=== PATIENT | male | born 1945 ===

== ENCOUNTER 2018-09-03 01:22 | Inpatient (IN) | payer MEDICARE ==
--- NOTE | 2018-09-03 01:24 | C.PDOC ---
History Of Present Illness Patient presents with shortness of breath and chest pain since this afternoon, No f/c/n/v. Medics did ekg which showed st elevation in anterior leads. patient speaking in 1-2 word sentences. Chest pain , squeezing, tightness, .Some back pain. Very short of breath Time Seen by Provider: 09/03/18 01:23 History Per: Family History/Exam Limitations: clinical condition Onset/Duration Of Symptoms: Hrs Current Symptoms Are (Timing): Worse Context: Other Severity: Severe Pain Scale Rating Of: 9 Quality: Sharp, Tightness, Pressure Associated Symptoms: Dyspnea Modifying Factors: None Alleviating Factors: None Recent travel outside of the [place]: No Past Medical History Reviewed: Historical Data, Nursing Documentation, Vital Signs Family History: States: No Known Family Hx Review Of Systems Constitutional: Negative for: Fever, Chills Eyes: Negative for: Vision Change ENT: Negative for: Throat Pain Cardiovascular: Positive for: Chest Pain, Palpitations Respiratory: Positive for: Shortness of Breath, SOB with Excertion Gastrointestinal: Negative for: Nausea, Vomiting, Abdominal Pain Genitourinary: Negative for: Dysuria Skin: Negative for: Rash Neurological: Negative for: Weakness Psych: Positive for: Anxiety Physical Exam - Physical Exam Appears: In Acute Distress Skin: Warm, Dry Head: Normacephalic Eye(s): bilateral: Normal Inspection Oral Mucosa: Moist Neck: Supple Chest: Symmetrical Cardiovascular: Rhythm Regular (tachy) Respiratory: Decreased Breath Sounds, Rales, Rhonchi, Wheezing (few) Gastrointestinal/Abdominal: Soft, No Tenderness, No Distention Back: Normal Inspection Extremity: Normal ROM Extremity: Bilateral: Atraumatic Pulses: Left Dorsalis Pedis: Normal, Right Dorsalis Pedis: Normal Neurological/Psych: Oriented x3 Gait: Unable To Assess ED Course And Treatment - Laboratory Results Result Diagrams: 09/03/18 01:40 ECG: Interpreted By Me, Viewed By Me ECG Rhythm: Sinus Tachycardia (151), ST/T Changes (elaevation millie lat) O2 Sat by Pulse Oximetry: 92 Pulse Ox Interpretation: Abnormal - Radiology CXR: Interpreted by Me, Viewed By Me CXR Interpretation: Yes: Other (chf). No: Infiltrates, Fracture, Cardiomegaly Progress Note: 1:28 AM send ekg to dr castaneda- steve loco md. 1:32 [facility] called. 1:43 am pt feels slightly better. 99 % sat on bipap. 1:58 pt had runs of bigeminy. stable Critical Care Time - Critical Care Note Total Time (in mins): 30 Documented critical care: time excludes all time spent performing seperately billable procedures. Disposition Counseled Patient/Family Regarding: Studies Performed, Diagnosis - Disposition Disposition: HOSPITALIZED Disposition Time: 01:23 Condition: CRITICAL - Clinical Impression Clinical Impression: Respiratory distress
[2018-09-03] MEDS ORDERED: Heparin25000 units/250ml 1/2NS 25,000 UNITS/250 ML BAG IV ONE (01:39)
[2018-09-03 01:58] LABS: BASO # 0.1 K/uL (0.0-0.2); EOS # 0.2 K/uL (0.0-0.7); EOS % 1.3 % (0.0-4.0); HEMOGLOBIN 18.5 g/dL (12.0-18.0); LYMPH # 3.7 K/uL (1.0-4.3); MEAN CELL VOLUME 93.7 fL (80.0-94.0); MEAN CORPUSCULAR HEMOGLOBIN 30.7 pg (27.0-31.0); MEAN CORPUSCULAR HGB CONC 32.8 g/dL (33.0-37.0); MEAN PLATELET VOLUME 9.4 fL (7.2-11.7); MONO # 0.8 K/uL (0.0-0.8); MONO % 6.3 % (0.0-10.0); NEUT # 7.5 K/uL (1.8-7.0); NEUT % 61.4 % (50.0-75.0); PROTHROMBIN TIME 11.1 SECONDS (9.7-12.2); RBC 6.04 Mil/uL (4.40-5.90); RED CELL DISTRIBUTION WIDTH 14.1 % (11.5-14.5); WHITE BLOOD COUNT 12.2 K/uL (4.8-10.8)
[2018-09-03 02:07] LABS: ABG ALLEN TEST POS; ARTERIAL BLOOD GAS HCO3 18.7 mmol/L (21-28); ARTERIAL BLOOD GAS O2 SAT 99.5 % (95-98); ARTERIAL BLOOD GAS PCO2 45 mm/Hg (35-45); ARTERIAL BLOOD GAS PH 7.24 (7.35-7.45); ARTERIAL BLOOD GAS PO2 165 mm/Hg (80-100); ARTERIAL BLOOD GAS TCO2 20.7 mmol/L (22-28)
[2018-09-03] MEDS ORDERED: Midazolam 2 MG/2 ML VIAL ONE (02:15)
[2018-09-03 02:21] LABS: BLOOD UREA NITROGEN 20 mg/dL (9-20); CALCIUM 9.7 mg/dl (8.6-10.4); GFR NON-AFRICAN AMERICAN 50
[2018-09-03 02:22] LABS: ALB/GLOB RATIO 1.4 (1.0-2.1); ALBUMIN 4.5 g/dL (3.5-5.0); ALT/SGPT 59 U/L (21-72); AST/SGOT 120 U/L (17-59)
[2018-09-03] MEDS ORDERED: Etomidate 20 mg/10ml Inj IV ONE (02:32)
[2018-09-03] MEDS ORDERED: Rocuronium 10 mg/ml (5 ml) ONE ×2 (02:33→03:01)
[2018-09-03] MEDS ORDERED: Iodixanol 320 MG/ML 200 ML BOTTLE IV ONE (02:38)
[2018-09-03] MEDS ORDERED: Nitroglycerin 50mg in D5W 50 MG/250 ML BOTTLE IV ONE (02:49)
[2018-09-03] MEDS ORDERED: Propofol 10 mg/ml 1,000 MG/100 ML VIAL IV PRN (02:49)
[2018-09-03] MEDS ORDERED: Propofol 10 mg/ml Inj (20 ML) ONE (02:51)
--- NOTE | 2018-09-03 03:06 | CP.CCUPN ---
CCU Subjective - Physician Review Subjective (Free Text): 09/03/18 03:25 The patient was Seen and examined by me at the bedside, Medical records reviewed and Management issues were discussed and formulated with the house staff. Events reviewed 73 Years old Male presenting to the Emergency department with shortness of breath and chest pain since this afternoon, On route to [facility], [place] EKG showed ST elevation in anterior leads. In the ER Pt Complaining of chest pain, tightness CXR with extensive Pulmonary edema and Labs revealed metabolic acidosis and elevated BG He received 20 mg IV Lasix 1:32 Code heart called, Patient taken to laborer. During the procedure he was in respiratry distress due to acute pulmonary edema Required intubation Patient required sedations and Neuromuscular-blocking drugs Started on dopamine drip for borderline BP and inotropic support Also Balloon pump placed for cardiogenic shock Pt admitted to the ICU sedated and orally intubated Successful Mid LAD intervention with Balloon angioplasty On versed and fentanlyl sedations Heparin drip and Insulin drip started in ICU L Main: Patent LAD/Diags; Small caliber artery. Entire LAD has diffuse 90% calcific narrowing. Mid 100% occlusion L Cx/OM: Dominant: Proximal 85%, OM2 99% RCA: Non dominant and diffuse 99% disease LV: EF 10-15%, Dilated ischemic CMP, No Critical Care Time Spent (in minutes): 45 CCU Objective - Vital Signs / Intake & Output Vital Signs (Last 4 hours): Vital Signs Temp Pulse Resp BP Pulse Ox 09/03/18 02:22 92 L 09/03/18 01:58 98.7 F 123 H 20 155/79 H 100 09/03/18 01:54 126 H 28 H 159/99 H 100 09/03/18 01:46 98 F 132 H 28 H 168/103 H 100 09/03/18 01:30 22 95 09/03/18 01:25 152 H 28 H 92 L Intake and Output (Last 8hrs): Intake & Output 09/02/18 09/02/18 09/03/18 14:59 22:59 06:59 Weight 140 lb - Physical Exam Head: Positive for: Atraumatic, Normocephalic Pupils: Positive for: PERRL Extroacular Muscles: Positive for: EOMI Conjunctiva: Positive for: Normal. Negative for: Injected, Icteric Ears: Positive for: Normal Mouth: Positive for: Moist Mucous Membranes Pharnyx: Positive for: Normal Nose (Internal): Positive for: Normal Inspection Neck: Positive for: Normal Range of Motion, Trachea Midline. Negative for: Meningeal Signs, MIDLINE TENDERNESS, Paraspinal Tenderness, JVD, Lymphadenopathy, Bruit, Other Cardiovascular: Positive for: Regular Rate and Rhythm, Normal S1, S2, Peripheal Pulses Present, Tachycardic. Negative for: Murmurs, Irregular Rhythm Abdomen: Positive for: Normal Bowel Sounds. Negative for: Tenderness, Distention, Peritoneal Signs Upper Extremity: Positive for: Normal Inspection, Capillary Refill < 2s. Negative for: Cyanosis, Edema Lower Extremity: Positive for: Normal Inspection, Edema - Medications Active Medications: Active Medications Generic Name Dose Route Start Last Admin Trade Name Freq PRN Reason Stop Dose Admin Fentanyl 100 mcg 09/03/18 03:01 Fentanyl IVP 09/03/18 03:02 ONCE ONE Heparin Sodium/Sodium Chloride 25,000 units in 250 mls @ 10 mls/hr 09/03/18 01:39 09/03/18 01:39 Heparin 63395 Units/250ml 1/2 Normal Saline IV 09/04/18 01:38 10 mls/hr .Q24H ONE Administration Protocol Propofol 1,000 mg in 100 mls @ 1.905 mls/hr 09/03/18 02:49 Diprivan IV .Q24H PRN TITRATE PER MD ORDER Protocol 5 MCG/KG/MIN Midazolam HCl 100 mg/ Sodium 100 mls @ 2 mls/hr 09/03/18 03:15 Chloride IV .Q24H STEPHANIE Protocol 2 MG/HR - Patient Studies Lab Studies: Lab Studies 09/03/18 09/03/18 09/03/18 Range/Units 02:00 01:55 01:40 WBC (4.8-10.8) K/uL RBC (4.40-5.90) Mil/uL Hgb (12.0-18.0) g/dL Hct (35.0-51.0) % MCV (80.0-94.0) fL MCH (27.0-31.0) pg MCHC (33.0-37.0) g/dL RDW (11.5-14.5) % Plt Count (130-400) K/uL MPV (7.2-11.7) fL Neut % (Auto) (50.0-75.0) % Lymph % (Auto) (20.0-40.0) % [place] % (Auto) (0.0-10.0) % Eos % (Auto) (0.0-4.0) % Baso % (Auto) (0.0-2.0) % Neut # (Auto) (1.8-7.0) K/uL Lymph # (Auto) (1.0-4.3) K/uL [place] # (Auto) (0.0-0.8) K/uL Eos # (Auto) (0.0-0.7) K/uL Baso # (Auto) (0.0-0.2) K/uL PT (9.7-12.2) SECONDS INR APTT (21-34) SECONDS Puncture Site Rr pCO2 45 (35-45) mm/Hg pO2 165 H (80-100) mm/Hg HCO3 18.7 L (21-28) mmol/L ABG pH 7.24 L (7.35-7.45) ABG Total CO2 20.7 L (22-28) mmol/L ABG O2 Saturation 99.5 H (95-98) % ABG Base Excess -8.0 L (-2.0-3.0) mmol/L [place]den Test Pos ABG Potassium 4.3 (3.6-5.2) mmol/L A-a O2 Difference 492.0 mm/Hg Respiratory Index 3.0 Glucose > 750 H* (75-110) mg/dl Lactate 5.0 H* (0.7-2.1) mmol/L Vent Mode Bipap FiO2 100.0 % Inspiratory BiPAP 12 Expiratory BiPAP 6 Crit Value Called To Dr. alfaro Crit Value Called By Ludwin necktie maker Crit Value Read Back Y Blood Gas Notified Time 207 Sodium 136.0 136 (132-148) mmol/L Potassium 4.6 (3.6-5.2) mmol/L Chloride 97.0 L 98 (98-107) mmol/L Carbon Dioxide 20 L (22-30) mmol/L Anion Gap 23 H (10-20) BUN 20 (9-20) mg/dL Creatinine 1.4 (0.8-1.5) mg/dL Est GFR ( Amer) > 60 Est GFR (Non-Af Amer) 50 Random Glucose 662 H* (75-110) mg/dL Calcium 9.7 (8.6-10.4) mg/dl Total Bilirubin 1.1 (0.2-1.3) mg/dL AST 120 H (17-59) U/L ALT 59 (21-72) U/L Alkaline Phosphatase 142 H (38-126) U/L Troponin I 5.9900 H* (0.00-0.120) ng/mL Total Protein 7.7 (6.3-8.3) g/dL Albumin 4.5 (3.5-5.0) g/dL Globulin 3.3 (2.2-3.9) gm/dL Albumin/Globulin Ratio 1.4 (1.0-2.1) Arterial Blood Potassium 4.3 (3.6-5.2) mmol/L Blood Type O POSITIVE Antibody Screen Negative 09/03/18 09/03/18 Range/Units 01:40 01:40 WBC 12.2 H (4.8-10.8) K/uL RBC 6.04 H (4.40-5.90) Mil/uL Hgb 18.5 H (12.0-18.0) g/dL Hct 56.6 H (35.0-51.0) % MCV 93.7 (80.0-94.0) fL MCH 30.7 (27.0-31.0) pg MCHC 32.8 L (33.0-37.0) g/dL RDW 14.1 (11.5-14.5) % Plt Count 297 (130-400) K/uL MPV 9.4 (7.2-11.7) fL Neut % (Auto) 61.4 (50.0-75.0) % Lymph % (Auto) 30.0 (20.0-40.0) % [place] % (Auto) 6.3 (0.0-10.0) % Eos % (Auto) 1.3 (0.0-4.0) % Baso % (Auto) 1.0 (0.0-2.0) % Neut # (Auto) 7.5 H (1.8-7.0) K/uL Lymph # (Auto) 3.7 (1.0-4.3) K/uL Valley # (Auto) 0.8 (0.0-0.8) K/uL Eos # (Auto) 0.2 (0.0-0.7) K/uL Baso # (Auto) 0.1 (0.0-0.2) K/uL PT 11.1 (9.7-12.2) SECONDS INR 1.0 APTT 45 H (21-34) SECONDS Puncture Site pCO2 (35-45) mm/Hg pO2 (80-100) mm/Hg HCO3 (21-28) mmol/L ABG pH (7.35-7.45) ABG Total CO2 (22-28) mmol/L ABG O2 Saturation (95-98) % ABG Base Excess (-2.0-3.0) mmol/L [place]den Test ABG Potassium (3.6-5.2) mmol/L A-a O2 Difference mm/Hg Respiratory Index Glucose (75-110) mg/dl Lactate (0.7-2.1) mmol/L Vent Mode FiO2 % Inspiratory BiPAP Expiratory BiPAP Crit Value Called To Crit Value Called By Crit Value Read Back Blood Gas Notified Time Sodium (132-148) mmol/L Potassium (3.6-5.2) mmol/L Chloride (98-107) mmol/L Carbon Dioxide (22-30) mmol/L Anion Gap (10-20) BUN (9-20) mg/dL Creatinine (0.8-1.5) mg/dL Est GFR ( Amer) Est GFR (Non-Af Amer) Random Glucose (75-110) mg/dL Calcium (8.6-10.4) mg/dl Total Bilirubin (0.2-1.3) mg/dL AST (17-59) U/L ALT (21-72) U/L Alkaline Phosphatase (38-126) U/L Troponin I (0.00-0.120) ng/mL Total Protein (6.3-8.3) g/dL Albumin (3.5-5.0) g/dL Globulin (2.2-3.9) gm/dL Albumin/Globulin Ratio (1.0-2.1) Arterial Blood Potassium (3.6-5.2) mmol/L Blood Type Antibody Screen Laboratory Results - last 24 hr 09/03/18 09/03/18 09/03/18 01:40 01:40 01:40 WBC 12.2 H RBC 6.04 H Hgb 18.5 H Hct 56.6 H MCV 93.7 MCH 30.7 MCHC 32.8 L RDW 14.1 Plt Count 297 MPV 9.4 Neut % (Auto) 61.4 Lymph % (Auto) 30.0 Valley % (Auto) 6.3 Eos % (Auto) 1.3 Baso % (Auto) 1.0 Neut # (Auto) 7.5 H Lymph # (Auto) 3.7 Valley # (Auto) 0.8 Eos # (Auto) 0.2 Baso # (Auto) 0.1 PT 11.1 INR 1.0 APTT 45 H Puncture Site pCO2 pO2 HCO3 ABG pH ABG Total CO2 ABG O2 Saturation ABG Base Excess Arden Test ABG Potassium A-a O2 Difference Respiratory Index Glucose Lactate Vent Mode FiO2 Inspiratory BiPAP Expiratory BiPAP Crit Value Called To Crit Value Called By Crit Value Read Back Blood Gas Notified Time Sodium 136 Potassium 4.6 Chloride 98 Carbon Dioxide 20 L Anion Gap 23 H BUN 20 Creatinine 1.4 Est GFR ( Amer) > 60 Est GFR (Non-Af Amer) 50 Random Glucose 662 H* Calcium 9.7 Total Bilirubin 1.1 AST 120 H ALT 59 Alkaline Phosphatase 142 H Troponin I 5.9900 H* Total Protein 7.7 Albumin 4.5 Globulin 3.3 Albumin/Globulin Ratio 1.4 Arterial Blood Potassium Blood Type Antibody Screen 09/03/18 09/03/18 01:55 02:00 WBC RBC Hgb Hct MCV MCH MCHC RDW Plt Count MPV Neut % (Auto) Lymph % (Auto) Valley % (Auto) Eos % (Auto) Baso % (Auto) Neut # (Auto) Lymph # (Auto) [place] # (Auto) Eos # (Auto) Baso # (Auto) PT INR APTT Puncture Site Rr pCO2 45 pO2 165 H HCO3 18.7 L ABG pH 7.24 L ABG Total CO2 20.7 L ABG O2 Saturation 99.5 H ABG Base Excess -8.0 L Arden Test Pos ABG Potassium 4.3 A-a O2 Difference 492.0 Respiratory Index 3.0 Glucose > 750 H* Lactate 5.0 H* Vent Mode Bipap FiO2 100.0 Inspiratory BiPAP 12 Expiratory BiPAP 6 Crit Value Called To Dr. alfaro Crit Value Called By Ludwin necktie maker Crit Value Read Back Y Blood Gas Notified Time 207 Sodium 136.0 Potassium Chloride 97.0 L Carbon Dioxide Anion Gap BUN Creatinine Est GFR ( Amer) Est GFR (Non-Af Amer) Random Glucose Calcium Total Bilirubin AST ALT Alkaline Phosphatase Troponin I Total Protein Albumin Globulin Albumin/Globulin Ratio Arterial Blood Potassium 4.3 Blood Type O POSITIVE Antibody Screen Negative EKG/Cardiology Studies: Cardiology / EKG Studies 09/03/18 01:33 ELECTROCARDIOGRAM Stat Comment: Mode Of Transportation: BED Reason For Exam: chest pain Review of Systems - Review of Systems Systems not reviewed;Unavailable: Intubated Critical Care Progress Note - Ventilator Checklist Head of Bed 30 Degrees: Yes Daily Sedation Vacation: Yes Daily Assessment of Readiness to Wean: Yes Daily Spontaneous Breathing Trial: Yes PUD Prophalyxis: Yes DVT Prophylaxis: Yes Oral Care with Chlorhexidine Gluconate {CHG}: Yes - Extremities/Vascular Does the Patient have a Central Venous Catheter?: Yes Does the Patient need a Central Venous Catheter?: Yes Does the Patient have a Goetz Catheter?: Yes Does the Patient need a Goetz Catheter?: Yes Assessment/Plan (1) Acute ST elevation myocardial infarction (STEMI) of anterior wall Current Visit: Yes Status: Acute Priority: High (2) Respiratory distress Current Visit: Yes Status: Acute Priority: High (3) Acute pulmonary edema Current Visit: Yes Status: Acute Priority: High (4) Hyperosmolar hyperglycemic coma due to diabetes mellitus without ketoacidosis Current Visit: Yes Status: Acute Priority: High - Assessment and Plan (Free Text) Assessment: Acute interior wall STEMI Cardiogenic shock Hyperosmolar hyperglycemic state ICU care for hemodynamic, cardiac and Respiratory monitoring Full vent support Post intubation CXR, ABG, Acchu check Q 1H while on insulin Wean off FIO2 Ballon pump and Dopamine drip for inotropic support ECHO today Trend Trops Heparin drip, Monitor PTT insulin drip at 6U /U till AG closed ASA, Brilinta, Crestor Gentle diuresis, Optimize fluid status Strict I&O, Negative fluid balance Monitor renal function and urine output Goetz placed for accurate I&O for the critically sick patient Discussed with the brother diagnosis, treatment plans and alternatives. Full code Total critical care time 45 minutes
[2018-09-03] MEDS ORDERED: DOPamine 400mg/250ml D5W 400 MG/250 ML BAG IV ONE (03:11)
--- NOTE | 2018-09-03 03:19 | PCM.ANES ---
Anesthesia Emergent Intubation - Diagnosis Working Diagnosis:: IL -Code heart - Consult Reason for Consult:: respiratory distress - Intubation Attempts Previous Number of Intubation Attempts:: 0 - Pre-Intubation Vital Signs Blood Pressure: 121/78 Heart Rate: 121 Respiratory Rate: 30 O2 Sat: 99 FIO2: 100 Oxygen Delivery Method: Ambu-Bag Level Of Consciousness: Awake, Awake/Alert/Oriented x 3 Intubation Meds Given: Etomidate, Succinylcholine - Airway Management Inhalation: Yes Rapid Sequence: Yes Cricoid Pressure: Yes Possible Aspiration: No (pharynx clean leonel secretions) - Method of Intubation Intubation Method: Oral ETT ETT Size: 7.0 Lipline@: 22 cm Easy: Yes Atramatic: Yes (first attempt) - Intubation Devices [place] Scope Used: Yes - Placement Confirmation Breath Sounds Present & Equal Bilaterally: Yes Gurgling Sounds Not Audible at Epigastrum: Yes Positive EtCO2: Yes Portable CXR: No (recommended once procedure is completed) Recommendations: Ventilator - Post-Intubation Vital Signs Blood Pressure: 120/70 Heart Rate: 121 Respiratory Rate: 20 O2 Sat: 99 FIO2: 100
--- NOTE | 2018-09-03 03:26 | PCM.ANES ---
Anesthesia Emergent Intubation - Diagnosis Working Diagnosis:: HI code heart - Consult Reason for Consult:: respiratory distress - Intubation Attempts Previous Number of Intubation Attempts:: 0 - Pre-Intubation Vital Signs Blood Pressure: 121/71 Heart Rate: 121 Respiratory Rate: 30 O2 Sat: 99 FIO2: 100 Oxygen Delivery Method: Ambu-Bag Level Of Consciousness: Awake Intubation Meds Given: Etomidate, Succinylcholine - Airway Management Oropharyngeal Area Suctioned: No (pharynx clean no secretions) Inhalation: Yes Rapid Sequence: Yes Cricoid Pressure: Yes Possible Aspiration: No - Method of Intubation Intubation Method: Oral ETT ETT Size: 7.0 Lipline@: 22 cm Easy: Yes Atramatic: Yes (first attempt) - Intubation Devices [place] Scope Used: Yes - Placement Confirmation Breath Sounds Present & Equal Bilaterally: Yes Gurgling Sounds Not Audible at Epigastrum: Yes Positive EtCO2: Yes Portable CXR: No (recommended once procedure is done) Recommendations: Ventilator - Post-Intubation Vital Signs Blood Pressure: 120/70 Heart Rate: 120 Respiratory Rate: 20 O2 Sat: 100 FIO2: 100
--- NOTE | 2018-09-03 03:38 | CP.PCM.CON ---
History of Present Illness - History of Present Illness History of Present Illness: 73 male presented to [facility] with Acute Anterior wall LA and pulmonary edema Required intubation in the laboratory aide L Main: Patent LAD/Diags; Small caliber artery. Entire LAD has diffuse 90% calcific narrowing. Mid 100% occlusion L Cx/OM: Dominant: Proximal 85%, OM2 99% RCA: Non dominant and diffuse 99% disease LV: EF 10-15%, Dilated ischemic CMP, No A/P: Diffuse calcific severe Triple vessel disease. Not good targets for CABG Successful Mid LAD intervention with Balloon angioplasty Artery too small caliber to stent Patient intubated on Balloon pump and Dopamine drip Recommendsations: Heparin IV drip with protocol Dopamine drip for inotropic effect for 2 days Brilinta 90 bid, ASA 81 daily, Crestor 40QHS 2 D ECHO Monitor labs and Trops Complete bed rest Hand mittens Will follow Possible L Cx intervention in 1-2 weeks Past Patient History - Past Social History Smoking Status: Never Smoked - ENDOCRINE/METABOLIC Hx Endocrine Disorders: Yes Hx Diabetes Mellitus Type 2: Yes (not taking any medications) - PSYCHIATRIC Hx Substance Use: No - SURGICAL HISTORY Hx Surgeries: No Meds Allergies/Adverse Reactions: Allergies Allergy/AdvReac Type Severity Reaction Status Date / Time No Known Allergies Allergy Verified 09/03/18 01:29 - Medications Medications: Current Medications Heparin Sodium/Sodium Chloride (Heparin 95461 Units/250ml 1/2 Normal Saline) 25,000 units in 250 mls @ 10 mls/hr IV .Q24H ONE; Protocol Stop: 09/04/18 01:38 Last Admin: 09/03/18 01:39 Dose: 10 mls/hr Propofol (Diprivan) 1,000 mg in 100 mls @ 1.905 mls/hr IV .Q24H PRN; Protocol PRN Reason: TITRATE PER MD ORDER Midazolam HCl 100 mg/ Sodium (Chloride) 100 mls @ 2 mls/hr IV .Q24H STEPHANIE; Protocol Fentanyl Citrate 2,500 mcg/ (Sodium Chloride) 250 mls @ 6.35 mls/hr IV .Q24H STEPHANIE; Protocol Results - Vital Signs Recent Vital Signs: Last Vital Signs Temp 98.7 F 09/03/18 01:58 Pulse 121 H 09/03/18 03:28 Resp 30 H 09/03/18 03:28 BP 121/71 09/03/18 03:28 Pulse Ox 99 09/03/18 03:28 - Labs Result Diagrams: 09/03/18 01:40 09/03/18 01:40 Labs: Laboratory Results - last 24 hr 09/03/18 09/03/18 09/03/18 01:40 01:40 01:40 WBC 12.2 H RBC 6.04 H Hgb 18.5 H Hct 56.6 H MCV 93.7 MCH 30.7 MCHC 32.8 L RDW 14.1 Plt Count 297 MPV 9.4 Neut % (Auto) 61.4 Lymph % (Auto) 30.0 [place] % (Auto) 6.3 Eos % (Auto) 1.3 Baso % (Auto) 1.0 Neut # (Auto) 7.5 H Lymph # (Auto) 3.7 [place] # (Auto) 0.8 Eos # (Auto) 0.2 Baso # (Auto) 0.1 PT 11.1 INR 1.0 APTT 45 H Puncture Site pCO2 pO2 HCO3 ABG pH ABG Total CO2 ABG O2 Saturation ABG Base Excess Arden Test ABG Potassium A-a O2 Difference Respiratory Index Glucose Lactate Vent Mode FiO2 Inspiratory BiPAP Expiratory BiPAP Crit Value Called To Crit Value Called By Crit Value Read Back Blood Gas Notified Time Sodium 136 Potassium 4.6 Chloride 98 Carbon Dioxide 20 L Anion Gap 23 H BUN 20 Creatinine 1.4 Est GFR ( Amer) > 60 Est GFR (Non-Af Amer) 50 Random Glucose 662 H* Calcium 9.7 Total Bilirubin 1.1 AST 120 H ALT 59 Alkaline Phosphatase 142 H Troponin I 5.9900 H* Total Protein 7.7 Albumin 4.5 Globulin 3.3 Albumin/Globulin Ratio 1.4 Arterial Blood Potassium Blood Type Antibody Screen 09/03/18 09/03/18 01:55 02:00 WBC RBC Hgb Hct MCV MCH MCHC RDW Plt Count MPV Neut % (Auto) Lymph % (Auto) [place] % (Auto) Eos % (Auto) Baso % (Auto) Neut # (Auto) Lymph # (Auto) [place] # (Auto) Eos # (Auto) Baso # (Auto) PT INR APTT Puncture Site Rr pCO2 45 pO2 165 H HCO3 18.7 L ABG pH 7.24 L ABG Total CO2 20.7 L ABG O2 Saturation 99.5 H ABG Base Excess -8.0 L [place]den Test Pos ABG Potassium 4.3 A-a O2 Difference 492.0 Respiratory Index 3.0 Glucose > 750 H* Lactate 5.0 H* Vent Mode Bipap FiO2 100.0 Inspiratory BiPAP 12 Expiratory BiPAP 6 Crit Value Called To Dr. alfaro Crit Value Called By Ludwin assembly member Crit Value Read Back Y Blood Gas Notified Time 207 Sodium 136.0 Potassium Chloride 97.0 L Carbon Dioxide Anion Gap BUN Creatinine Est GFR ( Amer) Est GFR (Non-Af Amer) Random Glucose Calcium Total Bilirubin AST ALT Alkaline Phosphatase Troponin I Total Protein Albumin Globulin Albumin/Globulin Ratio Arterial Blood Potassium 4.3 Blood Type O POSITIVE Antibody Screen Negative
[2018-09-03] MEDS ORDERED: Insulin Human Regular 100 UNIT in Sodium Chloride 0.9% 99 ML IV SCH ×3 (04:00→08:44)
[2018-09-03] MEDS: Midazolam 50 mg/10 ml 100 MG in Sodium Chloride 0.9% 80 ML IV SCH ×2 (04:29→23:23)
[2018-09-03 05:42] LABS: ARTERIAL BLOOD GAS HCO3 20.6 mmol/L (21-28); ARTERIAL BLOOD GAS O2 SAT 95.3 % (95-98); ARTERIAL BLOOD GAS PCO2 44 mm/Hg (35-45); ARTERIAL BLOOD GAS PH 7.29 (7.35-7.45); ARTERIAL BLOOD GAS PO2 69 mm/Hg (80-100); ARTERIAL BLOOD GAS TCO2 22.6 mmol/L (22-28)
[2018-09-03 05:54] LABS: URINE BILIRUBIN NEGATIVE (NEGATIVE); URINE CLARITY Clear (Clear); URINE COLOR Colorless (YELLOW); URINE GLUCOSE (UA) 3+ mg/dL (Normal); URINE LEUKOCYTE ESTERASE NEG Leu/uL (Negative); URINE PROTEIN NEGATIVE (NEGATIVE); URINE UROBILINOGEN NORMAL mg/dL (0.2-1.0)
[2018-09-03 06:09] LABS: URINE BLOOD TRACE (NEGATIVE)
[2018-09-03 08:14] LABS: BASO % 0.2 % (0.0-2.0); HEMOGLOBIN 18.7 g/dL (12.0-18.0); LYMPH # 1.1 K/uL (1.0-4.3); MEAN CORPUSCULAR HEMOGLOBIN 30.5 pg (27.0-31.0); MEAN CORPUSCULAR HGB CONC 33.4 g/dL (33.0-37.0); MEAN PLATELET VOLUME 9.2 fL (7.2-11.7); MONO # 1.5 K/uL (0.0-0.8); MONO % 7.9 % (0.0-10.0); NEUT # 15.8 K/uL (1.8-7.0); NEUT % 85.9 % (50.0-75.0); PLATELET COUNT 284 K/uL (130-400); RBC 6.12 Mil/uL (4.40-5.90); RED CELL DISTRIBUTION WIDTH 14.5 % (11.5-14.5)
[2018-09-03 08:29] LABS: CK-MB 73.9 ng/mL (0.0-3.38)
[2018-09-03 08:31] LABS: MEAN CELL VOLUME 91.2 fL (80.0-94.0); WHITE BLOOD COUNT 18.4 K/uL (4.8-10.8)
[2018-09-03] MEDS: (Novolin R) Insulin Human Regular 100 units/ml vial SC SCH ×5 (08:48→20:19)
[2018-09-03] MEDS ORDERED: DOPamine 400mg/250ml D5W 400 MG/250 ML BAG IV PRN (09:04)
[2018-09-03 09:11] LABS: ALB/GLOB RATIO 1.3 (1.0-2.1); ALBUMIN 4.2 g/dL (3.5-5.0); ALT/SGPT 57 U/L (21-72); AST/SGOT 265 U/L (17-59); BLOOD UREA NITROGEN 22 mg/dL (9-20); CALCIUM 9.4 mg/dl (8.6-10.4); GFR NON-AFRICAN AMERICAN 54
[2018-09-03 09:36] LABS: LYMPHOCYTE 5 % (20-40); MONOCYTE 9 % (0-10); NEUTROPHIL 86 % (50-75); PLATELET ESTIMATE NORMAL (NORMAL); TOTAL CELLS COUNTED 100
--- NOTE | 2018-09-03 10:14 | RAD ---
Chest x-ray single frontal view HISTORY: Chest pain. Comparison: None available. Findings: Prominent diffuse increased consolidative changes with pleural parenchymal opacities bilaterally. Clinical correlation. Biapical pleural thickening. Punctate nodular density at the right lung apex. Atherosclerotic calcification at the aortic knob. Mild cardiomegaly. Degenerative changes in the spine. Impression: Prominent diffuse increased consolidative changes with pleural parenchymal opacities bilaterally. Clinical correlation. Biapical pleural thickening. Punctate nodular density at the right lung apex. Atherosclerotic calcification at the aortic knob. Mild cardiomegaly.
--- NOTE | 2018-09-03 10:27 | RAD ---
Chest x-ray single frontal view HISTORY: Post intubation. Comparison: 09/03/2018 Findings: Endotracheal tube extending into the midthoracic trachea. Dense consolidative pleural-parenchymal opacities throughout both lungs; right greater than left. Small bilateral pleural effusions. Relative lucency at the right costophrenic angle which may be exaggerated by patient positioning. Bilateral hilar prominence. Cardiomegaly. Degenerative changes in the spine and shoulders. Impression: Endotracheal tube extending into the midthoracic trachea. Dense consolidative pleural-parenchymal opacities throughout both lungs; right greater than left. Small bilateral pleural effusions. Relative lucency at the right costophrenic angle which may be exaggerated by patient positioning. Bilateral hilar prominence. Cardiomegaly.
[2018-09-03] MEDS: Phenylephrine 30 MG in Sodium Chloride 0.9% 250 ML IV PRN ×4 (13:03→23:25)
--- NOTE | 2018-09-03 15:29 | CP.CCUPN ---
<Nate Aden - Last Filed: 09/03/18 18:45> CCU Subjective - Physician Review Subjective (Free Text): 09/03/18 08:33 Patient seen and examined at bedside. Patient is sedated on Midazolam drip and fentanyl drip. Patient is intubated on PVRC. Critical Care Time Spent (in minutes): 35 CCU Objective - Vital Signs / Intake & Output Vital Signs (Last 4 hours): Vital Signs Pulse BP Pulse Ox 09/03/18 13:30 105 H 98 09/03/18 13:28 105 H 131/84 99 09/03/18 13:18 105 H 128/75 99 09/03/18 13:08 110 H 136/84 99 09/03/18 13:03 115 H 98/43 L 09/03/18 13:00 118 H 98 09/03/18 12:58 118 H 134/80 98 09/03/18 12:48 110 H 130/75 99 09/03/18 12:38 112 H 132/84 99 09/03/18 12:30 116 H 98 09/03/18 12:28 117 H 126/68 98 09/03/18 12:18 117 H 124/58 L 98 09/03/18 12:08 115 H 136/82 99 09/03/18 12:00 116 H 99 09/03/18 11:58 117 H 139/90 99 09/03/18 11:48 119 H 129/81 98 09/03/18 11:38 117 H 131/74 99 09/03/18 11:30 117 H 99 Intake and Output (Last 8hrs): Intake & Output 09/03/18 09/03/18 09/03/18 06:59 14:59 22:59 Intake Total 196.2 640.2 Output Total 800 1575 Balance -603.8 -934.8 Weight 149 lb 14.629 oz Intake: IV 50 142 Intake, IV Amount 146.2 498.2 Left Antecubital 76.6 267.9 Left Wrist 10 70 Lt AC y-site 16.4 34.7 Right Hand 27.2 81.6 Right Wrist 12 35 Rt hand y-site 4 9 Oral 0 0 Output: Urine 800 1575 Urethral ([place]) 800 1575 Other: Voiding Method Indwelling Catheter # Bowel Movements 1 - Physical Exam Head: Positive for: Atraumatic, Normocephalic Pupils: Positive for: PERRL Extroacular Muscles: Positive for: EOMI Conjunctiva: Positive for: Normal. Negative for: Injected, Icteric Ears: Positive for: Normal Mouth: Positive for: Moist Mucous Membranes Pharnyx: Positive for: Normal Nose (Internal): Positive for: Normal Inspection Neck: Positive for: Normal Range of Motion, Trachea Midline. Negative for: Meningeal Signs, MIDLINE TENDERNESS, Paraspinal Tenderness, JVD, Lymphadenopathy, Bruit, Other Cardiovascular: Positive for: Regular Rate and Rhythm, Normal S1, S2, Peripheal Pulses Present, Tachycardic. Negative for: Murmurs, Irregular Rhythm Abdomen: Positive for: Normal Bowel Sounds. Negative for: Tenderness, Distention, Peritoneal Signs Upper Extremity: Positive for: Normal Inspection, Capillary Refill < 2s. Negative for: Cyanosis, Edema Lower Extremity: Positive for: Normal Inspection, Edema - Medications Active Medications: Active Medications Generic Name Dose Route Start Last Admin Trade Name Freq PRN Reason Stop Dose Admin Aspirin 81 mg 09/03/18 10:00 09/03/18 10:51 Ecotrin PO Not Given DAILY STEPHANIE Furosemide 40 mg 09/03/18 10:00 09/03/18 10:49 Lasix IVP Not Given BID [facility] Heparin Sodium/Sodium Chloride 25,000 units in 250 mls @ 10 mls/hr 09/03/18 01:39 09/03/18 12:23 Heparin 97867 Units/250ml 1/2 Normal Saline IV 09/04/18 01:38 0 mls/hr .Q24H ONE Titration Protocol Propofol 1,000 mg in 100 mls @ 1.905 mls/hr 09/03/18 02:49 Diprivan IV .Q24H PRN TITRATE PER MD ORDER Protocol 5 MCG/KG/MIN Midazolam HCl 100 mg/ Sodium 100 mls @ 2 mls/hr 09/03/18 03:15 09/03/18 04:29 Chloride IV 2 mg/hr .Q24H STEPHANIE 2 mls/hr Administration Protocol 2 MG/HR Fentanyl Citrate 2,500 mcg/ 250 mls @ 6.35 mls/hr 09/03/18 03:15 09/03/18 04:30 Sodium Chloride IV 2 mcg/kg/hr .Q24H STEPHANIE 12.7 mls/hr Administration Protocol 1 MCG/KG/HR Insulin Human Regular 100 unit 100 mls @ 6 mls/hr 09/03/18 08:44 09/03/18 13:04 / Sodium Chloride IV 0 u/hr .[id number] STEPHANIE 0 mls/hr Titration Protocol Phenylephrine HCl 30 mg/ 253 mls @ 10.12 mls/hr 09/03/18 11:59 09/03/18 13:03 Sodium Chloride IV 20 mcg/min .Q24H PRN 10.12 mls/hr TITRATE PER MD ORDER Administration Protocol 20 MCG/MIN Influenza Virus Vaccine 60 mcg 09/05/18 10:00 Fluzone Quad [id number] IM 09/05/18 10:01 .ONCE ONE Insulin Human Regular 0 unit 09/03/18 12:45 09/03/18 13:06 Novolin R SC Not Given Q4H STEPHANIE Protocol Pantoprazole Sodium 40 mg 09/03/18 10:00 09/03/18 10:51 Protonix Inj IVP 40 mg DAILY STEPHANIE Administration Pneumococcal Polyvalent Vaccine 0.5 ml 09/05/18 10:00 Pneumovax 23 Vaccine IM 09/05/18 10:01 .ONCE ONE Rosuvastatin Calcium 40 mg 09/03/18 22:00 Crestor PO HS STEPHANIE Ticagrelor 90 mg 09/03/18 10:00 09/03/18 12:23 Brilinta PO Not Given BID STEPHANIE - Patient Studies Lab Studies: Lab Studies 09/03/18 09/03/18 09/03/18 Range/Units 14:02 12:20 11:02 WBC (4.8-10.8) K/uL RBC (4.40-5.90) Mil/uL Hgb (12.0-18.0) g/dL Hct (35.0-51.0) % MCV (80.0-94.0) fL MCH (27.0-31.0) pg MCHC (33.0-37.0) g/dL RDW (11.5-14.5) % Plt Count (130-400) K/uL MPV (7.2-11.7) fL Neut % (Auto) (50.0-75.0) % Lymph % (Auto) (20.0-40.0) % [place] % (Auto) (0.0-10.0) % Eos % (Auto) (0.0-4.0) % Baso % (Auto) (0.0-2.0) % Neut # (Auto) (1.8-7.0) K/uL Lymph # (Auto) (1.0-4.3) K/uL [place] # (Auto) (0.0-0.8) K/uL Eos # (Auto) (0.0-0.7) K/uL Baso # (Auto) (0.0-0.2) K/uL Neutrophils % (Manual) (50-75) % Lymphocytes % (Manual) (20-40) % Monocytes % (Manual) (0-10) % Platelet Estimate (NORMAL) PT (9.7-12.2) SECONDS INR APTT (21-34) SECONDS Puncture Site pCO2 (35-45) mm/Hg pO2 (80-100) mm/Hg HCO3 (21-28) mmol/L ABG pH (7.35-7.45) ABG Total CO2 (22-28) mmol/L ABG O2 Saturation (95-98) % ABG Base Excess (-2.0-3.0) mmol/L Arden Test ABG Potassium (3.6-5.2) mmol/L A-a O2 Difference mm/Hg Respiratory Index Glucose (75-110) mg/dl Lactate (0.7-2.1) mmol/L Vent Mode Mechanical Rate FiO2 % Tidal Volume PEEP Inspiratory BiPAP Expiratory BiPAP Crit Value Called To Crit Value Called By Crit Value Read Back Blood Gas Notified Time Sodium (132-148) mmol/L Potassium (3.6-5.2) mmol/L Chloride (98-107) mmol/L Carbon Dioxide (22-30) mmol/L Anion Gap (10-20) BUN (9-20) mg/dL Creatinine (0.8-1.5) mg/dL Est GFR ( Amer) Est GFR (Non-Af Amer) POC Glucose (mg/dL) 229 H 199 H 215 H (65-110) mg/dL Random Glucose (75-110) mg/dL Calcium (8.6-10.4) mg/dl Phosphorus (2.5-4.5) mg/dL Magnesium (1.6-2.3) mg/dL Total Bilirubin (0.2-1.3) mg/dL AST (17-59) U/L ALT (21-72) U/L Alkaline Phosphatase (38-126) U/L Total Creatine Kinase (55-170) U/L CK-MB (Mass) (0.0-3.38) ng/mL Troponin I (0.00-0.120) ng/mL NT-Pro-B Natriuret Pep (0-900) pg/mL Total Protein (6.3-8.3) g/dL Albumin (3.5-5.0) g/dL Globulin (2.2-3.9) gm/dL Albumin/Globulin Ratio (1.0-2.1) Arterial Blood Potassium (3.6-5.2) mmol/L Urine Color (YELLOW) Urine Clarity (Clear) Urine pH (5.0-8.0) Ur Specific [place] (1.003-1.030) Urine Protein (NEGATIVE) mg/dL Urine Glucose (UA) (Normal) mg/dL Urine Ketones (NEGATIVE) mg/dL Urine Blood (NEGATIVE) Urine Nitrate (NEGATIVE) Urine Bilirubin (NEGATIVE) Urine Urobilinogen (0.2-1.0) mg/dL Ur Leukocyte Esterase (Negative) Dm/uL Urine WBC (Auto) (0-5) /hpf Urine RBC (Auto) (0-3) /hpf Blood Type Antibody Screen 09/03/18 09/03/18 09/03/18 Range/Units 10:01 09:03 07:59 WBC (4.8-10.8) K/uL RBC (4.40-5.90) Mil/uL Hgb (12.0-18.0) g/dL Hct (35.0-51.0) % MCV (80.0-94.0) fL MCH (27.0-31.0) pg MCHC (33.0-37.0) g/dL RDW (11.5-14.5) % Plt Count (130-400) K/uL MPV (7.2-11.7) fL Neut % (Auto) (50.0-75.0) % Lymph % (Auto) (20.0-40.0) % [place] % (Auto) (0.0-10.0) % Eos % (Auto) (0.0-4.0) % Baso % (Auto) (0.0-2.0) % Neut # (Auto) (1.8-7.0) K/uL Lymph # (Auto) (1.0-4.3) K/uL [place] # (Auto) (0.0-0.8) K/uL Eos # (Auto) (0.0-0.7) K/uL Baso # (Auto) (0.0-0.2) K/uL Neutrophils % (Manual) (50-75) % Lymphocytes % (Manual) (20-40) % Monocytes % (Manual) (0-10) % Platelet Estimate (NORMAL) PT (9.7-12.2) SECONDS INR APTT (21-34) SECONDS Puncture Site pCO2 (35-45) mm/Hg pO2 (80-100) mm/Hg HCO3 (21-28) mmol/L ABG pH (7.35-7.45) ABG Total CO2 (22-28) mmol/L ABG O2 Saturation (95-98) % ABG Base Excess (-2.0-3.0) mmol/L Arden Test ABG Potassium (3.6-5.2) mmol/L A-a O2 Difference mm/Hg Respiratory Index Glucose (75-110) mg/dl Lactate (0.7-2.1) mmol/L Vent Mode Mechanical Rate FiO2 % Tidal Volume PEEP Inspiratory BiPAP Expiratory BiPAP Crit Value Called To Crit Value Called By Crit Value Read Back Blood Gas Notified Time Sodium (132-148) mmol/L Potassium (3.6-5.2) mmol/L Chloride (98-107) mmol/L Carbon Dioxide (22-30) mmol/L Anion Gap (10-20) BUN (9-20) mg/dL Creatinine (0.8-1.5) mg/dL Est GFR ( Amer) Est GFR (Non-Af Amer) POC Glucose (mg/dL) 254 H 334 H 410 H* (65-110) mg/dL Random Glucose (75-110) mg/dL Calcium (8.6-10.4) mg/dl Phosphorus (2.5-4.5) mg/dL Magnesium (1.6-2.3) mg/dL Total Bilirubin (0.2-1.3) mg/dL AST (17-59) U/L ALT (21-72) U/L Alkaline Phosphatase (38-126) U/L Total Creatine Kinase (55-170) U/L CK-MB (Mass) (0.0-3.38) ng/mL Troponin I (0.00-0.120) ng/mL NT-Pro-B Natriuret Pep (0-900) pg/mL Total Protein (6.3-8.3) g/dL Albumin (3.5-5.0) g/dL Globulin (2.2-3.9) gm/dL Albumin/Globulin Ratio (1.0-2.1) Arterial Blood Potassium (3.6-5.2) mmol/L Urine Color (YELLOW) Urine Clarity (Clear) Urine pH (5.0-8.0) Ur Specific [place] (1.003-1.030) Urine Protein (NEGATIVE) mg/dL Urine Glucose (UA) (Normal) mg/dL Urine Ketones (NEGATIVE) mg/dL Urine Blood (NEGATIVE) Urine Nitrate (NEGATIVE) Urine Bilirubin (NEGATIVE) Urine Urobilinogen (0.2-1.0) mg/dL Ur Leukocyte Esterase (Negative) Dm/uL Urine WBC (Auto) (0-5) /hpf Urine RBC (Auto) (0-3) /hpf Blood Type Antibody Screen 09/03/18 09/03/18 09/03/18 Range/Units 07:51 07:51 07:51 WBC 18.4 H D (4.8-10.8) K/uL RBC 6.12 H (4.40-5.90) Mil/uL Hgb 18.7 H (12.0-18.0) g/dL Hct 55.8 H (35.0-51.0) % MCV 91.2 D (80.0-94.0) fL MCH 30.5 (27.0-31.0) pg MCHC 33.4 (33.0-37.0) g/dL RDW 14.5 (11.5-14.5) % Plt Count 284 (130-400) K/uL MPV 9.2 (7.2-11.7) fL Neut % (Auto) 85.9 H (50.0-75.0) % Lymph % (Auto) 6.0 L (20.0-40.0) % [place] % (Auto) 7.9 (0.0-10.0) % Eos % (Auto) 0.0 (0.0-4.0) % Baso % (Auto) 0.2 (0.0-2.0) % Neut # (Auto) 15.8 H (1.8-7.0) K/uL Lymph # (Auto) 1.1 (1.0-4.3) K/uL [place] # (Auto) 1.5 H (0.0-0.8) K/uL Eos # (Auto) 0.0 (0.0-0.7) K/uL Baso # (Auto) 0.0 (0.0-0.2) K/uL Neutrophils % (Manual) 86 H (50-75) % Lymphocytes % (Manual) 5 L (20-40) % Monocytes % (Manual) 9 (0-10) % Platelet Estimate Normal (NORMAL) PT (9.7-12.2) SECONDS INR APTT 161 H* D (21-34) SECONDS Puncture Site pCO2 (35-45) mm/Hg pO2 (80-100) mm/Hg HCO3 (21-28) mmol/L ABG pH (7.35-7.45) ABG Total CO2 (22-28) mmol/L ABG O2 Saturation (95-98) % ABG Base Excess (-2.0-3.0) mmol/L Arden Test ABG Potassium (3.6-5.2) mmol/L A-a O2 Difference mm/Hg Respiratory Index Glucose (75-110) mg/dl Lactate (0.7-2.1) mmol/L Vent Mode Mechanical Rate FiO2 % Tidal Volume PEEP Inspiratory BiPAP Expiratory BiPAP Crit Value Called To Crit Value Called By Crit Value Read Back Blood Gas Notified Time Sodium 138 (132-148) mmol/L Potassium 3.8 (3.6-5.2) mmol/L Chloride 101 (98-107) mmol/L Carbon Dioxide 24 (22-30) mmol/L Anion Gap 16 (10-20) BUN 22 H (9-20) mg/dL Creatinine 1.3 (0.8-1.5) mg/dL Est GFR ( Amer) > 60 Est GFR (Non-Af Amer) 54 POC Glucose (mg/dL) (65-110) mg/dL Random Glucose 504 H* D (75-110) mg/dL Calcium 9.4 (8.6-10.4) mg/dl Phosphorus 2.5 (2.5-4.5) mg/dL Magnesium 2.0 (1.6-2.3) mg/dL Total Bilirubin 0.9 (0.2-1.3) mg/dL AST 265 H D (17-59) U/L ALT 57 (21-72) U/L Alkaline Phosphatase 137 H (38-126) U/L Total Creatine Kinase 1327 H (55-170) U/L CK-MB (Mass) 61.0 H (0.0-3.38) ng/mL Troponin I 55.9000 H* (0.00-0.120) ng/mL NT-Pro-B Natriuret Pep (0-900) pg/mL Total Protein 7.6 (6.3-8.3) g/dL Albumin 4.2 (3.5-5.0) g/dL Globulin 3.4 (2.2-3.9) gm/dL Albumin/Globulin Ratio 1.3 (1.0-2.1) Arterial Blood Potassium (3.6-5.2) mmol/L Urine Color (YELLOW) Urine Clarity (Clear) Urine pH (5.0-8.0) Ur Specific [place] (1.003-1.030) Urine Protein (NEGATIVE) mg/dL Urine Glucose (UA) (Normal) mg/dL Urine Ketones (NEGATIVE) mg/dL Urine Blood (NEGATIVE) Urine Nitrate (NEGATIVE) Urine Bilirubin (NEGATIVE) Urine Urobilinogen (0.2-1.0) mg/dL Ur Leukocyte Esterase (Negative) Dm/uL Urine WBC (Auto) (0-5) /hpf Urine RBC (Auto) (0-3) /hpf Blood Type Antibody Screen 09/03/18 09/03/18 09/03/18 Range/Units 07:51 07:18 05:47 WBC (4.8-10.8) K/uL RBC (4.40-5.90) Mil/uL Hgb (12.0-18.0) g/dL Hct (35.0-51.0) % MCV (80.0-94.0) fL MCH (27.0-31.0) pg MCHC (33.0-37.0) g/dL RDW (11.5-14.5) % Plt Count (130-400) K/uL MPV (7.2-11.7) fL Neut % (Auto) (50.0-75.0) % Lymph % (Auto) (20.0-40.0) % [place] % (Auto) (0.0-10.0) % Eos % (Auto) (0.0-4.0) % Baso % (Auto) (0.0-2.0) % Neut # (Auto) (1.8-7.0) K/uL Lymph # (Auto) (1.0-4.3) K/uL [place] # (Auto) (0.0-0.8) K/uL Eos # (Auto) (0.0-0.7) K/uL Baso # (Auto) (0.0-0.2) K/uL Neutrophils % (Manual) (50-75) % Lymphocytes % (Manual) (20-40) % Monocytes % (Manual) (0-10) % Platelet Estimate (NORMAL) PT (9.7-12.2) SECONDS INR APTT (21-34) SECONDS Puncture Site pCO2 (35-45) mm/Hg pO2 (80-100) mm/Hg HCO3 (21-28) mmol/L ABG pH (7.35-7.45) ABG Total CO2 (22-28) mmol/L ABG O2 Saturation (95-98) % ABG Base Excess (-2.0-3.0) mmol/L Arden Test ABG Potassium (3.6-5.2) mmol/L A-a O2 Difference mm/Hg Respiratory Index Glucose (75-110) mg/dl Lactate (0.7-2.1) mmol/L Vent Mode Mechanical Rate FiO2 % Tidal Volume PEEP Inspiratory BiPAP Expiratory BiPAP Crit Value Called To Crit Value Called By Crit Value Read Back Blood Gas Notified Time Sodium (132-148) mmol/L Potassium (3.6-5.2) mmol/L Chloride (98-107) mmol/L Carbon Dioxide (22-30) mmol/L Anion Gap (10-20) BUN (9-20) mg/dL Creatinine (0.8-1.5) mg/dL Est GFR ( Amer) Est GFR (Non-Af Amer) POC Glucose (mg/dL) 412 H* 481 H* (65-110) mg/dL Random Glucose (75-110) mg/dL Calcium (8.6-10.4) mg/dl Phosphorus (2.5-4.5) mg/dL Magnesium (1.6-2.3) mg/dL Total Bilirubin (0.2-1.3) mg/dL AST (17-59) U/L ALT (21-72) U/L Alkaline Phosphatase (38-126) U/L Total Creatine Kinase 1304 H (55-170) U/L CK-MB (Mass) 73.9 H (0.0-3.38) ng/mL Troponin I (0.00-0.120) ng/mL NT-Pro-B Natriuret Pep 4030 H (0-900) pg/mL Total Protein (6.3-8.3) g/dL Albumin (3.5-5.0) g/dL Globulin (2.2-3.9) gm/dL Albumin/Globulin Ratio (1.0-2.1) Arterial Blood Potassium (3.6-5.2) mmol/L Urine Color (YELLOW) Urine Clarity (Clear) Urine pH (5.0-8.0) Ur Specific [place] (1.003-1.030) Urine Protein (NEGATIVE) mg/dL Urine Glucose (UA) (Normal) mg/dL Urine Ketones (NEGATIVE) mg/dL Urine Blood (NEGATIVE) Urine Nitrate (NEGATIVE) Urine Bilirubin (NEGATIVE) Urine Urobilinogen (0.2-1.0) mg/dL Ur Leukocyte Esterase (Negative) Dm/uL Urine WBC (Auto) (0-5) /hpf Urine RBC (Auto) (0-3) /hpf Blood Type Antibody Screen 09/03/18 09/03/18 09/03/18 Range/Units 05:45 05:12 04:43 WBC (4.8-10.8) K/uL RBC (4.40-5.90) Mil/uL Hgb (12.0-18.0) g/dL Hct (35.0-51.0) % MCV (80.0-94.0) fL MCH (27.0-31.0) pg MCHC (33.0-37.0) g/dL RDW (11.5-14.5) % Plt Count (130-400) K/uL MPV (7.2-11.7) fL Neut % (Auto) (50.0-75.0) % Lymph % (Auto) (20.0-40.0) % [place] % (Auto) (0.0-10.0) % Eos % (Auto) (0.0-4.0) % Baso % (Auto) (0.0-2.0) % Neut # (Auto) (1.8-7.0) K/uL Lymph # (Auto) (1.0-4.3) K/uL [place] # (Auto) (0.0-0.8) K/uL Eos # (Auto) (0.0-0.7) K/uL Baso # (Auto) (0.0-0.2) K/uL Neutrophils % (Manual) (50-75) % Lymphocytes % (Manual) (20-40) % Monocytes % (Manual) (0-10) % Platelet Estimate (NORMAL) PT (9.7-12.2) SECONDS INR APTT (21-34) SECONDS Puncture Site Rb pCO2 44 (35-45) mm/Hg pO2 69 L (80-100) mm/Hg HCO3 20.6 L (21-28) mmol/L ABG pH 7.29 L (7.35-7.45) ABG Total CO2 22.6 (22-28) mmol/L ABG O2 Saturation 95.3 (95-98) % ABG Base Excess -5.3 L (-2.0-3.0) mmol/L Arden Test Na ABG Potassium 4.4 (3.6-5.2) mmol/L A-a O2 Difference 446.0 mm/Hg Respiratory Index 6.5 Glucose 644 H* (75-110) mg/dl Lactate 2.6 H (0.7-2.1) mmol/L Vent Mode Prvc Mechanical Rate 20 FiO2 80.0 % Tidal Volume 500 PEEP 5 Inspiratory BiPAP Expiratory BiPAP Crit Value Called To John rn Crit Value Called By Ludwin graphic technician Crit Value Read Back Y Blood Gas Notified Time 541 Sodium 138.0 (132-148) mmol/L Potassium (3.6-5.2) mmol/L Chloride 98.0 (98-107) mmol/L Carbon Dioxide (22-30) mmol/L Anion Gap (10-20) BUN (9-20) mg/dL Creatinine (0.8-1.5) mg/dL Est GFR ( Amer) Est GFR (Non-Af Amer) POC Glucose (mg/dL) > 500 H* (65-110) mg/dL Random Glucose (75-110) mg/dL Calcium (8.6-10.4) mg/dl Phosphorus (2.5-4.5) mg/dL Magnesium (1.6-2.3) mg/dL Total Bilirubin (0.2-1.3) mg/dL AST (17-59) U/L ALT (21-72) U/L Alkaline Phosphatase (38-126) U/L Total Creatine Kinase (55-170) U/L CK-MB (Mass) (0.0-3.38) ng/mL Troponin I (0.00-0.120) ng/mL NT-Pro-B Natriuret Pep (0-900) pg/mL Total Protein (6.3-8.3) g/dL Albumin (3.5-5.0) g/dL Globulin (2.2-3.9) gm/dL Albumin/Globulin Ratio (1.0-2.1) Arterial Blood Potassium 4.4 (3.6-5.2) mmol/L Urine Color Colorless (YELLOW) Urine Clarity Clear (Clear) Urine pH 5.0 (5.0-8.0) Ur Specific [place] 1.021 (1.003-1.030) Urine Protein Negative (NEGATIVE) mg/dL Urine Glucose (UA) 3+ H (Normal) mg/dL Urine Ketones Negative (NEGATIVE) mg/dL Urine Blood Trace H (NEGATIVE) Urine Nitrate Negative (NEGATIVE) Urine Bilirubin Negative (NEGATIVE) Urine Urobilinogen Normal (0.2-1.0) mg/dL Ur Leukocyte Esterase Neg (Negative) Dm/uL Urine WBC (Auto) < 1 (0-5) /hpf Urine RBC (Auto) 1 (0-3) /hpf Blood Type Antibody Screen 09/03/18 09/03/18 09/03/18 Range/Units 02:00 01:55 01:40 WBC (4.8-10.8) K/uL RBC (4.40-5.90) Mil/uL Hgb (12.0-18.0) g/dL Hct (35.0-51.0) % MCV (80.0-94.0) fL MCH (27.0-31.0) pg MCHC (33.0-37.0) g/dL RDW (11.5-14.5) % Plt Count (130-400) K/uL MPV (7.2-11.7) fL Neut % (Auto) (50.0-75.0) % Lymph % (Auto) (20.0-40.0) % [place] % (Auto) (0.0-10.0) % Eos % (Auto) (0.0-4.0) % Baso % (Auto) (0.0-2.0) % Neut # (Auto) (1.8-7.0) K/uL Lymph # (Auto) (1.0-4.3) K/uL [place] # (Auto) (0.0-0.8) K/uL Eos # (Auto) (0.0-0.7) K/uL Baso # (Auto) (0.0-0.2) K/uL Neutrophils % (Manual) (50-75) % Lymphocytes % (Manual) (20-40) % Monocytes % (Manual) (0-10) % Platelet Estimate (NORMAL) PT (9.7-12.2) SECONDS INR APTT (21-34) SECONDS Puncture Site Rr pCO2 45 (35-45) mm/Hg pO2 165 H (80-100) mm/Hg HCO3 18.7 L (21-28) mmol/L ABG pH 7.24 L (7.35-7.45) ABG Total CO2 20.7 L (22-28) mmol/L ABG O2 Saturation 99.5 H (95-98) % ABG Base Excess -8.0 L (-2.0-3.0) mmol/L Arden Test Pos ABG Potassium 4.3 (3.6-5.2) mmol/L A-a O2 Difference 492.0 mm/Hg Respiratory Index 3.0 Glucose > 750 H* (75-110) mg/dl Lactate 5.0 H* (0.7-2.1) mmol/L Vent Mode Bipap Mechanical Rate FiO2 100.0 % Tidal Volume PEEP Inspiratory BiPAP 12 Expiratory BiPAP 6 Crit Value Called To Dr. alfaro Crit Value Called By Ludwin graphic technician Crit Value Read Back Y Blood Gas Notified Time 207 Sodium 136.0 136 (132-148) mmol/L Potassium 4.6 (3.6-5.2) mmol/L Chloride 97.0 L 98 (98-107) mmol/L Carbon Dioxide 20 L (22-30) mmol/L Anion Gap 23 H (10-20) BUN 20 (9-20) mg/dL Creatinine 1.4 (0.8-1.5) mg/dL Est GFR ( Amer) > 60 Est GFR (Non-Af Amer) 50 POC Glucose (mg/dL) (65-110) mg/dL Random Glucose 662 H* (75-110) mg/dL Calcium 9.7 (8.6-10.4) mg/dl Phosphorus (2.5-4.5) mg/dL Magnesium (1.6-2.3) mg/dL Total Bilirubin 1.1 (0.2-1.3) mg/dL AST 120 H (17-59) U/L ALT 59 (21-72) U/L Alkaline Phosphatase 142 H (38-126) U/L Total Creatine Kinase (55-170) U/L CK-MB (Mass) (0.0-3.38) ng/mL Troponin I 5.9900 H* (0.00-0.120) ng/mL NT-Pro-B Natriuret Pep (0-900) pg/mL Total Protein 7.7 (6.3-8.3) g/dL Albumin 4.5 (3.5-5.0) g/dL Globulin 3.3 (2.2-3.9) gm/dL Albumin/Globulin Ratio 1.4 (1.0-2.1) Arterial Blood Potassium 4.3 (3.6-5.2) mmol/L Urine Color (YELLOW) Urine Clarity (Clear) Urine pH (5.0-8.0) Ur Specific [place] (1.003-1.030) Urine Protein (NEGATIVE) mg/dL Urine Glucose (UA) (Normal) mg/dL Urine Ketones (NEGATIVE) mg/dL Urine Blood (NEGATIVE) Urine Nitrate (NEGATIVE) Urine Bilirubin (NEGATIVE) Urine Urobilinogen (0.2-1.0) mg/dL Ur Leukocyte Esterase (Negative) Dm/uL Urine WBC (Auto) (0-5) /hpf Urine RBC (Auto) (0-3) /hpf Blood Type O POSITIVE Antibody Screen Negative 09/03/18 09/03/18 Range/Units 01:40 01:40 WBC 12.2 H (4.8-10.8) K/uL RBC 6.04 H (4.40-5.90) Mil/uL Hgb 18.5 H (12.0-18.0) g/dL Hct 56.6 H (35.0-51.0) % MCV 93.7 (80.0-94.0) fL MCH 30.7 (27.0-31.0) pg MCHC 32.8 L (33.0-37.0) g/dL RDW 14.1 (11.5-14.5) % Plt Count 297 (130-400) K/uL MPV 9.4 (7.2-11.7) fL Neut % (Auto) 61.4 (50.0-75.0) % Lymph % (Auto) 30.0 (20.0-40.0) % [place] % (Auto) 6.3 (0.0-10.0) % Eos % (Auto) 1.3 (0.0-4.0) % Baso % (Auto) 1.0 (0.0-2.0) % Neut # (Auto) 7.5 H (1.8-7.0) K/uL Lymph # (Auto) 3.7 (1.0-4.3) K/uL [place] # (Auto) 0.8 (0.0-0.8) K/uL Eos # (Auto) 0.2 (0.0-0.7) K/uL Baso # (Auto) 0.1 (0.0-0.2) K/uL Neutrophils % (Manual) (50-75) % Lymphocytes % (Manual) (20-40) % Monocytes % (Manual) (0-10) % Platelet Estimate (NORMAL) PT 11.1 (9.7-12.2) SECONDS INR 1.0 APTT 45 H (21-34) SECONDS Puncture Site pCO2 (35-45) mm/Hg pO2 (80-100) mm/Hg HCO3 (21-28) mmol/L ABG pH (7.35-7.45) ABG Total CO2 (22-28) mmol/L ABG O2 Saturation (95-98) % ABG Base Excess (-2.0-3.0) mmol/L [place] Test ABG Potassium (3.6-5.2) mmol/L A-a O2 Difference mm/Hg Respiratory Index Glucose (75-110) mg/dl Lactate (0.7-2.1) mmol/L Vent Mode Mechanical Rate FiO2 % Tidal Volume PEEP Inspiratory BiPAP Expiratory BiPAP Crit Value Called To Crit Value Called By Crit Value Read Back Blood Gas Notified Time Sodium (132-148) mmol/L Potassium (3.6-5.2) mmol/L Chloride (98-107) mmol/L Carbon Dioxide (22-30) mmol/L Anion Gap (10-20) BUN (9-20) mg/dL Creatinine (0.8-1.5) mg/dL Est GFR ( Amer) Est GFR (Non-Af Amer) POC Glucose (mg/dL) (65-110) mg/dL Random Glucose (75-110) mg/dL Calcium (8.6-10.4) mg/dl Phosphorus (2.5-4.5) mg/dL Magnesium (1.6-2.3) mg/dL Total Bilirubin (0.2-1.3) mg/dL AST (17-59) U/L ALT (21-72) U/L Alkaline Phosphatase (38-126) U/L Total Creatine Kinase (55-170) U/L CK-MB (Mass) (0.0-3.38) ng/mL Troponin I (0.00-0.120) ng/mL NT-Pro-B Natriuret Pep (0-900) pg/mL Total Protein (6.3-8.3) g/dL Albumin (3.5-5.0) g/dL Globulin (2.2-3.9) gm/dL Albumin/Globulin Ratio (1.0-2.1) Arterial Blood Potassium (3.6-5.2) mmol/L Urine Color (YELLOW) Urine Clarity (Clear) Urine pH (5.0-8.0) Ur Specific [place] (1.003-1.030) Urine Protein (NEGATIVE) mg/dL Urine Glucose (UA) (Normal) mg/dL Urine Ketones (NEGATIVE) mg/dL Urine Blood (NEGATIVE) Urine Nitrate (NEGATIVE) Urine Bilirubin (NEGATIVE) Urine Urobilinogen (0.2-1.0) mg/dL Ur Leukocyte Esterase (Negative) Dm/uL Urine WBC (Auto) (0-5) /hpf Urine RBC (Auto) (0-3) /hpf Blood Type Antibody Screen Laboratory Results - last 24 hr 09/03/18 09/03/18 09/03/18 01:40 01:40 01:40 WBC 12.2 H RBC 6.04 H Hgb 18.5 H Hct 56.6 H MCV 93.7 MCH 30.7 MCHC 32.8 L RDW 14.1 Plt Count 297 MPV 9.4 Neut % (Auto) 61.4 Lymph % (Auto) 30.0 [place] % (Auto) 6.3 Eos % (Auto) 1.3 Baso % (Auto) 1.0 Neut # (Auto) 7.5 H Lymph # (Auto) 3.7 [place] # (Auto) 0.8 Eos # (Auto) 0.2 Baso # (Auto) 0.1 Neutrophils % (Manual) Lymphocytes % (Manual) Monocytes % (Manual) Platelet Estimate PT 11.1 INR 1.0 APTT 45 H Puncture Site pCO2 pO2 HCO3 ABG pH ABG Total CO2 ABG O2 Saturation ABG Base Excess [place] Test ABG Potassium A-a O2 Difference Respiratory Index Glucose Lactate Vent Mode Mechanical Rate FiO2 Tidal Volume PEEP Inspiratory BiPAP Expiratory BiPAP Crit Value Called To Crit Value Called By Crit Value Read Back Blood Gas Notified Time Sodium 136 Potassium 4.6 Chloride 98 Carbon Dioxide 20 L Anion Gap 23 H BUN 20 Creatinine 1.4 Est GFR ( Amer) > 60 Est GFR (Non-Af Amer) 50 POC Glucose (mg/dL) Random Glucose 662 H* Calcium 9.7 Phosphorus Magnesium Total Bilirubin 1.1 AST 120 H ALT 59 Alkaline Phosphatase 142 H Total Creatine Kinase CK-MB (Mass) Troponin I 5.9900 H* NT-Pro-B Natriuret Pep Total Protein 7.7 Albumin 4.5 Globulin 3.3 Albumin/Globulin Ratio 1.4 Arterial Blood Potassium Urine Color Urine Clarity Urine pH Ur Specific [place] Urine Protein Urine Glucose (UA) Urine Ketones Urine Blood Urine Nitrate Urine Bilirubin Urine Urobilinogen Ur Leukocyte Esterase Urine WBC (Auto) Urine RBC (Auto) Blood Type Antibody Screen 09/03/18 09/03/18 09/03/18 01:55 02:00 04:43 WBC RBC Hgb Hct MCV MCH MCHC RDW Plt Count MPV Neut % (Auto) Lymph % (Auto) [place] % (Auto) Eos % (Auto) Baso % (Auto) Neut # (Auto) Lymph # (Auto) [place] # (Auto) Eos # (Auto) Baso # (Auto) Neutrophils % (Manual) Lymphocytes % (Manual) Monocytes % (Manual) Platelet Estimate PT INR APTT Puncture Site Rr pCO2 45 pO2 165 H HCO3 18.7 L ABG pH 7.24 L ABG Total CO2 20.7 L ABG O2 Saturation 99.5 H ABG Base Excess -8.0 L [place] Test Pos ABG Potassium 4.3 A-a O2 Difference 492.0 Respiratory Index 3.0 Glucose > 750 H* Lactate 5.0 H* Vent Mode Bipap Mechanical Rate FiO2 100.0 Tidal Volume PEEP Inspiratory BiPAP 12 Expiratory BiPAP 6 Crit Value Called To Dr. alfaro Crit Value Called By Ludwin graphic technician Crit Value Read Back Y Blood Gas Notified Time 207 Sodium 136.0 Potassium Chloride 97.0 L Carbon Dioxide Anion Gap BUN Creatinine Est GFR ( Amer) Est GFR (Non-Af Amer) POC Glucose (mg/dL) > 500 H* Random Glucose Calcium Phosphorus Magnesium Total Bilirubin AST ALT Alkaline Phosphatase Total Creatine Kinase CK-MB (Mass) Troponin I NT-Pro-B Natriuret Pep Total Protein Albumin Globulin Albumin/Globulin Ratio Arterial Blood Potassium 4.3 Urine Color Urine Clarity Urine pH Ur Specific [place] Urine Protein Urine Glucose (UA) Urine Ketones Urine Blood Urine Nitrate Urine Bilirubin Urine Urobilinogen Ur Leukocyte Esterase Urine WBC (Auto) Urine RBC (Auto) Blood Type O POSITIVE Antibody Screen Negative 09/03/18 09/03/18 09/03/18 05:12 05:45 05:47 WBC RBC Hgb Hct MCV MCH MCHC RDW Plt Count MPV Neut % (Auto) Lymph % (Auto) [place] % (Auto) Eos % (Auto) Baso % (Auto) Neut # (Auto) Lymph # (Auto) [place] # (Auto) Eos # (Auto) Baso # (Auto) Neutrophils % (Manual) Lymphocytes % (Manual) Monocytes % (Manual) Platelet Estimate PT INR APTT Puncture Site Rb pCO2 44 pO2 69 L HCO3 20.6 L ABG pH 7.29 L ABG Total CO2 22.6 ABG O2 Saturation 95.3 ABG Base Excess -5.3 L Arden Test Na ABG Potassium 4.4 A-a O2 Difference 446.0 Respiratory Index 6.5 Glucose 644 H* Lactate 2.6 H Vent Mode Prvc Mechanical Rate 20 FiO2 80.0 Tidal Volume 500 PEEP 5 Inspiratory BiPAP Expiratory BiPAP Crit Value Called To John rn Crit Value Called By Ludwin graphic technician Crit Value Read Back Y Blood Gas Notified Time 541 Sodium 138.0 Potassium Chloride 98.0 Carbon Dioxide Anion Gap BUN Creatinine Est GFR ( Amer) Est GFR (Non-Af Amer) POC Glucose (mg/dL) 481 H* Random Glucose Calcium Phosphorus Magnesium Total Bilirubin AST ALT Alkaline Phosphatase Total Creatine Kinase CK-MB (Mass) Troponin I NT-Pro-B Natriuret Pep Total Protein Albumin Globulin Albumin/Globulin Ratio Arterial Blood Potassium 4.4 Urine Color Colorless Urine Clarity Clear Urine pH 5.0 Ur Specific [place] 1.021 Urine Protein Negative Urine Glucose (UA) 3+ H Urine Ketones Negative Urine Blood Trace H Urine Nitrate Negative Urine Bilirubin Negative Urine Urobilinogen Normal Ur Leukocyte Esterase Neg Urine WBC (Auto) < 1 Urine RBC (Auto) 1 Blood Type Antibody Screen 09/03/18 09/03/18 09/03/18 07:18 07:51 07:51 WBC 18.4 H D RBC 6.12 H Hgb 18.7 H Hct 55.8 H MCV 91.2 D MCH 30.5 MCHC 33.4 RDW 14.5 Plt Count 284 MPV 9.2 Neut % (Auto) 85.9 H Lymph % (Auto) 6.0 L [place] % (Auto) 7.9 Eos % (Auto) 0.0 Baso % (Auto) 0.2 Neut # (Auto) 15.8 H Lymph # (Auto) 1.1 [place] # (Auto) 1.5 H Eos # (Auto) 0.0 Baso # (Auto) 0.0 Neutrophils % (Manual) 86 H Lymphocytes % (Manual) 5 L Monocytes % (Manual) 9 Platelet Estimate Normal PT INR APTT Puncture Site pCO2 pO2 HCO3 ABG pH ABG Total CO2 ABG O2 Saturation ABG Base Excess [place] Test ABG Potassium A-a O2 Difference Respiratory Index Glucose Lactate Vent Mode Mechanical Rate FiO2 Tidal Volume PEEP Inspiratory BiPAP Expiratory BiPAP Crit Value Called To Crit Value Called By Crit Value Read Back Blood Gas Notified Time Sodium Potassium Chloride Carbon Dioxide Anion Gap BUN Creatinine Est GFR ( Amer) Est GFR (Non-Af Amer) POC Glucose (mg/dL) 412 H* Random Glucose Calcium Phosphorus Magnesium Total Bilirubin AST ALT Alkaline Phosphatase Total Creatine Kinase 1304 H CK-MB (Mass) 73.9 H Troponin I NT-Pro-B Natriuret Pep 4030 H Total Protein Albumin Globulin Albumin/Globulin Ratio Arterial Blood Potassium Urine Color Urine Clarity Urine pH Ur Specific [place] Urine Protein Urine Glucose (UA) Urine Ketones Urine Blood Urine Nitrate Urine Bilirubin Urine Urobilinogen Ur Leukocyte Esterase Urine WBC (Auto) Urine RBC (Auto) Blood Type Antibody Screen 09/03/18 09/03/18 09/03/18 07:51 07:51 07:59 WBC RBC Hgb Hct MCV MCH MCHC RDW Plt Count MPV Neut % (Auto) Lymph % (Auto) [place] % (Auto) Eos % (Auto) Baso % (Auto) Neut # (Auto) Lymph # (Auto) [place] # (Auto) Eos # (Auto) Baso # (Auto) Neutrophils % (Manual) Lymphocytes % (Manual) Monocytes % (Manual) Platelet Estimate PT INR APTT 161 H* D Puncture Site pCO2 pO2 HCO3 ABG pH ABG Total CO2 ABG O2 Saturation ABG Base Excess [place] Test ABG Potassium A-a O2 Difference Respiratory Index Glucose Lactate Vent Mode Mechanical Rate FiO2 Tidal Volume PEEP Inspiratory BiPAP Expiratory BiPAP Crit Value Called To Crit Value Called By Crit Value Read Back Blood Gas Notified Time Sodium 138 Potassium 3.8 Chloride 101 Carbon Dioxide 24 Anion Gap 16 BUN 22 H Creatinine 1.3 Est GFR ( Amer) > 60 Est GFR (Non-Af Amer) 54 POC Glucose (mg/dL) 410 H* Random Glucose 504 H* D Calcium 9.4 Phosphorus 2.5 Magnesium 2.0 Total Bilirubin 0.9 AST 265 H D ALT 57 Alkaline Phosphatase 137 H Total Creatine Kinase 1327 H CK-MB (Mass) 61.0 H Troponin I 55.9000 H* NT-Pro-B Natriuret Pep Total Protein 7.6 Albumin 4.2 Globulin 3.4 Albumin/Globulin Ratio 1.3 Arterial Blood Potassium Urine Color Urine Clarity Urine pH Ur Specific [place] Urine Protein Urine Glucose (UA) Urine Ketones Urine Blood Urine Nitrate Urine Bilirubin Urine Urobilinogen Ur Leukocyte Esterase Urine WBC (Auto) Urine RBC (Auto) Blood Type Antibody Screen 09/03/18 09/03/18 09/03/18 09:03 10:01 11:02 WBC RBC Hgb Hct MCV MCH MCHC RDW Plt Count MPV Neut % (Auto) Lymph % (Auto) [place] % (Auto) Eos % (Auto) Baso % (Auto) Neut # (Auto) Lymph # (Auto) [place] # (Auto) Eos # (Auto) Baso # (Auto) Neutrophils % (Manual) Lymphocytes % (Manual) Monocytes % (Manual) Platelet Estimate PT INR APTT Puncture Site pCO2 pO2 HCO3 ABG pH ABG Total CO2 ABG O2 Saturation ABG Base Excess [place] Test ABG Potassium A-a O2 Difference Respiratory Index Glucose Lactate Vent Mode Mechanical Rate FiO2 Tidal Volume PEEP Inspiratory BiPAP Expiratory BiPAP Crit Value Called To Crit Value Called By Crit Value Read Back Blood Gas Notified Time Sodium Potassium Chloride Carbon Dioxide Anion Gap BUN Creatinine Est GFR ( Amer) Est GFR (Non-Af Amer) POC Glucose (mg/dL) 334 H 254 H 215 H Random Glucose Calcium Phosphorus Magnesium Total Bilirubin AST ALT Alkaline Phosphatase Total Creatine Kinase CK-MB (Mass) Troponin I NT-Pro-B Natriuret Pep Total Protein Albumin Globulin Albumin/Globulin Ratio Arterial Blood Potassium Urine Color Urine Clarity Urine pH Ur Specific [place] Urine Protein Urine Glucose (UA) Urine Ketones Urine Blood Urine Nitrate Urine Bilirubin Urine Urobilinogen Ur Leukocyte Esterase Urine WBC (Auto) Urine RBC (Auto) Blood Type Antibody Screen 09/03/18 09/03/18 12:20 14:02 WBC RBC Hgb Hct MCV MCH MCHC RDW Plt Count MPV Neut % (Auto) Lymph % (Auto) [place] % (Auto) Eos % (Auto) Baso % (Auto) Neut # (Auto) Lymph # (Auto) [place] # (Auto) Eos # (Auto) Baso # (Auto) Neutrophils % (Manual) Lymphocytes % (Manual) Monocytes % (Manual) Platelet Estimate PT INR APTT Puncture Site pCO2 pO2 HCO3 ABG pH ABG Total CO2 ABG O2 Saturation ABG Base Excess [place] Test ABG Potassium A-a O2 Difference Respiratory Index Glucose Lactate Vent Mode Mechanical Rate FiO2 Tidal Volume PEEP Inspiratory BiPAP Expiratory BiPAP Crit Value Called To Crit Value Called By Crit Value Read Back Blood Gas Notified Time Sodium Potassium Chloride Carbon Dioxide Anion Gap BUN Creatinine Est GFR ( Amer) Est GFR (Non-Af Amer) POC Glucose (mg/dL) 199 H 229 H Random Glucose Calcium Phosphorus Magnesium Total Bilirubin AST ALT Alkaline Phosphatase Total Creatine Kinase CK-MB (Mass) Troponin I NT-Pro-B Natriuret Pep Total Protein Albumin Globulin Albumin/Globulin Ratio Arterial Blood Potassium Urine Color Urine Clarity Urine pH Ur Specific [place] Urine Protein Urine Glucose (UA) Urine Ketones Urine Blood Urine Nitrate Urine Bilirubin Urine Urobilinogen Ur Leukocyte Esterase Urine WBC (Auto) Urine RBC (Auto) Blood Type Antibody Screen EKG/Cardiology Studies: Cardiology / EKG Studies 09/03/18 01:33 ELECTROCARDIOGRAM Stat Comment: Mode Of Transportation: BED Reason For Exam: chest pain 09/03/18 08:00 EKG [ELECTROCARDIOGRAM] DAILY Comment: Mode Of Transportation: PORTABLE Reason For Exam: S/p STEMI 09/04/18 08:00 EKG [ELECTROCARDIOGRAM] DAILY Comment: Mode Of Transportation: PORTABLE Reason For Exam: S/p STEMI 09/05/18 08:00 EKG [ELECTROCARDIOGRAM] DAILY Comment: Mode Of Transportation: PORTABLE Reason For Exam: S/p STEMI Fingerstick Blood Sugar Results: 199 Assessment/Plan - Assessment and Plan (Free Text) Assessment: Patient is a 73 year old male presenting with Acute Anterior wall LA and pulmonary edema. 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 Plan: Neuro: - Patient is sedated on Fentanyl drip and Midazolam drip Cardiovascular: Anterior wall LA - S/p cardiac cath L Main: - Entire LAD has diffuse 90% calcific narrowing. Mid 100% occlusion - L Cx/OM: Dominant: Proximal 85%, OM2 99% - RCA: Non dominant and diffuse 99% disease - LV: EF 10-15%, Dilated ischemic CMP, No - Cardiology consulted, Dr. Rivera - Follow up heart catheterization for other vessel stenting, once stable - ASA 81mg PO QD - Brilinta 90mg PO BID - Crestor 40mg QD HS Cardiogenic shock - On a baloon pump - RIJ TLC placed today - On Phenylephrine and Levophed drips - Lasix 40mg IV Q12 Pulmonary: Respiratory distress - Patient intubated on PRVC - ABG: pO2 69, pCo2 44, pH 7.29 GI: Transaminitis - AST/ALT: 120/60 - Continue to monitor Renal: NAY - BUN/Cr: 20/1.4 - Continue to monitor - Avoid nephrotoxins Endo: DM-2 - ISS - Accucheck Q1H Prophylaxis: - Protonix 40mg IV QD - SCD's Case discussed with Dr. Toro Aden, PGY-1 <Chuck Engel - Last Filed: 09/03/18 19:50> CCU Objective - Vital Signs / Intake & Output Vital Signs (Last 4 hours): Vital Signs Temp Pulse Resp BP Pulse Ox 09/03/18 17:09 101 H 135/48 L 100 09/03/18 17:01 101 H 120/81 100 09/03/18 17:00 102 H 100 09/03/18 16:58 71 77/35 L 09/03/18 16:57 71 20 88/42 L 09/03/18 16:48 77 101/60 100 09/03/18 16:38 75 102/53 L 100 09/03/18 16:30 76 100 09/03/18 16:28 76 96/40 L 100 09/03/18 16:19 71 103/48 L 100 09/03/18 16:08 81 138/54 L 100 09/03/18 16:00 98.3 F 88 100 09/03/18 15:58 83 137/82 100 09/03/18 15:48 83 134/79 100 09/03/18 15:38 84 124/83 100 09/03/18 15:30 81 100 09/03/18 15:28 82 133/80 100 09/03/18 15:18 82 130/76 100 09/03/18 15:08 81 131/74 100 09/03/18 15:00 83 100 09/03/18 14:58 84 121/68 100 09/03/18 14:49 88 118/55 L 100 09/03/18 14:38 89 135/78 100 09/03/18 14:30 96 H 100 09/03/18 14:28 96 H 146/86 100 09/03/18 14:18 99 H 135/76 100 09/03/18 14:09 91 H 130/66 Intake and Output (Last 8hrs): Intake & Output 09/03/18 09/03/18 09/03/18 06:59 14:59 22:59 Intake Total 196.2 705.0 328.6 Output Total 800 1595 20 Balance -603.8 -890.0 308.6 Weight 149 lb 14.629 oz Intake: IV 50 142 253 Intake, IV Amount 146.2 563.0 75.6 Left Antecubital 76.6 287.1 0 Left Wrist 10 100 60 Lt AC y-site 16.4 34.7 0 Right Hand 27.2 95.2 13.6 Right Wrist 12 35 Rt hand y-site 4 11 2 Oral 0 0 0 Output: Urine 800 1595 20 Urethral ([place]) 800 1595 20 Other: Voiding Method Indwelling Catheter # Bowel Movements 1 - Medications Active Medications: Active Medications Generic Name Dose Route Start Last Admin Trade Name Freq PRN Reason Stop Dose Admin Aspirin 81 mg 09/03/18 10:00 09/03/18 10:51 Ecotrin PO Not Given DAILY STEPHANIE Furosemide 40 mg 09/03/18 10:00 09/03/18 10:49 Lasix IVP Not Given BID STEPHANIE Heparin Sodium/Sodium Chloride 25,000 units in 250 mls @ 10 mls/hr 09/03/18 01:39 09/03/18 12:23 Heparin 05456 Units/250ml 1/2 Normal Saline IV 09/04/18 01:38 0 mls/hr .Q24H ONE Titration Protocol Propofol 1,000 mg in 100 mls @ 1.905 mls/hr 09/03/18 02:49 Diprivan IV .Q24H PRN TITRATE PER MD ORDER Protocol 5 MCG/KG/MIN Midazolam HCl 100 mg/ Sodium 100 mls @ 2 mls/hr 09/03/18 03:15 09/03/18 04:29 Chloride IV 2 mg/hr .Q24H STEPHANIE 2 mls/hr Administration Protocol 2 MG/HR Fentanyl Citrate 2,500 mcg/ 250 mls @ 6.35 mls/hr 09/03/18 03:15 09/03/18 04:30 Sodium Chloride IV 2 mcg/kg/hr .Q24H STEPHANIE 12.7 mls/hr Administration Protocol 1 MCG/KG/HR Phenylephrine HCl 30 mg/ 253 mls @ 10.12 mls/hr 09/03/18 11:59 09/03/18 16:57 Sodium Chloride IV 180 mcg/min .Q24H PRN 91.08 mls/hr TITRATE PER MD ORDER Administration Protocol 20 MCG/MIN Norepinephrine Bitartrate 4 mg 254 mls @ 15.24 mls/hr 09/03/18 16:39 09/03/18 16:57 / Sodium Chloride IV 10 mcg/min .[id number] PRN 38.1 mls/hr TITRATE PER MD ORDER Administration Protocol 4 MCG/MIN Influenza Virus Vaccine 60 mcg 09/05/18 10:00 Fluzone Quad [id number] IM 09/05/18 10:01 .ONCE ONE Insulin Human Regular 0 unit 09/03/18 12:45 09/03/18 13:06 Novolin R SC Not Given Q4H [facility] Protocol Pantoprazole Sodium 40 mg 09/03/18 10:00 09/03/18 10:51 Protonix Inj IVP 40 mg DAILY STEPHANIE Administration Pneumococcal Polyvalent Vaccine 0.5 ml 09/05/18 10:00 Pneumovax 23 Vaccine IM 09/05/18 10:01 .ONCE ONE Rosuvastatin Calcium 40 mg 09/03/18 22:00 Crestor PO HS STEPHANIE Ticagrelor 90 mg 09/03/18 10:00 09/03/18 12:23 Brilinta PO Not Given BID STEPHANIE - Patient Studies Lab Studies: Lab Studies 09/03/18 09/03/18 09/03/18 Range/Units 16:40 14:02 12:20 WBC (4.8-10.8) K/uL RBC (4.40-5.90) Mil/uL Hgb (12.0-18.0) g/dL Hct (35.0-51.0) % MCV (80.0-94.0) fL MCH (27.0-31.0) pg MCHC (33.0-37.0) g/dL RDW (11.5-14.5) % Plt Count (130-400) K/uL MPV (7.2-11.7) fL Neut % (Auto) (50.0-75.0) % Lymph % (Auto) (20.0-40.0) % [place] % (Auto) (0.0-10.0) % Eos % (Auto) (0.0-4.0) % Baso % (Auto) (0.0-2.0) % Neut # (Auto) (1.8-7.0) K/uL Lymph # (Auto) (1.0-4.3) K/uL [place] # (Auto) (0.0-0.8) K/uL Eos # (Auto) (0.0-0.7) K/uL Baso # (Auto) (0.0-0.2) K/uL Neutrophils % (Manual) (50-75) % Lymphocytes % (Manual) (20-40) % Monocytes % (Manual) (0-10) % Platelet Estimate (NORMAL) PT (9.7-12.2) SECONDS INR APTT (21-34) SECONDS Puncture Site pCO2 (35-45) mm/Hg pO2 (80-100) mm/Hg HCO3 (21-28) mmol/L ABG pH (7.35-7.45) ABG Total CO2 (22-28) mmol/L ABG O2 Saturation (95-98) % ABG Base Excess (-2.0-3.0) mmol/L [place] Test ABG Potassium (3.6-5.2) mmol/L A-a O2 Difference mm/Hg Respiratory Index Glucose (75-110) mg/dl Lactate (0.7-2.1) mmol/L Vent Mode Mechanical Rate FiO2 % Tidal Volume PEEP Inspiratory BiPAP Expiratory BiPAP Crit Value Called To Crit Value Called By Crit Value Read Back Blood Gas Notified Time Sodium (132-148) mmol/L Potassium (3.6-5.2) mmol/L Chloride (98-107) mmol/L Carbon Dioxide (22-30) mmol/L Anion Gap (10-20) BUN (9-20) mg/dL Creatinine (0.8-1.5) mg/dL Est GFR ( Amer) Est GFR (Non-Af Amer) POC Glucose (mg/dL) 263 H 229 H 199 H (65-110) mg/dL Random Glucose (75-110) mg/dL Calcium (8.6-10.4) mg/dl Phosphorus (2.5-4.5) mg/dL Magnesium (1.6-2.3) mg/dL Total Bilirubin (0.2-1.3) mg/dL AST (17-59) U/L ALT (21-72) U/L Alkaline Phosphatase (38-126) U/L Total Creatine Kinase (55-170) U/L CK-MB (Mass) (0.0-3.38) ng/mL Troponin I (0.00-0.120) ng/mL NT-Pro-B Natriuret Pep (0-900) pg/mL Total Protein (6.3-8.3) g/dL Albumin (3.5-5.0) g/dL Globulin (2.2-3.9) gm/dL Albumin/Globulin Ratio (1.0-2.1) Arterial Blood Potassium (3.6-5.2) mmol/L Urine Color (YELLOW) Urine Clarity (Clear) Urine pH (5.0-8.0) Ur Specific [place] (1.003-1.030) Urine Protein (NEGATIVE) mg/dL Urine Glucose (UA) (Normal) mg/dL Urine Ketones (NEGATIVE) mg/dL Urine Blood (NEGATIVE) Urine Nitrate (NEGATIVE) Urine Bilirubin (NEGATIVE) Urine Urobilinogen (0.2-1.0) mg/dL Ur Leukocyte Esterase (Negative) Dm/uL Urine WBC (Auto) (0-5) /hpf Urine RBC (Auto) (0-3) /hpf Blood Type Antibody Screen 09/03/18 09/03/18 09/03/18 Range/Units 11:02 10:01 09:03 WBC (4.8-10.8) K/uL RBC (4.40-5.90) Mil/uL Hgb (12.0-18.0) g/dL Hct (35.0-51.0) % MCV (80.0-94.0) fL MCH (27.0-31.0) pg MCHC (33.0-37.0) g/dL RDW (11.5-14.5) % Plt Count (130-400) K/uL MPV (7.2-11.7) fL Neut % (Auto) (50.0-75.0) % Lymph % (Auto) (20.0-40.0) % [place] % (Auto) (0.0-10.0) % Eos % (Auto) (0.0-4.0) % Baso % (Auto) (0.0-2.0) % Neut # (Auto) (1.8-7.0) K/uL Lymph # (Auto) (1.0-4.3) K/uL [place] # (Auto) (0.0-0.8) K/uL Eos # (Auto) (0.0-0.7) K/uL Baso # (Auto) (0.0-0.2) K/uL Neutrophils % (Manual) (50-75) % Lymphocytes % (Manual) (20-40) % Monocytes % (Manual) (0-10) % Platelet Estimate (NORMAL) PT (9.7-12.2) SECONDS INR APTT (21-34) SECONDS Puncture Site pCO2 (35-45) mm/Hg pO2 (80-100) mm/Hg HCO3 (21-28) mmol/L ABG pH (7.35-7.45) ABG Total CO2 (22-28) mmol/L ABG O2 Saturation (95-98) % ABG Base Excess (-2.0-3.0) mmol/L [place]den Test ABG Potassium (3.6-5.2) mmol/L A-a O2 Difference mm/Hg Respiratory Index Glucose (75-110) mg/dl Lactate (0.7-2.1) mmol/L Vent Mode Mechanical Rate FiO2 % Tidal Volume PEEP Inspiratory BiPAP Expiratory BiPAP Crit Value Called To Crit Value Called By Crit Value Read Back Blood Gas Notified Time Sodium (132-148) mmol/L Potassium (3.6-5.2) mmol/L Chloride (98-107) mmol/L Carbon Dioxide (22-30) mmol/L Anion Gap (10-20) BUN (9-20) mg/dL Creatinine (0.8-1.5) mg/dL Est GFR ( Amer) Est GFR (Non-Af Amer) POC Glucose (mg/dL) 215 H 254 H 334 H (65-110) mg/dL Random Glucose (75-110) mg/dL Calcium (8.6-10.4) mg/dl Phosphorus (2.5-4.5) mg/dL Magnesium (1.6-2.3) mg/dL Total Bilirubin (0.2-1.3) mg/dL AST (17-59) U/L ALT (21-72) U/L Alkaline Phosphatase (38-126) U/L Total Creatine Kinase (55-170) U/L CK-MB (Mass) (0.0-3.38) ng/mL Troponin I (0.00-0.120) ng/mL NT-Pro-B Natriuret Pep (0-900) pg/mL Total Protein (6.3-8.3) g/dL Albumin (3.5-5.0) g/dL Globulin (2.2-3.9) gm/dL Albumin/Globulin Ratio (1.0-2.1) Arterial Blood Potassium (3.6-5.2) mmol/L Urine Color (YELLOW) Urine Clarity (Clear) Urine pH (5.0-8.0) Ur Specific [place] (1.003-1.030) Urine Protein (NEGATIVE) mg/dL Urine Glucose (UA) (Normal) mg/dL Urine Ketones (NEGATIVE) mg/dL Urine Blood (NEGATIVE) Urine Nitrate (NEGATIVE) Urine Bilirubin (NEGATIVE) Urine Urobilinogen (0.2-1.0) mg/dL Ur Leukocyte Esterase (Negative) Dm/uL Urine WBC (Auto) (0-5) /hpf Urine RBC (Auto) (0-3) /hpf Blood Type Antibody Screen 09/03/18 09/03/18 09/03/18 Range/Units 07:59 07:51 07:51 WBC (4.8-10.8) K/uL RBC (4.40-5.90) Mil/uL Hgb (12.0-18.0) g/dL Hct (35.0-51.0) % MCV (80.0-94.0) fL MCH (27.0-31.0) pg MCHC (33.0-37.0) g/dL RDW (11.5-14.5) % Plt Count (130-400) K/uL MPV (7.2-11.7) fL Neut % (Auto) (50.0-75.0) % Lymph % (Auto) (20.0-40.0) % [place] % (Auto) (0.0-10.0) % Eos % (Auto) (0.0-4.0) % Baso % (Auto) (0.0-2.0) % Neut # (Auto) (1.8-7.0) K/uL Lymph # (Auto) (1.0-4.3) K/uL [place] # (Auto) (0.0-0.8) K/uL Eos # (Auto) (0.0-0.7) K/uL Baso # (Auto) (0.0-0.2) K/uL Neutrophils % (Manual) (50-75) % Lymphocytes % (Manual) (20-40) % Monocytes % (Manual) (0-10) % Platelet Estimate (NORMAL) PT (9.7-12.2) SECONDS INR APTT 161 H* D (21-34) SECONDS Puncture Site pCO2 (35-45) mm/Hg pO2 (80-100) mm/Hg HCO3 (21-28) mmol/L ABG pH (7.35-7.45) ABG Total CO2 (22-28) mmol/L ABG O2 Saturation (95-98) % ABG Base Excess (-2.0-3.0) mmol/L [place] Test ABG Potassium (3.6-5.2) mmol/L A-a O2 Difference mm/Hg Respiratory Index Glucose (75-110) mg/dl Lactate (0.7-2.1) mmol/L Vent Mode Mechanical Rate FiO2 % Tidal Volume PEEP Inspiratory BiPAP Expiratory BiPAP Crit Value Called To Crit Value Called By Crit Value Read Back Blood Gas Notified Time Sodium 138 (132-148) mmol/L Potassium 3.8 (3.6-5.2) mmol/L Chloride 101 (98-107) mmol/L Carbon Dioxide 24 (22-30) mmol/L Anion Gap 16 (10-20) BUN 22 H (9-20) mg/dL Creatinine 1.3 (0.8-1.5) mg/dL Est GFR ( Amer) > 60 Est GFR (Non-Af Amer) 54 POC Glucose (mg/dL) 410 H* (65-110) mg/dL Random Glucose 504 H* D (75-110) mg/dL Calcium 9.4 (8.6-10.4) mg/dl Phosphorus 2.5 (2.5-4.5) mg/dL Magnesium 2.0 (1.6-2.3) mg/dL Total Bilirubin 0.9 (0.2-1.3) mg/dL AST 265 H D (17-59) U/L ALT 57 (21-72) U/L Alkaline Phosphatase 137 H (38-126) U/L Total Creatine Kinase 1327 H (55-170) U/L CK-MB (Mass) 61.0 H (0.0-3.38) ng/mL Troponin I 55.9000 H* (0.00-0.120) ng/mL NT-Pro-B Natriuret Pep (0-900) pg/mL Total Protein 7.6 (6.3-8.3) g/dL Albumin 4.2 (3.5-5.0) g/dL Globulin 3.4 (2.2-3.9) gm/dL Albumin/Globulin Ratio 1.3 (1.0-2.1) Arterial Blood Potassium (3.6-5.2) mmol/L Urine Color (YELLOW) Urine Clarity (Clear) Urine pH (5.0-8.0) Ur Specific [place] (1.003-1.030) Urine Protein (NEGATIVE) mg/dL Urine Glucose (UA) (Normal) mg/dL Urine Ketones (NEGATIVE) mg/dL Urine Blood (NEGATIVE) Urine Nitrate (NEGATIVE) Urine Bilirubin (NEGATIVE) Urine Urobilinogen (0.2-1.0) mg/dL Ur Leukocyte Esterase (Negative) Dm/uL Urine WBC (Auto) (0-5) /hpf Urine RBC (Auto) (0-3) /hpf Blood Type Antibody Screen 09/03/18 09/03/18 09/03/18 Range/Units 07:51 07:51 07:18 WBC 18.4 H D (4.8-10.8) K/uL RBC 6.12 H (4.40-5.90) Mil/uL Hgb 18.7 H (12.0-18.0) g/dL Hct 55.8 H (35.0-51.0) % MCV 91.2 D (80.0-94.0) fL MCH 30.5 (27.0-31.0) pg MCHC 33.4 (33.0-37.0) g/dL RDW 14.5 (11.5-14.5) % Plt Count 284 (130-400) K/uL MPV 9.2 (7.2-11.7) fL Neut % (Auto) 85.9 H (50.0-75.0) % Lymph % (Auto) 6.0 L (20.0-40.0) % [place] % (Auto) 7.9 (0.0-10.0) % Eos % (Auto) 0.0 (0.0-4.0) % Baso % (Auto) 0.2 (0.0-2.0) % Neut # (Auto) 15.8 H (1.8-7.0) K/uL Lymph # (Auto) 1.1 (1.0-4.3) K/uL [place] # (Auto) 1.5 H (0.0-0.8) K/uL Eos # (Auto) 0.0 (0.0-0.7) K/uL Baso # (Auto) 0.0 (0.0-0.2) K/uL Neutrophils % (Manual) 86 H (50-75) % Lymphocytes % (Manual) 5 L (20-40) % Monocytes % (Manual) 9 (0-10) % Platelet Estimate Normal (NORMAL) PT (9.7-12.2) SECONDS INR APTT (21-34) SECONDS Puncture Site pCO2 (35-45) mm/Hg pO2 (80-100) mm/Hg HCO3 (21-28) mmol/L ABG pH (7.35-7.45) ABG Total CO2 (22-28) mmol/L ABG O2 Saturation (95-98) % ABG Base Excess (-2.0-3.0) mmol/L [place] Test ABG Potassium (3.6-5.2) mmol/L A-a O2 Difference mm/Hg Respiratory Index Glucose (75-110) mg/dl Lactate (0.7-2.1) mmol/L Vent Mode Mechanical Rate FiO2 % Tidal Volume PEEP Inspiratory BiPAP Expiratory BiPAP Crit Value Called To Crit Value Called By Crit Value Read Back Blood Gas Notified Time Sodium (132-148) mmol/L Potassium (3.6-5.2) mmol/L Chloride (98-107) mmol/L Carbon Dioxide (22-30) mmol/L Anion Gap (10-20) BUN (9-20) mg/dL Creatinine (0.8-1.5) mg/dL Est GFR ( Amer) Est GFR (Non-Af Amer) POC Glucose (mg/dL) 412 H* (65-110) mg/dL Random Glucose (75-110) mg/dL Calcium (8.6-10.4) mg/dl Phosphorus (2.5-4.5) mg/dL Magnesium (1.6-2.3) mg/dL Total Bilirubin (0.2-1.3) mg/dL AST (17-59) U/L ALT (21-72) U/L Alkaline Phosphatase (38-126) U/L Total Creatine Kinase 1304 H (55-170) U/L CK-MB (Mass) 73.9 H (0.0-3.38) ng/mL Troponin I (0.00-0.120) ng/mL NT-Pro-B Natriuret Pep 4030 H (0-900) pg/mL Total Protein (6.3-8.3) g/dL Albumin (3.5-5.0) g/dL Globulin (2.2-3.9) gm/dL Albumin/Globulin Ratio (1.0-2.1) Arterial Blood Potassium (3.6-5.2) mmol/L Urine Color (YELLOW) Urine Clarity (Clear) Urine pH (5.0-8.0) Ur Specific [place] (1.003-1.030) Urine Protein (NEGATIVE) mg/dL Urine Glucose (UA) (Normal) mg/dL Urine Ketones (NEGATIVE) mg/dL Urine Blood (NEGATIVE) Urine Nitrate (NEGATIVE) Urine Bilirubin (NEGATIVE) Urine Urobilinogen (0.2-1.0) mg/dL Ur Leukocyte Esterase (Negative) Dm/uL Urine WBC (Auto) (0-5) /hpf Urine RBC (Auto) (0-3) /hpf Blood Type Antibody Screen 09/03/18 09/03/18 09/03/18 Range/Units 05:47 05:45 05:12 WBC (4.8-10.8) K/uL RBC (4.40-5.90) Mil/uL Hgb (12.0-18.0) g/dL Hct (35.0-51.0) % MCV (80.0-94.0) fL MCH (27.0-31.0) pg MCHC (33.0-37.0) g/dL RDW (11.5-14.5) % Plt Count (130-400) K/uL MPV (7.2-11.7) fL Neut % (Auto) (50.0-75.0) % Lymph % (Auto) (20.0-40.0) % [place] % (Auto) (0.0-10.0) % Eos % (Auto) (0.0-4.0) % Baso % (Auto) (0.0-2.0) % Neut # (Auto) (1.8-7.0) K/uL Lymph # (Auto) (1.0-4.3) K/uL [place] # (Auto) (0.0-0.8) K/uL Eos # (Auto) (0.0-0.7) K/uL Baso # (Auto) (0.0-0.2) K/uL Neutrophils % (Manual) (50-75) % Lymphocytes % (Manual) (20-40) % Monocytes % (Manual) (0-10) % Platelet Estimate (NORMAL) PT (9.7-12.2) SECONDS INR APTT (21-34) SECONDS Puncture Site Rb pCO2 44 (35-45) mm/Hg pO2 69 L (80-100) mm/Hg HCO3 20.6 L (21-28) mmol/L ABG pH 7.29 L (7.35-7.45) ABG Total CO2 22.6 (22-28) mmol/L ABG O2 Saturation 95.3 (95-98) % ABG Base Excess -5.3 L (-2.0-3.0) mmol/L [place] Test Na ABG Potassium 4.4 (3.6-5.2) mmol/L A-a O2 Difference 446.0 mm/Hg Respiratory Index 6.5 Glucose 644 H* (75-110) mg/dl Lactate 2.6 H (0.7-2.1) mmol/L Vent Mode Prvc Mechanical Rate 20 FiO2 80.0 % Tidal Volume 500 PEEP 5 Inspiratory BiPAP Expiratory BiPAP Crit Value Called To John rn Crit Value Called By Ludwin graphic technician Crit Value Read Back Y Blood Gas Notified Time 541 Sodium 138.0 (132-148) mmol/L Potassium (3.6-5.2) mmol/L Chloride 98.0 (98-107) mmol/L Carbon Dioxide (22-30) mmol/L Anion Gap (10-20) BUN (9-20) mg/dL Creatinine (0.8-1.5) mg/dL Est GFR ( Amer) Est GFR (Non-Af Amer) POC Glucose (mg/dL) 481 H* (65-110) mg/dL Random Glucose (75-110) mg/dL Calcium (8.6-10.4) mg/dl Phosphorus (2.5-4.5) mg/dL Magnesium (1.6-2.3) mg/dL Total Bilirubin (0.2-1.3) mg/dL AST (17-59) U/L ALT (21-72) U/L Alkaline Phosphatase (38-126) U/L Total Creatine Kinase (55-170) U/L CK-MB (Mass) (0.0-3.38) ng/mL Troponin I (0.00-0.120) ng/mL NT-Pro-B Natriuret Pep (0-900) pg/mL Total Protein (6.3-8.3) g/dL Albumin (3.5-5.0) g/dL Globulin (2.2-3.9) gm/dL Albumin/Globulin Ratio (1.0-2.1) Arterial Blood Potassium 4.4 (3.6-5.2) mmol/L Urine Color Colorless (YELLOW) Urine Clarity Clear (Clear) Urine pH 5.0 (5.0-8.0) Ur Specific [place] 1.021 (1.003-1.030) Urine Protein Negative (NEGATIVE) mg/dL Urine Glucose (UA) 3+ H (Normal) mg/dL Urine Ketones Negative (NEGATIVE) mg/dL Urine Blood Trace H (NEGATIVE) Urine Nitrate Negative (NEGATIVE) Urine Bilirubin Negative (NEGATIVE) Urine Urobilinogen Normal (0.2-1.0) mg/dL Ur Leukocyte Esterase Neg (Negative) Dm/uL Urine WBC (Auto) < 1 (0-5) /hpf Urine RBC (Auto) 1 (0-3) /hpf Blood Type Antibody Screen 09/03/18 09/03/18 09/03/18 Range/Units 04:43 02:00 01:55 WBC (4.8-10.8) K/uL RBC (4.40-5.90) Mil/uL Hgb (12.0-18.0) g/dL Hct (35.0-51.0) % MCV (80.0-94.0) fL MCH (27.0-31.0) pg MCHC (33.0-37.0) g/dL RDW (11.5-14.5) % Plt Count (130-400) K/uL MPV (7.2-11.7) fL Neut % (Auto) (50.0-75.0) % Lymph % (Auto) (20.0-40.0) % [place] % (Auto) (0.0-10.0) % Eos % (Auto) (0.0-4.0) % Baso % (Auto) (0.0-2.0) % Neut # (Auto) (1.8-7.0) K/uL Lymph # (Auto) (1.0-4.3) K/uL [place] # (Auto) (0.0-0.8) K/uL Eos # (Auto) (0.0-0.7) K/uL Baso # (Auto) (0.0-0.2) K/uL Neutrophils % (Manual) (50-75) % Lymphocytes % (Manual) (20-40) % Monocytes % (Manual) (0-10) % Platelet Estimate (NORMAL) PT (9.7-12.2) SECONDS INR APTT (21-34) SECONDS Puncture Site Rr pCO2 45 (35-45) mm/Hg pO2 165 H (80-100) mm/Hg HCO3 18.7 L (21-28) mmol/L ABG pH 7.24 L (7.35-7.45) ABG Total CO2 20.7 L (22-28) mmol/L ABG O2 Saturation 99.5 H (95-98) % ABG Base Excess -8.0 L (-2.0-3.0) mmol/L Arden Test Pos ABG Potassium 4.3 (3.6-5.2) mmol/L A-a O2 Difference 492.0 mm/Hg Respiratory Index 3.0 Glucose > 750 H* (75-110) mg/dl Lactate 5.0 H* (0.7-2.1) mmol/L Vent Mode Bipap Mechanical Rate FiO2 100.0 % Tidal Volume PEEP Inspiratory BiPAP 12 Expiratory BiPAP 6 Crit Value Called To Dr. alfaro Crit Value Called By Ludwin graphic technician Crit Value Read Back Y Blood Gas Notified Time 207 Sodium 136.0 (132-148) mmol/L Potassium (3.6-5.2) mmol/L Chloride 97.0 L (98-107) mmol/L Carbon Dioxide (22-30) mmol/L Anion Gap (10-20) BUN (9-20) mg/dL Creatinine (0.8-1.5) mg/dL Est GFR ( Amer) Est GFR (Non-Af Amer) POC Glucose (mg/dL) > 500 H* (65-110) mg/dL Random Glucose (75-110) mg/dL Calcium (8.6-10.4) mg/dl Phosphorus (2.5-4.5) mg/dL Magnesium (1.6-2.3) mg/dL Total Bilirubin (0.2-1.3) mg/dL AST (17-59) U/L ALT (21-72) U/L Alkaline Phosphatase (38-126) U/L Total Creatine Kinase (55-170) U/L CK-MB (Mass) (0.0-3.38) ng/mL Troponin I (0.00-0.120) ng/mL NT-Pro-B Natriuret Pep (0-900) pg/mL Total Protein (6.3-8.3) g/dL Albumin (3.5-5.0) g/dL Globulin (2.2-3.9) gm/dL Albumin/Globulin Ratio (1.0-2.1) Arterial Blood Potassium 4.3 (3.6-5.2) mmol/L Urine Color (YELLOW) Urine Clarity (Clear) Urine pH (5.0-8.0) Ur Specific [place] (1.003-1.030) Urine Protein (NEGATIVE) mg/dL Urine Glucose (UA) (Normal) mg/dL Urine Ketones (NEGATIVE) mg/dL Urine Blood (NEGATIVE) Urine Nitrate (NEGATIVE) Urine Bilirubin (NEGATIVE) Urine Urobilinogen (0.2-1.0) mg/dL Ur Leukocyte Esterase (Negative) Dm/uL Urine WBC (Auto) (0-5) /hpf Urine RBC (Auto) (0-3) /hpf Blood Type O POSITIVE Antibody Screen Negative 09/03/18 09/03/18 09/03/18 Range/Units 01:40 01:40 01:40 WBC 12.2 H (4.8-10.8) K/uL RBC 6.04 H (4.40-5.90) Mil/uL Hgb 18.5 H (12.0-18.0) g/dL Hct 56.6 H (35.0-51.0) % MCV 93.7 (80.0-94.0) fL MCH 30.7 (27.0-31.0) pg MCHC 32.8 L (33.0-37.0) g/dL RDW 14.1 (11.5-14.5) % Plt Count 297 (130-400) K/uL MPV 9.4 (7.2-11.7) fL Neut % (Auto) 61.4 (50.0-75.0) % Lymph % (Auto) 30.0 (20.0-40.0) % [place] % (Auto) 6.3 (0.0-10.0) % Eos % (Auto) 1.3 (0.0-4.0) % Baso % (Auto) 1.0 (0.0-2.0) % Neut # (Auto) 7.5 H (1.8-7.0) K/uL Lymph # (Auto) 3.7 (1.0-4.3) K/uL [place] # (Auto) 0.8 (0.0-0.8) K/uL Eos # (Auto) 0.2 (0.0-0.7) K/uL Baso # (Auto) 0.1 (0.0-0.2) K/uL Neutrophils % (Manual) (50-75) % Lymphocytes % (Manual) (20-40) % Monocytes % (Manual) (0-10) % Platelet Estimate (NORMAL) PT 11.1 (9.7-12.2) SECONDS INR 1.0 APTT 45 H (21-34) SECONDS Puncture Site pCO2 (35-45) mm/Hg pO2 (80-100) mm/Hg HCO3 (21-28) mmol/L ABG pH (7.35-7.45) ABG Total CO2 (22-28) mmol/L ABG O2 Saturation (95-98) % ABG Base Excess (-2.0-3.0) mmol/L Arden Test ABG Potassium (3.6-5.2) mmol/L A-a O2 Difference mm/Hg Respiratory Index Glucose (75-110) mg/dl Lactate (0.7-2.1) mmol/L Vent Mode Mechanical Rate FiO2 % Tidal Volume PEEP Inspiratory BiPAP Expiratory BiPAP Crit Value Called To Crit Value Called By Crit Value Read Back Blood Gas Notified Time Sodium 136 (132-148) mmol/L Potassium 4.6 (3.6-5.2) mmol/L Chloride 98 (98-107) mmol/L Carbon Dioxide 20 L (22-30) mmol/L Anion Gap 23 H (10-20) BUN 20 (9-20) mg/dL Creatinine 1.4 (0.8-1.5) mg/dL Est GFR ( Amer) > 60 Est GFR (Non-Af Amer) 50 POC Glucose (mg/dL) (65-110) mg/dL Random Glucose 662 H* (75-110) mg/dL Calcium 9.7 (8.6-10.4) mg/dl Phosphorus (2.5-4.5) mg/dL Magnesium (1.6-2.3) mg/dL Total Bilirubin 1.1 (0.2-1.3) mg/dL AST 120 H (17-59) U/L ALT 59 (21-72) U/L Alkaline Phosphatase 142 H (38-126) U/L Total Creatine Kinase (55-170) U/L CK-MB (Mass) (0.0-3.38) ng/mL Troponin I 5.9900 H* (0.00-0.120) ng/mL NT-Pro-B Natriuret Pep (0-900) pg/mL Total Protein 7.7 (6.3-8.3) g/dL Albumin 4.5 (3.5-5.0) g/dL Globulin 3.3 (2.2-3.9) gm/dL Albumin/Globulin Ratio 1.4 (1.0-2.1) Arterial Blood Potassium (3.6-5.2) mmol/L Urine Color (YELLOW) Urine Clarity (Clear) Urine pH (5.0-8.0) Ur Specific [place] (1.003-1.030) Urine Protein (NEGATIVE) mg/dL Urine Glucose (UA) (Normal) mg/dL Urine Ketones (NEGATIVE) mg/dL Urine Blood (NEGATIVE) Urine Nitrate (NEGATIVE) Urine Bilirubin (NEGATIVE) Urine Urobilinogen (0.2-1.0) mg/dL Ur Leukocyte Esterase (Negative) Dm/uL Urine WBC (Auto) (0-5) /hpf Urine RBC (Auto) (0-3) /hpf Blood Type Antibody Screen Laboratory Results - last 24 hr 09/03/18 09/03/18 09/03/18 01:40 01:40 01:40 WBC 12.2 H RBC 6.04 H Hgb 18.5 H Hct 56.6 H MCV 93.7 MCH 30.7 MCHC 32.8 L RDW 14.1 Plt Count 297 MPV 9.4 Neut % (Auto) 61.4 Lymph % (Auto) 30.0 [place] % (Auto) 6.3 Eos % (Auto) 1.3 Baso % (Auto) 1.0 Neut # (Auto) 7.5 H Lymph # (Auto) 3.7 [place] # (Auto) 0.8 Eos # (Auto) 0.2 Baso # (Auto) 0.1 Neutrophils % (Manual) Lymphocytes % (Manual) Monocytes % (Manual) Platelet Estimate PT 11.1 INR 1.0 APTT 45 H Puncture Site pCO2 pO2 HCO3 ABG pH ABG Total CO2 ABG O2 Saturation ABG Base Excess [place] Test ABG Potassium A-a O2 Difference Respiratory Index Glucose Lactate Vent Mode Mechanical Rate FiO2 Tidal Volume PEEP Inspiratory BiPAP Expiratory BiPAP Crit Value Called To Crit Value Called By Crit Value Read Back Blood Gas Notified Time Sodium 136 Potassium 4.6 Chloride 98 Carbon Dioxide 20 L Anion Gap 23 H BUN 20 Creatinine 1.4 Est GFR ( Amer) > 60 Est GFR (Non-Af Amer) 50 POC Glucose (mg/dL) Random Glucose 662 H* Calcium 9.7 Phosphorus Magnesium Total Bilirubin 1.1 AST 120 H ALT 59 Alkaline Phosphatase 142 H Total Creatine Kinase CK-MB (Mass) Troponin I 5.9900 H* NT-Pro-B Natriuret Pep Total Protein 7.7 Albumin 4.5 Globulin 3.3 Albumin/Globulin Ratio 1.4 Arterial Blood Potassium Urine Color Urine Clarity Urine pH Ur Specific [place] Urine Protein Urine Glucose (UA) Urine Ketones Urine Blood Urine Nitrate Urine Bilirubin Urine Urobilinogen Ur Leukocyte Esterase Urine WBC (Auto) Urine RBC (Auto) Blood Type Antibody Screen 09/03/18 09/03/18 09/03/18 01:55 02:00 04:43 WBC RBC Hgb Hct MCV MCH MCHC RDW Plt Count MPV Neut % (Auto) Lymph % (Auto) [place] % (Auto) Eos % (Auto) Baso % (Auto) Neut # (Auto) Lymph # (Auto) [place] # (Auto) Eos # (Auto) Baso # (Auto) Neutrophils % (Manual) Lymphocytes % (Manual) Monocytes % (Manual) Platelet Estimate PT INR APTT Puncture Site Rr pCO2 45 pO2 165 H HCO3 18.7 L ABG pH 7.24 L ABG Total CO2 20.7 L ABG O2 Saturation 99.5 H ABG Base Excess -8.0 L [place] Test Pos ABG Potassium 4.3 A-a O2 Difference 492.0 Respiratory Index 3.0 Glucose > 750 H* Lactate 5.0 H* Vent Mode Bipap Mechanical Rate FiO2 100.0 Tidal Volume PEEP Inspiratory BiPAP 12 Expiratory BiPAP 6 Crit Value Called To Dr. alfaro Crit Value Called By Ludwin graphic technician Crit Value Read Back Y Blood Gas Notified Time 207 Sodium 136.0 Potassium Chloride 97.0 L Carbon Dioxide Anion Gap BUN Creatinine Est GFR ( Amer) Est GFR (Non-Af Amer) POC Glucose (mg/dL) > 500 H* Random Glucose Calcium Phosphorus Magnesium Total Bilirubin AST ALT Alkaline Phosphatase Total Creatine Kinase CK-MB (Mass) Troponin I NT-Pro-B Natriuret Pep Total Protein Albumin Globulin Albumin/Globulin Ratio Arterial Blood Potassium 4.3 Urine Color Urine Clarity Urine pH Ur Specific [place] Urine Protein Urine Glucose (UA) Urine Ketones Urine Blood Urine Nitrate Urine Bilirubin Urine Urobilinogen Ur Leukocyte Esterase Urine WBC (Auto) Urine RBC (Auto) Blood Type O POSITIVE Antibody Screen Negative 09/03/18 09/03/18 09/03/18 05:12 05:45 05:47 WBC RBC Hgb Hct MCV MCH MCHC RDW Plt Count MPV Neut % (Auto) Lymph % (Auto) [place] % (Auto) Eos % (Auto) Baso % (Auto) Neut # (Auto) Lymph # (Auto) [place] # (Auto) Eos # (Auto) Baso # (Auto) Neutrophils % (Manual) Lymphocytes % (Manual) Monocytes % (Manual) Platelet Estimate PT INR APTT Puncture Site Rb pCO2 44 pO2 69 L HCO3 20.6 L ABG pH 7.29 L ABG Total CO2 22.6 ABG O2 Saturation 95.3 ABG Base Excess -5.3 L Arden Test Na ABG Potassium 4.4 A-a O2 Difference 446.0 Respiratory Index 6.5 Glucose 644 H* Lactate 2.6 H Vent Mode Prvc Mechanical Rate 20 FiO2 80.0 Tidal Volume 500 PEEP 5 Inspiratory BiPAP Expiratory BiPAP Crit Value Called To John rn Crit Value Called By Ludwin graphic technician Crit Value Read Back Y Blood Gas Notified Time 541 Sodium 138.0 Potassium Chloride 98.0 Carbon Dioxide Anion Gap BUN Creatinine Est GFR ( Amer) Est GFR (Non-Af Amer) POC Glucose (mg/dL) 481 H* Random Glucose Calcium Phosphorus Magnesium Total Bilirubin AST ALT Alkaline Phosphatase Total Creatine Kinase CK-MB (Mass) Troponin I NT-Pro-B Natriuret Pep Total Protein Albumin Globulin Albumin/Globulin Ratio Arterial Blood Potassium 4.4 Urine Color Colorless Urine Clarity Clear Urine pH 5.0 Ur Specific [place] 1.021 Urine Protein Negative Urine Glucose (UA) 3+ H Urine Ketones Negative Urine Blood Trace H Urine Nitrate Negative Urine Bilirubin Negative Urine Urobilinogen Normal Ur Leukocyte Esterase Neg Urine WBC (Auto) < 1 Urine RBC (Auto) 1 Blood Type Antibody Screen 09/03/18 09/03/18 09/03/18 07:18 07:51 07:51 WBC 18.4 H D RBC 6.12 H Hgb 18.7 H Hct 55.8 H MCV 91.2 D MCH 30.5 MCHC 33.4 RDW 14.5 Plt Count 284 MPV 9.2 Neut % (Auto) 85.9 H Lymph % (Auto) 6.0 L [place] % (Auto) 7.9 Eos % (Auto) 0.0 Baso % (Auto) 0.2 Neut # (Auto) 15.8 H Lymph # (Auto) 1.1 [place] # (Auto) 1.5 H Eos # (Auto) 0.0 Baso # (Auto) 0.0 Neutrophils % (Manual) 86 H Lymphocytes % (Manual) 5 L Monocytes % (Manual) 9 Platelet Estimate Normal PT INR APTT Puncture Site pCO2 pO2 HCO3 ABG pH ABG Total CO2 ABG O2 Saturation ABG Base Excess Ar[place] Test ABG Potassium A-a O2 Difference Respiratory Index Glucose Lactate Vent Mode Mechanical Rate FiO2 Tidal Volume PEEP Inspiratory BiPAP Expiratory BiPAP Crit Value Called To Crit Value Called By Crit Value Read Back Blood Gas Notified Time Sodium Potassium Chloride Carbon Dioxide Anion Gap BUN Creatinine Est GFR ( Amer) Est GFR (Non-Af Amer) POC Glucose (mg/dL) 412 H* Random Glucose Calcium Phosphorus Magnesium Total Bilirubin AST ALT Alkaline Phosphatase Total Creatine Kinase 1304 H CK-MB (Mass) 73.9 H Troponin I NT-Pro-B Natriuret Pep 4030 H Total Protein Albumin Globulin Albumin/Globulin Ratio Arterial Blood Potassium Urine Color Urine Clarity Urine pH Ur Specific [place] Urine Protein Urine Glucose (UA) Urine Ketones Urine Blood Urine Nitrate Urine Bilirubin Urine Urobilinogen Ur Leukocyte Esterase Urine WBC (Auto) Urine RBC (Auto) Blood Type Antibody Screen 09/03/18 09/03/18 09/03/18 07:51 07:51 07:59 WBC RBC Hgb Hct MCV MCH MCHC RDW Plt Count MPV Neut % (Auto) Lymph % (Auto) [place] % (Auto) Eos % (Auto) Baso % (Auto) Neut # (Auto) Lymph # (Auto) [place] # (Auto) Eos # (Auto) Baso # (Auto) Neutrophils % (Manual) Lymphocytes % (Manual) Monocytes % (Manual) Platelet Estimate PT INR APTT 161 H* D Puncture Site pCO2 pO2 HCO3 ABG pH ABG Total CO2 ABG O2 Saturation ABG Base Excess Arden Test ABG Potassium A-a O2 Difference Respiratory Index Glucose Lactate Vent Mode Mechanical Rate FiO2 Tidal Volume PEEP Inspiratory BiPAP Expiratory BiPAP Crit Value Called To Crit Value Called By Crit Value Read Back Blood Gas Notified Time Sodium 138 Potassium 3.8 Chloride 101 Carbon Dioxide 24 Anion Gap 16 BUN 22 H Creatinine 1.3 Est GFR ( Amer) > 60 Est GFR (Non-Af Amer) 54 POC Glucose (mg/dL) 410 H* Random Glucose 504 H* D Calcium 9.4 Phosphorus 2.5 Magnesium 2.0 Total Bilirubin 0.9 AST 265 H D ALT 57 Alkaline Phosphatase 137 H Total Creatine Kinase 1327 H CK-MB (Mass) 61.0 H Troponin I 55.9000 H* NT-Pro-B Natriuret Pep Total Protein 7.6 Albumin 4.2 Globulin 3.4 Albumin/Globulin Ratio 1.3 Arterial Blood Potassium Urine Color Urine Clarity Urine pH Ur Specific [place] Urine Protein Urine Glucose (UA) Urine Ketones Urine Blood Urine Nitrate Urine Bilirubin Urine Urobilinogen Ur Leukocyte Esterase Urine WBC (Auto) Urine RBC (Auto) Blood Type Antibody Screen 09/03/18 09/03/18 09/03/18 09:03 10:01 11:02 WBC RBC Hgb Hct MCV MCH MCHC RDW Plt Count MPV Neut % (Auto) Lymph % (Auto) [place] % (Auto) Eos % (Auto) Baso % (Auto) Neut # (Auto) Lymph # (Auto) [place] # (Auto) Eos # (Auto) Baso # (Auto) Neutrophils % (Manual) Lymphocytes % (Manual) Monocytes % (Manual) Platelet Estimate PT INR APTT Puncture Site pCO2 pO2 HCO3 ABG pH ABG Total CO2 ABG O2 Saturation ABG Base Excess [place] Test ABG Potassium A-a O2 Difference Respiratory Index Glucose Lactate Vent Mode Mechanical Rate FiO2 Tidal Volume PEEP Inspiratory BiPAP Expiratory BiPAP Crit Value Called To Crit Value Called By Crit Value Read Back Blood Gas Notified Time Sodium Potassium Chloride Carbon Dioxide Anion Gap BUN Creatinine Est GFR ( Amer) Est GFR (Non-Af Amer) POC Glucose (mg/dL) 334 H 254 H 215 H Random Glucose Calcium Phosphorus Magnesium Total Bilirubin AST ALT Alkaline Phosphatase Total Creatine Kinase CK-MB (Mass) Troponin I NT-Pro-B Natriuret Pep Total Protein Albumin Globulin Albumin/Globulin Ratio Arterial Blood Potassium Urine Color Urine Clarity Urine pH Ur Specific [place] Urine Protein Urine Glucose (UA) Urine Ketones Urine Blood Urine Nitrate Urine Bilirubin Urine Urobilinogen Ur Leukocyte Esterase Urine WBC (Auto) Urine RBC (Auto) Blood Type Antibody Screen 09/03/18 09/03/18 09/03/18 12:20 14:02 16:40 WBC RBC Hgb Hct MCV MCH MCHC RDW Plt Count MPV Neut % (Auto) Lymph % (Auto) [place] % (Auto) Eos % (Auto) Baso % (Auto) Neut # (Auto) Lymph # (Auto) [place] # (Auto) Eos # (Auto) Baso # (Auto) Neutrophils % (Manual) Lymphocytes % (Manual) Monocytes % (Manual) Platelet Estimate PT INR APTT Puncture Site pCO2 pO2 HCO3 ABG pH ABG Total CO2 ABG O2 Saturation ABG Base Excess Ar[place] Test ABG Potassium A-a O2 Difference Respiratory Index Glucose Lactate Vent Mode Mechanical Rate FiO2 Tidal Volume PEEP Inspiratory BiPAP Expiratory BiPAP Crit Value Called To Crit Value Called By Crit Value Read Back Blood Gas Notified Time Sodium Potassium Chloride Carbon Dioxide Anion Gap BUN Creatinine Est GFR ( Amer) Est GFR (Non-Af Amer) POC Glucose (mg/dL) 199 H 229 H 263 H Random Glucose Calcium Phosphorus Magnesium Total Bilirubin AST ALT Alkaline Phosphatase Total Creatine Kinase CK-MB (Mass) Troponin I NT-Pro-B Natriuret Pep Total Protein Albumin Globulin Albumin/Globulin Ratio Arterial Blood Potassium Urine Color Urine Clarity Urine pH Ur Specific [place] Urine Protein Urine Glucose (UA) Urine Ketones Urine Blood Urine Nitrate Urine Bilirubin Urine Urobilinogen Ur Leukocyte Esterase Urine WBC (Auto) Urine RBC (Auto) Blood Type Antibody Screen EKG/Cardiology Studies: Cardiology / EKG Studies 09/03/18 01:33 ELECTROCARDIOGRAM Stat Comment: Mode Of Transportation: BED Reason For Exam: chest pain 09/03/18 08:00 EKG [ELECTROCARDIOGRAM] DAILY Comment: Mode Of Transportation: PORTABLE Reason For Exam: S/p STEMI 09/04/18 08:00 EKG [ELECTROCARDIOGRAM] DAILY Comment: Mode Of Transportation: PORTABLE Reason For Exam: S/p STEMI 09/05/18 08:00 EKG [ELECTROCARDIOGRAM] DAILY Comment: Mode Of Transportation: PORTABLE Reason For Exam: S/p STEMI Attending/Attestation - Attestation I have personally seen and examined this patient.: Yes I have fully participated in the care of the patient.: Yes I have reviewed all pertinent clinical information: Yes Notes (Text): 09/03/18 18:06 I have seen and examined the patient. Medical records, lab studies, and imaging were reviewed by me and a management plan was formulated on multidisciplinary rounds with resident Dr. Aden. I agree with their documented assessment and plan. Patient is in cardiogenic shock on a balloon pump. Started on two pressors, phenylephrine and levophed with stabilization of blood pressure. Patient will need eventual follow up heart catheterization for other vessel stenting, once stable. RIJ TLC placed today. Critical Care Time 35 minutes. Multi-disciplinary rounds were performed with house staff, nursing, speech therapy, respiratory therapy, pharmacy and nutrition with integrated input from the primary team/attending and other consulting services. The documented time is cumulative and includes review of patient data/exams/labs/chart review and examination of the patient on rounds and throughout the day; time is exclusive of any procedures or teaching time. 09/03/18 18:17
[2018-09-03] MEDS ORDERED: DOBUTamine 500mg/250ml D5W 500 MG/250 ML BAG IV SCH (16:45)
--- NOTE | 2018-09-03 17:25 | RAD ---
Date of service: 09/03/2018 HISTORY: Post insertion TLC COMPARISON: No prior. FINDINGS: In situ ETT, the tip of which lies approximately 6.2 cm above marco. Right IJ central line with tip in the SVC/RA junction. LUNGS: Note that the left hemithorax is partially obscured by overlying cardiac defibrillator pads. Suspect minor atelectasis and/or infiltrate in the left mid to lower lung field. PLEURA: No significant pleural effusion identified, no pneumothorax apparent. CARDIOVASCULAR: No aortic atherosclerotic calcification present. Normal cardiac size. No pulmonary vascular congestion. OSSEOUS STRUCTURES: No significant abnormalities. VISUALIZED UPPER ABDOMEN: Normal. OTHER FINDINGS: None. IMPRESSION: ETT and NGT as described. In situ ETT, the tip of which lies approximately 6.2 cm above marco. Right IJ central line with tip in the SVC/RA junction.. Cardiomegaly.
--- NOTE | 2018-09-03 18:32 | PCM.PROC ---
<Josh Green - Last Filed: 09/03/18 18:32> Procedures Attestation:: I certify that I have explained the specified Operation(s) or Procedure(s), risks, benefits and reasonable alternatives to the Patient and/or other person responsible. The opportunity was given to ask questions and all questions answered - Central Line Placement Right Internal Jugular Triple Lumen Catheter Aseptic technique was employed throughout the procedure: Hand Hygiene done prior to procedure, Full sterile barriers (mask, hair cover, sterile gown, sterile gloves), Full body sterile drape, Chloraprep Antiseptic: 30 second prep for IJ or SC sites CVP Time Out Performed: Yes Pt. Placed on Pulse Ox Monitor: Yes Central Line Prep: Chlorhexidine-Alcohol Combination Central Line Lumen Inserted: triple Central Line Length: 20 cm Post Procedure: Sutured in Place, Good Blood Return, All Ports Aspirated, Flushed, Capped, Sterile Dressing Applied Secured by: Securement device Post procedure dressing: Clear vapor permeable Post Procedure X-Ray: Yes Patient Tolerated Procedure: Well, No Complications Immediate Complications: None <Chuck Engel - Last Filed: 09/03/18 19:49> Attending/Attestation - Attestation I have personally seen and examined this patient.: Yes I have fully participated in the care of the patient.: Yes I have reviewed all pertinent clinical information, including history, physical exam and plan: Yes Notes (Text): 09/03/18 19:48 I supervised, and assisted in this procedure with resident physician Dr. Green. There were no complications, and patient tolerated the procedure well. Followup chest X-ray showed TLC in good position with no pneumothorax.
--- NOTE | 2018-09-03 18:43 | CARD ---
APPROVED REPORT Date of service: 09/03/2018 EXAM: Two-dimensional and M-mode echocardiogram with Doppler and color Doppler. Other Information Quality : GoodRhythm : INDICATION Syncope RISK FACTORS Diabetes 2D DIMENSIONS IVSd1.1 (0.7-1.1cm)LVDd5.7 (3.9-5.9cm) PWd1.1 (0.7-1.1cm)LA [id number] (18-58mL) LVDs5.0 (2.5-4.0cm)FS (%) 11.2 % LVEF (%)40.0 (>50%)LVEF (Mary's)40 % M-Mode DIMENSIONS Left Atrium (MM)4.51 (2.5-4.0cm)IVSd0.96 (0.7-1.1cm) Aortic Root3.33 (2.2-3.7cm)LVDd6.56 (4.0-5.6cm) Aortic Cusp Exc.1.78 (1.5-2.0cm)PWd0.96 (0.7-1.1cm) FS (%) 13 %LVDs5.69 (2.0-3.8cm) LVEF (%)40 (>50%) Mitral Valve MV E Prjuwfys31.7cm/sMV A Rthvbpkp93.4cm/sE/A ratio1.5 TDI Lateral E' Peak V6.16cm/sMedial E' Peak V2.48cm/sE/Lateral E'12.6 E/Medial E'31.3 Tricuspid Valve TR Peak [id number]/sTR Peak [id number] LEFT VENTRICLE The Left Ventricle is moderately dilated. There is borderline concentric left ventricular hypertrophy. The systolic function is moderately to severely impaired. Ejection Fraction estimated - 30 - 35% There is moderate to severe hypokinesis in the millie apical and mid-inferior wall compatible with multivessel coronary heart disease. The basal-septal and the postero-basal segments contract relatively well. Transmitral Doppler flow pattern is Grade II-pseudonormal filling dynamics. RIGHT VENTRICLE The right ventricle is normal size. The right ventricular systolic function is normal. ATRIA The left atrium is moderately dilated. The right atrium size is normal. AORTIC VALVE The aortic valve is calcified but opens well. No aortic regurgitation is present. MITRAL VALVE The mitral valve is normal in structure. Mitral regurgitation is trace. TRICUSPID VALVE The tricuspid valve is normal in structure. There is mild tricuspid regurgitation. Right ventricular systolic pressure is estimated at less than 30 mmHg. PULMONIC VALVE The pulmonary valve is normal in structure. GREAT VESSELS The aortic root is normal in size. The aortic root displays moderate sclerocalcific changes The IVC was not well visualized. PERICARDIAL EFFUSION There is no pericardial effusion. <Conclusion> The left ventricle is moderately dilated. The systolic function is moderately to severely impaired. Ejection Fraction estimated - 30 - 35% There is moderate to severe hypokinesis in the millie apical and mid-inferior segments compatible with multivessel coronary heart disease. The basal-septal and the postero-basal segments contract relatively well. Diastolic dysfunction Grade II The right ventricular systolic function is normal. No significant valvular abnormality. There is no pericardial effusion.
--- NOTE | 2018-09-03 22:32 | CP.PCM.HP ---
History of Present Illness - History of Present Illness History of Present Illness: 73 yo male was brought to the ED at [facility] complaining of chest pain and increasing SOB for the past few hours. An ECG revealed an acute anterior wall PA, and a CXR revealed an acute pulmonary edema. He was intubated and broug ht to the [employer]. A coronary angiogram disclosed severe 3 VD and a mid LAD total occlusion. a balloon angioplasty was performed to open up the LAD. Because of a severe LV systolic dysfunction ( LVEF 15%), and hypotension, a IABP was inserted. She is sedated, on respirator and vasopressors, Patient is known to have a a hypertension, a nonn-insulin dependent diabetes mellitus and a hypercholesterolemia. Present on Admission - Present on Admission Any Indicators Present on Admission: No Review of Systems - Cardiovascular Cardiovascular: Chest Pain, Dyspnea - Respiratory Respiratory: Dyspnea Past Patient History - Past Social History Smoking Status: Unknown If Ever Smoked - CARDIAC Hx Cardiac Disorders: Yes Hx Hypercholesterolemia: Yes Hx Hypertension: Yes - PULMONARY Hx Respiratory Disorders: No - NEUROLOGICAL Hx Neurological Disorder: No - HEENT Hx HEENT Problems: Yes Other/Comment: glasses for reading - RENAL Hx Chronic Kidney Disease: No - ENDOCRINE/METABOLIC Hx Endocrine Disorders: Yes Hx Diabetes Mellitus Type 2: Yes (not taking any medications) - HEMATOLOGICAL/ONCOLOGICAL Hx Blood Disorders: No - INTEGUMENTARY Hx Dermatological Problems: No - MUSCULOSKELETAL/RHEUMATOLOGICAL Hx Musculoskeletal Disorders: No Hx Falls: No - GASTROINTESTINAL Hx Gastrointestinal Disorders: No - GENITOURINARY/GYNECOLOGICAL Hx Genitourinary Disorders: No - PSYCHIATRIC Hx Psychophysiologic Disorder: No - SURGICAL HISTORY Hx Surgeries: No - ANESTHESIA Hx Anesthesia: No Hx Anesthesia Reactions: No Hx Malignant Hyperthermia: No Has any member of the family had a problem w/ anesthesia?: No Meds Allergies/Adverse Reactions: Allergies Allergy/AdvReac Type Severity Reaction Status Date / Time No Known Allergies Allergy Verified 09/03/18 01:29 Physical Exam - Constitutional Additional comments: Patient is sedated and on respirator. - Head Exam Head Exam: NORMAL INSPECTION - Eye Exam Eye Exam: Normal appearance - ENT Exam ENT Exam: Normal Exam - Neck Exam Neck exam: Positive for: Normal Inspection - Respiratory Exam Respiratory Exam: Rales Additional comments: Rales heard bilaterally. - Cardiovascular Exam Cardiovascular Exam: Tachycardia - GI/Abdominal Exam GI & Abdominal Exam: Hypoactive Bowel Sounds, Soft - Rectal Exam Rectal Exam: Deferred - Extremities Exam Extremities exam: Positive for: normal inspection - Back Exam Back exam: NORMAL INSPECTION - Neurological Exam Neurological exam: Alert Results - Vital Signs Recent Vital Signs: Last Vital Signs Temp 98.3 F 09/03/18 16:00 Pulse 87 09/03/18 21:51 Resp 20 09/03/18 16:57 BP 129/74 09/03/18 21:51 Pulse Ox 100 09/03/18 21:51 - Labs Result Diagrams: 09/03/18 07:51 09/03/18 07:51 Labs: Laboratory Results - last 24 hr 09/03/18 09/03/18 09/03/18 01:40 01:40 01:40 WBC 12.2 H RBC 6.04 H Hgb 18.5 H Hct 56.6 H MCV 93.7 MCH 30.7 MCHC 32.8 L RDW 14.1 Plt Count 297 MPV 9.4 Neut % (Auto) 61.4 Lymph % (Auto) 30.0 [place] % (Auto) 6.3 Eos % (Auto) 1.3 Baso % (Auto) 1.0 Neut # (Auto) 7.5 H Lymph # (Auto) 3.7 [place] # (Auto) 0.8 Eos # (Auto) 0.2 Baso # (Auto) 0.1 Neutrophils % (Manual) Lymphocytes % (Manual) Monocytes % (Manual) Platelet Estimate PT 11.1 INR 1.0 APTT 45 H Puncture Site pCO2 pO2 HCO3 ABG pH ABG Total CO2 ABG O2 Saturation ABG Base Excess [place] Test ABG Potassium A-a O2 Difference Respiratory Index Glucose Lactate Vent Mode Mechanical Rate FiO2 Tidal Volume PEEP Inspiratory BiPAP Expiratory BiPAP Crit Value Called To Crit Value Called By Crit Value Read Back Blood Gas Notified Time Sodium 136 Potassium 4.6 Chloride 98 Carbon Dioxide 20 L Anion Gap 23 H BUN 20 Creatinine 1.4 Est GFR ( Amer) > 60 Est GFR (Non-Af Amer) 50 POC Glucose (mg/dL) Random Glucose 662 H* Calcium 9.7 Phosphorus Magnesium Total Bilirubin 1.1 AST 120 H ALT 59 Alkaline Phosphatase 142 H Total Creatine Kinase CK-MB (Mass) Troponin I 5.9900 H* NT-Pro-B Natriuret Pep Total Protein 7.7 Albumin 4.5 Globulin 3.3 Albumin/Globulin Ratio 1.4 Arterial Blood Potassium Urine Color Urine Clarity Urine pH Ur Specific [place] Urine Protein Urine Glucose (UA) Urine Ketones Urine Blood Urine Nitrate Urine Bilirubin Urine Urobilinogen Ur Leukocyte Esterase Urine WBC (Auto) Urine RBC (Auto) Blood Type Antibody Screen 09/03/18 09/03/18 09/03/18 01:55 02:00 04:43 WBC RBC Hgb Hct MCV MCH MCHC RDW Plt Count MPV Neut % (Auto) Lymph % (Auto) [place] % (Auto) Eos % (Auto) Baso % (Auto) Neut # (Auto) Lymph # (Auto) [place] # (Auto) Eos # (Auto) Baso # (Auto) Neutrophils % (Manual) Lymphocytes % (Manual) Monocytes % (Manual) Platelet Estimate PT INR APTT Puncture Site Rr pCO2 45 pO2 165 H HCO3 18.7 L ABG pH 7.24 L ABG Total CO2 20.7 L ABG O2 Saturation 99.5 H ABG Base Excess -8.0 L [place] Test Pos ABG Potassium 4.3 A-a O2 Difference 492.0 Respiratory Index 3.0 Glucose > 750 H* Lactate 5.0 H* Vent Mode Bipap Mechanical Rate FiO2 100.0 Tidal Volume PEEP Inspiratory BiPAP 12 Expiratory BiPAP 6 Crit Value Called To Dr. alfaro Crit Value Called By Ludwin toilet and laundry soap supervisor Crit Value Read Back Y Blood Gas Notified Time 207 Sodium 136.0 Potassium Chloride 97.0 L Carbon Dioxide Anion Gap BUN Creatinine Est GFR ( Amer) Est GFR (Non-Af Amer) POC Glucose (mg/dL) > 500 H* Random Glucose Calcium Phosphorus Magnesium Total Bilirubin AST ALT Alkaline Phosphatase Total Creatine Kinase CK-MB (Mass) Troponin I NT-Pro-B Natriuret Pep Total Protein Albumin Globulin Albumin/Globulin Ratio Arterial Blood Potassium 4.3 Urine Color Urine Clarity Urine pH Ur Specific [place] Urine Protein Urine Glucose (UA) Urine Ketones Urine Blood Urine Nitrate Urine Bilirubin Urine Urobilinogen Ur Leukocyte Esterase Urine WBC (Auto) Urine RBC (Auto) Blood Type O POSITIVE Antibody Screen Negative 09/03/18 09/03/18 09/03/18 05:12 05:45 05:47 WBC RBC Hgb Hct MCV MCH MCHC RDW Plt Count MPV Neut % (Auto) Lymph % (Auto) [place] % (Auto) Eos % (Auto) Baso % (Auto) Neut # (Auto) Lymph # (Auto) [place] # (Auto) Eos # (Auto) Baso # (Auto) Neutrophils % (Manual) Lymphocytes % (Manual) Monocytes % (Manual) Platelet Estimate PT INR APTT Puncture Site Rb pCO2 44 pO2 69 L HCO3 20.6 L ABG pH 7.29 L ABG Total CO2 22.6 ABG O2 Saturation 95.3 ABG Base Excess -5.3 L [place]den Test Na ABG Potassium 4.4 A-a O2 Difference 446.0 Respiratory Index 6.5 Glucose 644 H* Lactate 2.6 H Vent Mode Prvc Mechanical Rate 20 FiO2 80.0 Tidal Volume 500 PEEP 5 Inspiratory BiPAP Expiratory BiPAP Crit Value Called To John rn Crit Value Called By Ludwin toilet and laundry soap supervisor Crit Value Read Back Y Blood Gas Notified Time 541 Sodium 138.0 Potassium Chloride 98.0 Carbon Dioxide Anion Gap BUN Creatinine Est GFR ( Amer) Est GFR (Non-Af Amer) POC Glucose (mg/dL) 481 H* Random Glucose Calcium Phosphorus Magnesium Total Bilirubin AST ALT Alkaline Phosphatase Total Creatine Kinase CK-MB (Mass) Troponin I NT-Pro-B Natriuret Pep Total Protein Albumin Globulin Albumin/Globulin Ratio Arterial Blood Potassium 4.4 Urine Color Colorless Urine Clarity Clear Urine pH 5.0 Ur Specific [place] 1.021 Urine Protein Negative Urine Glucose (UA) 3+ H Urine Ketones Negative Urine Blood Trace H Urine Nitrate Negative Urine Bilirubin Negative Urine Urobilinogen Normal Ur Leukocyte Esterase Neg Urine WBC (Auto) < 1 Urine RBC (Auto) 1 Blood Type Antibody Screen 09/03/18 09/03/18 09/03/18 07:18 07:51 07:51 WBC 18.4 H D RBC 6.12 H Hgb 18.7 H Hct 55.8 H MCV 91.2 D MCH 30.5 MCHC 33.4 RDW 14.5 Plt Count 284 MPV 9.2 Neut % (Auto) 85.9 H Lymph % (Auto) 6.[address] % (Auto) 7.9 Eos % (Auto) 0.0 Baso % (Auto) 0.2 Neut # (Auto) 15.8 H Lymph # (Auto) 1.1 [place] # (Auto) 1.5 H Eos # (Auto) 0.0 Baso # (Auto) 0.0 Neutrophils % (Manual) 86 H Lymphocytes % (Manual) 5 L Monocytes % (Manual) 9 Platelet Estimate Normal PT INR APTT Puncture Site pCO2 pO2 HCO3 ABG pH ABG Total CO2 ABG O2 Saturation ABG Base Excess [place] Test ABG Potassium A-a O2 Difference Respiratory Index Glucose Lactate Vent Mode Mechanical Rate FiO2 Tidal Volume PEEP Inspiratory BiPAP Expiratory BiPAP Crit Value Called To Crit Value Called By Crit Value Read Back Blood Gas Notified Time Sodium Potassium Chloride Carbon Dioxide Anion Gap BUN Creatinine Est GFR ( Amer) Est GFR (Non-Af Amer) POC Glucose (mg/dL) 412 H* Random Glucose Calcium Phosphorus Magnesium Total Bilirubin AST ALT Alkaline Phosphatase Total Creatine Kinase 1304 H CK-MB (Mass) 73.9 H Troponin I NT-Pro-B Natriuret Pep 4030 H Total Protein Albumin Globulin Albumin/Globulin Ratio Arterial Blood Potassium Urine Color Urine Clarity Urine pH Ur Specific [place] Urine Protein Urine Glucose (UA) Urine Ketones Urine Blood Urine Nitrate Urine Bilirubin Urine Urobilinogen Ur Leukocyte Esterase Urine WBC (Auto) Urine RBC (Auto) Blood Type Antibody Screen 09/03/18 09/03/18 09/03/18 07:51 07:51 07:59 WBC RBC Hgb Hct MCV MCH MCHC RDW Plt Count MPV Neut % (Auto) Lymph % (Auto) [place] % (Auto) Eos % (Auto) Baso % (Auto) Neut # (Auto) Lymph # (Auto) [place] # (Auto) Eos # (Auto) Baso # (Auto) Neutrophils % (Manual) Lymphocytes % (Manual) Monocytes % (Manual) Platelet Estimate PT INR APTT 161 H* D Puncture Site pCO2 pO2 HCO3 ABG pH ABG Total CO2 ABG O2 Saturation ABG Base Excess [place] Test ABG Potassium A-a O2 Difference Respiratory Index Glucose Lactate Vent Mode Mechanical Rate FiO2 Tidal Volume PEEP Inspiratory BiPAP Expiratory BiPAP Crit Value Called To Crit Value Called By Crit Value Read Back Blood Gas Notified Time Sodium 138 Potassium 3.8 Chloride 101 Carbon Dioxide 24 Anion Gap 16 BUN 22 H Creatinine 1.3 Est GFR ( Amer) > 60 Est GFR (Non-Af Amer) 54 POC Glucose (mg/dL) 410 H* Random Glucose 504 H* D Calcium 9.4 Phosphorus 2.5 Magnesium 2.0 Total Bilirubin 0.9 AST 265 H D ALT 57 Alkaline Phosphatase 137 H Total Creatine Kinase 1327 H CK-MB (Mass) 61.0 H Troponin I 55.9000 H* NT-Pro-B Natriuret Pep Total Protein 7.6 Albumin 4.2 Globulin 3.4 Albumin/Globulin Ratio 1.3 Arterial Blood Potassium Urine Color Urine Clarity Urine pH Ur Specific [place] Urine Protein Urine Glucose (UA) Urine Ketones Urine Blood Urine Nitrate Urine Bilirubin Urine Urobilinogen Ur Leukocyte Esterase Urine WBC (Auto) Urine RBC (Auto) Blood Type Antibody Screen 09/03/18 09/03/18 09/03/18 09:03 10:01 11:02 WBC RBC Hgb Hct MCV MCH MCHC RDW Plt Count MPV Neut % (Auto) Lymph % (Auto) [place] % (Auto) Eos % (Auto) Baso % (Auto) Neut # (Auto) Lymph # (Auto) [place] # (Auto) Eos # (Auto) Baso # (Auto) Neutrophils % (Manual) Lymphocytes % (Manual) Monocytes % (Manual) Platelet Estimate PT INR APTT Puncture Site pCO2 pO2 HCO3 ABG pH ABG Total CO2 ABG O2 Saturation ABG Base Excess [place] Test ABG Potassium A-a O2 Difference Respiratory Index Glucose Lactate Vent Mode Mechanical Rate FiO2 Tidal Volume PEEP Inspiratory BiPAP Expiratory BiPAP Crit Value Called To Crit Value Called By Crit Value Read Back Blood Gas Notified Time Sodium Potassium Chloride Carbon Dioxide Anion Gap BUN Creatinine Est GFR ( Amer) Est GFR (Non-Af Amer) POC Glucose (mg/dL) 334 H 254 H 215 H Random Glucose Calcium Phosphorus Magnesium Total Bilirubin AST ALT Alkaline Phosphatase Total Creatine Kinase CK-MB (Mass) Troponin I NT-Pro-B Natriuret Pep Total Protein Albumin Globulin Albumin/Globulin Ratio Arterial Blood Potassium Urine Color Urine Clarity Urine pH Ur Specific [place] Urine Protein Urine Glucose (UA) Urine Ketones Urine Blood Urine Nitrate Urine Bilirubin Urine Urobilinogen Ur Leukocyte Esterase Urine WBC (Auto) Urine RBC (Auto) Blood Type Antibody Screen 09/03/18 09/03/18 09/03/18 12:20 14:02 16:40 WBC RBC Hgb Hct MCV MCH MCHC RDW Plt Count MPV Neut % (Auto) Lymph % (Auto) [place] % (Auto) Eos % (Auto) Baso % (Auto) Neut # (Auto) Lymph # (Auto) [place] # (Auto) Eos # (Auto) Baso # (Auto) Neutrophils % (Manual) Lymphocytes % (Manual) Monocytes % (Manual) Platelet Estimate PT INR APTT Puncture Site pCO2 pO2 HCO3 ABG pH ABG Total CO2 ABG O2 Saturation ABG Base Excess [place] Test ABG Potassium A-a O2 Difference Respiratory Index Glucose Lactate Vent Mode Mechanical Rate FiO2 Tidal Volume PEEP Inspiratory BiPAP Expiratory BiPAP Crit Value Called To Crit Value Called By Crit Value Read Back Blood Gas Notified Time Sodium Potassium Chloride Carbon Dioxide Anion Gap BUN Creatinine Est GFR ( Amer) Est GFR (Non-Af Amer) POC Glucose (mg/dL) 199 H 229 H 263 H Random Glucose Calcium Phosphorus Magnesium Total Bilirubin AST ALT Alkaline Phosphatase Total Creatine Kinase CK-MB (Mass) Troponin I NT-Pro-B Natriuret Pep Total Protein Albumin Globulin Albumin/Globulin Ratio Arterial Blood Potassium Urine Color Urine Clarity Urine pH Ur Specific [place] Urine Protein Urine Glucose (UA) Urine Ketones Urine Blood Urine Nitrate Urine Bilirubin Urine Urobilinogen Ur Leukocyte Esterase Urine WBC (Auto) Urine RBC (Auto) Blood Type Antibody Screen 09/03/18 20:13 WBC RBC Hgb Hct MCV MCH MCHC RDW Plt Count MPV Neut % (Auto) Lymph % (Auto) [place] % (Auto) Eos % (Auto) Baso % (Auto) Neut # (Auto) Lymph # (Auto) [place] # (Auto) Eos # (Auto) Baso # (Auto) Neutrophils % (Manual) Lymphocytes % (Manual) Monocytes % (Manual) Platelet Estimate PT INR APTT Puncture Site pCO2 pO2 HCO3 ABG pH ABG Total CO2 ABG O2 Saturation ABG Base Excess [place] Test ABG Potassium A-a O2 Difference Respiratory Index Glucose Lactate Vent Mode Mechanical Rate FiO2 Tidal Volume PEEP Inspiratory BiPAP Expiratory BiPAP Crit Value Called To Crit Value Called By Crit Value Read Back Blood Gas Notified Time Sodium Potassium Chloride Carbon Dioxide Anion Gap BUN Creatinine Est GFR ( Amer) Est GFR (Non-Af Amer) POC Glucose (mg/dL) 295 H Random Glucose Calcium Phosphorus Magnesium Total Bilirubin AST ALT Alkaline Phosphatase Total Creatine Kinase CK-MB (Mass) Troponin I NT-Pro-B Natriuret Pep Total Protein Albumin Globulin Albumin/Globulin Ratio Arterial Blood Potassium Urine Color Urine Clarity Urine pH Ur Specific [place] Urine Protein Urine Glucose (UA) Urine Ketones Urine Blood Urine Nitrate Urine Bilirubin Urine Urobilinogen Ur Leukocyte Esterase Urine WBC (Auto) Urine RBC (Auto) Blood Type Antibody Screen Assessment & Plan (1) Acute ST elevation myocardial infarction (STEMI) of anterior wall Assessment and Plan: S/p PCI of the LAD. To continue IV heparin. Status: Acute Priority: High (2) Acute pulmonary edema Status: Acute Priority: High (3) Acute respiratory failure Assessment and Plan: On respirator. Status: Acute (4) Uncontrolled diabetes mellitus Status: Acute Decision To Admit - Pt Status Changed To: Hospital Disposition Of: Inpatient - Admit Certification Admit to Inpatient:: After my assessment, the patient will require hospit alization for at least two midnights. This is because of the severity of symptoms shown, intensity of services needed, and/or the medical risk in this patient being treated as an outpatient. - InPatient: Physician Admission Certification:: After my assessments, the patient requires hospitalization for at least 2 midnights. - . Bed Request Type: ICU Admitting Physician: Clayton Hamilton
[2018-09-04] MEDS ORDERED: Vancomycin 1 gm/NS 200 ml 1 GM/200 ML BAG IVPB ONE (00:30)
[2018-09-04] MEDS: (Novolin R) Insulin Human Regular 100 units/ml vial SC SCH ×7 (00:31→21:16)
[2018-09-04] MEDS: Phenylephrine 30 MG in Sodium Chloride 0.9% 250 ML IV PRN ×3 (02:45→21:17)
[2018-09-04] MEDS: Midazolam 50 mg/10 ml 100 MG in Sodium Chloride 0.9% 80 ML IV SCH (04:15)
[2018-09-04 05:23] LABS: ABG ALLEN TEST POS; ARTERIAL BLOOD GAS HEMOGLOBIN 16.3 g/dL (11.7-17.4); ARTERIAL BLOOD GAS O2 SAT 99.8 % (95-98); ARTERIAL BLOOD GAS PCO2 28 mm/Hg (35-45); ARTERIAL BLOOD GAS PH 7.52 (7.35-7.45); ARTERIAL BLOOD GAS PO2 320 mm/Hg (80-100); ARTERIAL BLOOD GAS TCO2 23.8 mmol/L (22-28)
[2018-09-04 05:45] LABS: BASO # 0.1 K/uL (0.0-0.2); BASO % 0.7 % (0.0-2.0); EOS % 0.2 % (0.0-4.0); LYMPH # 2.2 K/uL (1.0-4.3); LYMPH % 12.7 % (20.0-40.0); MEAN CELL VOLUME 90.8 fL (80.0-94.0); MEAN CORPUSCULAR HEMOGLOBIN 30.6 pg (27.0-31.0); MEAN CORPUSCULAR HGB CONC 33.7 g/dL (33.0-37.0); MONO # 2.3 K/uL (0.0-0.8); NEUT # 12.9 K/uL (1.8-7.0); NEUT % 73.4 % (50.0-75.0); NRBC % 0.1 % (0.0-2.0); RBC 5.31 Mil/uL (4.40-5.90); RED CELL DISTRIBUTION WIDTH 14.2 % (11.5-14.5); WHITE BLOOD COUNT 17.5 K/uL (4.8-10.8)
[2018-09-04 05:52] LABS: HEMOGLOBIN 16.2 g/dL (12.0-18.0)
[2018-09-04 06:20] LABS: ALB/GLOB RATIO 1.1 (1.0-2.1); ALBUMIN 3.5 g/dL (3.5-5.0); ALT/SGPT 48 U/L (21-72); AST/SGOT 180 U/L (17-59); BLOOD UREA NITROGEN 22 mg/dL (9-20); CALCIUM 8.6 mg/dl (8.6-10.4); CK-MB 8.96 ng/mL (0.0-3.38); GFR NON-AFRICAN AMERICAN 60
--- NOTE | 2018-09-04 08:31 | CP.CCUPN ---
<Nate Aden - Last Filed: 09/04/18 14:14> CCU Subjective - Physician Review Subjective (Free Text): 09/04/18 08:33 Patient seen and examined at bedside. Patient is sedated on Midazolam drip and fentanyl drip. Patient is intubated on PVRC. Critical Care Time Spent (in minutes): 35 CCU Objective - Vital Signs / Intake & Output Vital Signs (Last 4 hours): Vital Signs Pulse Resp BP Pulse Ox 09/04/18 08:10 63 127/48 L 100 09/04/18 08:01 64 125/52 L 100 09/04/18 08:00 64 100 09/04/18 07:51 64 137/53 L 100 09/04/18 07:40 65 139/69 100 09/04/18 07:30 67 20 163/106 H 100 09/04/18 07:20 67 20 167/104 H 100 09/04/18 07:12 70 20 167/114 H 100 09/04/18 07:00 78 19 152/51 H 100 09/04/18 06:51 67 20 137/66 100 09/04/18 06:40 67 20 159/33 H 100 09/04/18 06:31 67 20 158/67 H 100 09/04/18 06:23 112/61 09/04/18 06:21 68 20 157/50 H 100 09/04/18 06:12 68 20 161/59 H 100 09/04/18 06:00 69 20 167/62 H 100 09/04/18 05:50 69 20 163/64 H 100 09/04/18 05:40 71 20 167/89 H 100 09/04/18 05:30 86 18 156/83 H 100 09/04/18 05:21 69 20 100 09/04/18 05:10 70 20 137/66 100 09/04/18 05:00 72 20 133/61 100 09/04/18 04:49 73 8 L 115/89 100 09/04/18 04:40 77 19 109/52 L 100 Intake and Output (Last 8hrs): Intake & Output 09/03/18 09/04/18 09/04/18 22:59 06:59 14:59 Intake Total 2105.9 2471.3 167.3 Output Total 1075 575 60 Balance 1030.9 1896.3 107.3 Weight 139 lb 12.369 oz Intake: IV 935 1227 Intake, IV Amount 1030.9 1144.3 167.3 Left Antecubital 10.2 0 Left Wrist 330 0 Lt AC y-site 0 0 Right Distal Port 360 570 110 Internal Jugular Right Hand 176.8 163.2 27.2 Right Medial Port 90.0 176.1 26.1 Internal Jugular Right Wrist 22.9 200 Rt hand y-site 41 35 4 Oral 140 100 0 Output: Urine 1075 575 60 Urethral (Go[place]) 1075 575 60 Other: # Bowel Movements 0 - Physical Exam Head: Positive for: Atraumatic, Normocephalic Pupils: Positive for: PERRL Extroacular Muscles: Positive for: EOMI Conjunctiva: Positive for: Normal. Negative for: Injected, Icteric Ears: Positive for: Normal Mouth: Positive for: Moist Mucous Membranes Pharnyx: Positive for: Normal Nose (Internal): Positive for: Normal Inspection Neck: Positive for: Normal Range of Motion, Trachea Midline. Negative for: Meningeal Signs, MIDLINE TENDERNESS, Paraspinal Tenderness, JVD, Lymphadenopathy, Bruit, Other Cardiovascular: Positive for: Regular Rate and Rhythm, Normal S1, S2, Peripheal Pulses Present, Tachycardic. Negative for: Murmurs, Irregular Rhythm Abdomen: Positive for: Normal Bowel Sounds. Negative for: Tenderness, Distention, Peritoneal Signs Upper Extremity: Positive for: Normal Inspection, Capillary Refill < 2s. Negative for: Cyanosis, Edema Lower Extremity: Positive for: Normal Inspection, Edema - Medications Active Medications: Active Medications Generic Name Dose Route Start Last Admin Trade Name Demetriusq PRN Reason Stop Dose Admin Acetaminophen 650 mg 09/04/18 00:11 09/04/18 00:27 Tylenol 325mg Tab PO 650 mg Q6 PRN Administration Fever >100.4 F Aspirin 81 mg 09/03/18 10:00 09/03/18 10:51 Ecotrin PO Not Given DAILY STEPHANIE Furosemide 40 mg 09/03/18 10:00 09/03/18 18:35 Lasix IVP 40 mg BID STEPHANIE Administration Midazolam HCl 100 mg/ Sodium 100 mls @ 2 mls/hr 09/03/18 03:15 09/04/18 06:07 Chloride IV 2 mg/hr .Q24H STEPHANIE 2 mls/hr Titration Protocol 2 MG/HR Fentanyl Citrate 2,500 mcg/ 250 mls @ 6.35 mls/hr 09/03/18 03:15 09/04/18 05:21 Sodium Chloride IV 2 mcg/kg/hr .Q24H STEPHANIE 12.7 mls/hr Titration Protocol 1 MCG/KG/HR Phenylephrine HCl 30 mg/ 253 mls @ 10.12 mls/hr 09/03/18 11:59 09/04/18 06:23 Sodium Chloride IV 120 mcg/min .Q24H PRN 60.72 mls/hr TITRATE PER MD ORDER Administration Protocol 20 MCG/MIN Norepinephrine Bitartrate 4 mg 254 mls @ 15.24 mls/hr 09/03/18 16:39 09/04/18 06:06 / Sodium Chloride IV 5 mcg/min .[id number] PRN 19.05 mls/hr TITRATE PER MD ORDER Titration Protocol 4 MCG/MIN Heparin Sodium (Porcine) 1,000 1,000 mls @ 3 mls/hr 09/03/18 18:07 09/03/18 18:36 units/ Sodium Chloride IV 09/17/18 15:26 Not Given ONCE ONE Influenza Virus Vaccine 60 mcg 09/05/18 10:00 Fluzone Quad [id number] IM 09/05/18 10:01 .ONCE ONE Insulin Human Regular 0 unit 09/03/18 12:45 09/04/18 04:39 Novolin R SC 6 u Q4H STEPHANIE Administration Protocol Pantoprazole Sodium 40 mg 09/03/18 10:00 09/03/18 10:51 Protonix Inj IVP 40 mg DAILY STEPHANIE Administration Pneumococcal Polyvalent Vaccine 0.5 ml 09/05/18 10:00 Pneumovax 23 Vaccine IM 09/05/18 10:01 .ONCE ONE Rosuvastatin Calcium 40 mg 09/03/18 22:00 09/03/18 21:40 Crestor PO 40 mg HS STEPHANIE Administration Ticagrelor 90 mg 09/03/18 10:00 09/03/18 18:36 Brilinta PO 90 mg BID STEPHANIE Administration - Patient Studies Lab Studies: Lab Studies 09/04/18 09/04/18 09/04/18 Range/Units 07:36 05:31 05:31 WBC 17.5 H (4.8-10.8) K/uL RBC 5.31 (4.40-5.90) Mil/uL Hgb 16.2 D (12.0-18.0) g/dL Hct 48.2 (35.0-51.0) % MCV 90.8 (80.0-94.0) fL MCH 30.6 (27.0-31.0) pg MCHC 33.7 (33.0-37.0) g/dL RDW 14.2 (11.5-14.5) % Plt Count 218 (130-400) K/uL MPV 9.0 (7.2-11.7) fL Neut % (Auto) 73.4 (50.0-75.0) % Lymph % (Auto) 12.7 L (20.0-40.0) % Hall % (Auto) 13.0 H (0.0-10.0) % Eos % (Auto) 0.2 (0.0-4.0) % Baso % (Auto) 0.7 (0.0-2.0) % Neut # (Auto) 12.9 H (1.8-7.0) K/uL Lymph # (Auto) 2.2 (1.0-4.3) K/uL Hall # (Auto) 2.3 H (0.0-0.8) K/uL Eos # (Auto) 0.0 (0.0-0.7) K/uL Baso # (Auto) 0.1 (0.0-0.2) K/uL Neutrophils % (Manual) (50-75) % Lymphocytes % (Manual) (20-40) % Monocytes % (Manual) (0-10) % Platelet Estimate (NORMAL) APTT (21-34) SECONDS Puncture Site pCO2 (35-45) mm/Hg pO2 (80-100) mm/Hg HCO3 (21-28) mmol/L ABG pH (7.35-7.45) ABG Total CO2 (22-28) mmol/L ABG O2 Saturation (95-98) % ABG Base Excess (-2.0-3.0) mmol/L ABG Hemoglobin (11.7-17.4) g/dL ABG Carboxyhemoglobin (0.5-1.5) % POC ABG HHb (Measured) (0.0-5.0) % ABG Methemoglobin (0.0-3.0) % Arden Test A-a O2 Difference mm/Hg Respiratory Index Hgb O2 Saturation (95.0-98.0) % Vent Mode Mechanical Rate FiO2 % Tidal Volume PEEP Sodium 142 (132-148) mmol/L Potassium 3.7 (3.6-5.2) mmol/L Chloride 108 H (98-107) mmol/L Carbon Dioxide 23 (22-30) mmol/L Anion Gap 14 (10-20) BUN 22 H (9-20) mg/dL Creatinine 1.2 (0.8-1.5) mg/dL Est GFR ( Amer) > 60 Est GFR (Non-Af Amer) 60 POC Glucose (mg/dL) 240 H (65-110) mg/dL Random Glucose 279 H (75-110) mg/dL Calcium 8.6 (8.6-10.4) mg/dl Phosphorus 2.3 L (2.5-4.5) mg/dL Magnesium 1.7 (1.6-2.3) mg/dL Total Bilirubin 1.7 H (0.2-1.3) mg/dL AST 180 H D (17-59) U/L ALT 48 (21-72) U/L Alkaline Phosphatase 88 (38-126) U/L Total Creatine Kinase 1134 H (55-170) U/L CK-MB (Mass) 8.96 H (0.0-3.38) ng/mL Troponin I 42.6000 H* (0.00-0.120) ng/mL Total Protein 6.5 (6.3-8.3) g/dL Albumin 3.5 (3.5-5.0) g/dL Globulin 3.0 (2.2-3.9) gm/dL Albumin/Globulin Ratio 1.1 (1.0-2.1) 09/04/18 09/04/18 09/03/18 Range/Units 05:13 04:21 23:51 WBC (4.8-10.8) K/uL RBC (4.40-5.90) Mil/uL Hgb (12.0-18.0) g/dL Hct (35.0-51.0) % MCV (80.0-94.0) fL MCH (27.0-31.0) pg MCHC (33.0-37.0) g/dL RDW (11.5-14.5) % Plt Count (130-400) K/uL MPV (7.2-11.7) fL Neut % (Auto) (50.0-75.0) % Lymph % (Auto) (20.0-40.0) % Hall % (Auto) (0.0-10.0) % Eos % (Auto) (0.0-4.0) % Baso % (Auto) (0.0-2.0) % Neut # (Auto) (1.8-7.0) K/uL Lymph # (Auto) (1.0-4.3) K/uL Hall # (Auto) (0.0-0.8) K/uL Eos # (Auto) (0.0-0.7) K/uL Baso # (Auto) (0.0-0.2) K/uL Neutrophils % (Manual) (50-75) % Lymphocytes % (Manual) (20-40) % Monocytes % (Manual) (0-10) % Platelet Estimate (NORMAL) APTT (21-34) SECONDS Puncture Site Rr pCO2 28 L (35-45) mm/Hg pO2 320 H (80-100) mm/Hg HCO3 26.0 (21-28) mmol/L ABG pH 7.52 H (7.35-7.45) ABG Total CO2 23.8 (22-28) mmol/L ABG O2 Saturation 99.8 H (95-98) % ABG Base Excess 1.4 (-2.0-3.0) mmol/L ABG Hemoglobin 16.3 (11.7-17.4) g/dL ABG Carboxyhemoglobin 1.5 (0.5-1.5) % POC ABG HHb (Measured) 0.2 (0.0-5.0) % ABG Methemoglobin 1.0 (0.0-3.0) % Arden Test Pos A-a O2 Difference 215.0 mm/Hg Respiratory Index 0.7 Hgb O2 Saturation 97.2 (95.0-98.0) % Vent Mode Prvc Mechanical Rate 20 FiO2 80.0 % Tidal Volume 500 PEEP 5 Sodium (132-148) mmol/L Potassium (3.6-5.2) mmol/L Chloride (98-107) mmol/L Carbon Dioxide (22-30) mmol/L Anion Gap (10-20) BUN (9-20) mg/dL Creatinine (0.8-1.5) mg/dL Est GFR ( Amer) Est GFR (Non-Af Amer) POC Glucose (mg/dL) 278 H 297 H (65-110) mg/dL Random Glucose (75-110) mg/dL Calcium (8.6-10.4) mg/dl Phosphorus (2.5-4.5) mg/dL Magnesium (1.6-2.3) mg/dL Total Bilirubin (0.2-1.3) mg/dL AST (17-59) U/L ALT (21-72) U/L Alkaline Phosphatase (38-126) U/L Total Creatine Kinase (55-170) U/L CK-MB (Mass) (0.0-3.38) ng/mL Troponin I (0.00-0.120) ng/mL Total Protein (6.3-8.3) g/dL Albumin (3.5-5.0) g/dL Globulin (2.2-3.9) gm/dL Albumin/Globulin Ratio (1.0-2.1) 09/03/18 09/03/18 09/03/18 Range/Units 20:13 16:40 14:02 WBC (4.8-10.8) K/uL RBC (4.40-5.90) Mil/uL Hgb (12.0-18.0) g/dL Hct (35.0-51.0) % MCV (80.0-94.0) fL MCH (27.0-31.0) pg MCHC (33.0-37.0) g/dL RDW (11.5-14.5) % Plt Count (130-400) K/uL MPV (7.2-11.7) fL Neut % (Auto) (50.0-75.0) % Lymph % (Auto) (20.0-40.0) % Hall % (Auto) (0.0-10.0) % Eos % (Auto) (0.0-4.0) % Baso % (Auto) (0.0-2.0) % Neut # (Auto) (1.8-7.0) K/uL Lymph # (Auto) (1.0-4.3) K/uL Hall # (Auto) (0.0-0.8) K/uL Eos # (Auto) (0.0-0.7) K/uL Baso # (Auto) (0.0-0.2) K/uL Neutrophils % (Manual) (50-75) % Lymphocytes % (Manual) (20-40) % Monocytes % (Manual) (0-10) % Platelet Estimate (NORMAL) APTT (21-34) SECONDS Puncture Site pCO2 (35-45) mm/Hg pO2 (80-100) mm/Hg HCO3 (21-28) mmol/L ABG pH (7.35-7.45) ABG Total CO2 (22-28) mmol/L ABG O2 Saturation (95-98) % ABG Base Excess (-2.0-3.0) mmol/L ABG Hemoglobin (11.7-17.4) g/dL ABG Carboxyhemoglobin (0.5-1.5) % POC ABG HHb (Measured) (0.0-5.0) % ABG Methemoglobin (0.0-3.0) % Arden Test A-a O2 Difference mm/Hg Respiratory Index Hgb O2 Saturation (95.0-98.0) % Vent Mode Mechanical Rate FiO2 % Tidal Volume PEEP Sodium (132-148) mmol/L Potassium (3.6-5.2) mmol/L Chloride (98-107) mmol/L Carbon Dioxide (22-30) mmol/L Anion Gap (10-20) BUN (9-20) mg/dL Creatinine (0.8-1.5) mg/dL Est GFR ( Amer) Est GFR (Non-Af Amer) POC Glucose (mg/dL) 295 H 263 H 229 H (65-110) mg/dL Random Glucose (75-110) mg/dL Calcium (8.6-10.4) mg/dl Phosphorus (2.5-4.5) mg/dL Magnesium (1.6-2.3) mg/dL Total Bilirubin (0.2-1.3) mg/dL AST (17-59) U/L ALT (21-72) U/L Alkaline Phosphatase (38-126) U/L Total Creatine Kinase (55-170) U/L CK-MB (Mass) (0.0-3.38) ng/mL Troponin I (0.00-0.120) ng/mL Total Protein (6.3-8.3) g/dL Albumin (3.5-5.0) g/dL Globulin (2.2-3.9) gm/dL Albumin/Globulin Ratio (1.0-2.1) 09/03/18 09/03/18 09/03/18 Range/Units 12:20 11:02 10:01 WBC (4.8-10.8) K/uL RBC (4.40-5.90) Mil/uL Hgb (12.0-18.0) g/dL Hct (35.0-51.0) % MCV (80.0-94.0) fL MCH (27.0-31.0) pg MCHC (33.0-37.0) g/dL RDW (11.5-14.5) % Plt Count (130-400) K/uL MPV (7.2-11.7) fL Neut % (Auto) (50.0-75.0) % Lymph % (Auto) (20.0-40.0) % Hall % (Auto) (0.0-10.0) % Eos % (Auto) (0.0-4.0) % Baso % (Auto) (0.0-2.0) % Neut # (Auto) (1.8-7.0) K/uL Lymph # (Auto) (1.0-4.3) K/uL Hall # (Auto) (0.0-0.8) K/uL Eos # (Auto) (0.0-0.7) K/uL Baso # (Auto) (0.0-0.2) K/uL Neutrophils % (Manual) (50-75) % Lymphocytes % (Manual) (20-40) % Monocytes % (Manual) (0-10) % Platelet Estimate (NORMAL) APTT (21-34) SECONDS Puncture Site pCO2 (35-45) mm/Hg pO2 (80-100) mm/Hg HCO3 (21-28) mmol/L ABG pH (7.35-7.45) ABG Total CO2 (22-28) mmol/L ABG O2 Saturation (95-98) % ABG Base Excess (-2.0-3.0) mmol/L ABG Hemoglobin (11.7-17.4) g/dL ABG Carboxyhemoglobin (0.5-1.5) % POC ABG HHb (Measured) (0.0-5.0) % ABG Methemoglobin (0.0-3.0) % Arden Test A-a O2 Difference mm/Hg Respiratory Index Hgb O2 Saturation (95.0-98.0) % Vent Mode Mechanical Rate FiO2 % Tidal Volume PEEP Sodium (132-148) mmol/L Potassium (3.6-5.2) mmol/L Chloride (98-107) mmol/L Carbon Dioxide (22-30) mmol/L Anion Gap (10-20) BUN (9-20) mg/dL Creatinine (0.8-1.5) mg/dL Est GFR ( Amer) Est GFR (Non-Af Amer) POC Glucose (mg/dL) 199 H 215 H 254 H (65-110) mg/dL Random Glucose (75-110) mg/dL Calcium (8.6-10.4) mg/dl Phosphorus (2.5-4.5) mg/dL Magnesium (1.6-2.3) mg/dL Total Bilirubin (0.2-1.3) mg/dL AST (17-59) U/L ALT (21-72) U/L Alkaline Phosphatase (38-126) U/L Total Creatine Kinase (55-170) U/L CK-MB (Mass) (0.0-3.38) ng/mL Troponin I (0.00-0.120) ng/mL Total Protein (6.3-8.3) g/dL Albumin (3.5-5.0) g/dL Globulin (2.2-3.9) gm/dL Albumin/Globulin Ratio (1.0-2.1) 09/03/18 09/03/18 09/03/18 Range/Units 09:03 07:59 07:51 WBC (4.8-10.8) K/uL RBC (4.40-5.90) Mil/uL Hgb (12.0-18.0) g/dL Hct (35.0-51.0) % MCV (80.0-94.0) fL MCH (27.0-31.0) pg MCHC (33.0-37.0) g/dL RDW (11.5-14.5) % Plt Count (130-400) K/uL MPV (7.2-11.7) fL Neut % (Auto) (50.0-75.0) % Lymph % (Auto) (20.0-40.0) % Hall % (Auto) (0.0-10.0) % Eos % (Auto) (0.0-4.0) % Baso % (Auto) (0.0-2.0) % Neut # (Auto) (1.8-7.0) K/uL Lymph # (Auto) (1.0-4.3) K/uL Hall # (Auto) (0.0-0.8) K/uL Eos # (Auto) (0.0-0.7) K/uL Baso # (Auto) (0.0-0.2) K/uL Neutrophils % (Manual) (50-75) % Lymphocytes % (Manual) (20-40) % Monocytes % (Manual) (0-10) % Platelet Estimate (NORMAL) APTT (21-34) SECONDS Puncture Site pCO2 (35-45) mm/Hg pO2 (80-100) mm/Hg HCO3 (21-28) mmol/L ABG pH (7.35-7.45) ABG Total CO2 (22-28) mmol/L ABG O2 Saturation (95-98) % ABG Base Excess (-2.0-3.0) mmol/L ABG Hemoglobin (11.7-17.4) g/dL ABG Carboxyhemoglobin (0.5-1.5) % POC ABG HHb (Measured) (0.0-5.0) % ABG Methemoglobin (0.0-3.0) % Arden Test A-a O2 Difference mm/Hg Respiratory Index Hgb O2 Saturation (95.0-98.0) % Vent Mode Mechanical Rate FiO2 % Tidal Volume PEEP Sodium 138 (132-148) mmol/L Potassium 3.8 (3.6-5.2) mmol/L Chloride 101 (98-107) mmol/L Carbon Dioxide 24 (22-30) mmol/L Anion Gap 16 (10-20) BUN 22 H (9-20) mg/dL Creatinine 1.3 (0.8-1.5) mg/dL Est GFR ( Amer) > 60 Est GFR (Non-Af Amer) 54 POC Glucose (mg/dL) 334 H 410 H* (65-110) mg/dL Random Glucose 504 H* D (75-110) mg/dL Calcium 9.4 (8.6-10.4) mg/dl Phosphorus 2.5 (2.5-4.5) mg/dL Magnesium 2.0 (1.6-2.3) mg/dL Total Bilirubin 0.9 (0.2-1.3) mg/dL AST 265 H D (17-59) U/L ALT 57 (21-72) U/L Alkaline Phosphatase 137 H (38-126) U/L Total Creatine Kinase 1327 H (55-170) U/L CK-MB (Mass) 61.0 H (0.0-3.38) ng/mL Troponin I 55.9000 H* (0.00-0.120) ng/mL Total Protein 7.6 (6.3-8.3) g/dL Albumin 4.2 (3.5-5.0) g/dL Globulin 3.4 (2.2-3.9) gm/dL Albumin/Globulin Ratio 1.3 (1.0-2.1) 09/03/18 09/03/18 Range/Units 07:51 07:51 WBC 18.4 H D (4.8-10.8) K/uL RBC 6.12 H (4.40-5.90) Mil/uL Hgb 18.7 H (12.0-18.0) g/dL Hct 55.8 H (35.0-51.0) % MCV 91.2 D (80.0-94.0) fL MCH 30.5 (27.0-31.0) pg MCHC 33.4 (33.0-37.0) g/dL RDW 14.5 (11.5-14.5) % Plt Count 284 (130-400) K/uL MPV 9.2 (7.2-11.7) fL Neut % (Auto) 85.9 H (50.0-75.0) % Lymph % (Auto) 6.0 L (20.0-40.0) % Hall % (Auto) 7.9 (0.0-10.0) % Eos % (Auto) 0.0 (0.0-4.0) % Baso % (Auto) 0.2 (0.0-2.0) % Neut # (Auto) 15.8 H (1.8-7.0) K/uL Lymph # (Auto) 1.1 (1.0-4.3) K/uL Hall # (Auto) 1.5 H (0.0-0.8) K/uL Eos # (Auto) 0.0 (0.0-0.7) K/uL Baso # (Auto) 0.0 (0.0-0.2) K/uL Neutrophils % (Manual) 86 H (50-75) % Lymphocytes % (Manual) 5 L (20-40) % Monocytes % (Manual) 9 (0-10) % Platelet Estimate Normal (NORMAL) APTT 161 H* D (21-34) SECONDS Puncture Site pCO2 (35-45) mm/Hg pO2 (80-100) mm/Hg HCO3 (21-28) mmol/L ABG pH (7.35-7.45) ABG Total CO2 (22-28) mmol/L ABG O2 Saturation (95-98) % ABG Base Excess (-2.0-3.0) mmol/L ABG Hemoglobin (11.7-17.4) g/dL ABG Carboxyhemoglobin (0.5-1.5) % POC ABG HHb (Measured) (0.0-5.0) % ABG Methemoglobin (0.0-3.0) % Arden Test A-a O2 Difference mm/Hg Respiratory Index Hgb O2 Saturation (95.0-98.0) % Vent Mode Mechanical Rate FiO2 % Tidal Volume PEEP Sodium (132-148) mmol/L Potassium (3.6-5.2) mmol/L Chloride (98-107) mmol/L Carbon Dioxide (22-30) mmol/L Anion Gap (10-20) BUN (9-20) mg/dL Creatinine (0.8-1.5) mg/dL Est GFR ( Amer) Est GFR (Non-Af Amer) POC Glucose (mg/dL) (65-110) mg/dL Random Glucose (75-110) mg/dL Calcium (8.6-10.4) mg/dl Phosphorus (2.5-4.5) mg/dL Magnesium (1.6-2.3) mg/dL Total Bilirubin (0.2-1.3) mg/dL AST (17-59) U/L ALT (21-72) U/L Alkaline Phosphatase (38-126) U/L Total Creatine Kinase (55-170) U/L CK-MB (Mass) (0.0-3.38) ng/mL Troponin I (0.00-0.120) ng/mL Total Protein (6.3-8.3) g/dL Albumin (3.5-5.0) g/dL Globulin (2.2-3.9) gm/dL Albumin/Globulin Ratio (1.0-2.1) Laboratory Results - last 24 hr 09/03/18 09/03/18 09/03/18 07:51 07:51 07:51 WBC 18.4 H D RBC 6.12 H Hgb 18.7 H Hct 55.8 H MCV 91.2 D MCH 30.5 MCHC 33.4 RDW 14.5 Plt Count 284 MPV 9.2 Neut % (Auto) 85.9 H Lymph % (Auto) 6.0 L Hall % (Auto) 7.9 Eos % (Auto) 0.0 Baso % (Auto) 0.2 Neut # (Auto) 15.8 H Lymph # (Auto) 1.1 Hall # (Auto) 1.5 H Eos # (Auto) 0.0 Baso # (Auto) 0.0 Neutrophils % (Manual) 86 H Lymphocytes % (Manual) 5 L Monocytes % (Manual) 9 Platelet Estimate Normal APTT 161 H* D Puncture Site pCO2 pO2 HCO3 ABG pH ABG Total CO2 ABG O2 Saturation ABG Base Excess ABG Hemoglobin ABG Carboxyhemoglobin POC ABG HHb (Measured) ABG Methemoglobin Arden Test A-a O2 Difference Respiratory Index Hgb O2 Saturation Vent Mode Mechanical Rate FiO2 Tidal Volume PEEP Sodium 138 Potassium 3.8 Chloride 101 Carbon Dioxide 24 Anion Gap 16 BUN 22 H Creatinine 1.3 Est GFR ( Amer) > 60 Est GFR (Non-Af Amer) 54 POC Glucose (mg/dL) Random Glucose 504 H* D Calcium 9.4 Phosphorus 2.5 Magnesium 2.0 Total Bilirubin 0.9 AST 265 H D ALT 57 Alkaline Phosphatase 137 H Total Creatine Kinase 1327 H CK-MB (Mass) 61.0 H Troponin I 55.9000 H* Total Protein 7.6 Albumin 4.2 Globulin 3.4 Albumin/Globulin Ratio 1.3 09/03/18 09/03/18 09/03/18 07:59 09:03 10:01 WBC RBC Hgb Hct MCV MCH MCHC RDW Plt Count MPV Neut % (Auto) Lymph % (Auto) Hall % (Auto) Eos % (Auto) Baso % (Auto) Neut # (Auto) Lymph # (Auto) Hall # (Auto) Eos # (Auto) Baso # (Auto) Neutrophils % (Manual) Lymphocytes % (Manual) Monocytes % (Manual) Platelet Estimate APTT Puncture Site pCO2 pO2 HCO3 ABG pH ABG Total CO2 ABG O2 Saturation ABG Base Excess ABG Hemoglobin ABG Carboxyhemoglobin POC ABG HHb (Measured) ABG Methemoglobin Arden Test A-a O2 Difference Respiratory Index Hgb O2 Saturation Vent Mode Mechanical Rate FiO2 Tidal Volume PEEP Sodium Potassium Chloride Carbon Dioxide Anion Gap BUN Creatinine Est GFR ( Amer) Est GFR (Non-Af Amer) POC Glucose (mg/dL) 410 H* 334 H 254 H Random Glucose Calcium Phosphorus Magnesium Total Bilirubin AST ALT Alkaline Phosphatase Total Creatine Kinase CK-MB (Mass) Troponin I Total Protein Albumin Globulin Albumin/Globulin Ratio 09/03/18 09/03/18 09/03/18 11:02 12:20 14:02 WBC RBC Hgb Hct MCV MCH MCHC RDW Plt Count MPV Neut % (Auto) Lymph % (Auto) Hall % (Auto) Eos % (Auto) Baso % (Auto) Neut # (Auto) Lymph # (Auto) Hall # (Auto) Eos # (Auto) Baso # (Auto) Neutrophils % (Manual) Lymphocytes % (Manual) Monocytes % (Manual) Platelet Estimate APTT Puncture Site pCO2 pO2 HCO3 ABG pH ABG Total CO2 ABG O2 Saturation ABG Base Excess ABG Hemoglobin ABG Carboxyhemoglobin POC ABG HHb (Measured) ABG Methemoglobin Arden Test A-a O2 Difference Respiratory Index Hgb O2 Saturation Vent Mode Mechanical Rate FiO2 Tidal Volume PEEP Sodium Potassium Chloride Carbon Dioxide Anion Gap BUN Creatinine Est GFR ( Amer) Est GFR (Non-Af Amer) POC Glucose (mg/dL) 215 H 199 H 229 H Random Glucose Calcium Phosphorus Magnesium Total Bilirubin AST ALT Alkaline Phosphatase Total Creatine Kinase CK-MB (Mass) Troponin I Total Protein Albumin Globulin Albumin/Globulin Ratio 09/03/18 09/03/18 09/03/18 16:40 20:13 23:51 WBC RBC Hgb Hct MCV MCH MCHC RDW Plt Count MPV Neut % (Auto) Lymph % (Auto) Hall % (Auto) Eos % (Auto) Baso % (Auto) Neut # (Auto) Lymph # (Auto) Hall # (Auto) Eos # (Auto) Baso # (Auto) Neutrophils % (Manual) Lymphocytes % (Manual) Monocytes % (Manual) Platelet Estimate APTT Puncture Site pCO2 pO2 HCO3 ABG pH ABG Total CO2 ABG O2 Saturation ABG Base Excess ABG Hemoglobin ABG Carboxyhemoglobin POC ABG HHb (Measured) ABG Methemoglobin Arden Test A-a O2 Difference Respiratory Index Hgb O2 Saturation Vent Mode Mechanical Rate FiO2 Tidal Volume PEEP Sodium Potassium Chloride Carbon Dioxide Anion Gap BUN Creatinine Est GFR ( Amer) Est GFR (Non-Af Amer) POC Glucose (mg/dL) 263 H 295 H 297 H Random Glucose Calcium Phosphorus Magnesium Total Bilirubin AST ALT Alkaline Phosphatase Total Creatine Kinase CK-MB (Mass) Troponin I Total Protein Albumin Globulin Albumin/Globulin Ratio 09/04/18 09/04/18 09/04/18 04:21 05:13 05:31 WBC 17.5 H RBC 5.31 Hgb 16.2 D Hct 48.2 MCV 90.8 MCH 30.6 MCHC 33.7 RDW 14.2 Plt Count 218 MPV 9.0 Neut % (Auto) 73.4 Lymph % (Auto) 12.7 L Hall % (Auto) 13.0 H Eos % (Auto) 0.2 Baso % (Auto) 0.7 Neut # (Auto) 12.9 H Lymph # (Auto) 2.2 Hall # (Auto) 2.3 H Eos # (Auto) 0.0 Baso # (Auto) 0.1 Neutrophils % (Manual) Lymphocytes % (Manual) Monocytes % (Manual) Platelet Estimate APTT Puncture Site Rr pCO2 28 L pO2 320 H HCO3 26.0 ABG pH 7.52 H ABG Total CO2 23.8 ABG O2 Saturation 99.8 H ABG Base Excess 1.4 ABG Hemoglobin 16.3 ABG Carboxyhemoglobin 1.5 POC ABG HHb (Measured) 0.2 ABG Methemoglobin 1.0 Arden Test Pos A-a O2 Difference 215.0 Respiratory Index 0.7 Hgb O2 Saturation 97.2 Vent Mode Prvc Mechanical Rate 20 FiO2 80.0 Tidal Volume 500 PEEP 5 Sodium Potassium Chloride Carbon Dioxide Anion Gap BUN Creatinine Est GFR ( Amer) Est GFR (Non-Af Amer) POC Glucose (mg/dL) 278 H Random Glucose Calcium Phosphorus Magnesium Total Bilirubin AST ALT Alkaline Phosphatase Total Creatine Kinase CK-MB (Mass) Troponin I Total Protein Albumin Globulin Albumin/Globulin Ratio 09/04/18 09/04/18 05:31 07:36 WBC RBC Hgb Hct MCV MCH MCHC RDW Plt Count MPV Neut % (Auto) Lymph % (Auto) Hall % (Auto) Eos % (Auto) Baso % (Auto) Neut # (Auto) Lymph # (Auto) Hall # (Auto) Eos # (Auto) Baso # (Auto) Neutrophils % (Manual) Lymphocytes % (Manual) Monocytes % (Manual) Platelet Estimate APTT Puncture Site pCO2 pO2 HCO3 ABG pH ABG Total CO2 ABG O2 Saturation ABG Base Excess ABG Hemoglobin ABG Carboxyhemoglobin POC ABG HHb (Measured) ABG Methemoglobin Arden Test A-a O2 Difference Respiratory Index Hgb O2 Saturation Vent Mode Mechanical Rate FiO2 Tidal Volume PEEP Sodium 142 Potassium 3.7 Chloride 108 H Carbon Dioxide 23 Anion Gap 14 BUN 22 H Creatinine 1.2 Est GFR ( Amer) > 60 Est GFR (Non-Af Amer) 60 POC Glucose (mg/dL) 240 H Random Glucose 279 H Calcium 8.6 Phosphorus 2.3 L Magnesium 1.7 Total Bilirubin 1.7 H AST 180 H D ALT 48 Alkaline Phosphatase 88 Total Creatine Kinase 1134 H CK-MB (Mass) 8.96 H Troponin I 42.6000 H* Total Protein 6.5 Albumin 3.5 Globulin 3.0 Albumin/Globulin Ratio 1.1 EKG/Cardiology Studies: Cardiology / EKG Studies 09/03/18 08:00 EKG [ELECTROCARDIOGRAM] DAILY Comment: Mode Of Transportation: PORTABLE Reason For Exam: S/p STEMI 09/04/18 08:00 EKG [ELECTROCARDIOGRAM] DAILY Comment: Mode Of Transportation: PORTABLE Reason For Exam: S/p STEMI 09/05/18 08:00 EKG [ELECTROCARDIOGRAM] DAILY Comment: Mode Of Transportation: PORTABLE Reason For Exam: S/p STEMI Fingerstick Blood Sugar Results: 278 Assessment/Plan - Assessment and Plan (Free Text) Assessment: Patient is a 73 year old male presenting with Acute Anterior wall OR and pulmonary edema. Patient was a code heart and code blue which required intubation in the label drier. Plan: Neuro: - Patient is sedated on Fentanyl drip and Midazolam drip Cardiovascular: Anterior wall OR - S/p cardiac cath L Main: - Entire LAD has diffuse 90% calcific narrowing. Mid 100% occlusion - L Cx/OM: Dominant: Proximal 85%, OM2 99% - RCA: Non dominant and diffuse 99% disease - LV: EF 10-15%, Dilated ischemic CMP, No - Cardiology consulted, Dr. Rivera - Follow up heart catheterization for other vessel stenting, once stable - ASA 81mg PO QD - Brilinta 90mg PO BID - Crestor 40mg QD HS - Heparin drip Cardiogenic shock - On a baloon pump - On Phenylephrine and Levophed drips - Milrinone drip - RIJ TLC placed on 09/03 - Lasix 40mg IV Q12 Pulmonary: Respiratory distress - Patient intubated on PRVC - ABG: pO2 128, pCo2 39, pH 7.39 GI: Transaminitis - AST/ALT: 180/48- trending up - Continue to monitor - Tube feeds- Glucerna Renal: NAY - BUN/Cr: 22/1.2 - Continue to monitor - Avoid nephrotoxins Hypophosphatemia - Phosphorus: 2.3 - Potassium phosphate given - Continue to monitor Endo: DM-2 - ISS - Accucheck Q1H ID: Leukocytosis - WBC: 17.5 - Tmax of 101.1 - 1 dose of Vancomycin and Tylenol given - Blood cx: f/u - Urine cx: f/u - MRSA: not detected Prophylaxis: - Protonix 40mg IV QD - SCD's - Heparin drip Case discussed with Dr. Toro Aden, PGY-1 <Chuck Engel - Last Filed: 09/04/18 17:46> CCU Objective - Vital Signs / Intake & Output Vital Signs (Last 4 hours): Vital Signs Pulse BP 09/04/18 14:54 69 120/55 L Intake and Output (Last 8hrs): Intake & Output 09/04/18 09/04/18 09/04/18 06:59 14:59 22:59 Intake Total 2471.3 906.4 75.8 Output Total 575 240 30 Balance 1896.3 666.4 45.8 Weight 139 lb 12.369 oz Intake: IV 1227 338 Intake, IV Amount 1144.3 568.4 75.8 Left Antecubital 0 Left Wrist 0 10.2 Lt AC y-site 0 Right Distal Port 570 410 50 Internal Jugular Right Hand 163.2 108.8 13.6 Right Medial Port 176.1 33.6 Internal Jugular Right Wrist 200 Rt hand y-site 35 16 2 Oral 100 0 Output: Urine 575 240 30 Urethral ([place]) 575 240 30 Other: # Bowel Movements 0 - Medications Active Medications: Active Medications Generic Name Dose Route Start Last Admin Trade Name Freq PRN Reason Stop Dose Admin Acetaminophen 650 mg 09/04/18 00:11 09/04/18 12:53 Tylenol 325mg Tab PO 650 mg Q6 PRN Administration Fever >100.4 F Aspirin 81 mg 09/04/18 13:15 09/04/18 15:57 Aspirin Chewable PO 81 mg DAILY STEPHANIE Administration Furosemide 20 mg 09/04/18 18:00 Lasix IVP BID STEPHANIE Midazolam HCl 100 mg/ Sodium 100 mls @ 2 mls/hr 09/03/18 03:15 09/04/18 12:58 Chloride IV 1.5 mg/hr .Q24H STEPHANIE 1.5 mls/hr Titration Protocol 2 MG/HR Fentanyl Citrate 2,500 mcg/ 250 mls @ 6.35 mls/hr 09/03/18 03:15 09/04/18 05:21 Sodium Chloride IV 2 mcg/kg/hr .Q24H STEPHANIE 12.7 mls/hr Titration Protocol 1 MCG/KG/HR Phenylephrine HCl 30 mg/ 253 mls @ 10.12 mls/hr 09/03/18 11:59 09/04/18 12:10 Sodium Chloride IV 100 mcg/min .Q24H PRN 50.6 mls/hr TITRATE PER MD ORDER Titration Protocol 20 MCG/MIN Norepinephrine Bitartrate 4 mg 254 mls @ 15.24 mls/hr 09/03/18 16:39 09/04/18 07:57 / Sodium Chloride IV 2 mcg/min .[id number] PRN 7.62 mls/hr TITRATE PER MD ORDER Titration Protocol 4 MCG/MIN Heparin Sodium (Porcine) 1,000 1,000 mls @ 3 mls/hr 09/03/18 18:07 09/03/18 18:36 units/ Sodium Chloride IV 09/17/18 15:26 Not Given ONCE ONE Milrinone Lactate/Dextrose 20 100 mls @ 3.8 mls/hr 09/04/18 13:30 09/04/18 14:54 mg/ Dextrose IV 0.2 mcg/kg/min .Q24H STEPHANIE 3.8 mls/hr Administration Protocol 0.2 MCG/KG/MIN Heparin Sodium/Sodium Chloride 25,000 units in 250 mls @ 10.144 mls/hr 09/04/18 14:54 09/04/18 15:19 Heparin 33227 Units/250ml 1/2 Normal Saline IV 09/05/18 14:53 16 units/kg/hr .Q24H ONE 10.144 mls/hr Administration Protocol 16 UNITS/KG/HR Influenza Virus Vaccine 60 mcg 09/05/18 10:00 Fluzone Quad [id number] IM 09/05/18 10:01 .ONCE ONE Insulin Human Regular 0 unit 09/04/18 13:14 09/04/18 14:56 Novolin R SC Not Given Q4H STEPHANIE Protocol Pantoprazole Sodium 40 mg 09/03/18 10:00 09/04/18 12:53 Protonix Inj IVP 40 mg DAILY STEPHANIE Administration Pneumococcal Polyvalent Vaccine 0.5 ml 09/05/18 10:00 Pneumovax 23 Vaccine IM 09/05/18 10:01 .ONCE ONE Rosuvastatin Calcium 40 mg 09/03/18 22:00 09/03/18 21:40 Crestor PO 40 mg HS STEPHANIE Administration Ticagrelor 90 mg 09/03/18 10:00 09/04/18 12:54 Brilinta PO 90 mg BID STEPHANIE Administration - Patient Studies Lab Studies: Microbiology Studies 09/03/18 05:45 MRSA Culture (Admit) - Final Nose MRSA NOT DETECTED Lab Studies 09/04/18 09/04/18 09/04/18 Range/Units 16:13 11:40 09:23 WBC (4.8-10.8) K/uL RBC (4.40-5.90) Mil/uL Hgb (12.0-18.0) g/dL Hct (35.0-51.0) % MCV (80.0-94.0) fL MCH (27.0-31.0) pg MCHC (33.0-37.0) g/dL RDW (11.5-14.5) % Plt Count (130-400) K/uL MPV (7.2-11.7) fL Neut % (Auto) (50.0-75.0) % Lymph % (Auto) (20.0-40.0) % Hall % (Auto) (0.0-10.0) % Eos % (Auto) (0.0-4.0) % Baso % (Auto) (0.0-2.0) % Neut # (Auto) (1.8-7.0) K/uL Lymph # (Auto) (1.0-4.3) K/uL Hall # (Auto) (0.0-0.8) K/uL Eos # (Auto) (0.0-0.7) K/uL Baso # (Auto) (0.0-0.2) K/uL Puncture Site Ra pCO2 39 (35-45) mm/Hg pO2 128 H (80-100) mm/Hg HCO3 24.0 (21-28) mmol/L ABG pH 7.39 (7.35-7.45) ABG Total CO2 24.8 (22-28) mmol/L ABG O2 Saturation 99.1 H (95-98) % ABG Base Excess -1.2 (-2.0-3.0) mmol/L ABG Hemoglobin 15.5 (11.7-17.4) g/dL ABG Carboxyhemoglobin 1.7 H (0.5-1.5) % POC ABG HHb (Measured) 0.9 (0.0-5.0) % ABG Methemoglobin 1.0 (0.0-3.0) % Arden Test Po A-a O2 Difference 108.0 mm/Hg Respiratory Index 0.8 Hgb O2 Saturation 96.4 (95.0-98.0) % Vent Mode Prvc Mechanical Rate FiO2 40.0 % Tidal Volume 500 PEEP 5 Sodium (132-148) mmol/L Potassium (3.6-5.2) mmol/L Chloride (98-107) mmol/L Carbon Dioxide (22-30) mmol/L Anion Gap (10-20) BUN (9-20) mg/dL Creatinine (0.8-1.5) mg/dL Est GFR ( Amer) Est GFR (Non-Af Amer) POC Glucose (mg/dL) 211 H 223 H (65-110) mg/dL Random Glucose (75-110) mg/dL Calcium (8.6-10.4) mg/dl Phosphorus (2.5-4.5) mg/dL Magnesium (1.6-2.3) mg/dL Total Bilirubin (0.2-1.3) mg/dL AST (17-59) U/L ALT (21-72) U/L Alkaline Phosphatase (38-126) U/L Total Creatine Kinase (55-170) U/L CK-MB (Mass) (0.0-3.38) ng/mL Troponin I (0.00-0.120) ng/mL Total Protein (6.3-8.3) g/dL Albumin (3.5-5.0) g/dL Globulin (2.2-3.9) gm/dL Albumin/Globulin Ratio (1.0-2.1) Urine Color (YELLOW) Urine Clarity (Clear) Urine pH (5.0-8.0) Ur Specific Economy (1.003-1.030) Urine Protein (NEGATIVE) mg/dL Urine Glucose (UA) (Normal) mg/dL Urine Ketones (NEGATIVE) mg/dL Urine Blood (NEGATIVE) Urine Nitrate (NEGATIVE) Urine Bilirubin (NEGATIVE) Urine Urobilinogen (0.2-1.0) mg/dL Ur Leukocyte Esterase (Negative) Dm/uL Urine WBC (Auto) (0-5) /hpf Urine RBC (Auto) (0-3) /hpf 09/04/18 09/04/18 09/04/18 Range/Units 07:36 05:31 05:31 WBC 17.5 H (4.8-10.8) K/uL RBC 5.31 (4.40-5.90) Mil/uL Hgb 16.2 D (12.0-18.0) g/dL Hct 48.2 (35.0-51.0) % MCV 90.8 (80.0-94.0) fL MCH 30.6 (27.0-31.0) pg MCHC 33.7 (33.0-37.0) g/dL RDW 14.2 (11.5-14.5) % Plt Count 218 (130-400) K/uL MPV 9.0 (7.2-11.7) fL Neut % (Auto) 73.4 (50.0-75.0) % Lymph % (Auto) 12.7 L (20.0-40.0) % Hall % (Auto) 13.0 H (0.0-10.0) % Eos % (Auto) 0.2 (0.0-4.0) % Baso % (Auto) 0.7 (0.0-2.0) % Neut # (Auto) 12.9 H (1.8-7.0) K/uL Lymph # (Auto) 2.2 (1.0-4.3) K/uL Hall # (Auto) 2.3 H (0.0-0.8) K/uL Eos # (Auto) 0.0 (0.0-0.7) K/uL Baso # (Auto) 0.1 (0.0-0.2) K/uL Puncture Site pCO2 (35-45) mm/Hg pO2 (80-100) mm/Hg HCO3 (21-28) mmol/L ABG pH (7.35-7.45) ABG Total CO2 (22-28) mmol/L ABG O2 Saturation (95-98) % ABG Base Excess (-2.0-3.0) mmol/L ABG Hemoglobin (11.7-17.4) g/dL ABG Carboxyhemoglobin (0.5-1.5) % POC ABG HHb (Measured) (0.0-5.0) % ABG Methemoglobin (0.0-3.0) % Arden Test A-a O2 Difference mm/Hg Respiratory Index Hgb O2 Saturation (95.0-98.0) % Vent Mode Mechanical Rate FiO2 % Tidal Volume PEEP Sodium 142 (132-148) mmol/L Potassium 3.7 (3.6-5.2) mmol/L Chloride 108 H (98-107) mmol/L Carbon Dioxide 23 (22-30) mmol/L Anion Gap 14 (10-20) BUN 22 H (9-20) mg/dL Creatinine 1.2 (0.8-1.5) mg/dL Est GFR ( Amer) > 60 Est GFR (Non-Af Amer) 60 POC Glucose (mg/dL) 240 H (65-110) mg/dL Random Glucose 279 H (75-110) mg/dL Calcium 8.6 (8.6-10.4) mg/dl Phosphorus 2.3 L (2.5-4.5) mg/dL Magnesium 1.7 (1.6-2.3) mg/dL Total Bilirubin 1.7 H (0.2-1.3) mg/dL AST 180 H D (17-59) U/L ALT 48 (21-72) U/L Alkaline Phosphatase 88 (38-126) U/L Total Creatine Kinase 1134 H (55-170) U/L CK-MB (Mass) 8.96 H (0.0-3.38) ng/mL Troponin I 42.6000 H* (0.00-0.120) ng/mL Total Protein 6.5 (6.3-8.3) g/dL Albumin 3.5 (3.5-5.0) g/dL Globulin 3.0 (2.2-3.9) gm/dL Albumin/Globulin Ratio 1.1 (1.0-2.1) Urine Color (YELLOW) Urine Clarity (Clear) Urine pH (5.0-8.0) Ur Specific Economy (1.003-1.030) Urine Protein (NEGATIVE) mg/dL Urine Glucose (UA) (Normal) mg/dL Urine Ketones (NEGATIVE) mg/dL Urine Blood (NEGATIVE) Urine Nitrate (NEGATIVE) Urine Bilirubin (NEGATIVE) Urine Urobilinogen (0.2-1.0) mg/dL Ur Leukocyte Esterase (Negative) Dm/uL Urine WBC (Auto) (0-5) /hpf Urine RBC (Auto) (0-3) /hpf 09/04/18 09/04/18 09/04/18 Range/Units 05:31 05:13 04:21 WBC (4.8-10.8) K/uL RBC (4.40-5.90) Mil/uL Hgb (12.0-18.0) g/dL Hct (35.0-51.0) % MCV (80.0-94.0) fL MCH (27.0-31.0) pg MCHC (33.0-37.0) g/dL RDW (11.5-14.5) % Plt Count (130-400) K/uL MPV (7.2-11.7) fL Neut % (Auto) (50.0-75.0) % Lymph % (Auto) (20.0-40.0) % Hall % (Auto) (0.0-10.0) % Eos % (Auto) (0.0-4.0) % Baso % (Auto) (0.0-2.0) % Neut # (Auto) (1.8-7.0) K/uL Lymph # (Auto) (1.0-4.3) K/uL Hall # (Auto) (0.0-0.8) K/uL Eos # (Auto) (0.0-0.7) K/uL Baso # (Auto) (0.0-0.2) K/uL Puncture Site Rr pCO2 28 L (35-45) mm/Hg pO2 320 H (80-100) mm/Hg HCO3 26.0 (21-28) mmol/L ABG pH 7.52 H (7.35-7.45) ABG Total CO2 23.8 (22-28) mmol/L ABG O2 Saturation 99.8 H (95-98) % ABG Base Excess 1.4 (-2.0-3.0) mmol/L ABG Hemoglobin 16.3 (11.7-17.4) g/dL ABG Carboxyhemoglobin 1.5 (0.5-1.5) % POC ABG HHb (Measured) 0.2 (0.0-5.0) % ABG Methemoglobin 1.0 (0.0-3.0) % Arden Test Pos A-a O2 Difference 215.0 mm/Hg Respiratory Index 0.7 Hgb O2 Saturation 97.2 (95.0-98.0) % Vent Mode Prvc Mechanical Rate 20 FiO2 80.0 % Tidal Volume 500 PEEP 5 Sodium (132-148) mmol/L Potassium (3.6-5.2) mmol/L Chloride (98-107) mmol/L Carbon Dioxide (22-30) mmol/L Anion Gap (10-20) BUN (9-20) mg/dL Creatinine (0.8-1.5) mg/dL Est GFR ( Amer) Est GFR (Non-Af Amer) POC Glucose (mg/dL) 278 H (65-110) mg/dL Random Glucose (75-110) mg/dL Calcium (8.6-10.4) mg/dl Phosphorus (2.5-4.5) mg/dL Magnesium (1.6-2.3) mg/dL Total Bilirubin (0.2-1.3) mg/dL AST (17-59) U/L ALT (21-72) U/L Alkaline Phosphatase (38-126) U/L Total Creatine Kinase (55-170) U/L CK-MB (Mass) (0.0-3.38) ng/mL Troponin I (0.00-0.120) ng/mL Total Protein (6.3-8.3) g/dL Albumin (3.5-5.0) g/dL Globulin (2.2-3.9) gm/dL Albumin/Globulin Ratio (1.0-2.1) Urine Color Yellow (YELLOW) Urine Clarity Clear (Clear) Urine pH 5.0 (5.0-8.0) Ur Specific Economy 1.026 (1.003-1.030) Urine Protein 2+ H (NEGATIVE) mg/dL Urine Glucose (UA) 3+ H (Normal) mg/dL Urine Ketones Trace (NEGATIVE) mg/dL Urine Blood 3+ H (NEGATIVE) Urine Nitrate Negative (NEGATIVE) Urine Bilirubin Negative (NEGATIVE) Urine Urobilinogen Normal (0.2-1.0) mg/dL Ur Leukocyte Esterase 1+ H (Negative) Dm/uL Urine WBC (Auto) 18 H (0-5) /hpf Urine RBC (Auto) 16 H (0-3) /hpf 09/03/18 09/03/18 Range/Units 23:51 20:13 WBC (4.8-10.8) K/uL RBC (4.40-5.90) Mil/uL Hgb (12.0-18.0) g/dL Hct (35.0-51.0) % MCV (80.0-94.0) fL MCH (27.0-31.0) pg MCHC (33.0-37.0) g/dL RDW (11.5-14.5) % Plt Count (130-400) K/uL MPV (7.2-11.7) fL Neut % (Auto) (50.0-75.0) % Lymph % (Auto) (20.0-40.0) % Hall % (Auto) (0.0-10.0) % Eos % (Auto) (0.0-4.0) % Baso % (Auto) (0.0-2.0) % Neut # (Auto) (1.8-7.0) K/uL Lymph # (Auto) (1.0-4.3) K/uL Hall # (Auto) (0.0-0.8) K/uL Eos # (Auto) (0.0-0.7) K/uL Baso # (Auto) (0.0-0.2) K/uL Puncture Site pCO2 (35-45) mm/Hg pO2 (80-100) mm/Hg HCO3 (21-28) mmol/L ABG pH (7.35-7.45) ABG Total CO2 (22-28) mmol/L ABG O2 Saturation (95-98) % ABG Base Excess (-2.0-3.0) mmol/L ABG Hemoglobin (11.7-17.4) g/dL ABG Carboxyhemoglobin (0.5-1.5) % POC ABG HHb (Measured) (0.0-5.0) % ABG Methemoglobin (0.0-3.0) % Arden Test A-a O2 Difference mm/Hg Respiratory Index Hgb O2 Saturation (95.0-98.0) % Vent Mode Mechanical Rate FiO2 % Tidal Volume PEEP Sodium (132-148) mmol/L Potassium (3.6-5.2) mmol/L Chloride (98-107) mmol/L Carbon Dioxide (22-30) mmol/L Anion Gap (10-20) BUN (9-20) mg/dL Creatinine (0.8-1.5) mg/dL Est GFR ( Amer) Est GFR (Non-Af Amer) POC Glucose (mg/dL) 297 H 295 H (65-110) mg/dL Random Glucose (75-110) mg/dL Calcium (8.6-10.4) mg/dl Phosphorus (2.5-4.5) mg/dL Magnesium (1.6-2.3) mg/dL Total Bilirubin (0.2-1.3) mg/dL AST (17-59) U/L ALT (21-72) U/L Alkaline Phosphatase (38-126) U/L Total Creatine Kinase (55-170) U/L CK-MB (Mass) (0.0-3.38) ng/mL Troponin I (0.00-0.120) ng/mL Total Protein (6.3-8.3) g/dL Albumin (3.5-5.0) g/dL Globulin (2.2-3.9) gm/dL Albumin/Globulin Ratio (1.0-2.1) Urine Color (YELLOW) Urine Clarity (Clear) Urine pH (5.0-8.0) Ur Specific Economy (1.003-1.030) Urine Protein (NEGATIVE) mg/dL Urine Glucose (UA) (Normal) mg/dL Urine Ketones (NEGATIVE) mg/dL Urine Blood (NEGATIVE) Urine Nitrate (NEGATIVE) Urine Bilirubin (NEGATIVE) Urine Urobilinogen (0.2-1.0) mg/dL Ur Leukocyte Esterase (Negative) Dm/uL Urine WBC (Auto) (0-5) /hpf Urine RBC (Auto) (0-3) /hpf Laboratory Results - last 24 hr 09/03/18 09/03/18 09/04/18 20:13 23:51 04:21 WBC RBC Hgb Hct MCV MCH MCHC RDW Plt Count MPV Neut % (Auto) Lymph % (Auto) Hall % (Auto) Eos % (Auto) Baso % (Auto) Neut # (Auto) Lymph # (Auto) Hall # (Auto) Eos # (Auto) Baso # (Auto) Puncture Site pCO2 pO2 HCO3 ABG pH ABG Total CO2 ABG O2 Saturation ABG Base Excess ABG Hemoglobin ABG Carboxyhemoglobin POC ABG HHb (Measured) ABG Methemoglobin Arden Test A-a O2 Difference Respiratory Index Hgb O2 Saturation Vent Mode Mechanical Rate FiO2 Tidal Volume PEEP Sodium Potassium Chloride Carbon Dioxide Anion Gap BUN Creatinine Est GFR ( Amer) Est GFR (Non-Af Amer) POC Glucose (mg/dL) 295 H 297 H 278 H Random Glucose Calcium Phosphorus Magnesium Total Bilirubin AST ALT Alkaline Phosphatase Total Creatine Kinase CK-MB (Mass) Troponin I Total Protein Albumin Globulin Albumin/Globulin Ratio Urine Color Urine Clarity Urine pH Ur Specific Economy Urine Protein Urine Glucose (UA) Urine Ketones Urine Blood Urine Nitrate Urine Bilirubin Urine Urobilinogen Ur Leukocyte Esterase Urine WBC (Auto) Urine RBC (Auto) 09/04/18 09/04/18 09/04/18 05:13 05:31 05:31 WBC 17.5 H RBC 5.31 Hgb 16.2 D Hct 48.2 MCV 90.8 MCH 30.6 MCHC 33.7 RDW 14.2 Plt Count 218 MPV 9.0 Neut % (Auto) 73.4 Lymph % (Auto) 12.7 L Hall % (Auto) 13.0 H Eos % (Auto) 0.2 Baso % (Auto) 0.7 Neut # (Auto) 12.9 H Lymph # (Auto) 2.2 Hall # (Auto) 2.3 H Eos # (Auto) 0.0 Baso # (Auto) 0.1 Puncture Site Rr pCO2 28 L pO2 320 H HCO3 26.0 ABG pH 7.52 H ABG Total CO2 23.8 ABG O2 Saturation 99.8 H ABG Base Excess 1.4 ABG Hemoglobin 16.3 ABG Carboxyhemoglobin 1.5 POC ABG HHb (Measured) 0.2 ABG Methemoglobin 1.0 Arden Test Pos A-a O2 Difference 215.0 Respiratory Index 0.7 Hgb O2 Saturation 97.2 Vent Mode Prvc Mechanical Rate 20 FiO2 80.0 Tidal Volume 500 PEEP 5 Sodium Potassium Chloride Carbon Dioxide Anion Gap BUN Creatinine Est GFR ( Amer) Est GFR (Non-Af Amer) POC Glucose (mg/dL) Random Glucose Calcium Phosphorus Magnesium Total Bilirubin AST ALT Alkaline Phosphatase Total Creatine Kinase CK-MB (Mass) Troponin I Total Protein Albumin Globulin Albumin/Globulin Ratio Urine Color Yellow Urine Clarity Clear Urine pH 5.0 Ur Specific Economy 1.026 Urine Protein 2+ H Urine Glucose (UA) 3+ H Urine Ketones Trace Urine Blood 3+ H Urine Nitrate Negative Urine Bilirubin Negative Urine Urobilinogen Normal Ur Leukocyte Esterase 1+ H Urine WBC (Auto) 18 H Urine RBC (Auto) 16 H 09/04/18 09/04/18 09/04/18 05:31 07:36 09:23 WBC RBC Hgb Hct MCV MCH MCHC RDW Plt Count MPV Neut % (Auto) Lymph % (Auto) Hall % (Auto) Eos % (Auto) Baso % (Auto) Neut # (Auto) Lymph # (Auto) Hall # (Auto) Eos # (Auto) Baso # (Auto) Puncture Site Ra pCO2 39 pO2 128 H HCO3 24.0 ABG pH 7.39 ABG Total CO2 24.8 ABG O2 Saturation 99.1 H ABG Base Excess -1.2 ABG Hemoglobin 15.5 ABG Carboxyhemoglobin 1.7 H POC ABG HHb (Measured) 0.9 ABG Methemoglobin 1.0 Arden Test Po A-a O2 Difference 108.0 Respiratory Index 0.8 Hgb O2 Saturation 96.4 Vent Mode Prvc Mechanical Rate FiO2 40.0 Tidal Volume 500 PEEP 5 Sodium 142 Potassium 3.7 Chloride 108 H Carbon Dioxide 23 Anion Gap 14 BUN 22 H Creatinine 1.2 Est GFR ( Amer) > 60 Est GFR (Non-Af Amer) 60 POC Glucose (mg/dL) 240 H Random Glucose 279 H Calcium 8.6 Phosphorus 2.3 L Magnesium 1.7 Total Bilirubin 1.7 H AST 180 H D ALT 48 Alkaline Phosphatase 88 Total Creatine Kinase 1134 H CK-MB (Mass) 8.96 H Troponin I 42.6000 H* Total Protein 6.5 Albumin 3.5 Globulin 3.0 Albumin/Globulin Ratio 1.1 Urine Color Urine Clarity Urine pH Ur Specific Economy Urine Protein Urine Glucose (UA) Urine Ketones Urine Blood Urine Nitrate Urine Bilirubin Urine Urobilinogen Ur Leukocyte Esterase Urine WBC (Auto) Urine RBC (Auto) 09/04/18 09/04/18 11:40 16:13 WBC RBC Hgb Hct MCV MCH MCHC RDW Plt Count MPV Neut % (Auto) Lymph % (Auto) Hall % (Auto) Eos % (Auto) Baso % (Auto) Neut # (Auto) Lymph # (Auto) Hall # (Auto) Eos # (Auto) Baso # (Auto) Puncture Site pCO2 pO2 HCO3 ABG pH ABG Total CO2 ABG O2 Saturation ABG Base Excess ABG Hemoglobin ABG Carboxyhemoglobin POC ABG HHb (Measured) ABG Methemoglobin Arden Test A-a O2 Difference Respiratory Index Hgb O2 Saturation Vent Mode Mechanical Rate FiO2 Tidal Volume PEEP Sodium Potassium Chloride Carbon Dioxide Anion Gap BUN Creatinine Est GFR ( Amer) Est GFR (Non-Af Amer) POC Glucose (mg/dL) 223 H 211 H Random Glucose Calcium Phosphorus Magnesium Total Bilirubin AST ALT Alkaline Phosphatase Total Creatine Kinase CK-MB (Mass) Troponin I Total Protein Albumin Globulin Albumin/Globulin Ratio Urine Color Urine Clarity Urine pH Ur Specific Economy Urine Protein Urine Glucose (UA) Urine Ketones Urine Blood Urine Nitrate Urine Bilirubin Urine Urobilinogen Ur Leukocyte Esterase Urine WBC (Auto) Urine RBC (Auto) EKG/Cardiology Studies: Cardiology / EKG Studies 09/04/18 08:00 EKG [ELECTROCARDIOGRAM] DAILY Comment: Mode Of Transportation: PORTABLE Reason For Exam: S/p STEMI 09/05/18 08:00 EKG [ELECTROCARDIOGRAM] DAILY Comment: Mode Of Transportation: PORTABLE Reason For Exam: S/p STEMI Attending/Attestation - Attestation I have personally seen and examined this patient.: Yes I have fully participated in the care of the patient.: Yes I have reviewed all pertinent clinical information: Yes Notes (Text): 09/04/18 17:37 I have seen and examined the patient. Medical records, lab studies, and imaging were reviewed by me and a management plan was formulated on multidisciplinary rounds with resident Dr. Aden. I agree with their documented assessment an d plan. The patient is still on balloon pump, titrating pressors off. Extreme tachycardia with milrinone and dopamine. Gave one dose of lopressor and patient's blood pressure and heart rate improved dramatically. Possibly take off pump tomorrow. Critical Care Time 35 minutes. Multi-disciplinary rounds were performed with house staff, nursing, speech therapy, respiratory therapy, pharmacy and nutrition with integrated input from the primary team/attending and other consulting services. The documented time is cumulative and includes review of patient data/exams/labs/chart review and examination of the patient on rounds and throughout the day; time is exclusive of any procedures or teaching time.
[2018-09-04 09:19] LABS: URINE BILIRUBIN NEGATIVE (NEGATIVE); URINE BLOOD 3+ (NEGATIVE); URINE CLARITY Clear (Clear); URINE COLOR Yellow (YELLOW); URINE GLUCOSE (UA) 3+ mg/dL (Normal); URINE LEUKOCYTE ESTERASE 1+ Leu/uL (Negative); URINE PROTEIN 2+ mg/dL (NEGATIVE); URINE UROBILINOGEN NORMAL mg/dL (0.2-1.0)
--- NOTE | 2018-09-04 09:25 | RAD ---
Chest x-ray single frontal view HISTORY: Intubated. COMPARISON: 09/03/2018 FINDINGS: NG tube extending into the stomach. Other lines and tubes in stable position. Moderate venous congestion. Patchy increased markings at the lung bases. Atherosclerotic calcification at the aortic knob. Cardiomegaly. Degenerative changes in the spine and shoulders Bilateral hilar prominence. Impression: NG tube extending into the stomach. Other lines and tubes in stable position. Moderate venous congestion. Patchy increased markings at the lung bases. Atherosclerotic calcification at the aortic knob. Cardiomegaly. Degenerative changes in the spine and shoulders Bilateral hilar prominence.
[2018-09-04 09:26] LABS: ABG ALLEN TEST PO; ARTERIAL BLOOD GAS HEMOGLOBIN 15.5 g/dL (11.7-17.4); ARTERIAL BLOOD GAS O2 SAT 99.1 % (95-98); ARTERIAL BLOOD GAS PCO2 39 mm/Hg (35-45); ARTERIAL BLOOD GAS PH 7.39 (7.35-7.45); ARTERIAL BLOOD GAS PO2 128 mm/Hg (80-100); ARTERIAL BLOOD GAS TCO2 24.8 mmol/L (22-28)
--- NOTE | 2018-09-04 12:32 | CARD ---
APPROVED REPORT Date of service: 09/03/2018 EKG Measurement Heart [id number] <Conclusion> Sinus tachycardia Anterolateral infarct, age undetermined Abnormal ECG
--- NOTE | 2018-09-04 12:32 | CARD ---
APPROVED REPORT Date of service: 09/03/2018 EKG Measurement Heart [id number] <Conclusion> Sinus tachycardia with frequent and consecutive premature ventricular complexes Possible Left atrial enlargement Septal infarct, age undetermined Abnormal ECG
--- NOTE | 2018-09-04 12:33 | CARD ---
APPROVED REPORT Date of service: 09/03/2018 EKG Measurement Heart [id number] RI [id number] <Conclusion> Sinus tachycardia Anterior infarct, possibly acute T wave abnormality, consider inferior ischemia ACUTE RI / STEMI Abnormal ECG
[2018-09-04] MEDS ORDERED: Heparin25000 units/250ml 1/2NS 25,000 UNITS/250 ML BAG IV ONE (14:54)
[2018-09-04] MEDS: Milrinone 20 MG in Dextrose 5% In Water 80 ML IV SCH (14:54)
[2018-09-04] MEDS ORDERED: Metoprolol 1 mg/ml Inj IVP ONE (15:57)
--- NOTE | 2018-09-04 23:20 | CP.PCM.PN ---
Subjective - Date & Time of Evaluation Date of Evaluation: 09/04/18 Time of Evaluation: 19:30 - Subjective Subjective: Patient sedated, on respirato ( PEEP 5, Fio2 30% )r, on vasopressors, and on IABP. Telemetry: RSR BP stable. Objective - Vital Signs/Intake and Output Vital Signs (last 24 hours): Temp Pulse Resp BP Pulse Ox 101.3 F H 59 L 20 129/69 99 09/04/18 21:55 09/04/18 22:54 09/04/18 07:30 09/04/18 22:54 09/04/18 22:54 Intake and Output: 09/04/18 09/05/18 18:59 06:59 Intake Total 1350.8 60 Output Total 360 Balance 990.8 60 - Medications Medications: Current Medications Acetaminophen (Tylenol 325mg Tab) 650 mg PO Q6 PRN PRN Reason: Fever >100.4 F Last Admin: 09/04/18 21:55 Dose: 650 mg Aspirin (Aspirin Chewable) 81 mg PO DAILY STEPHANIE Last Admin: 09/04/18 15:57 Dose: 81 mg Furosemide (Lasix) 20 mg IVP BID STEPHANIE Last Admin: 09/04/18 18:43 Dose: 20 mg Midazolam HCl 100 mg/ Sodium (Chloride) 100 mls @ 2 mls/hr IV .Q24H STEPHANIE; Protocol Last Titration: 09/04/18 12:58 Dose: 1.5 mg/hr, 1.5 mls/hr Fentanyl Citrate 2,500 mcg/ (Sodium Chloride) 250 mls @ 6.35 mls/hr IV .Q24H STEPHANIE; Protocol Last Titration: 09/04/18 14:47 Dose: 1 mcg/kg/hr, 6.35 mls/hr Phenylephrine HCl 30 mg/ (Sodium Chloride) 253 mls @ 10.12 mls/hr IV .Q24H PRN; Protocol PRN Reason: TITRATE PER MD ORDER Last Admin: 09/04/18 21:17 Dose: 100 mcg/min, 50.6 mls/hr Norepinephrine Bitartrate 4 mg (/ Sodium Chloride) 254 mls @ 15.24 mls/hr IV .[id number] PRN; Protocol PRN Reason: TITRATE PER MD ORDER Last Titration: 09/04/18 16:00 Dose: 0 mcg/min, 0 mls/hr Heparin Sodium (Porcine) 1,000 (units/ Sodium Chloride) 1,000 mls @ 3 mls/hr IV ONCE ONE Stop: 09/17/18 15:26 Last Admin: 09/03/18 18:36 Dose: Not Given Milrinone Lactate/Dextrose 20 (mg/ Dextrose) 100 mls @ 3.8 mls/hr IV .Q24H [facility]; Protocol Last Titration: 09/04/18 15:05 Dose: 0 mcg/kg/min, 0 mls/hr Heparin Sodium/Sodium Chloride (Heparin 51393 Units/250ml 1/2 Normal Saline) 25,000 units in 250 mls @ 10.144 mls/hr IV .Q24H ONE; Protocol Stop: 09/05/18 14:53 Last Titration: 09/04/18 23:02 Dose: 12 units/kg/hr, 7.608 mls/hr Influenza Virus Vaccine (Fluzone Quad [id number]) 60 mcg IM .ONCE ONE Stop: 09/05/18 10:01 Insulin Human Regular (Novolin R) 0 unit SC Q4H [facility]; Protocol Last Admin: 09/04/18 21:16 Dose: 6 units Pantoprazole Sodium (Protonix Inj) 40 mg IVP DAILY [facility] Last Admin: 09/04/18 12:53 Dose: 40 mg Pneumococcal Polyvalent Vaccine (Pneumovax 23 Vaccine) 0.5 ml IM .ONCE ONE Stop: 09/05/18 10:01 Rosuvastatin Calcium (Crestor) 40 mg PO HS [facility] Last Admin: 09/04/18 21:41 Dose: 40 mg Ticagrelor (Brilinta) 90 mg PO BID [facility] Last Admin: 09/04/18 18:43 Dose: 90 mg - Labs Labs: 09/04/18 05:31 09/04/18 05:31 PT 11.1 SECONDS (9.7-12.2) 09/03/18 01:40 INR 1.0 09/03/18 01:40 APTT 177 SECONDS (21-34) H* D 09/04/18 21:29 - Constitutional Appears: Chronically Ill - Head Exam Head Exam: NORMAL INSPECTION - Eye Exam Eye Exam: Normal appearance - ENT Exam ENT Exam: Normal Exam - Neck Exam Neck Exam: Normal Inspection - Cardiovascular Exam Cardiovascular Exam: REGULAR RHYTHM, Murmur Additional comments: Few rales at both bases. - GI/Abdominal Exam GI & Abdominal Exam: Soft, Normal Bowel Sounds - Rectal Exam Rectal Exam: Deferred - Extremities Exam Extremities Exam: Normal Inspection - Back Exam Back Exam: NORMAL INSPECTION - Neurological Exam Additional comments: Sedated, on respirator. - Skin Skin Exam: Dry, Intact, Normal Color, Warm Assessment and Plan (1) Acute ST elevation myocardial infarction (STEMI) of anterior wall Status: Acute (2) Acute pulmonary edema Assessment & Plan: Cardiogenic shock on Vasopressors, Milrinone, and IABP. Status: Acute (3) Acute respiratory failure Assessment & Plan: On respirotor. and NGT feeding. Status: Acute (4) Uncontrolled diabetes mellitus Status: Acute
[2018-09-05] MEDS: (Novolin R) Insulin Human Regular 100 units/ml vial SC SCH ×4 (01:03→13:26)
[2018-09-05] MEDS: Midazolam 50 mg/10 ml 100 MG in Sodium Chloride 0.9% 80 ML IV SCH ×2 (03:15→17:45)
[2018-09-05] MEDS: Phenylephrine 30 MG in Sodium Chloride 0.9% 250 ML IV PRN ×3 (04:33→17:56)
[2018-09-05 05:21] LABS: BASO # 0.1 K/uL (0.0-0.2); BASO % 0.6 % (0.0-2.0); EOS % 0.1 % (0.0-4.0); LYMPH # 1.2 K/uL (1.0-4.3); LYMPH % 7.9 % (20.0-40.0); MEAN CELL VOLUME 91.4 fL (80.0-94.0); MEAN CORPUSCULAR HEMOGLOBIN 30.4 pg (27.0-31.0); MEAN CORPUSCULAR HGB CONC 33.2 g/dL (33.0-37.0); MEAN PLATELET VOLUME 9.3 fL (7.2-11.7); MONO # 2.2 K/uL (0.0-0.8); MONO % 14.3 % (0.0-10.0); NEUT # 11.9 K/uL (1.8-7.0); NEUT % 77.1 % (50.0-75.0); PLATELET COUNT 191 K/uL (130-400); RBC 4.93 Mil/uL (4.40-5.90); RED CELL DISTRIBUTION WIDTH 14.5 % (11.5-14.5); WHITE BLOOD COUNT 15.4 K/uL (4.8-10.8)
[2018-09-05 05:29] LABS: ARTERIAL BLOOD GAS HCO3 24.4 mmol/L (21-28); ARTERIAL BLOOD GAS HEMOGLOBIN 15.8 g/dL (11.7-17.4); ARTERIAL BLOOD GAS O2 SAT 97.7 % (95-98); ARTERIAL BLOOD GAS PCO2 43 mm/Hg (35-45); ARTERIAL BLOOD GAS PH 7.37 (7.35-7.45); ARTERIAL BLOOD GAS PO2 85 mm/Hg (80-100); ARTERIAL BLOOD GAS TCO2 26.2 mmol/L (22-28)
[2018-09-05 05:31] LABS: ALB/GLOB RATIO 1.1 (1.0-2.1); ALBUMIN 3.3 g/dL (3.5-5.0); ALT/SGPT 39 U/L (21-72); AST/SGOT 78 U/L (17-59); BLOOD UREA NITROGEN 28 mg/dL (9-20); CALCIUM 8.4 mg/dl (8.6-10.4); GFR NON-AFRICAN AMERICAN 60
[2018-09-05 06:54] LABS: BANDS 3 % (0-2); BASOPHIL 1 % (0-2); LYMPHOCYTE 3 % (20-40); MONOCYTE 12 % (0-10); NEUTROPHIL 80 % (50-75); PLATELET ESTIMATE NORMAL (NORMAL); REACTIVE LYMPHOCYTES 1 % (0-0); TOTAL CELLS COUNTED 100
--- NOTE | 2018-09-05 07:55 | CP.PCM.PN ---
Subjective - Date & Time of Evaluation Date of Evaluation: 09/04/18 Time of Evaluation: 14:35 - Subjective Subjective: Patient sedated, on Ventilator ( PEEP 5, Fio2 30% )r, on vasopressors, and on IABP. Telemetry: RSR BP stable. Objective - Vital Signs/Intake and Output Vital Signs (last 24 hours): Temp Pulse Resp BP Pulse Ox 101.3 F H 59 L 20 129/69 99 09/04/18 21:55 09/04/18 22:54 09/04/18 07:30 09/04/18 22:54 09/04/18 22:54 Intake and Output: 09/04/18 09/05/18 18:59 06:59 Intake Total 1350.8 60 Output Total 360 Balance 990.8 60 - Medications Medications: Current Medications Acetaminophen (Tylenol 325mg Tab) 650 mg PO Q6 PRN PRN Reason: Fever >100.4 F Last Admin: 09/04/18 21:55 Dose: 650 mg Aspirin (Aspirin Chewable) 81 mg PO DAILY STEPHANIE Last Admin: 09/04/18 15:57 Dose: 81 mg Furosemide (Lasix) 20 mg IVP BID STEPHANIE Last Admin: 09/04/18 18:43 Dose: 20 mg Midazolam HCl 100 mg/ Sodium (Chloride) 100 mls @ 2 mls/hr IV .Q24H STEPHANIE; Protocol Last Titration: 09/04/18 12:58 Dose: 1.5 mg/hr, 1.5 mls/hr Fentanyl Citrate 2,500 mcg/ (Sodium Chloride) 250 mls @ 6.35 mls/hr IV .Q24H [facility]ANIE; Protocol Last Titration: 09/04/18 14:47 Dose: 1 mcg/kg/hr, 6.35 mls/hr Phenylephrine HCl 30 mg/ (Sodium Chloride) 253 mls @ 10.12 mls/hr IV .Q24H PRN; Protocol PRN Reason: TITRATE PER MD ORDER Last Admin: 09/04/18 21:17 Dose: 100 mcg/min, 50.6 mls/hr Norepinephrine Bitartrate 4 mg (/ Sodium Chloride) 254 mls @ 15.24 mls/hr IV .[id number] PRN; Protocol PRN Reason: TITRATE PER MD ORDER Last Titration: 09/04/18 16:00 Dose: 0 mcg/min, 0 mls/hr Heparin Sodium (Porcine) 1,000 (units/ Sodium Chloride) 1,000 mls @ 3 mls/hr IV ONCE ONE Stop: 09/17/18 15:26 Last Admin: 09/03/18 18:36 Dose: Not Given Milrinone Lactate/Dextrose 20 (mg/ Dextrose) 100 mls @ 3.8 mls/hr IV .Q24H STEPHANIE; Protocol Last Titration: 09/04/18 15:05 Dose: 0 mcg/kg/min, 0 mls/hr Heparin Sodium/Sodium Chloride (Heparin 17621 Units/250ml 1/2 Normal Saline) 25,000 units in 250 mls @ 10.144 mls/hr IV .Q24H ONE; Protocol Stop: 09/05/18 14:53 Last Titration: 09/04/18 23:02 Dose: 12 units/kg/hr, 7.608 mls/hr Influenza Virus Vaccine (Fluzone Quad 1182-9358) 60 mcg IM .ONCE ONE Stop: 09/05/18 10:01 Insulin Human Regular (Novolin R) 0 unit SC Q4H [facility]; Protocol Last Admin: 09/04/18 21:16 Dose: 6 units Pantoprazole Sodium (Protonix Inj) 40 mg IVP DAILY [facility] Last Admin: 09/04/18 12:53 Dose: 40 mg Pneumococcal Polyvalent Vaccine (Pneumovax 23 Vaccine) 0.5 ml IM .ONCE ONE Stop: 09/05/18 10:01 Rosuvastatin Calcium (Crestor) 40 mg PO HS [facility] Last Admin: 09/04/18 21:41 Dose: 40 mg Ticagrelor (Brilinta) 90 mg PO BID [facility] Last Admin: 09/04/18 18:43 Dose: 90 mg - Labs Labs: 09/04/18 05:31 09/04/18 05:31 PT 11.1 SECONDS (9.7-12.2) 09/03/18 01:40 INR 1.0 09/03/18 01:40 APTT 177 SECONDS (21-34) H* D 09/04/18 21:29 - Constitutional Appears: Chronically Ill - Head Exam Head Exam: NORMAL INSPECTION - Eye Exam Eye Exam: Normal appearance - ENT Exam ENT Exam: Normal Exam - Neck Exam Neck Exam: Normal Inspection - Cardiovascular Exam Cardiovascular Exam: REGULAR RHYTHM, Murmur Additional comments: Few rales at both bases. - GI/Abdominal Exam GI & Abdominal Exam: Soft, Normal Bowel Sounds - Rectal Exam Rectal Exam: Deferred - Extremities Exam Extremities Exam: Normal Inspection - Back Exam Back Exam: NORMAL INSPECTION - Neurological Exam Additional comments: Sedated, on respirator. - Skin Skin Exam: Dry, Intact, Normal Color, Warm Assessment and Plan (1) Acute ST elevation myocardial infarction (STEMI) of anterior wall Status: Acute (2) Acute pulmonary edema Assessment & Plan: Cardiogenic shock on Vasopressors, Milrinone, and IABP. Status: Acute (3) Acute respiratory failure Assessment & Plan: On respirotor. and NGT feeding. Status: Acute (4) Uncontrolled diabetes mellitus Status: Acute Likely IABP removal tomorrow continue pressor support and sedation Objective - Vital Signs/Intake and Output Vital Signs (last 24 hours): Temp Pulse Resp BP Pulse Ox 100.1 F H 58 L 20 143/81 100 09/05/18 04:00 09/05/18 07:00 09/04/18 07:30 09/05/18 06:54 09/05/18 07:00 Intake and Output: 09/05/18 09/05/18 06:59 18:59 Intake Total 1180.5 74.4 Output Total 392 0 Balance 788.5 74.4 - Medications Medications: Current Medications Acetaminophen (Tylenol 325mg Tab) 650 mg PO Q6 PRN PRN Reason: Fever >100.4 F Last Admin: 09/04/18 21:55 Dose: 650 mg Aspirin (Aspirin Chewable) 81 mg PO DAILY [facility] Last Admin: 09/04/18 15:57 Dose: 81 mg Furosemide (Lasix) 20 mg IVP BID STEPHANIE Last Admin: 09/04/18 18:43 Dose: 20 mg Midazolam HCl 100 mg/ Sodium (Chloride) 100 mls @ 2 mls/hr IV .Q24H [facility]IE; Protocol Last Admin: 09/05/18 03:15 Dose: Not Given Fentanyl Citrate 2,500 mcg/ (Sodium Chloride) 250 mls @ 6.35 mls/hr IV .Q24H [facility]IE; Protocol Last Admin: 09/05/18 03:15 Dose: Not Given Phenylephrine HCl 30 mg/ (Sodium Chloride) 253 mls @ 10.12 mls/hr IV .Q24H PRN; Protocol PRN Reason: TITRATE PER MD ORDER Last Admin: 09/05/18 04:33 Dose: 120 mcg/min, 60.72 mls/hr Norepinephrine Bitartrate 4 mg (/ Sodium Chloride) 254 mls @ 15.24 mls/hr IV .[id number] PRN; Protocol PRN Reason: TITRATE PER MD ORDER Last Titration: 09/04/18 16:00 Dose: 0 mcg/min, 0 mls/hr Heparin Sodium (Porcine) 1,000 (units/ Sodium Chloride) 1,000 mls @ 3 mls/hr IV ONCE ONE Stop: 09/17/18 15:26 Last Admin: 09/03/18 18:36 Dose: Not Given Milrinone Lactate/Dextrose 20 (mg/ Dextrose) 100 mls @ 3.8 mls/hr IV .Q24H [facility]IE; Protocol Last Titration: 09/04/18 15:05 Dose: 0 mcg/kg/min, 0 mls/hr Heparin Sodium/Sodium Chloride (Heparin 34309 Units/250ml 1/2 Normal Saline) 25,000 units in 250 mls @ 10.144 mls/hr IV .Q24H ONE; Protocol Stop: 09/05/18 14:53 Last Titration: 09/05/18 06:30 Dose: 9.62 units/kg/hr, 6.1 mls/hr Influenza Virus Vaccine (Fluzone Quad [id number]) 60 mcg IM .ONCE ONE Stop: 09/05/18 10:01 Insulin Human Regular (Novolin R) 0 unit SC Q4H [facility]IE; Protocol Last Admin: 09/05/18 04:31 Dose: 4 units Pantoprazole Sodium (Protonix Inj) 40 mg IVP DAILY [facility]PHANIE Last Admin: 09/04/18 12:53 Dose: 40 mg Pneumococcal Polyvalent Vaccine (Pneumovax 23 Vaccine) 0.5 ml IM .ONCE ONE Stop: 09/05/18 10:01 Rosuvastatin Calcium (Crestor) 40 mg PO HS [facility]IE Last Admin: 09/04/18 21:41 Dose: 40 mg Ticagrelor (Brilinta) 90 mg PO BID STEPHANIE Last Admin: 09/04/18 18:43 Dose: 90 mg - Labs Labs: 09/05/18 04:53 09/05/18 04:53 PT 11.1 SECONDS (9.7-12.2) 09/03/18 01:40 INR 1.0 09/03/18 01:40 APTT 133 SECONDS (21-34) H* D 09/05/18 04:53
--- NOTE | 2018-09-05 08:00 | RAD ---
Chest x-ray single frontal view HISTORY: Intubated. COMPARISON: 09/04/2018 FINDINGS: Lines and tubes in stable position. Mild venous congestion. Atherosclerotic calcification at the aortic knob. Vertically-oriented radiopaque density projecting at the level of the aortic knob, nonspecific. Clinical correlation. Top normal heart size. Degenerative changes in the spine and shoulders. IMPRESSION: Lines and tubes in stable position. Mild venous congestion. Atherosclerotic calcification at the aortic knob. Vertically-oriented radiopaque density projecting at the level of the aortic knob, nonspecific. Clinical correlation.
[2018-09-05] MEDS ORDERED: Potassium Chloride 20 mEq/15 ml LIQ UD GT ONE (10:00)
[2018-09-05] MEDS ORDERED: Influenza Vaccine 60 MCG/0.5 ML SYR (3 yr & up) IM ONE (10:00)
[2018-09-05] MEDS ORDERED: Pneumococcal 23-Valent Vaccine IM ONE (10:00)
[2018-09-05] MEDS ORDERED: Metoprolol 1 mg/ml Inj IVP ONE (11:15)
[2018-09-05] MEDS: Lidocaine 5% Patch TD SCH (11:30)
[2018-09-05] MEDS: ceFAZolin IV 2 gm in Dextrose 2 GM/50 ML BAG IVPB SCH ×2 (11:43→18:49)
[2018-09-05] MEDS: Vancomycin 1 gm/NS 200 ml 1 GM/200 ML BAG IVPB SCH (11:50)
[2018-09-05] MEDS ORDERED: Dextrose 50% SYRINGE Inj (50 ml) IV PRN (16:12)
[2018-09-05] MEDS ORDERED: Glucagon Recombinant 1 mg Inj IM PRN (16:12)
--- NOTE | 2018-09-05 16:12 | CP.CCUPN ---
CCU Subjective - Physician Review Events Since Last Encounter (Free Text): 09/05/18 16:09 severely agitated once sedation held. CCU Objective - Vital Signs / Intake & Output Vital Signs (Last 4 hours): Vital Signs Pulse BP Pulse Ox 09/05/18 15:54 108/62 09/05/18 15:53 66 100 09/05/18 15:39 63 103/62 100 09/05/18 15:24 62 104/61 100 09/05/18 15:09 64 111/63 100 09/05/18 15:00 66 100 09/05/18 14:54 69 113/69 100 09/05/18 14:39 67 113/67 100 09/05/18 14:24 67 114/67 100 09/05/18 14:09 68 115/68 100 09/05/18 14:02 69 113/68 100 09/05/18 14:00 69 100 09/05/18 13:54 69 113/67 100 09/05/18 13:39 68 113/66 100 09/05/18 13:24 67 105/65 99 09/05/18 13:09 66 105/63 99 09/05/18 13:00 67 99 09/05/18 12:54 69 102/57 L 99 09/05/18 12:39 70 106/56 L 99 09/05/18 12:24 70 98/49 L 98 Intake and Output (Last 8hrs): Intake & Output 09/05/18 09/05/18 09/05/18 06:59 14:59 22:59 Intake Total 856.7 880.7 Output Total 187 415 Balance 669.7 465.7 Weight 134 lb 0.657 oz Intake: IV 295 253 Intake, IV Amount 561.7 577.7 Right Distal Port 440 60 Internal Jugular Right Hand 54.4 43.6 Right Medial Port 216 Internal Jugular Right Proximal Port 220 Internal Jugular Right Wrist 55.3 36.6 Rt hand y-site 12.0 1.5 Tube Feeding 0 0 Other 50 Output: Urine 187 415 Urethral (Sharma) 187 415 Stool 0 0 Emesis 0 0 - Physical Exam Head: Positive for: Atraumatic, Normocephalic Pupils: Positive for: PERRL Extroacular Muscles: Positive for: EOMI Conjunctiva: Positive for: Normal. Negative for: Injected, Icteric Ears: Positive for: Normal Mouth: Positive for: Moist Mucous Membranes Pharnyx: Positive for: Normal Nose (Internal): Positive for: Normal Inspection Neck: Positive for: Normal Range of Motion, Trachea Midline. Negative for: Me ningeal Signs, MIDLINE TENDERNESS, Paraspinal Tenderness, JVD, Lymphadenopathy, Bruit, Other Cardiovascular: Positive for: Regular Rate and Rhythm, Normal S1, S2, Peripheal Pulses Present, Tachycardic. Negative for: Murmurs, Irregular Rhythm Abdomen: Positive for: Normal Bowel Sounds. Negative for: Tenderness, Distention, Peritoneal Signs Upper Extremity: Positive for: Normal Inspection, Capillary Refill < 2s. Negative for: Cyanosis, Edema Lower Extremity: Positive for: Normal Inspection, Edema - Medications Active Medications: Active Medications Generic Name Dose Route Start Last Admin Trade Name Freq PRN Reason Stop Dose Admin Acetaminophen 650 mg 09/04/18 00:11 09/04/18 21:55 Tylenol 325mg Tab PO 650 mg Q6 PRN Administration Fever >100.4 F Aspirin 81 mg 09/04/18 13:15 09/05/18 09:32 Aspirin Chewable PO 81 mg DAILY STEPHANIE Administration Furosemide 20 mg 09/04/18 18:00 09/05/18 09:13 Lasix IVP 20 mg BID STEPHANIE Administration Midazolam HCl 100 mg/ Sodium 100 mls @ 2 mls/hr 09/03/18 03:15 09/05/18 03:15 Chloride IV Not Given .Q24H STEPHANIE Protocol 2 MG/HR Fentanyl Citrate 2,500 mcg/ 250 mls @ 6.35 mls/hr 09/03/18 03:15 09/05/18 03:15 Sodium Chloride IV Not Given .Q24H STEPHANIE Protocol 1 MCG/KG/HR Phenylephrine HCl 30 mg/ 253 mls @ 10.12 mls/hr 09/03/18 11:59 09/05/18 11:46 Sodium Chloride IV 80 mcg/min .Q24H PRN 40.48 mls/hr TITRATE PER MD ORDER Administration Protocol 20 MCG/MIN Norepinephrine Bitartrate 4 mg 254 mls @ 15.24 mls/hr 09/03/18 16:39 09/04/18 16:00 / Sodium Chloride IV 0 mcg/min .[id number] PRN 0 mls/hr TITRATE PER MD ORDER Titration Protocol 4 MCG/MIN Heparin Sodium (Porcine) 1,000 1,000 mls @ 3 mls/hr 09/03/18 18:07 09/03/18 18:36 units/ Sodium Chloride IV 09/17/18 15:26 Not Given ONCE ONE Milrinone Lactate/Dextrose 20 100 mls @ 3.8 mls/hr 09/04/18 13:30 09/04/18 15:05 mg/ Dextrose IV 0 mcg/kg/min .Q24H STEPHANIE 0 mls/hr Titration Protocol 0.2 MCG/KG/MIN Cefazolin Sodium/Dextrose 2 gm in 50 mls @ 100 mls/hr 09/05/18 11:00 09/05/18 11:43 Ancef Iv 2 Gm Duplex IVPB 09/10/18 03:29 100 mls/hr Q8H STEPHANIE Administration Protocol Vancomycin/Sodium Chloride 1 gm in 200 mls @ 133.333 mls/hr 09/05/18 12:00 09/05/18 11:50 Vancomycin 1 Gm/Ns 200 Ml IVPB 09/12/18 13:29 133.333 mls/hr Q24H STEPHANIE Administration Protocol Influenza Virus Vaccine 60 mcg 09/07/18 10:12 Fluzone Quad [id number] IM 09/07/18 10:13 .ONCE ONE Insulin Human Regular 0 unit 09/04/18 13:14 09/05/18 13:26 Novolin R SC 6 units Q4H STEPHANIE Administration Protocol Lidocaine 1 ea 09/05/18 12:00 09/05/18 11:30 Lidoderm TD 1 ea DAILY STEPHANIE Administration Pantoprazole Sodium 40 mg 09/03/18 10:00 09/05/18 09:13 Protonix Inj IVP 40 mg DAILY STEPHANIE Administration Pneumococcal Polyvalent Vaccine 0.5 ml 09/07/18 10:10 Pneumovax 23 Vaccine IM 09/07/18 10:11 .ONCE ONE Rosuvastatin Calcium 40 mg 09/03/18 22:00 09/04/18 21:41 Crestor PO 40 mg HS STEPHANIE Administration Ticagrelor 90 mg 09/03/18 10:00 09/05/18 09:33 Brilinta PO 90 mg BID STEPHANIE Administration - Patient Studies Lab Studies: Microbiology Studies 09/04/18 05:35 Urine Culture - Final Urine,Sharma No Growth (<1,000 CFU/ML) 09/04/18 05:35 Blood Culture - Preliminary Blood-Venous NO GROWTH AFTER 24 HOURS 09/04/18 05:35 Blood Culture - Preliminary Blood-Venous NO GROWTH AFTER 24 HOURS 09/03/18 05:45 Urine Culture - Final Urine,Catheterized No Growth (<1,000 CFU/ML) 09/03/18 05:45 MRSA Culture (Admit) - Final Nose MRSA NOT DETECTED Lab Studies 09/05/18 09/05/18 09/05/18 Range/Units 15:55 12:17 11:38 WBC (4.8-10.8) K/uL RBC (4.40-5.90) Mil/uL Hgb (12.0-18.0) g/dL Hct (35.0-51.0) % MCV (80.0-94.0) fL MCH (27.0-31.0) pg MCHC (33.0-37.0) g/dL RDW (11.5-14.5) % Plt Count (130-400) K/uL MPV (7.2-11.7) fL Neut % (Auto) (50.0-75.0) % Lymph % (Auto) (20.0-40.0) % [place] % (Auto) (0.0-10.0) % Eos % (Auto) (0.0-4.0) % Baso % (Auto) (0.0-2.0) % Neut # (Auto) (1.8-7.0) K/uL Lymph # (Auto) (1.0-4.3) K/uL [place] # (Auto) (0.0-0.8) K/uL Eos # (Auto) (0.0-0.7) K/uL Baso # (Auto) (0.0-0.2) K/uL Neutrophils % (Manual) (50-75) % Band Neutrophils % (0-2) % Lymphocytes % (Manual) (20-40) % Reactive Lymphs % (0-0) % Monocytes % (Manual) (0-10) % Basophils % (Manual) (0-2) % Platelet Estimate (NORMAL) APTT 79 H D (21-34) SECONDS Puncture Site pCO2 (35-45) mm/Hg pO2 (80-100) mm/Hg HCO3 (21-28) mmol/L ABG pH (7.35-7.45) ABG Total CO2 (22-28) mmol/L ABG O2 Saturation (95-98) % ABG Base Excess (-2.0-3.0) mmol/L ABG Hemoglobin (11.7-17.4) g/dL ABG Carboxyhemoglobin (0.5-1.5) % POC ABG HHb (Measured) (0.0-5.0) % ABG Methemoglobin (0.0-3.0) % [place] Test A-a O2 Difference mm/Hg Respiratory Index Hgb O2 Saturation (95.0-98.0) % Vent Mode Mechanical Rate FiO2 % Tidal Volume PEEP Sodium (132-148) mmol/L Potassium (3.6-5.2) mmol/L Chloride (98-107) mmol/L Carbon Dioxide (22-30) mmol/L Anion Gap (10-20) BUN (9-20) mg/dL Creatinine (0.8-1.5) mg/dL Est GFR ( Amer) Est GFR (Non-Af Amer) POC Glucose (mg/dL) 217 H 205 H (65-110) mg/dL Random Glucose (75-110) mg/dL Calcium (8.6-10.4) mg/dl Phosphorus (2.5-4.5) mg/dL Magnesium (1.6-2.3) mg/dL Total Bilirubin (0.2-1.3) mg/dL AST (17-59) U/L ALT (21-72) U/L Alkaline Phosphatase (38-126) U/L Total Protein (6.3-8.3) g/dL Albumin (3.5-5.0) g/dL Globulin (2.2-3.9) gm/dL Albumin/Globulin Ratio (1.0-2.1) 09/05/18 09/05/18 09/05/18 Range/Units 07:50 05:09 04:53 WBC (4.8-10.8) K/uL RBC (4.40-5.90) Mil/uL Hgb (12.0-18.0) g/dL Hct (35.0-51.0) % MCV (80.0-94.0) fL MCH (27.0-31.0) pg MCHC (33.0-37.0) g/dL RDW (11.5-14.5) % Plt Count (130-400) K/uL MPV (7.2-11.7) fL Neut % (Auto) (50.0-75.0) % Lymph % (Auto) (20.0-40.0) % [place] % (Auto) (0.0-10.0) % Eos % (Auto) (0.0-4.0) % Baso % (Auto) (0.0-2.0) % Neut # (Auto) (1.8-7.0) K/uL Lymph # (Auto) (1.0-4.3) K/uL [place] # (Auto) (0.0-0.8) K/uL Eos # (Auto) (0.0-0.7) K/uL Baso # (Auto) (0.0-0.2) K/uL Neutrophils % (Manual) (50-75) % Band Neutrophils % (0-2) % Lymphocytes % (Manual) (20-40) % Reactive Lymphs % (0-0) % Monocytes % (Manual) (0-10) % Basophils % (Manual) (0-2) % Platelet Estimate (NORMAL) APTT 133 H* D (21-34) SECONDS Puncture Site Rb pCO2 43 (35-45) mm/Hg pO2 85 (80-100) mm/Hg HCO3 24.4 (21-28) mmol/L ABG pH 7.37 (7.35-7.45) ABG Total CO2 26.2 (22-28) mmol/L ABG O2 Saturation 97.7 (95-98) % ABG Base Excess -0.6 (-2.0-3.0) mmol/L ABG Hemoglobin 15.8 (11.7-17.4) g/dL ABG Carboxyhemoglobin 2.1 H (0.5-1.5) % POC ABG HHb (Measured) 2.2 (0.0-5.0) % ABG Methemoglobin 1.0 (0.0-3.0) % [place] Test Na A-a O2 Difference 75.0 mm/Hg Respiratory Index 0.9 Hgb O2 Saturation 94.7 L (95.0-98.0) % Vent Mode Prvc Mechanical Rate 12 FiO2 30.0 % Tidal Volume 500 PEEP 5 Sodium (132-148) mmol/L Potassium (3.6-5.2) mmol/L Chloride (98-107) mmol/L Carbon Dioxide (22-30) mmol/L Anion Gap (10-20) BUN (9-20) mg/dL Creatinine (0.8-1.5) mg/dL Est GFR ( Amer) Est GFR (Non-Af Amer) POC Glucose (mg/dL) 185 H (65-110) mg/dL Random Glucose (75-110) mg/dL Calcium (8.6-10.4) mg/dl Phosphorus (2.5-4.5) mg/dL Magnesium (1.6-2.3) mg/dL Total Bilirubin (0.2-1.3) mg/dL AST (17-59) U/L ALT (21-72) U/L Alkaline Phosphatase (38-126) U/L Total Protein (6.3-8.3) g/dL Albumin (3.5-5.0) g/dL Globulin (2.2-3.9) gm/dL Albumin/Globulin Ratio (1.0-2.1) 09/05/18 09/05/18 09/05/18 Range/Units 04:53 04:53 04:23 WBC 15.4 H (4.8-10.8) K/uL RBC 4.93 (4.40-5.90) Mil/uL Hgb 15.0 (12.0-18.0) g/dL Hct 45.1 (35.0-51.0) % MCV 91.4 (80.0-94.0) fL MCH 30.4 (27.0-31.0) pg MCHC 33.2 (33.0-37.0) g/dL RDW 14.5 (11.5-14.5) % Plt Count 191 (130-400) K/uL MPV 9.3 (7.2-11.7) fL Neut % (Auto) 77.1 H (50.0-75.0) % Lymph % (Auto) 7.9 L (20.0-40.0) % [place] % (Auto) 14.3 H (0.0-10.0) % Eos % (Auto) 0.1 (0.0-4.0) % Baso % (Auto) 0.6 (0.0-2.0) % Neut # (Auto) 11.9 H (1.8-7.0) K/uL Lymph # (Auto) 1.2 (1.0-4.3) K/uL [place] # (Auto) 2.2 H (0.0-0.8) K/uL Eos # (Auto) 0.0 (0.0-0.7) K/uL Baso # (Auto) 0.1 (0.0-0.2) K/uL Neutrophils % (Manual) 80 H (50-75) % Band Neutrophils % 3 H (0-2) % Lymphocytes % (Manual) 3 L (20-40) % Reactive Lymphs % 1 H (0-0) % Monocytes % (Manual) 12 H (0-10) % Basophils % (Manual) 1 (0-2) % Platelet Estimate Normal (NORMAL) APTT (21-34) SECONDS Puncture Site pCO2 (35-45) mm/Hg pO2 (80-100) mm/Hg HCO3 (21-28) mmol/L ABG pH (7.35-7.45) ABG Total CO2 (22-28) mmol/L ABG O2 Saturation (95-98) % ABG Base Excess (-2.0-3.0) mmol/L ABG Hemoglobin (11.7-17.4) g/dL ABG Carboxyhemoglobin (0.5-1.5) % POC ABG HHb (Measured) (0.0-5.0) % ABG Methemoglobin (0.0-3.0) % [place] Test A-a O2 Difference mm/Hg Respiratory Index Hgb O2 Saturation (95.0-98.0) % Vent Mode Mechanical Rate FiO2 % Tidal Volume PEEP Sodium 143 (132-148) mmol/L Potassium 3.8 (3.6-5.2) mmol/L Chloride 109 H (98-107) mmol/L Carbon Dioxide 29 (22-30) mmol/L Anion Gap 9 L (10-20) BUN 28 H (9-20) mg/dL Creatinine 1.2 (0.8-1.5) mg/dL Est GFR ( Amer) > 60 Est GFR (Non-Af Amer) 60 POC Glucose (mg/dL) 199 H (65-110) mg/dL Random Glucose 234 H (75-110) mg/dL Calcium 8.4 L (8.6-10.4) mg/dl Phosphorus 3.1 (2.5-4.5) mg/dL Magnesium 2.0 (1.6-2.3) mg/dL Total Bilirubin 1.0 (0.2-1.3) mg/dL AST 78 H D (17-59) U/L ALT 39 (21-72) U/L Alkaline Phosphatase 81 (38-126) U/L Total Protein 6.2 L (6.3-8.3) g/dL Albumin 3.3 L (3.5-5.0) g/dL Globulin 3.0 (2.2-3.9) gm/dL Albumin/Globulin Ratio 1.1 (1.0-2.1) 09/05/18 09/04/18 09/04/18 Range/Units 00:57 21:29 21:10 WBC (4.8-10.8) K/uL RBC (4.40-5.90) Mil/uL Hgb (12.0-18.0) g/dL Hct (35.0-51.0) % MCV (80.0-94.0) fL MCH (27.0-31.0) pg MCHC (33.0-37.0) g/dL RDW (11.5-14.5) % Plt Count (130-400) K/uL MPV (7.2-11.7) fL Neut % (Auto) (50.0-75.0) % Lymph % (Auto) (20.0-40.0) % [place] % (Auto) (0.0-10.0) % Eos % (Auto) (0.0-4.0) % Baso % (Auto) (0.0-2.0) % Neut # (Auto) (1.8-7.0) K/uL Lymph # (Auto) (1.0-4.3) K/uL [place] # (Auto) (0.0-0.8) K/uL Eos # (Auto) (0.0-0.7) K/uL Baso # (Auto) (0.0-0.2) K/uL Neutrophils % (Manual) (50-75) % Band Neutrophils % (0-2) % Lymphocytes % (Manual) (20-40) % Reactive Lymphs % (0-0) % Monocytes % (Manual) (0-10) % Basophils % (Manual) (0-2) % Platelet Estimate (NORMAL) APTT 177 H* D (21-34) SECONDS Puncture Site pCO2 (35-45) mm/Hg pO2 (80-100) mm/Hg HCO3 (21-28) mmol/L ABG pH (7.35-7.45) ABG Total CO2 (22-28) mmol/L ABG O2 Saturation (95-98) % ABG Base Excess (-2.0-3.0) mmol/L ABG Hemoglobin (11.7-17.4) g/dL ABG Carboxyhemoglobin (0.5-1.5) % POC ABG HHb (Measured) (0.0-5.0) % ABG Methemoglobin (0.0-3.0) % [place] Test A-a O2 Difference mm/Hg Respiratory Index Hgb O2 Saturation (95.0-98.0) % Vent Mode Mechanical Rate FiO2 % Tidal Volume PEEP Sodium (132-148) mmol/L Potassium (3.6-5.2) mmol/L Chloride (98-107) mmol/L Carbon Dioxide (22-30) mmol/L Anion Gap (10-20) BUN (9-20) mg/dL Creatinine (0.8-1.5) mg/dL Est GFR ( Amer) Est GFR (Non-Af Amer) POC Glucose (mg/dL) 239 H 232 H (65-110) mg/dL Random Glucose (75-110) mg/dL Calcium (8.6-10.4) mg/dl Phosphorus (2.5-4.5) mg/dL Magnesium (1.6-2.3) mg/dL Total Bilirubin (0.2-1.3) mg/dL AST (17-59) U/L ALT (21-72) U/L Alkaline Phosphatase (38-126) U/L Total Protein (6.3-8.3) g/dL Albumin (3.5-5.0) g/dL Globulin (2.2-3.9) gm/dL Albumin/Globulin Ratio (1.0-2.1) 09/04/18 09/04/18 Range/Units 20:02 16:13 WBC (4.8-10.8) K/uL RBC (4.40-5.90) Mil/uL Hgb (12.0-18.0) g/dL Hct (35.0-51.0) % MCV (80.0-94.0) fL MCH (27.0-31.0) pg MCHC (33.0-37.0) g/dL RDW (11.5-14.5) % Plt Count (130-400) K/uL MPV (7.2-11.7) fL Neut % (Auto) (50.0-75.0) % Lymph % (Auto) (20.0-40.0) % [place] % (Auto) (0.0-10.0) % Eos % (Auto) (0.0-4.0) % Baso % (Auto) (0.0-2.0) % Neut # (Auto) (1.8-7.0) K/uL Lymph # (Auto) (1.0-4.3) K/uL [place] # (Auto) (0.0-0.8) K/uL Eos # (Auto) (0.0-0.7) K/uL Baso # (Auto) (0.0-0.2) K/uL Neutrophils % (Manual) (50-75) % Band Neutrophils % (0-2) % Lymphocytes % (Manual) (20-40) % Reactive Lymphs % (0-0) % Monocytes % (Manual) (0-10) % Basophils % (Manual) (0-2) % Platelet Estimate (NORMAL) APTT (21-34) SECONDS Puncture Site pCO2 (35-45) mm/Hg pO2 (80-100) mm/Hg HCO3 (21-28) mmol/L ABG pH (7.35-7.45) ABG Total CO2 (22-28) mmol/L ABG O2 Saturation (95-98) % ABG Base Excess (-2.0-3.0) mmol/L ABG Hemoglobin (11.7-17.4) g/dL ABG Carboxyhemoglobin (0.5-1.5) % POC ABG HHb (Measured) (0.0-5.0) % ABG Methemoglobin (0.0-3.0) % [place] Test A-a O2 Difference mm/Hg Respiratory Index Hgb O2 Saturation (95.0-98.0) % Vent Mode Mechanical Rate FiO2 % Tidal Volume PEEP Sodium (132-148) mmol/L Potassium (3.6-5.2) mmol/L Chloride (98-107) mmol/L Carbon Dioxide (22-30) mmol/L Anion Gap (10-20) BUN (9-20) mg/dL Creatinine (0.8-1.5) mg/dL Est GFR ( Amer) Est GFR (Non-Af Amer) POC Glucose (mg/dL) 210 H 211 H (65-110) mg/dL Random Glucose (75-110) mg/dL Calcium (8.6-10.4) mg/dl Phosphorus (2.5-4.5) mg/dL Magnesium (1.6-2.3) mg/dL Total Bilirubin (0.2-1.3) mg/dL AST (17-59) U/L ALT (21-72) U/L Alkaline Phosphatase (38-126) U/L Total Protein (6.3-8.3) g/dL Albumin (3.5-5.0) g/dL Globulin (2.2-3.9) gm/dL Albumin/Globulin Ratio (1.0-2.1) Laboratory Results - last 24 hr 09/04/18 09/04/18 09/04/18 16:13 20:02 21:10 WBC RBC Hgb Hct MCV MCH MCHC RDW Plt Count MPV Neut % (Auto) Lymph % (Auto) [place] % (Auto) Eos % (Auto) Baso % (Auto) Neut # (Auto) Lymph # (Auto) [place] # (Auto) Eos # (Auto) Baso # (Auto) Neutrophils % (Manual) Band Neutrophils % Lymphocytes % (Manual) Reactive Lymphs % Monocytes % (Manual) Basophils % (Manual) Platelet Estimate APTT Puncture Site pCO2 pO2 HCO3 ABG pH ABG Total CO2 ABG O2 Saturation ABG Base Excess ABG Hemoglobin ABG Carboxyhemoglobin POC ABG HHb (Measured) ABG Methemoglobin [place] Test A-a O2 Difference Respiratory Index Hgb O2 Saturation Vent Mode Mechanical Rate FiO2 Tidal Volume PEEP Sodium Potassium Chloride Carbon Dioxide Anion Gap BUN Creatinine Est GFR ( Amer) Est GFR (Non-Af Amer) POC Glucose (mg/dL) 211 H 210 H 232 H Random Glucose Calcium Phosphorus Magnesium Total Bilirubin AST ALT Alkaline Phosphatase Total Protein Albumin Globulin Albumin/Globulin Ratio 09/04/18 09/05/18 09/05/18 21:29 00:57 04:23 WBC RBC Hgb Hct MCV MCH MCHC RDW Plt Count MPV Neut % (Auto) Lymph % (Auto) [place] % (Auto) Eos % (Auto) Baso % (Auto) Neut # (Auto) Lymph # (Auto) [place] # (Auto) Eos # (Auto) Baso # (Auto) Neutrophils % (Manual) Band Neutrophils % Lymphocytes % (Manual) Reactive Lymphs % Monocytes % (Manual) Basophils % (Manual) Platelet Estimate APTT 177 H* D Puncture Site pCO2 pO2 HCO3 ABG pH ABG Total CO2 ABG O2 Saturation ABG Base Excess ABG Hemoglobin ABG Carboxyhemoglobin POC ABG HHb (Measured) ABG Methemoglobin [place] Test A-a O2 Difference Respiratory Index Hgb O2 Saturation Vent Mode Mechanical Rate FiO2 Tidal Volume PEEP Sodium Potassium Chloride Carbon Dioxide Anion Gap BUN Creatinine Est GFR ( Amer) Est GFR (Non-Af Amer) POC Glucose (mg/dL) 239 H 199 H Random Glucose Calcium Phosphorus Magnesium Total Bilirubin AST ALT Alkaline Phosphatase Total Protein Albumin Globulin Albumin/Globulin Ratio 09/05/18 09/05/18 09/05/18 04:53 04:53 04:53 WBC 15.4 H RBC 4.93 Hgb 15.0 Hct 45.1 MCV 91.4 MCH 30.4 MCHC 33.2 RDW 14.5 Plt Count 191 MPV 9.3 Neut % (Auto) 77.1 H Lymph % (Auto) 7.9 L [place] % (Auto) 14.3 H Eos % (Auto) 0.1 Baso % (Auto) 0.6 Neut # (Auto) 11.9 H Lymph # (Auto) 1.2 [place] # (Auto) 2.2 H Eos # (Auto) 0.0 Baso # (Auto) 0.1 Neutrophils % (Manual) 80 H Band Neutrophils % 3 H Lymphocytes % (Manual) 3 L Reactive Lymphs % 1 H Monocytes % (Manual) 12 H Basophils % (Manual) 1 Platelet Estimate Normal APTT 133 H* D Puncture Site pCO2 pO2 HCO3 ABG pH ABG Total CO2 ABG O2 Saturation ABG Base Excess ABG Hemoglobin ABG Carboxyhemoglobin POC ABG HHb (Measured) ABG Methemoglobin [place] Test A-a O2 Difference Respiratory Index Hgb O2 Saturation Vent Mode Mechanical Rate FiO2 Tidal Volume PEEP Sodium 143 Potassium 3.8 Chloride 109 H Carbon Dioxide 29 Anion Gap 9 L BUN 28 H Creatinine 1.2 Est GFR ( Amer) > 60 Est GFR (Non-Af Amer) 60 POC Glucose (mg/dL) Random Glucose 234 H Calcium 8.4 L Phosphorus 3.1 Magnesium 2.0 Total Bilirubin 1.0 AST 78 H D ALT 39 Alkaline Phosphatase 81 Total Protein 6.2 L Albumin 3.3 L Globulin 3.0 Albumin/Globulin Ratio 1.1 09/05/18 09/05/18 09/05/18 05:09 07:50 11:38 WBC RBC Hgb Hct MCV MCH MCHC RDW Plt Count MPV Neut % (Auto) Lymph % (Auto) [place] % (Auto) Eos % (Auto) Baso % (Auto) Neut # (Auto) Lymph # (Auto) [place] # (Auto) Eos # (Auto) Baso # (Auto) Neutrophils % (Manual) Band Neutrophils % Lymphocytes % (Manual) Reactive Lymphs % Monocytes % (Manual) Basophils % (Manual) Platelet Estimate APTT Puncture Site Rb pCO2 43 pO2 85 HCO3 24.4 ABG pH 7.37 ABG Total CO2 26.2 ABG O2 Saturation 97.7 ABG Base Excess -0.6 ABG Hemoglobin 15.8 ABG Carboxyhemoglobin 2.1 H POC ABG HHb (Measured) 2.2 ABG Methemoglobin 1.0 [place] Test Na A-a O2 Difference 75.0 Respiratory Index 0.9 Hgb O2 Saturation 94.7 L Vent Mode Prvc Mechanical Rate 12 FiO2 30.0 Tidal Volume 500 PEEP 5 Sodium Potassium Chloride Carbon Dioxide Anion Gap BUN Creatinine Est GFR ( Amer) Est GFR (Non-Af Amer) POC Glucose (mg/dL) 185 H 205 H Random Glucose Calcium Phosphorus Magnesium Total Bilirubin AST ALT Alkaline Phosphatase Total Protein Albumin Globulin Albumin/Globulin Ratio 09/05/18 09/05/18 12:17 15:55 WBC RBC Hgb Hct MCV MCH MCHC RDW Plt Count MPV Neut % (Auto) Lymph % (Auto) [place] % (Auto) Eos % (Auto) Baso % (Auto) Neut # (Auto) Lymph # (Auto) [place] # (Auto) Eos # (Auto) Baso # (Auto) Neutrophils % (Manual) Band Neutrophils % Lymphocytes % (Manual) Reactive Lymphs % Monocytes % (Manual) Basophils % (Manual) Platelet Estimate APTT 79 H D Puncture Site pCO2 pO2 HCO3 ABG pH ABG Total CO2 ABG O2 Saturation ABG Base Excess ABG Hemoglobin ABG Carboxyhemoglobin POC ABG HHb (Measured) ABG Methemoglobin [place]den Test A-a O2 Difference Respiratory Index Hgb O2 Saturation Vent Mode Mechanical Rate FiO2 Tidal Volume PEEP Sodium Potassium Chloride Carbon Dioxide Anion Gap BUN Creatinine Est GFR ( Amer) Est GFR (Non-Af Amer) POC Glucose (mg/dL) 217 H Random Glucose Calcium Phosphorus Magnesium Total Bilirubin AST ALT Alkaline Phosphatase Total Protein Albumin Globulin Albumin/Globulin Ratio EKG/Cardiology Studies: Cardiology / EKG Studies 09/05/18 08:00 EKG [ELECTROCARDIOGRAM] DAILY Comment: Mode Of Transportation: PORTABLE Reason For Exam: S/p STEMI Fingerstick Blood Sugar Results: 205 Review of Systems - Review of Systems Systems not reviewed;Unavailable: Intubated Critical Care Progress Note - Ventilator Checklist Head of Bed 30 Degrees: Yes Daily Sedation Vacation: Yes Daily Assessment of Readiness to Wean: Yes Daily Spontaneous Breathing Trial: Yes PUD Prophalyxis: Yes DVT Prophylaxis: Yes Oral Care with Chlorhexidine Gluconate {CHG}: Yes Assessment/Plan (1) Cardiogenic shock Assessment and plan: Patient is a 73 year old male presenting with Acute Anterior wall VA and pulmonary edema. 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 He is now in cardiogenic shock on a balloon pump. Neuro: alert and follows commands when sedation held, but then became severely agitated. patient has back pain, started lidocaine patch. Continuing versed and fentanyl gtt. Pulm: acute respiratory failure, on vent. CV: cardiogenic shock improving, stopped balloon pump today. Continue on phenylephrine, wean down slowly. Hem: anemia of chronic disease. ASA, brilinta, heparin gtt Renal: no acute issues, urine output wnl. lasix 20mg IV q12h Endo: hyperglycemia, started SISS for coverage. A1C r/o DM type 2. GI: NPO, [email or web address] ID: [email or web address] tx with Cefazolin DVT proph - heparin gtt GI proph - protonix sharma for strict I/O's during acute illness Code status - full code Critical Care Time spent 35 minutes Multi-disciplinary rounds were performed with house staff, nursing, speech therapy, respiratory therapy, pharmacy and nutrition with integrated input from the primary team/attending and other consulting services. The documented time is cumulative and includes review of patient data/exams/labs/chart review and examination of the patient on rounds and throughout the day; time is exclusive of any procedures or teaching time. Current Visit: Yes Status: Acute
[2018-09-05] MEDS: Milrinone 20 MG in Dextrose 5% In Water 80 ML IV SCH (16:59)
[2018-09-05] MEDS: (Novolog) Insulin Aspart, Recombinant 100 u/ml 10 ml vial SC SCH (17:45)
[2018-09-05] MEDS ORDERED: Heparin25000 units/250ml 1/2NS 25,000 UNITS/250 ML BAG IV PRN (18:12)
[2018-09-05 19:19] LABS: VENOUS BLOOD GAS PCO2 45 mmHg (40-60); VENOUS BLOOD GAS PO2 29 mm/Hg (30-55); VENOUS BLOOD PH 7.38 (7.32-7.43)
[2018-09-05] MEDS ORDERED: HYDROmorphone 1 mg/ml ISec IVP STA (20:05)
[2018-09-06] MEDS: (Novolog) Insulin Aspart, Recombinant 100 u/ml 10 ml vial SC SCH ×4 (00:03→18:53)
[2018-09-06] MEDS: ceFAZolin IV 2 gm in Dextrose 2 GM/50 ML BAG IVPB SCH ×3 (02:14→18:02)
[2018-09-06] MEDS: Dexmedetomidine Hydrochloride 200 MCG in Sodium Chloride 0.9% 48 ML IV PRN ×4 (04:15→23:45)
[2018-09-06] MEDS ORDERED: HYDROmorphone 0.5 mg/0.5 ml ISec IVP STA (04:38)
[2018-09-06 06:01] LABS: ARTERIAL BLOOD GAS HCO3 24.6 mmol/L (21-28); ARTERIAL BLOOD GAS HEMOGLOBIN 15.4 g/dL (11.7-17.4); ARTERIAL BLOOD GAS O2 SAT 98.5 % (95-98); ARTERIAL BLOOD GAS PCO2 33 mm/Hg (35-45); ARTERIAL BLOOD GAS PH 7.45 (7.35-7.45); ARTERIAL BLOOD GAS PO2 94 mm/Hg (80-100); ARTERIAL BLOOD GAS TCO2 23.9 mmol/L (22-28)
[2018-09-06 06:16] LABS: BASO # 0.1 K/uL (0.0-0.2); BASO % 0.5 % (0.0-2.0); EOS % 0.2 % (0.0-4.0); HEMOGLOBIN 14.8 g/dL (12.0-18.0); LYMPH % 8.1 % (20.0-40.0); MEAN CELL VOLUME 92.3 fL (80.0-94.0); MEAN CORPUSCULAR HEMOGLOBIN 31.1 pg (27.0-31.0); MEAN CORPUSCULAR HGB CONC 33.7 g/dL (33.0-37.0); MONO # 1.4 K/uL (0.0-0.8); MONO % 11.6 % (0.0-10.0); NEUT # 9.9 K/uL (1.8-7.0); NEUT % 79.6 % (50.0-75.0); PLATELET COUNT 183 K/uL (130-400); RBC 4.76 Mil/uL (4.40-5.90); RED CELL DISTRIBUTION WIDTH 14.8 % (11.5-14.5); WHITE BLOOD COUNT 12.4 K/uL (4.8-10.8)
[2018-09-06] MEDS: Midazolam 50 mg/10 ml 100 MG in Sodium Chloride 0.9% 80 ML IV SCH (06:40)
[2018-09-06 06:44] LABS: CALCIUM 8.2 mg/dl (8.6-10.4)
[2018-09-06 06:48] LABS: ALBUMIN 2.9 g/dL (3.5-5.0)
[2018-09-06 06:52] LABS: ALB/GLOB RATIO 0.9 (1.0-2.1)
[2018-09-06 08:28] LABS: BANDS 1 % (0-2); LYMPHOCYTE 6 % (20-40); MONOCYTE 10 % (0-10); NEUTROPHIL 81 % (50-75); REACTIVE LYMPHOCYTES 2 % (0-0); TOTAL CELLS COUNTED 100
[2018-09-06 08:29] LABS: PLATELET ESTIMATE NORMAL (NORMAL)
[2018-09-06 08:30] LABS: ANISOCYTOSIS SLIGHT; TOXIC GRANULATION PRESENT
--- NOTE | 2018-09-06 09:00 | RAD ---
Chest x-ray single frontal view HISTORY: Intubated. COMPARISON: 09/05/2018 Findings: Lines and tubes in stable position. Moderate venous congestion. Right hilar prominence. Patchy increased markings in the right infrahilar region and lung bases. Atherosclerotic calcification at the aortic knob. Mild cardiomegaly. Degenerative changes in the spine and shoulders. Upper lobe granulomatous changes. Impression: Lines and tubes in stable position. Moderate venous congestion. Right hilar prominence. Patchy increased markings in the right infrahilar region and lung bases. Atherosclerotic calcification at the aortic knob. Mild cardiomegaly. Degenerative changes in the spine and shoulders. Upper lobe granulomatous changes.
--- NOTE | 2018-09-06 09:11 | CP.PCM.PN ---
Subjective - Date & Time of Evaluation Date of Evaluation: 09/05/18 Time of Evaluation: 14:10 - Subjective Subjective: Patient s/p IABP and arterial sheath removal Tolerated well Continue mechanical ventilation and sedation for today Continue IV Heparin, Brilinta, ASA and statins Wean off pressors tomorrow Will follow Objective - Vital Signs/Intake and Output Vital Signs (last 24 hours): Temp Pulse Resp BP Pulse Ox 99.4 F 64 15 105/69 100 09/06/18 08:00 09/06/18 08:09 09/05/18 22:42 09/06/18 08:09 09/06/18 08:09 Intake and Output: 09/06/18 09/06/18 06:59 18:59 Intake Total 1259.0 119.4 Output Total 365 50 Balance 894.0 69.4 - Medications Medications: Current Medications Acetaminophen (Tylenol 325mg Tab) 650 mg PO Q6 PRN PRN Reason: Fever >100.4 F Last Admin: 09/06/18 06:59 Dose: 650 mg Aspirin (Aspirin Chewable) 81 mg PO DAILY [facility] Last Admin: 09/05/18 09:32 Dose: 81 mg Dextrose (Dextrose 50% Inj) 0 ml IV STAT PRN; Protocol PRN Reason: Hypoglycemia Protocol Dextrose (Glutose 15) 0 gm PO ONCE PRN; Protocol PRN Reason: Hypoglycemia Protocol Furosemide (Lasix) 20 mg IVP BID [facility] Last Admin: 09/05/18 17:46 Dose: 20 mg Glucagon (Glucagen Diagnostic Kit) 0 mg IM STAT PRN; Protocol PRN Reason: Hypoglycemia Protocol Midazolam HCl 100 mg/ Sodium (Chloride) 100 mls @ 2 mls/hr IV .Q24H STEPHANIE; Protocol Last Admin: 09/06/18 06:40 Dose: Not Given Phenylephrine HCl 30 mg/ (Sodium Chloride) 253 mls @ 10.12 mls/hr IV .Q24H PRN; Protocol PRN Reason: TITRATE PER MD ORDER Last Titration: 09/06/18 06:38 Dose: 40 mcg/min, 20.24 mls/hr Cefazolin Sodium/Dextrose (Ancef Iv 2 Gm Duplex) 2 gm in 50 mls @ 100 mls/hr IVPB Q8H [facility]PHANIE; Protocol Stop: 09/10/18 03:29 Last Admin: 09/06/18 02:14 Dose: 100 mls/hr Vancomycin/Sodium Chloride (Vancomycin 1 Gm/Ns 200 Ml) 1 gm in 200 mls @ 133.333 mls/hr IVPB Q24H STEPHANIE; Protocol Stop: 09/12/18 13:29 Last Admin: 09/05/18 11:50 Dose: 133.333 mls/hr Dextrose (Dextrose 5% In Water 1000 Ml) 1,000 mls @ 0 mls/hr IV .Q0M PRN; Protocol PRN Reason: Hypoglycemia Protocol Heparin Sodium/Sodium Chloride (Heparin 79428 Units/250ml 1/2 Normal Saline) 25,000 units in 250 mls @ 4.986 mls/hr IV .Q24H PRN; Protocol PRN Reason: PROTOCOL Last Titration: 09/05/18 19:35 Dose: 10.03 units/kg/hr, 6.1 mls/hr Dexmedetomidine HCl 200 mcg/ (Sodium Chloride) 50 mls @ 3.04 mls/hr IV TITR PRN; Protocol PRN Reason: Agitation Last Titration: 09/06/18 08:48 Dose: 0.2 mcg/kg/hr, 3.04 mls/hr Influenza Virus Vaccine (Fluzone Quad [id number]) 60 mcg IM .ONCE ONE Stop: 09/07/18 10:13 Insulin Aspart (Novolog) 0 unit SC Q6 STEPHANIE; Protocol Last Admin: 09/06/18 06:46 Dose: 2 units Lidocaine (Lidoderm) 1 ea TD DAILY [facility] Last Admin: 09/05/18 11:30 Dose: 1 ea Morphine Sulfate (Morphine) 2 mg IVP Q1 PRN PRN Reason: Pain, severe (8-10) Last Admin: 09/06/18 06:00 Dose: 2 mg Pantoprazole Sodium (Protonix Inj) 40 mg IVP DAILY [facility] Last Admin: 09/05/18 09:13 Dose: 40 mg Pneumococcal Polyvalent Vaccine (Pneumovax 23 Vaccine) 0.5 ml IM .ONCE ONE Stop: 09/07/18 10:11 Rosuvastatin Calcium (Crestor) 40 mg PO HS [facility] Last Admin: 09/05/18 22:30 Dose: 40 mg Ticagrelor (Brilinta) 90 mg PO BID [facility]IE Last Admin: 09/05/18 17:45 Dose: 90 mg - Labs Labs: 09/06/18 06:03 12/02/18 06:03 PT 11.1 SECONDS (9.7-12.2) 09/03/18 01:40 INR 1.0 09/03/18 01:40 APTT 71 SECONDS (21-34) H 09/06/18 06:03
--- NOTE | 2018-09-06 09:16 | CP.PCM.PN ---
Subjective - Date & Time of Evaluation Date of Evaluation: 09/05/18 Time of Evaluation: 19:30 - Subjective Subjective: Patient remains sedated. IABP out. Still on Vasopressors and on Vent. Objective - Vital Signs/Intake and Output Vital Signs (last 24 hours): Temp Pulse Resp BP Pulse Ox 99.4 F 64 15 105/69 100 09/06/18 08:00 09/06/18 08:09 09/05/18 22:42 09/06/18 08:09 09/06/18 08:09 Intake and Output: 09/06/18 09/06/18 06:59 18:59 Intake Total 1259.0 119.4 Output Total 365 50 Balance 894.0 69.4 - Medications Medications: Current Medications Acetaminophen (Tylenol 325mg Tab) 650 mg PO Q6 PRN PRN Reason: Fever >100.4 F Last Admin: 09/06/18 06:59 Dose: 650 mg Aspirin (Aspirin Chewable) 81 mg PO DAILY [facility] Last Admin: 09/05/18 09:32 Dose: 81 mg Dextrose (Dextrose 50% Inj) 0 ml IV STAT PRN; Protocol PRN Reason: Hypoglycemia Protocol Dextrose (Glutose 15) 0 gm PO ONCE PRN; Protocol PRN Reason: Hypoglycemia Protocol Furosemide (Lasix) 20 mg IVP BID [facility] Last Admin: 09/05/18 17:46 Dose: 20 mg Glucagon (Glucagen Diagnostic Kit) 0 mg IM STAT PRN; Protocol PRN Reason: Hypoglycemia Protocol Midazolam HCl 100 mg/ Sodium (Chloride) 100 mls @ 2 mls/hr IV .Q24H [facility]PHANIE; Protocol Last Admin: 09/06/18 06:40 Dose: Not Given Phenylephrine HCl 30 mg/ (Sodium Chloride) 253 mls @ 10.12 mls/hr IV .Q24H PRN; Protocol PRN Reason: TITRATE PER MD ORDER Last Titration: 09/06/18 06:38 Dose: 40 mcg/min, 20.24 mls/hr Cefazolin Sodium/Dextrose (Ancef Iv 2 Gm Duplex) 2 gm in 50 mls @ 100 mls/hr IVPB Q8H STEPHANIE; Protocol Stop: 09/10/18 03:29 Last Admin: 09/06/18 02:14 Dose: 100 mls/hr Vancomycin/Sodium Chloride (Vancomycin 1 Gm/Ns 200 Ml) 1 gm in 200 mls @ 133.333 mls/hr IVPB Q24H STEPHANIE; Protocol Stop: 09/12/18 13:29 Last Admin: 09/05/18 11:50 Dose: 133.333 mls/hr Dextrose (Dextrose 5% In Water 1000 Ml) 1,000 mls @ 0 mls/hr IV .Q0M PRN; Protocol PRN Reason: Hypoglycemia Protocol Heparin Sodium/Sodium Chloride (Heparin 67768 Units/250ml 1/2 Normal Saline) 25,000 units in 250 mls @ 4.986 mls/hr IV .Q24H PRN; Protocol PRN Reason: PROTOCOL Last Titration: 09/05/18 19:35 Dose: 10.03 units/kg/hr, 6.1 mls/hr Dexmedetomidine HCl 200 mcg/ (Sodium Chloride) 50 mls @ 3.04 mls/hr IV TITR PRN; Protocol PRN Reason: Agitation Last Titration: 09/06/18 08:48 Dose: 0.2 mcg/kg/hr, 3.04 mls/hr Influenza Virus Vaccine (Fluzone Quad [id number]) 60 mcg IM .ONCE ONE Stop: 09/07/18 10:13 Insulin Aspart (Novolog) 0 unit SC Q6 [facility]PHANIE; Protocol Last Admin: 09/06/18 06:46 Dose: 2 units Lidocaine (Lidoderm) 1 ea TD DAILY [facility] Last Admin: 09/05/18 11:30 Dose: 1 ea Morphine Sulfate (Morphine) 2 mg IVP Q1 PRN PRN Reason: Pain, severe (8-10) Last Admin: 09/06/18 06:00 Dose: 2 mg Pantoprazole Sodium (Protonix Inj) 40 mg IVP DAILY [facility] Last Admin: 09/05/18 09:13 Dose: 40 mg Pneumococcal Polyvalent Vaccine (Pneumovax 23 Vaccine) 0.5 ml IM .ONCE ONE Stop: 09/07/18 10:11 Rosuvastatin Calcium (Crestor) 40 mg PO HS [facility] Last Admin: 09/05/18 22:30 Dose: 40 mg Ticagrelor (Brilinta) 90 mg PO BID [facility] Last Admin: 09/05/18 17:45 Dose: 90 mg - Labs Labs: 09/06/18 06:03 09/06/18 06:03 PT 11.1 SECONDS (9.7-12.2) 11/29/18 01:40 INR 1.0 09/03/18 01:40 APTT 71 SECONDS (21-34) H 09/06/18 06:03 - Constitutional Appears: Chronically Ill - Head Exam Head Exam: NORMOCEPHALIC - ENT Exam ENT Exam: Normal Exam - Neck Exam Neck Exam: Normal Inspection - Respiratory Exam Respiratory Exam: Rales Additional comments: Few rales heard at both bases. - Cardiovascular Exam Cardiovascular Exam: REGULAR RHYTHM, Murmur - GI/Abdominal Exam GI & Abdominal Exam: Soft, Normal Bowel Sounds - Rectal Exam Rectal Exam: Deferred - Exam Exam: NORMAL INSPECTION - Extremities Exam Extremities Exam: Normal Inspection - Back Exam Back Exam: NORMAL INSPECTION - Neurological Exam Neurological Exam: Alert, Awake, Oriented x3 Additional comments: Patient sedated. - Psychiatric Exam Psychiatric exam: Anxious - Skin Skin Exam: Dry, Intact Assessment and Plan (1) Acute ST elevation myocardial infarction (STEMI) of anterior wall Status: Acute (2) Acute pulmonary edema Status: Acute (3) Acute respiratory failure Status: Acute (4) Uncontrolled diabetes mellitus Status: Acute
[2018-09-06] MEDS: Lidocaine 5% Patch TD SCH (09:34)
[2018-09-06] MEDS: Vancomycin 1 gm/NS 200 ml 1 GM/200 ML BAG IVPB SCH (12:08)
[2018-09-06] MEDS: Phenylephrine 30 MG in Sodium Chloride 0.9% 250 ML IV PRN (12:10)
[2018-09-06] MEDS ORDERED: Albumin Human 5% (12.5 gm/250 ml) IV ONE (12:14)
[2018-09-06] MEDS ORDERED: Metoprolol 1 mg/ml Inj IVP ONE (15:01)
--- NOTE | 2018-09-06 15:10 | CP.CCUPN ---
CCU Subjective - Physician Review Events Since Last Encounter (Free Text): 09/06/18 15:07 severely agitated, delirious, coming off of sedation. CCU Objective - Vital Signs / Intake & Output Vital Signs (Last 4 hours): Vital Signs Pulse Resp BP Pulse Ox 09/06/18 15:00 152 H 22 98 09/06/18 14:55 149 H 16 115/69 99 09/06/18 14:39 95 H 17 127/74 98 09/06/18 14:25 90 21 115/54 L 99 09/06/18 14:10 97 H 15 119/66 98 09/06/18 14:00 92 H 24 09/06/18 13:54 101 H 11 L 126/83 09/06/18 13:39 93 H 23 125/71 98 09/06/18 13:24 94 H 23 126/70 98 09/06/18 13:10 85 23 94/51 L 96 09/06/18 13:00 77 95 09/06/18 12:56 103 H 144/63 97 09/06/18 12:39 89 132/70 96 09/06/18 12:24 97 H 142/80 96 09/06/18 12:10 94 H 146/78 09/06/18 12:09 89 146/78 96 09/06/18 12:00 96 H 98 09/06/18 11:54 96 H 141/78 98 09/06/18 11:40 92 H 129/71 97 09/06/18 11:25 91 H 136/76 99 09/06/18 11:10 102 H 127/68 Intake and Output (Last 8hrs): Intake & Output 09/06/18 09/06/18 09/06/18 06:59 14:59 22:59 Intake Total 726.4 495.0 Output Total 150 725 Balance 576.4 -230.0 Weight 139 lb 5.314 oz Intake: IV 113 237 Intake, IV Amount 453.4 258.0 Right Hand 22.1 44.2 Right Medial Port 50 Internal Jugular Right Proximal Port 325 115 Internal Jugular Right Wrist 48.8 48.8 Rt hand y-site 7.5 50 Tube Feeding 160 Output: Urine 150 725 Urethral (Sharma) 150 725 Stool 0 Emesis 0 - Physical Exam Physical Exam Limitations: Positive for: Altered Mental Status Head: Positive for: Atraumatic, Normocephalic Pupils: Positive for: PERRL Extroacular Muscles: Positive for: EOMI Conjunctiva: Positive for: Normal. Negative for: Injected, Icteric Ears: Positive for: Normal Mouth: Positive for: Moist Mucous Membranes Pharnyx: Positive for: Normal Nose (Internal): Positive for: Normal Inspection Neck: Positive for: Normal Range of Motion, Trachea Midline. Negative for: Meningeal Signs, MIDLINE TENDERNESS, Paraspinal Tenderness, JVD, Lymphadenopathy, Bruit, Other Cardiovascular: Positive for: Regular Rate and Rhythm, Normal S1, S2, Peripheal Pulses Present, Tachycardic. Negative for: Murmurs, Irregular Rhythm Abdomen: Positive for: Normal Bowel Sounds. Negative for: Tenderness, Distention, Peritoneal Signs Upper Extremity: Positive for: Normal Inspection, Capillary Refill < 2s. Negative for: Cyanosis, Edema Lower Extremity: Positive for: Normal Inspection, Edema - Medications Active Medications: Active Medications Generic Name Dose Route Start Last Admin Trade Name Freq PRN Reason Stop Dose Admin Acetaminophen 650 mg 09/04/18 00:11 09/06/18 06:59 Tylenol 325mg Tab PO 650 mg Q6 PRN Administration Fever >100.4 F Aspirin 81 mg 09/04/18 13:15 09/06/18 09:34 Aspirin Chewable PO 81 mg DAILY STEPHANIE Administration Dextrose 0 ml 09/05/18 16:12 Dextrose 50% Inj IV STAT PRN Hypoglycemia Protocol Protocol Dextrose 0 gm 09/05/18 16:12 Glutose 15 PO ONCE PRN Hypoglycemia Protocol Protocol Furosemide 20 mg 09/06/18 11:45 Lasix IVP Q8H STEPHANIE Glucagon 0 mg 09/05/18 16:12 Glucagen Diagnostic Kit IM STAT PRN Hypoglycemia Protocol Protocol Haloperidol Lactate 5 mg 09/06/18 15:01 Haldol IVP 09/06/18 15:02 STAT STA Midazolam HCl 100 mg/ Sodium 100 mls @ 2 mls/hr 09/03/18 03:15 09/06/18 06:40 Chloride IV Not Given .Q24H STEPHANIE Protocol 2 MG/HR Phenylephrine HCl 30 mg/ 253 mls @ 10.12 mls/hr 09/03/18 11:59 09/06/18 12:58 Sodium Chloride IV 0 mcg/min .Q24H PRN 0 mls/hr TITRATE PER MD ORDER Titration Protocol 20 MCG/MIN Cefazolin Sodium/Dextrose 2 gm in 50 mls @ 100 mls/hr 09/05/18 11:00 09/06/18 11:02 Ancef Iv 2 Gm Duplex IVPB 09/10/18 03:29 100 mls/hr Q8H STEPHANIE Administration Protocol Vancomycin/Sodium Chloride 1 gm in 200 mls @ 133.333 mls/hr 09/05/18 12:00 09/06/18 12:08 Vancomycin 1 Gm/Ns 200 Ml IVPB 09/12/18 13:29 133.333 mls/hr Q24H STEPHANIE Administration Protocol Dextrose 1,000 mls @ 0 mls/hr 09/05/18 16:12 Dextrose 5% In Water 1000 Ml IV .Q0M PRN Hypoglycemia Protocol Protocol Per Protocol Heparin Sodium/Sodium Chloride 25,000 units in 250 mls @ 4.986 mls/hr 09/05/18 18:12 09/05/18 19:35 Heparin 87856 Units/250ml 1/2 Normal Saline IV 10.03 units/kg/hr .Q24H PRN 6.1 mls/hr PROTOCOL Titration Protocol 8.2 UNITS/KG/HR Dexmedetomidine HCl 200 mcg/ 50 mls @ 3.04 mls/hr 09/05/18 20:41 09/06/18 12:58 Sodium Chloride IV 0 mcg/kg/hr TITR PRN 0 mls/hr Agitation Titration Protocol 0.2 MCG/KG/HR Influenza Virus Vaccine 60 mcg 09/07/18 10:12 Fluzone Quad [id number] IM 09/07/18 10:13 .ONCE ONE Insulin Aspart 0 unit 09/05/18 18:00 09/06/18 12:09 Novolog SC 4 units Q6 STEPHANIE Administration Protocol Lidocaine 1 ea 09/05/18 12:00 09/06/18 09:34 Lidoderm TD 1 ea DAILY STEPHANIE Administration Metoprolol Tartrate 2.5 mg 09/06/18 15:01 Lopressor IVP 09/06/18 15:02 ONCE ONE Morphine Sulfate 2 mg 09/06/18 04:35 09/06/18 06:00 Morphine IVP 2 mg Q1 PRN Administration Pain, severe (8-10) Pantoprazole Sodium 40 mg 09/03/18 10:00 09/06/18 09:34 Protonix Inj IVP 40 mg DAILY STEPHANIE Administration Pneumococcal Polyvalent Vaccine 0.5 ml 09/07/18 10:10 Pneumovax 23 Vaccine IM 09/07/18 10:11 .ONCE ONE Rosuvastatin Calcium 40 mg 09/03/18 22:00 09/05/18 22:30 Crestor PO 40 mg HS STEPHANIE Administration Ticagrelor 90 mg 09/03/18 10:00 09/06/18 09:34 Brilinta PO 90 mg BID STEPHANIE Administration - Patient Studies Lab Studies: Microbiology Studies 09/05/18 12:17 Sputum Culture - Preliminary Trachasp Gram Positive Cocci 09/04/18 05:35 Blood Culture - Preliminary Blood-Venous NO GROWTH AFTER 48 HOURS 09/04/18 05:35 Blood Culture - Preliminary Blood-Venous NO GROWTH AFTER 48 HOURS 09/04/18 05:35 Urine Culture - Final Urine,Sharma No Growth (<1,000 CFU/ML) Lab Studies 09/06/18 09/06/18 09/06/18 Range/Units 11:28 06:03 06:03 WBC (4.8-10.8) K/uL RBC (4.40-5.90) Mil/uL Hgb (12.0-18.0) g/dL Hct (35.0-51.0) % MCV (80.0-94.0) fL MCH (27.0-31.0) pg MCHC (33.0-37.0) g/dL RDW (11.5-14.5) % Plt Count (130-400) K/uL MPV (7.2-11.7) fL Neut % (Auto) (50.0-75.0) % Lymph % (Auto) (20.0-40.0) % Wilkin % (Auto) (0.0-10.0) % Eos % (Auto) (0.0-4.0) % Baso % (Auto) (0.0-2.0) % Neut # (Auto) (1.8-7.0) K/uL Lymph # (Auto) (1.0-4.3) K/uL Wilkin # (Auto) (0.0-0.8) K/uL Eos # (Auto) (0.0-0.7) K/uL Baso # (Auto) (0.0-0.2) K/uL Neutrophils % (Manual) (50-75) % Band Neutrophils % (0-2) % Lymphocytes % (Manual) (20-40) % Reactive Lymphs % (0-0) % Monocytes % (Manual) (0-10) % Toxic Granulation Platelet Estimate (NORMAL) Anisocytosis (manual) APTT 71 H (21-34) SECONDS Puncture Site pCO2 (35-45) mm/Hg pO2 (30-55) mm/Hg HCO3 (21-28) mmol/L ABG pH (7.35-7.45) ABG Total CO2 (22-28) mmol/L ABG O2 Saturation (95-98) % ABG Base Excess (-2.0-3.0) mmol/L ABG Hemoglobin (11.7-17.4) g/dL ABG Carboxyhemoglobin (0.5-1.5) % POC ABG HHb (Measured) (0.0-5.0) % ABG Methemoglobin (0.0-3.0) % Arden Test VBG pH (7.32-7.43) VBG pCO2 (40-60) mmHg VBG HCO3 mmol/L VBG Total CO2 (22-28) mmol/L VBG O2 Sat (Calc) (40-65) % VBG Base Excess (0.0-2.0) mmol/L VBG Potassium (3.6-5.2) mmol/L A-a O2 Difference mm/Hg Respiratory Index Hgb O2 Saturation (95.0-98.0) % Sodium (132-148) mmol/l Chloride (98-107) mmol/L Glucose (75-110) mg/dl Lactate (0.7-2.1) mmol/L Vent Mode Mechanical Rate FiO2 % Tidal Volume PEEP Potassium (3.6-5.2) mmol/L Carbon Dioxide (22-30) mmol/L Anion Gap (10-20) BUN (9-20) mg/dL Creatinine (0.8-1.5) mg/dL Est GFR ( Amer) Est GFR (Non-Af Amer) POC Glucose (mg/dL) 207 H (65-110) mg/dL Random Glucose (75-110) mg/dL Hemoglobin A1c (4.2-6.5) % Calcium (8.6-10.4) mg/dl Phosphorus (2.5-4.5) mg/dL Magnesium (1.6-2.3) mg/dL Total Bilirubin (0.2-1.3) mg/dL AST (17-59) U/L ALT (21-72) U/L Alkaline Phosphatase (38-126) U/L Total Protein (6.3-8.3) g/dL Albumin (3.5-5.0) g/dL Globulin (2.2-3.9) gm/dL Albumin/Globulin Ratio (1.0-2.1) Venous Blood Potassium (3.6-5.2) mmol/L Random Vancomycin 6.5 ug/mL 09/06/18 09/06/18 09/06/18 Range/Units 06:03 06:03 06:03 WBC 12.4 H (4.8-10.8) K/uL RBC 4.76 (4.40-5.90) Mil/uL Hgb 14.8 (12.0-18.0) g/dL Hct 44.0 (35.0-51.0) % MCV 92.3 (80.0-94.0) fL MCH 31.1 H (27.0-31.0) pg MCHC 33.7 (33.0-37.0) g/dL RDW 14.8 H (11.5-14.5) % Plt Count 183 (130-400) K/uL MPV 10.0 (7.2-11.7) fL Neut % (Auto) 79.6 H (50.0-75.0) % Lymph % (Auto) 8.1 L (20.0-40.0) % Wilkin % (Auto) 11.6 H (0.0-10.0) % Eos % (Auto) 0.2 (0.0-4.0) % Baso % (Auto) 0.5 (0.0-2.0) % Neut # (Auto) 9.9 H (1.8-7.0) K/uL Lymph # (Auto) 1.0 (1.0-4.3) K/uL Wilkin # (Auto) 1.4 H (0.0-0.8) K/uL Eos # (Auto) 0.0 (0.0-0.7) K/uL Baso # (Auto) 0.1 (0.0-0.2) K/uL Neutrophils % (Manual) 81 H (50-75) % Band Neutrophils % 1 (0-2) % Lymphocytes % (Manual) 6 L (20-40) % Reactive Lymphs % 2 H (0-0) % Monocytes % (Manual) 10 (0-10) % Toxic Granulation Present Platelet Estimate Normal (NORMAL) Anisocytosis (manual) Slight APTT (21-34) SECONDS Puncture Site pCO2 (35-45) mm/Hg pO2 (30-55) mm/Hg HCO3 (21-28) mmol/L ABG pH (7.35-7.45) ABG Total CO2 (22-28) mmol/L ABG O2 Saturation (95-98) % ABG Base Excess (-2.0-3.0) mmol/L ABG Hemoglobin (11.7-17.4) g/dL ABG Carboxyhemoglobin (0.5-1.5) % POC ABG HHb (Measured) (0.0-5.0) % ABG Methemoglobin (0.0-3.0) % Arden Test VBG pH (7.32-7.43) VBG pCO2 (40-60) mmHg VBG HCO3 mmol/L VBG Total CO2 (22-28) mmol/L VBG O2 Sat (Calc) (40-65) % VBG Base Excess (0.0-2.0) mmol/L VBG Potassium (3.6-5.2) mmol/L A-a O2 Difference mm/Hg Respiratory Index Hgb O2 Saturation (95.0-98.0) % Sodium 144 (132-148) mmol/l Chloride 111 H (98-107) mmol/L Glucose (75-110) mg/dl Lactate (0.7-2.1) mmol/L Vent Mode Mechanical Rate FiO2 % Tidal Volume PEEP Potassium 3.6 (3.6-5.2) mmol/L Carbon Dioxide 27 (22-30) mmol/L Anion Gap 9 L (10-20) BUN 35 H (9-20) mg/dL Creatinine 1.5 (0.8-1.5) mg/dL Est GFR ( Amer) 56 Est GFR (Non-Af Amer) 46 POC Glucose (mg/dL) (65-110) mg/dL Random Glucose 168 H (75-110) mg/dL Hemoglobin A1c 12.6 H (4.2-6.5) % Calcium 8.2 L (8.6-10.4) mg/dl Phosphorus 2.5 (2.5-4.5) mg/dL Magnesium 2.1 (1.6-2.3) mg/dL Total Bilirubin 0.7 (0.2-1.3) mg/dL AST 67 H (17-59) U/L ALT 27 (21-72) U/L Alkaline Phosphatase 110 (38-126) U/L Total Protein 6.0 L (6.3-8.3) g/dL Albumin 2.9 L (3.5-5.0) g/dL Globulin 3.1 (2.2-3.9) gm/dL Albumin/Globulin Ratio 0.9 L (1.0-2.1) Venous Blood Potassium (3.6-5.2) mmol/L Random Vancomycin ug/mL 09/06/18 09/06/18 09/06/18 Range/Units 05:45 05:35 00:01 WBC (4.8-10.8) K/uL RBC (4.40-5.90) Mil/uL Hgb (12.0-18.0) g/dL Hct (35.0-51.0) % MCV (80.0-94.0) fL MCH (27.0-31.0) pg MCHC (33.0-37.0) g/dL RDW (11.5-14.5) % Plt Count (130-400) K/uL MPV (7.2-11.7) fL Neut % (Auto) (50.0-75.0) % Lymph % (Auto) (20.0-40.0) % Wilkin % (Auto) (0.0-10.0) % Eos % (Auto) (0.0-4.0) % Baso % (Auto) (0.0-2.0) % Neut # (Auto) (1.8-7.0) K/uL Lymph # (Auto) (1.0-4.3) K/uL Wilkin # (Auto) (0.0-0.8) K/uL Eos # (Auto) (0.0-0.7) K/uL Baso # (Auto) (0.0-0.2) K/uL Neutrophils % (Manual) (50-75) % Band Neutrophils % (0-2) % Lymphocytes % (Manual) (20-40) % Reactive Lymphs % (0-0) % Monocytes % (Manual) (0-10) % Toxic Granulation Platelet Estimate (NORMAL) Anisocytosis (manual) APTT (21-34) SECONDS Puncture Site Rb pCO2 33 L (35-45) mm/Hg pO2 94 (30-55) mm/Hg HCO3 24.6 (21-28) mmol/L ABG pH 7.45 (7.35-7.45) ABG Total CO2 23.9 (22-28) mmol/L ABG O2 Saturation 98.5 H (95-98) % ABG Base Excess -0.3 (-2.0-3.0) mmol/L ABG Hemoglobin 15.4 (11.7-17.4) g/dL ABG Carboxyhemoglobin 1.7 H (0.5-1.5) % POC ABG HHb (Measured) 1.5 (0.0-5.0) % ABG Methemoglobin 1.1 (0.0-3.0) % Arden Test Na VBG pH (7.32-7.43) VBG pCO2 (40-60) mmHg VBG HCO3 mmol/L VBG Total CO2 (22-28) mmol/L VBG O2 Sat (Calc) (40-65) % VBG Base Excess (0.0-2.0) mmol/L VBG Potassium (3.6-5.2) mmol/L A-a O2 Difference 79.0 mm/Hg Respiratory Index 0.8 Hgb O2 Saturation 95.7 (95.0-98.0) % Sodium (132-148) mmol/l Chloride (98-107) mmol/L Glucose (75-110) mg/dl Lactate (0.7-2.1) mmol/L Vent Mode Prvc Mechanical Rate 15 FiO2 30.0 % Tidal Volume 460 PEEP 5 Potassium (3.6-5.2) mmol/L Carbon Dioxide (22-30) mmol/L Anion Gap (10-20) BUN (9-20) mg/dL Creatinine (0.8-1.5) mg/dL Est GFR ( Amer) Est GFR (Non-Af Amer) POC Glucose (mg/dL) 155 H 153 H (65-110) mg/dL Random Glucose (75-110) mg/dL Hemoglobin A1c (4.2-6.5) % Calcium (8.6-10.4) mg/dl Phosphorus (2.5-4.5) mg/dL Magnesium (1.6-2.3) mg/dL Total Bilirubin (0.2-1.3) mg/dL AST (17-59) U/L ALT (21-72) U/L Alkaline Phosphatase (38-126) U/L Total Protein (6.3-8.3) g/dL Albumin (3.5-5.0) g/dL Globulin (2.2-3.9) gm/dL Albumin/Globulin Ratio (1.0-2.1) Venous Blood Potassium (3.6-5.2) mmol/L Random Vancomycin ug/mL 09/05/18 09/05/18 09/05/18 Range/Units 22:49 19:10 15:55 WBC (4.8-10.8) K/uL RBC (4.40-5.90) Mil/uL Hgb (12.0-18.0) g/dL Hct (35.0-51.0) % MCV (80.0-94.0) fL MCH (27.0-31.0) pg MCHC (33.0-37.0) g/dL RDW (11.5-14.5) % Plt Count (130-400) K/uL MPV (7.2-11.7) fL Neut % (Auto) (50.0-75.0) % Lymph % (Auto) (20.0-40.0) % Wilkin % (Auto) (0.0-10.0) % Eos % (Auto) (0.0-4.0) % Baso % (Auto) (0.0-2.0) % Neut # (Auto) (1.8-7.0) K/uL Lymph # (Auto) (1.0-4.3) K/uL Wilkin # (Auto) (0.0-0.8) K/uL Eos # (Auto) (0.0-0.7) K/uL Baso # (Auto) (0.0-0.2) K/uL Neutrophils % (Manual) (50-75) % Band Neutrophils % (0-2) % Lymphocytes % (Manual) (20-40) % Reactive Lymphs % (0-0) % Monocytes % (Manual) (0-10) % Toxic Granulation Platelet Estimate (NORMAL) Anisocytosis (manual) APTT 75 H (21-34) SECONDS Puncture Site pCO2 (35-45) mm/Hg pO2 29 L (30-55) mm/Hg HCO3 (21-28) mmol/L ABG pH (7.35-7.45) ABG Total CO2 (22-28) mmol/L ABG O2 Saturation (95-98) % ABG Base Excess (-2.0-3.0) mmol/L ABG Hemoglobin (11.7-17.4) g/dL ABG Carboxyhemoglobin (0.5-1.5) % POC ABG HHb (Measured) (0.0-5.0) % ABG Methemoglobin (0.0-3.0) % Arden Test VBG pH 7.38 (7.32-7.43) VBG pCO2 45 (40-60) mmHg VBG HCO3 24.5 mmol/L VBG Total CO2 28.0 (22-28) mmol/L VBG O2 Sat (Calc) 63.0 (40-65) % VBG Base Excess 1.0 (0.0-2.0) mmol/L VBG Potassium 3.6 (3.6-5.2) mmol/L A-a O2 Difference mm/Hg Respiratory Index Hgb O2 Saturation (95.0-98.0) % Sodium 144.0 (132-148) mmol/l Chloride 111.0 H (98-107) mmol/L Glucose 251 H (75-110) mg/dl Lactate 2.0 (0.7-2.1) mmol/L Vent Mode Mechanical Rate FiO2 % Tidal Volume PEEP Potassium (3.6-5.2) mmol/L Carbon Dioxide (22-30) mmol/L Anion Gap (10-20) BUN (9-20) mg/dL Creatinine (0.8-1.5) mg/dL Est GFR ( Amer) Est GFR (Non-Af Amer) POC Glucose (mg/dL) 217 H (65-110) mg/dL Random Glucose (75-110) mg/dL Hemoglobin A1c (4.2-6.5) % Calcium (8.6-10.4) mg/dl Phosphorus (2.5-4.5) mg/dL Magnesium (1.6-2.3) mg/dL Total Bilirubin (0.2-1.3) mg/dL AST (17-59) U/L ALT (21-72) U/L Alkaline Phosphatase (38-126) U/L Total Protein (6.3-8.3) g/dL Albumin (3.5-5.0) g/dL Globulin (2.2-3.9) gm/dL Albumin/Globulin Ratio (1.0-2.1) Venous Blood Potassium 3.6 (3.6-5.2) mmol/L Random Vancomycin ug/mL Laboratory Results - last 24 hr 09/05/18 09/05/18 09/05/18 15:55 19:10 22:49 WBC RBC Hgb Hct MCV MCH MCHC RDW Plt Count MPV Neut % (Auto) Lymph % (Auto) Wilkin % (Auto) Eos % (Auto) Baso % (Auto) Neut # (Auto) Lymph # (Auto) Wilkin # (Auto) Eos # (Auto) Baso # (Auto) Neutrophils % (Manual) Band Neutrophils % Lymphocytes % (Manual) Reactive Lymphs % Monocytes % (Manual) Toxic Granulation Platelet Estimate Anisocytosis (manual) APTT 75 H Puncture Site pCO2 pO2 29 L HCO3 ABG pH ABG Total CO2 ABG O2 Saturation ABG Base Excess ABG Hemoglobin ABG Carboxyhemoglobin POC ABG HHb (Measured) ABG Methemoglobin Arden Test VBG pH 7.38 VBG pCO2 45 VBG HCO3 24.5 VBG Total CO2 28.0 VBG O2 Sat (Calc) 63.0 VBG Base Excess 1.0 VBG Potassium 3.6 A-a O2 Difference Respiratory Index Hgb O2 Saturation Sodium 144.0 Chloride 111.0 H Glucose 251 H Lactate 2.0 Vent Mode Mechanical Rate FiO2 Tidal Volume PEEP Potassium Carbon Dioxide Anion Gap BUN Creatinine Est GFR ( Amer) Est GFR (Non-Af Amer) POC Glucose (mg/dL) 217 H Random Glucose Hemoglobin A1c Calcium Phosphorus Magnesium Total Bilirubin AST ALT Alkaline Phosphatase Total Protein Albumin Globulin Albumin/Globulin Ratio Venous Blood Potassium 3.6 Random Vancomycin 09/06/18 09/06/18 09/06/18 00:01 05:35 05:45 WBC RBC Hgb Hct MCV MCH MCHC RDW Plt Count MPV Neut % (Auto) Lymph % (Auto) Wilkin % (Auto) Eos % (Auto) Baso % (Auto) Neut # (Auto) Lymph # (Auto) Wilkin # (Auto) Eos # (Auto) Baso # (Auto) Neutrophils % (Manual) Band Neutrophils % Lymphocytes % (Manual) Reactive Lymphs % Monocytes % (Manual) Toxic Granulation Platelet Estimate Anisocytosis (manual) APTT Puncture Site Rb pCO2 33 L pO2 94 HCO3 24.6 ABG pH 7.45 ABG Total CO2 23.9 ABG O2 Saturation 98.5 H ABG Base Excess -0.3 ABG Hemoglobin 15.4 ABG Carboxyhemoglobin 1.7 H POC ABG HHb (Measured) 1.5 ABG Methemoglobin 1.1 Arden Test Na VBG pH VBG pCO2 VBG HCO3 VBG Total CO2 VBG O2 Sat (Calc) VBG Base Excess VBG Potassium A-a O2 Difference 79.0 Respiratory Index 0.8 Hgb O2 Saturation 95.7 Sodium Chloride Glucose Lactate Vent Mode Prvc Mechanical Rate 15 FiO2 30.0 Tidal Volume 460 PEEP 5 Potassium Carbon Dioxide Anion Gap BUN Creatinine Est GFR ( Amer) Est GFR (Non-Af Amer) POC Glucose (mg/dL) 153 H 155 H Random Glucose Hemoglobin A1c Calcium Phosphorus Magnesium Total Bilirubin AST ALT Alkaline Phosphatase Total Protein Albumin Globulin Albumin/Globulin Ratio Venous Blood Potassium Random Vancomycin 09/06/18 09/06/18 09/06/18 06:03 06:03 06:03 WBC 12.4 H RBC 4.76 Hgb 14.8 Hct 44.0 MCV 92.3 MCH 31.1 H MCHC 33.7 RDW 14.8 H Plt Count 183 MPV 10.0 Neut % (Auto) 79.6 H Lymph % (Auto) 8.1 L Wilkin % (Auto) 11.6 H Eos % (Auto) 0.2 Baso % (Auto) 0.5 Neut # (Auto) 9.9 H Lymph # (Auto) 1.0 Wilkin # (Auto) 1.4 H Eos # (Auto) 0.0 Baso # (Auto) 0.1 Neutrophils % (Manual) 81 H Band Neutrophils % 1 Lymphocytes % (Manual) 6 L Reactive Lymphs % 2 H Monocytes % (Manual) 10 Toxic Granulation Present Platelet Estimate Normal Anisocytosis (manual) Slight APTT Puncture Site pCO2 pO2 HCO3 ABG pH ABG Total CO2 ABG O2 Saturation ABG Base Excess ABG Hemoglobin ABG Carboxyhemoglobin POC ABG HHb (Measured) ABG Methemoglobin Arden Test VBG pH VBG pCO2 VBG HCO3 VBG Total CO2 VBG O2 Sat (Calc) VBG Base Excess VBG Potassium A-a O2 Difference Respiratory Index Hgb O2 Saturation Sodium 144 Chloride 111 H Glucose Lactate Vent Mode Mechanical Rate FiO2 Tidal Volume PEEP Potassium 3.6 Carbon Dioxide 27 Anion Gap 9 L BUN 35 H Creatinine 1.5 Est GFR ( Amer) 56 Est GFR (Non-Af Amer) 46 POC Glucose (mg/dL) Random Glucose 168 H Hemoglobin A1c 12.6 H Calcium 8.2 L Phosphorus 2.5 Magnesium 2.1 Total Bilirubin 0.7 AST 67 H ALT 27 Alkaline Phosphatase 110 Total Protein 6.0 L Albumin 2.9 L Globulin 3.1 Albumin/Globulin Ratio 0.9 L Venous Blood Potassium Random Vancomycin 09/06/18 09/06/18 09/06/18 06:03 06:03 11:28 WBC RBC Hgb Hct MCV MCH MCHC RDW Plt Count MPV Neut % (Auto) Lymph % (Auto) Wilkin % (Auto) Eos % (Auto) Baso % (Auto) Neut # (Auto) Lymph # (Auto) Wilkin # (Auto) Eos # (Auto) Baso # (Auto) Neutrophils % (Manual) Band Neutrophils % Lymphocytes % (Manual) Reactive Lymphs % Monocytes % (Manual) Toxic Granulation Platelet Estimate Anisocytosis (manual) APTT 71 H Puncture Site pCO2 pO2 HCO3 ABG pH ABG Total CO2 ABG O2 Saturation ABG Base Excess ABG Hemoglobin ABG Carboxyhemoglobin POC ABG HHb (Measured) ABG Methemoglobin Arden Test VBG pH VBG pCO2 VBG HCO3 VBG Total CO2 VBG O2 Sat (Calc) VBG Base Excess VBG Potassium A-a O2 Difference Respiratory Index Hgb O2 Saturation Sodium Chloride Glucose Lactate Vent Mode Mechanical Rate FiO2 Tidal Volume PEEP Potassium Carbon Dioxide Anion Gap BUN Creatinine Est GFR ( Amer) Est GFR (Non-Af Amer) POC Glucose (mg/dL) 207 H Random Glucose Hemoglobin A1c Calcium Phosphorus Magnesium Total Bilirubin AST ALT Alkaline Phosphatase Total Protein Albumin Globulin Albumin/Globulin Ratio Venous Blood Potassium Random Vancomycin 6.5 Fingerstick Blood Sugar Results: 207 Review of Systems - Review of Systems Systems not reviewed;Unavailable: Altered Mental Status Assessment/Plan (1) Cardiogenic shock Assessment and plan: Patient is a 73 year old male presenting with Acute Anterior wall ME and pu lmonary edema. Patient was a code heart and code blue which required intubation in the research laboratory technician. Cardiogenic shock on balloon pump. Balloon pump stopped (09/05). Neuro: Back pain, continue lidocaine patch. Delirium, haldol x 1. Pulm: Extubated to face mask. CV: Hemodynamically stable, off of pressors. Hem: anemia of chronic disease. ASA, brilinta. Stopped heparin gtt now off of balloon pump. Renal: no acute issues, urine output wnl. lasix 20mg IV q12h Endo: DM type 2 with hyperglycemia, started SISS for coverage. A1C - 12, patient is diabetic. GI: NPO, s/s eval in 24h. ID: empiric tx with Cefazolin DVT proph - heparin sq GI proph - protonix IV sharma for strict I/O's during acute illness Code status - full code Critical Care Time spent 35 minutes Multi-disciplinary rounds were performed with house staff, nursing, speech therapy, respiratory therapy, pharmacy and nutrition with integrated input from the primary team/attending and other consulting services. The documented time is cumulative and includes review of patient data/exams/labs/chart review and examination of the patient on rounds and throughout the day; time is exclusive of any procedures or teaching time. Current Visit: Yes Status: Acute
[2018-09-06] MEDS: Metoprolol 1 mg/ml Inj IVP SCH (17:15)
--- NOTE | 2018-09-06 17:49 | CP.PCM.CON ---
History of Present Illness - History of Present Illness History of Present Illness: cultures reviewed pt examined full report to follow 73 yo male was brought to the ED at [facility] complaining of chest pain an d increasing SOB An ECG revealed an acute anterior wall AR, and a CXR revealed an acute pulmonary edema. He was intubated and brought to the quality assurance/r&d lab technician. A coronary angiogram disclosed severe 3 VD and a mid LAD total occlusion. A balloon angioplasty was performed to open up the LAD. Because of a severe LV systolic dysfunction ( LVEF 15%), and hypotension An IABP was inserted. Referred for ID eval because of fever s/p; cardiac cath s/p Baloon Pump PMH DM HTN HLD Review of Systems - Review of Systems Systems not reviewed;Unavailable: Altered Mental Status - Constitutional Constitutional: As Per HPI - EENT Eyes: absent: As Per HPI, Blind Spots, Blurred Vision, Change in Vision, Decreased Night Vision, Diplopia, Discharge, Dry Eye, Exophthalmos, Floaters, Irritation, Itchy Eyes, Loss of Peripheral Vision, Pain, Photophobia, Requires Corrective Lenses, Sees Flashes, Spots in Vision, Tunnel Vision, Other Visual Disturbances, Loss of Vision, Other Ears: absent: As Per HPI, Decreased Hearing, Ear Discharge, Ear Pain, Tinnitus, Abnormal Hearing, Disequilibrium, Dizziness, Other Nose/Mouth/Throat: absent: As Per HPI, Epistaxis, Nasal Congestion, Nasal Discharge, Nasal Obstruction, Nasal Trauma, Nose Pain, Post Nasal Drip, Sinus Pain, Sinus Pressure, Bleeding Gums, Change in Voice, Dental Pain, Dry Mouth, Dysphagia, Halitosis, Hoarsness, Lip Swelling, Mouth Lesions, Mouth Pain, Odynophagia, Sore Throat, Throat Swelling, Tongue Swelling, Facial Pain, Neck Pain, Neck Mass, Other - Cardiovascular Cardiovascular: As Per HPI - Respiratory Respiratory: As Per HPI - Gastrointestinal Gastrointestinal: absent: As Per HPI, Abdominal Pain, Belching, Bloating, Change in Bowel Habits, Change in Stool Character, Coffee Ground Emesis, Constipation, Cramping, Diarrhea, Dyspepsia, Dysphagia, Early Satiety, Excessive Flatus, Fecal Incontinence, Heartburn, Hematemesis, Hematochezia, Loose Stools, Melena, Nausea, Odynophagia, Temesmus, Vomiting, Other - Genitourinary Genitourinary: absent: As Per HPI, Change in Urinary Stream, Difficulty Urinating, Dysuria, Flank Pain, Hematuria, Pyuria, Nocturia, Urinary Incontinence, Urinary Frequency, Urinary Hesitance, Urinary Urgency, Voiding Freq/Small Amts, Freq UTI, Hx Renal/Bladder Calculi, Hx /Renal Surgery, Bladder Distension, Other - Musculoskeletal Musculoskeletal: absent: As Per HPI, Abnormal Gait, Arthralgias, Atrophy, Back Pain, Deformity, Joint Swelling, Limited Range of Motion, Loss of Height, Muscle Cramps, Muscle Weakness, Myalgias, Neck Pain, Numbness, Radiating Pain into Limb, Stiffness, Tingling, Other - Integumentary Integumentary: absent: As Per HPI, Acne, Alopecia, Bleeding Lesions, Change in Hair, Change in Nails, Change in Pigmentation, Changing Lesions, Dry Skin, Erythema, Furuncle, Hirsutism, Lesions, New Lesions, Non-Healing Lesions, Photosensitivity, Pruritus, Rash, Skin Pain, Skin Ulcer, Sores, Striae, Swelling, Unusual Bruising, Wounds, Jaundice, Other - Neurological Neurological: As Per HPI - Psychiatric Psychiatric: absent: As Per HPI, Abnormal Sleep Pattern, Anhedonia, Anxiety, Auditory Hallucinations, Behavioral Changes, Change in Appetite, Change in Libido, Confusion, Depression, Difficulty Concentrating, Hallucinations, Homicidal Ideation, Hopelessness, Irritability, Memory Loss, Mood Swings, Panic Attacks, Paranoia, Suicidal Ideation, Visual Hallucinations, Tactile Hallucinations, Other - Endocrine Endocrine: As Per HPI - Hematologic/Lymphatic Hematologic: absent: As Per HPI, Easy Bleeding, Easy Bruising, Lymphadenopathy, Other Past Patient History - Past Social History Smoking Status: Unknown If Ever Smoked - CARDIAC Hx Cardiac Disorders: Yes Hx Hypercholesterolemia: Yes Hx Hypertension: Yes - PULMONARY Hx Respiratory Disorders: No - NEUROLOGICAL Hx Neurological Disorder: No - HEENT Hx HEENT Problems: Yes Other/Comment: glasses for reading - RENAL Hx Chronic Kidney Disease: No - ENDOCRINE/METABOLIC Hx Endocrine Disorders: Yes Hx Diabetes Mellitus Type 2: Yes (not taking any medications) - HEMATOLOGICAL/ONCOLOGICAL Hx Blood Disorders: No - INTEGUMENTARY Hx Dermatological Problems: No - MUSCULOSKELETAL/RHEUMATOLOGICAL Hx Musculoskeletal Disorders: No Hx Falls: No - GASTROINTESTINAL Hx Gastrointestinal Disorders: No - GENITOURINARY/GYNECOLOGICAL Hx Genitourinary Disorders: No - PSYCHIATRIC Hx Psychophysiologic Disorder: No - SURGICAL HISTORY Hx Surgeries: No - ANESTHESIA Hx Anesthesia: No Hx Anesthesia Reactions: No Hx Malignant Hyperthermia: No Has any member of the family had a problem w/ anesthesia?: No Meds Allergies/Adverse Reactions: Allergies Allergy/AdvReac Type Severity Reaction Status Date / Time No Known Allergies Allergy Verified 09/03/18 01:29 - Medications Medications: Current Medications Acetaminophen (Tylenol 325mg Tab) 650 mg PO Q6 PRN PRN Reason: Fever >100.4 F Last Admin: 09/06/18 06:59 Dose: 650 mg Acetaminophen (Tylenol 650 Mg Supp) 650 mg [place] Q6 PRN PRN Reason: Temperature Aspirin (Aspirin Chewable) 81 mg PO DAILY STEPHANIE Last Admin: 09/06/18 09:34 Dose: 81 mg Dextrose (Dextrose 50% Inj) 0 ml IV STAT PRN; Protocol PRN Reason: Hypoglycemia Protocol Dextrose (Glutose 15) 0 gm PO ONCE PRN; Protocol PRN Reason: Hypoglycemia Protocol Furosemide (Lasix) 20 mg IVP Q8H STEPHANIE Last Admin: 09/06/18 17:15 Dose: 20 mg Glucagon (Glucagen Diagnostic Kit) 0 mg IM STAT PRN; Protocol PRN Reason: Hypoglycemia Protocol Heparin Sodium (Porcine) (Heparin) 5,000 units SC Q12H STEPHANIE Last Admin: 09/06/18 16:17 Dose: 5,000 units Midazolam HCl 100 mg/ Sodium (Chloride) 100 mls @ 2 mls/hr IV .Q24H STEPHANIE; Protocol Last Admin: 09/06/18 06:40 Dose: Not Given Phenylephrine HCl 30 mg/ (Sodium Chloride) 253 mls @ 10.12 mls/hr IV .Q24H PRN; Protocol PRN Reason: TITRATE PER MD ORDER Last Titration: 09/06/18 12:58 Dose: 0 mcg/min, 0 mls/hr Cefazolin Sodium/Dextrose (Ancef Iv 2 Gm Duplex) 2 gm in 50 mls @ 100 mls/hr IVPB Q8H STEPHANIE; Protocol Stop: 09/10/18 03:29 Last Admin: 09/06/18 11:02 Dose: 100 mls/hr Vancomycin/Sodium Chloride (Vancomycin 1 Gm/Ns 200 Ml) 1 gm in 200 mls @ 133.333 mls/hr IVPB Q24H STEPHANIE; Protocol Stop: 09/12/18 13:29 Last Admin: 09/06/18 12:08 Dose: 133.333 mls/hr Dextrose (Dextrose 5% In Water 1000 Ml) 1,000 mls @ 0 mls/hr IV .Q0M PRN; Protocol PRN Reason: Hypoglycemia Protocol Dexmedetomidine HCl 200 mcg/ (Sodium Chloride) 50 mls @ 3.04 mls/hr IV TITR PRN; Protocol PRN Reason: Agitation Last Titration: 09/06/18 12:58 Dose: 0 mcg/kg/hr, 0 mls/hr Influenza Virus Vaccine (Fluzone Quad [id number]) 60 mcg IM .ONCE ONE Stop: 09/07/18 10:13 Insulin Aspart (Novolog) 0 unit SC Q6 STEPHANIE; Protocol Last Admin: 09/06/18 12:09 Dose: 4 units Lidocaine (Lidoderm) 1 ea TD DAILY [facility] Last Admin: 09/06/18 09:34 Dose: 1 ea Metoprolol Tartrate (Lopressor) 5 mg IVP Q6 [facility] Last Admin: 09/06/18 17:15 Dose: 5 mg Pantoprazole Sodium (Protonix Inj) 40 mg IVP DAILY [facility] Last Admin: 09/06/18 09:34 Dose: 40 mg Pneumococcal Polyvalent Vaccine (Pneumovax 23 Vaccine) 0.5 ml IM .ONCE ONE Stop: 09/07/18 10:11 Rosuvastatin Calcium (Crestor) 40 mg PO HS [facility] Last Admin: 09/05/18 22:30 Dose: 40 mg Ticagrelor (Brilinta) 90 mg PO BID [facility] Last Admin: 09/06/18 17:38 Dose: Not Given Physical Exam - Constitutional Appears: No Acute Distress, Confused - Head Exam Head Exam: ATRAUMATIC, NORMOCEPHALIC - Eye Exam Eye Exam: PERRL - ENT Exam ENT Exam: Mucous Membranes Dry, Normal External Ear Exam - Neck Exam Neck exam: Positive for: Normal Inspection - Respiratory Exam Respiratory Exam: Decreased Breath Sounds, Prolonged Expiratory Phase, Rhonchi - Cardiovascular Exam Cardiovascular Exam: REGULAR RHYTHM, +S1, +S2 - GI/Abdominal Exam GI & Abdominal Exam: Diminished Bowel Sounds, Distended, Soft - Rectal Exam Rectal Exam: Deferred - Exam Exam: NORMAL INSPECTION - Extremities Exam Extremities exam: Positive for: pedal pulses present - Back Exam Back exam: absent: CVA tenderness (L), CVA tenderness (R), FULL ROM, NORMAL INSPECTION, paraspinal tenderness - Neurological Exam Neurological exam: Alert, Altered, CN II-XII Intact - Psychiatric Exam Psychiatric exam: Depressed - Skin Skin Exam: Dry Results - Vital Signs Recent Vital Signs: Last Vital Signs Temp 98.8 F 09/06/18 16:13 Pulse 152 H 09/06/18 17:09 Resp 23 09/06/18 17:09 BP 125/92 H 09/06/18 17:15 Pulse Ox 100 09/06/18 17:09 - Labs Result Diagrams: 09/06/18 06:03 09/06/18 06:03 Labs: Laboratory Results - last 24 hr 09/05/18 09/05/18 09/06/18 19:10 22:49 00:01 WBC RBC Hgb Hct MCV MCH MCHC RDW Plt Count MPV Neut % (Auto) Lymph % (Auto) [place] % (Auto) Eos % (Auto) Baso % (Auto) Neut # (Auto) Lymph # (Auto) [place] # (Auto) Eos # (Auto) Baso # (Auto) Neutrophils % (Manual) Band Neutrophils % Lymphocytes % (Manual) Reactive Lymphs % Monocytes % (Manual) Toxic Granulation Platelet Estimate Anisocytosis (manual) APTT 75 H Puncture Site pCO2 pO2 29 L HCO3 ABG pH ABG Total CO2 ABG O2 Saturation ABG Base Excess ABG Hemoglobin ABG Carboxyhemoglobin POC ABG HHb (Measured) ABG Methemoglobin Arden Test VBG pH 7.38 VBG pCO2 45 VBG HCO3 24.5 VBG Total CO2 28.0 VBG O2 Sat (Calc) 63.0 VBG Base Excess 1.0 VBG Potassium 3.6 A-a O2 Difference Respiratory Index Hgb O2 Saturation Sodium 144.0 Chloride 111.0 H Glucose 251 H Lactate 2.0 Vent Mode Mechanical Rate FiO2 Tidal Volume PEEP Potassium Carbon Dioxide Anion Gap BUN Creatinine Est GFR ( Amer) Est GFR (Non-Af Amer) POC Glucose (mg/dL) 153 H Random Glucose Hemoglobin A1c Calcium Phosphorus Magnesium Total Bilirubin AST ALT Alkaline Phosphatase Total Protein Albumin Globulin Albumin/Globulin Ratio Venous Blood Potassium 3.6 Random Vancomycin 09/06/18 09/06/18 09/06/18 05:35 05:45 06:03 WBC RBC Hgb Hct MCV MCH MCHC RDW Plt Count MPV Neut % (Auto) Lymph % (Auto) [place] % (Auto) Eos % (Auto) Baso % (Auto) Neut # (Auto) Lymph # (Auto) [place] # (Auto) Eos # (Auto) Baso # (Auto) Neutrophils % (Manual) Band Neutrophils % Lymphocytes % (Manual) Reactive Lymphs % Monocytes % (Manual) Toxic Granulation Platelet Estimate Anisocytosis (manual) APTT Puncture Site Rb pCO2 33 L pO2 94 HCO3 24.6 ABG pH 7.45 ABG Total CO2 23.9 ABG O2 Saturation 98.5 H ABG Base Excess -0.3 ABG Hemoglobin 15.4 ABG Carboxyhemoglobin 1.7 H POC ABG HHb (Measured) 1.5 ABG Methemoglobin 1.1 Arden Test Na VBG pH VBG pCO2 VBG HCO3 VBG Total CO2 VBG O2 Sat (Calc) VBG Base Excess VBG Potassium A-a O2 Difference 79.0 Respiratory Index 0.8 Hgb O2 Saturation 95.7 Sodium Chloride Glucose Lactate Vent Mode Prvc Mechanical Rate 15 FiO2 30.0 Tidal Volume 460 PEEP 5 Potassium Carbon Dioxide Anion Gap BUN Creatinine Est GFR ( Amer) Est GFR (Non-Af Amer) POC Glucose (mg/dL) 155 H Random Glucose Hemoglobin A1c 12.6 H Calcium Phosphorus Magnesium Total Bilirubin AST ALT Alkaline Phosphatase Total Protein Albumin Globulin Albumin/Globulin Ratio Venous Blood Potassium Random Vancomycin 09/06/18 09/06/18 09/06/18 06:03 06:03 06:03 WBC 12.4 H RBC 4.76 Hgb 14.8 Hct 44.0 MCV 92.3 MCH 31.1 H MCHC 33.7 RDW 14.8 H Plt Count 183 MPV 10.0 Neut % (Auto) 79.6 H Lymph % (Auto) 8.1 L [place] % (Auto) 11.6 H Eos % (Auto) 0.2 Baso % (Auto) 0.5 Neut # (Auto) 9.9 H Lymph # (Auto) 1.0 [place] # (Auto) 1.4 H Eos # (Auto) 0.0 Baso # (Auto) 0.1 Neutrophils % (Manual) 81 H Band Neutrophils % 1 Lymphocytes % (Manual) 6 L Reactive Lymphs % 2 H Monocytes % (Manual) 10 Toxic Granulation Present Platelet Estimate Normal Anisocytosis (manual) Slight APTT Puncture Site pCO2 pO2 HCO3 ABG pH ABG Total CO2 ABG O2 Saturation ABG Base Excess ABG Hemoglobin ABG Carboxyhemoglobin POC ABG HHb (Measured) ABG Methemoglobin Arden Test VBG pH VBG pCO2 VBG HCO3 VBG Total CO2 VBG O2 Sat (Calc) VBG Base Excess VBG Potassium A-a O2 Difference Respiratory Index Hgb O2 Saturation Sodium 144 Chloride 111 H Glucose Lactate Vent Mode Mechanical Rate FiO2 Tidal Volume PEEP Potassium 3.6 Carbon Dioxide 27 Anion Gap 9 L BUN 35 H Creatinine 1.5 Est GFR ( Amer) 56 Est GFR (Non-Af Amer) 46 POC Glucose (mg/dL) Random Glucose 168 H Hemoglobin A1c Calcium 8.2 L Phosphorus 2.5 Magnesium 2.1 Total Bilirubin 0.7 AST 67 H ALT 27 Alkaline Phosphatase 110 Total Protein 6.0 L Albumin 2.9 L Globulin 3.1 Albumin/Globulin Ratio 0.9 L Venous Blood Potassium Random Vancomycin 6.5 09/06/18 09/06/18 06:03 11:28 WBC RBC Hgb Hct MCV MCH MCHC RDW Plt Count MPV Neut % (Auto) Lymph % (Auto) [place] % (Auto) Eos % (Auto) Baso % (Auto) Neut # (Auto) Lymph # (Auto) [place] # (Auto) Eos # (Auto) Baso # (Auto) Neutrophils % (Manual) Band Neutrophils % Lymphocytes % (Manual) Reactive Lymphs % Monocytes % (Manual) Toxic Granulation Platelet Estimate Anisocytosis (manual) APTT 71 H Puncture Site pCO2 pO2 HCO3 ABG pH ABG Total CO2 ABG O2 Saturation ABG Base Excess ABG Hemoglobin ABG Carboxyhemoglobin POC ABG HHb (Measured) ABG Methemoglobin Arden Test VBG pH VBG pCO2 VBG HCO3 VBG Total CO2 VBG O2 Sat (Calc) VBG Base Excess VBG Potassium A-a O2 Difference Respiratory Index Hgb O2 Saturation Sodium Chloride Glucose Lactate Vent Mode Mechanical Rate FiO2 Tidal Volume PEEP Potassium Carbon Dioxide Anion Gap BUN Creatinine Est GFR ( Amer) Est GFR (Non-Af Amer) POC Glucose (mg/dL) 207 H Random Glucose Hemoglobin A1c Calcium Phosphorus Magnesium Total Bilirubin AST ALT Alkaline Phosphatase Total Protein Albumin Globulin Albumin/Globulin Ratio Venous Blood Potassium Random Vancomycin Assessment & Plan (1) Acute ST elevation myocardial infarction (STEMI) of anterior wall Status: Acute Priority: High (2) Acute pulmonary edema Status: Acute Priority: High (3) Acute respiratory failure Status: Acute (4) Cardiogenic shock Status: Acute - Assessment and Plan (Free Text) Assessment: fever s/p Acute AR r/o aspiration r/o UTI r/o line sepsis cont iv antibiotics and follow up CXR/ cultures
[2018-09-06] MEDS ORDERED: Digoxin 500 mcg/2ml (0.5 mg/2ml) Inj IVP ONE ×2 (19:11→20:45)
[2018-09-07] MEDS: (Novolog) Insulin Aspart, Recombinant 100 u/ml 10 ml vial SC SCH ×6 (00:30→23:51)
[2018-09-07] MEDS: Metoprolol 1 mg/ml Inj IVP SCH ×4 (00:30→21:29)
--- NOTE | 2018-09-07 01:46 | CARDCATH ---
PROCEDURE DATE: 09/03/2018 PROCEDURES: 1. Coronary angiogram. 2. Left anterior descending coronary artery balloon angioplasty. 3. Intraaortic balloon pump insertion. REFERRING PHYSICIAN: Clayton Hamilton MD PERFORMING PHYSICIAN: Clayton Rivera MD CLINICAL INDICATIONS: 1. Code heart. 2. Acute anterolateral wall ST-elevation myocardial infarction. 3. Coronary artery disease. 4. Pulmonary edema. 5. Acute systolic congestive heart failure. 6. Hypotension. 7. Diabetes. 8. Hyperlipidemia. BRIEF CLINICAL HISTORY: A 73-year-old gentleman with history of diabetes, hypertension, hyperlipidemia, presented to [facility] Emergency Room with acute anterolateral wall ST-elevation myocardial infarction. The patient was in pulmonary edema and cardiogenic shock. The patient needed emergent intubation. PROCEDURE FINDINGS: The patient was prepped and draped in the usual sterile fashion. A 2% lidocaine was given in the right groin for local anesthesia. Using micropuncture technique, a #6 [place] sheath was introduced into the right common femoral artery. Left heart catheterization and LAD coronary intervention was performed uneventfully. Post procedure, intraaortic balloon pump was inserted for stabilization of the patient. FINDINGS: 1. Left main coronary artery is patent. 2. LAD has proximal to mid diffuse calcific 90% stenosis. Mid LAD is 100% occluded. Diagonal branches are small and have diffuse disease. 3. Left circumflex is a dominant artery. Proximal left circumflex has a calcific 90% stenosis. Obtuse marginal branch has multiple 90 to 95% calcific lesions. Distal circumflex is patent. 4. Right coronary artery is small and nondominant. Diffuse 99% stenosis from ostium to the distal right coronary artery. The patient was preloaded with aspirin, Brilinta, IV heparin. ACT was maintained at about 250. XBLAD 3.0 guide catheter engaged into left main coronary artery. LAD was threaded with run-through coronary wire. The artery is very small and has a diffuse disease. The LAD diameter is less than 2 mm. Hence, multiple times balloon angioplasty was performed from proximal to distal LAD. Good CALVIN-3 flow acquired. However, the LAD artery is so small that stents could not be inserted. The patient became hemodynamically stable. However, intraaortic balloon pump was inserted to support the left ventricle. CONCLUSION: 1. The patient has a diffuse three-vessel disease. Arteries are small and he is not a candidate for coronary artery bypass grafts. 2. Successful balloon angioplasty of the left anterior descending coronary artery. 3. The patient will be monitored in the intensive care unit. Once the patient is stable and extubated, we will perform left circumflex intervention. Clayton Rivera MD
[2018-09-07] MEDS: ceFAZolin IV 2 gm in Dextrose 2 GM/50 ML BAG IVPB SCH ×3 (03:30→18:10)
[2018-09-07 04:27] LABS: ARTERIAL BLOOD GAS HEMOGLOBIN 15.5 g/dL (11.7-17.4); ARTERIAL BLOOD GAS O2 SAT 99.4 % (95-98); ARTERIAL BLOOD GAS PCO2 26 mm/Hg (35-45); ARTERIAL BLOOD GAS PO2 130 mm/Hg (80-100); ARTERIAL BLOOD GAS TCO2 21.1 mmol/L (22-28)
[2018-09-07 06:29] LABS: BASO % 0.4 % (0.0-2.0); HEMOGLOBIN 14.9 g/dL (12.0-18.0); LYMPH # 0.6 K/uL (1.0-4.3); LYMPH % 5.2 % (20.0-40.0); MEAN CELL VOLUME 92.2 fL (80.0-94.0); MEAN CORPUSCULAR HEMOGLOBIN 30.4 pg (27.0-31.0); MEAN PLATELET VOLUME 10.7 fL (7.2-11.7); MONO # 1.2 K/uL (0.0-0.8); MONO % 9.5 % (0.0-10.0); NEUT # 10.3 K/uL (1.8-7.0); NEUT % 84.9 % (50.0-75.0); PLATELET COUNT 166 K/uL (130-400); RED CELL DISTRIBUTION WIDTH 14.4 % (11.5-14.5); WHITE BLOOD COUNT 12.2 K/uL (4.8-10.8)
[2018-09-07] MEDS: Dexmedetomidine Hydrochloride 200 MCG in Sodium Chloride 0.9% 48 ML IV PRN (06:40)
[2018-09-07 06:54] LABS: ALB/GLOB RATIO 1.1 (1.0-2.1); ALBUMIN 3.2 g/dL (3.5-5.0); CALCIUM 8.6 mg/dl (8.6-10.4)
[2018-09-07 08:49] LABS: BANDS 4 % (0-2); LYMPHOCYTE 3 % (20-40); MONOCYTE 4 % (0-10); NEUTROPHIL 89 % (50-75); PLATELET ESTIMATE NORMAL (NORMAL); TOTAL CELLS COUNTED 100
--- NOTE | 2018-09-07 08:53 | CT ---
Date of service: 09/06/2018 PROCEDURE: CT HEAD WITHOUT CONTRAST. HISTORY: Right gaze palsy COMPARISON: None available. TECHNIQUE: Axial computed tomography images were obtained through the head/brain without intravenous contrast. Radiation dose: Total exam DLP = 1340.2 mGy-cm. This CT exam was performed using one or more of the following dose reduction techniques: Automated exposure control, adjustment of the mA and/or kV according to patient size, and/or use of iterative reconstruction technique. FINDINGS: HEMORRHAGE: No intracranial hemorrhage. BRAIN: There are mild chronic microangiopathic changes. There is no mass, mass effect or abnormal extra-axial fluid collection. There is no territorial infarction. The midline sagittal structures are normal.There are coarse atherosclerotic calcifications in the cavernous carotid arteries. VENTRICLES: There is moderate age-related global parenchymal volume loss and proportionate enlargement of the ventricles and cortical sulci. CALVARIUM: There is no calvarial fracture or extracranial soft tissue swelling. PARANASAL SINUSES: There is moderate mucosal thickening in the left maxillary sinus and sphenoid sinus. MASTOID AIR CELLS: Predominantly clear. OTHER FINDINGS: None. IMPRESSION: No acute intracranial abnormality. If there is a persistent focal neurologic deficit and an ongoing clinical concern for acute infarction, an MRI of the brain without intravenous contrast would be a more sensitive modality for evaluation of hyperacute/acute ischemic infarction. Moderate age-related global parenchymal volume loss. Chronic left maxillary and sphenoid sinusitis.
--- NOTE | 2018-09-07 09:47 | CARD ---
APPROVED REPORT Date of service: 09/06/2018 EKG Measurement Heart [id number] <Conclusion> Atrial fibrillation Low voltage QRS Abnormal ECG
[2018-09-07] MEDS: Lidocaine 5% Patch TD SCH (10:02)
[2018-09-07] MEDS ORDERED: Pneumococcal 23-Valent Vaccine IM ONE (10:10)
[2018-09-07] MEDS ORDERED: Influenza Vaccine 60 MCG/0.5 ML SYR (3 yr & up) IM ONE (10:12)
--- NOTE | 2018-09-07 10:47 | RAD ---
Date of service: 09/06/2018 HISTORY: respiratory distress COMPARISON: 09/06/2018 at 7:10 a.m. FINDINGS: Right IJV line terminates at the cavoatrial junction. LUNGS: The lungs are well inflated and clear. PLEURA: No pleural effusions or pneumothorax. CARDIOVASCULAR: Mild cardiomegaly. Atherosclerotic aortic arch calcifications are present. Prominent central vasculature. OSSEOUS STRUCTURES: Within normal limits for the patient's age. VISUALIZED UPPER ABDOMEN: Normal. OTHER FINDINGS: None. IMPRESSION: Right IJV line terminates at the cavoatrial junction. No acute findings.
--- NOTE | 2018-09-07 11:03 | CP.PCM.PN ---
Subjective - Date & Time of Evaluation Date of Evaluation: 09/07/18 Time of Evaluation: 07:00 - Subjective Subjective: afebrile in icu on BiPaP lethargic off pressors Objective - Vital Signs/Intake and Output Vital Signs (last 24 hours): Temp Pulse Resp BP Pulse Ox 97.3 F L 54 L 21 103/62 100 09/07/18 08:00 09/07/18 10:42 09/07/18 10:01 09/07/18 10:01 09/07/18 10:01 Intake and Output: 09/07/18 09/07/18 06:59 18:59 Intake Total 278.8 18.8 Output Total 700 225 Balance -421.2 -206.2 - Medications Medications: Current Medications Acetaminophen (Tylenol 325mg Tab) 650 mg PO Q6 PRN PRN Reason: Fever >100.4 F Last Admin: 09/06/18 06:59 Dose: 650 mg Acetaminophen (Tylenol 650 Mg Supp) 650 mg [place] Q6 PRN PRN Reason: Temperature Aspirin (Aspirin Chewable) 81 mg PO DAILY [facility] Last Admin: 09/06/18 09:34 Dose: 81 mg Dextrose (Dextrose 50% Inj) 0 ml IV STAT PRN; Protocol PRN Reason: Hypoglycemia Protocol Dextrose (Glutose 15) 0 gm PO ONCE PRN; Protocol PRN Reason: Hypoglycemia Protocol Furosemide (Lasix) 20 mg IVP Q8H [facility] Last Admin: 09/07/18 03:00 Dose: 20 mg Glucagon (Glucagen Diagnostic Kit) 0 mg IM STAT PRN; Protocol PRN Reason: Hypoglycemia Protocol Heparin Sodium (Porcine) (Heparin) 5,000 units SC Q12H [facility] Last Admin: 09/07/18 03:00 Dose: 5,000 units Cefazolin Sodium/Dextrose (Ancef Iv 2 Gm Duplex) 2 gm in 50 mls @ 100 mls/hr IVPB Q8H STEPHANIE; Protocol Stop: 09/10/18 03:29 Last Admin: 09/07/18 10:39 Dose: 100 mls/hr Vancomycin/Sodium Chloride (Vancomycin 1 Gm/Ns 200 Ml) 1 gm in 200 mls @ 133.333 mls/hr IVPB Q24H STEPHANIE; Protocol Stop: 09/12/18 13:29 Last Admin: 09/06/18 12:08 Dose: 133.333 mls/hr Dextrose (Dextrose 5% In Water 1000 Ml) 1,000 mls @ 0 mls/hr IV .Q0M PRN; Protocol PRN Reason: Hypoglycemia Protocol Dexmedetomidine HCl 200 mcg/ (Sodium Chloride) 50 mls @ 3.16 mls/hr IV TITR PRN; Protocol PRN Reason: Agitation Last Admin: 09/07/18 06:40 Dose: 0.3 mcg/kg/hr, 4.74 mls/hr Insulin Aspart (Novolog) 0 unit SC Q6 [facility]; Protocol Last Admin: 09/07/18 06:00 Dose: Not Given Lidocaine (Lidoderm) 1 ea TD DAILY [facility] Last Admin: 09/07/18 10:02 Dose: 1 ea Metoprolol Tartrate (Lopressor) 5 mg IVP Q6 [facility] Last Admin: 09/07/18 06:00 Dose: Not Given Pantoprazole Sodium (Protonix Inj) 40 mg IVP DAILY [facility] Last Admin: 09/07/18 10:01 Dose: 40 mg Rosuvastatin Calcium (Crestor) 40 mg PO HS [facility] Last Admin: 09/06/18 22:00 Dose: Not Given Ticagrelor (Brilinta) 90 mg PO BID [facility] Last Admin: 09/06/18 17:38 Dose: Not Given - Labs Labs: 09/07/18 06:22 09/07/18 06:16 PT 11.1 SECONDS (9.7-12.2) 09/03/18 01:40 INR 1.0 09/03/18 01:40 APTT 71 SECONDS (21-34) H 09/06/18 06:03 - Constitutional Appears: Non-toxic, Confused, Chronically Ill - Head Exam Head Exam: NORMOCEPHALIC - Eye Exam Eye Exam: absent: Scleral icterus - ENT Exam ENT Exam: Mucous Membranes Dry - Neck Exam Neck Exam: absent: Lymphadenopathy - Respiratory Exam Respiratory Exam: Decreased Breath Sounds - Cardiovascular Exam Cardiovascular Exam: REGULAR RHYTHM - GI/Abdominal Exam GI & Abdominal Exam: Distended, Soft. absent: Tenderness - Rectal Exam Rectal Exam: Deferred - Exam Exam: NORMAL INSPECTION - Extremities Exam Extremities Exam: absent: Pedal Edema - Back Exam Back Exam: absent: CVA tenderness (L), CVA tenderness (R) - Neurological Exam Neurological Exam: Altered, CN II-XII Intact. absent: Motor Sensory Deficit Assessment and Plan (1) Acute ST elevation myocardial infarction (STEMI) of anterior wall Status: Acute (2) Acute pulmonary edema Status: Acute (3) Acute respiratory failure Status: Acute (4) Cardiogenic shock Status: Acute - Assessment and Plan (Free Text) Assessment: cont iv antibiotics await cultures
--- NOTE | 2018-09-07 12:34 | RAD ---
Date of service: 09/07/2018 HISTORY: pt is intubated COMPARISON: No prior. FINDINGS: In situ right IJ central line with tip in the SVC/RA junction. Interval removal ETT and NGT. LUNGS: Persistent mild pulmonary venous congestive changes appear slightly improved. There does appear to be small residual bilateral lower lobe alveolar-type infiltrates.. PLEURA: No significant pleural effusion identified, no pneumothorax apparent. CARDIOVASCULAR: Mild aortic atherosclerotic calcification present. Heart remains enlarged.. . OSSEOUS STRUCTURES: No significant abnormalities. VISUALIZED UPPER ABDOMEN: Normal. OTHER FINDINGS: None. IMPRESSION: Interval removal ETT and NGT. Persistent mild pulmonary venous congestive changes appear slightly improved. There does appear to be small residual bilateral lower lobe alveolar-type infiltrates..
--- NOTE | 2018-09-07 12:53 | CP.PCM.PN ---
Subjective - Date & Time of Evaluation Date of Evaluation: 09/07/18 Time of Evaluation: 12:43 - Subjective Subjective: Cardiology Follow Up Patient seen and examined at bedside. Patient is s/p extubation on BiPAP, off pressors. Denied any chest pain, shortness of breath, or palpitations. Objective - Vital Signs/Intake and Output Vital Signs (last 24 hours): Temp Pulse Resp BP Pulse Ox 97.3 F L 61 21 106/69 100 09/07/18 08:00 09/07/18 11:01 09/07/18 11:01 09/07/18 12:00 09/07/18 11:01 Intake and Output: 09/07/18 09/07/18 06:59 18:59 Intake Total 278.8 41.8 Output Total 700 225 Balance -421.2 -183.2 - Medications Medications: Current Medications Aspirin (Aspirin Chewable) 81 mg PO DAILY STEPHANIE Last Admin: 09/06/18 09:34 Dose: 81 mg Dextrose (Dextrose 50% Inj) 0 ml IV STAT PRN; Protocol PRN Reason: Hypoglycemia Protocol Dextrose (Glutose 15) 0 gm PO ONCE PRN; Protocol PRN Reason: Hypoglycemia Protocol Furosemide (Lasix) 20 mg IVP DAILY STEPHANIE Glucagon (Glucagen Diagnostic Kit) 0 mg IM STAT PRN; Protocol PRN Reason: Hypoglycemia Protocol Heparin Sodium (Porcine) (Heparin) 5,000 units SC Q12H STEPHANIE Last Admin: 09/07/18 03:00 Dose: 5,000 units Cefazolin Sodium/Dextrose (Ancef Iv 2 Gm Duplex) 2 gm in 50 mls @ 100 mls/hr IVPB Q8H STEPHANIE; Protocol Stop: 09/10/18 03:29 Last Admin: 09/07/18 10:39 Dose: 100 mls/hr Dextrose (Dextrose 5% In Water 1000 Ml) 1,000 mls @ 0 mls/hr IV .Q0M PRN; Protocol PRN Reason: Hypoglycemia Protocol Dexmedetomidine HCl 200 mcg/ (Sodium Chloride) 50 mls @ 3.16 mls/hr IV TITR PRN; Protocol PRN Reason: Agitation Last Titration: 09/07/18 11:28 Dose: 0 mcg/kg/hr, 0 mls/hr Insulin Aspart (Novolog) 0 unit SC Q6 STEPHANIE; Protocol Last Admin: 09/07/18 11:55 Dose: Not Given Lidocaine (Lidoderm) 1 ea TD DAILY [facility] Last Admin: 09/07/18 10:02 Dose: 1 ea Metoprolol Tartrate (Lopressor) 2.5 mg IVP Q12 [facility] Pantoprazole Sodium (Protonix Inj) 40 mg IVP DAILY [facility] Last Admin: 09/07/18 10:01 Dose: 40 mg Rosuvastatin Calcium (Crestor) 40 mg PO HS [facility] Last Admin: 09/06/18 22:00 Dose: Not Given Ticagrelor (Brilinta) 90 mg PO BID [facility] Last Admin: 09/06/18 17:38 Dose: Not Given - Labs Labs: 09/07/18 06:22 09/07/18 06:16 PT 11.1 SECONDS (9.7-12.2) 09/03/18 01:40 INR 1.0 09/03/18 01:40 APTT 71 SECONDS (21-34) H 09/06/18 06:03 - Constitutional Appears: Chronically Ill - Head Exam Head Exam: NORMAL INSPECTION, NORMOCEPHALIC - Eye Exam Eye Exam: EOMI, Normal appearance, PERRL - ENT Exam ENT Exam: Mucous Membranes Dry - Respiratory Exam Respiratory Exam: Decreased Breath Sounds - Cardiovascular Exam Cardiovascular Exam: Irregular Rhythm, +S1, +S2 - GI/Abdominal Exam GI & Abdominal Exam: Soft, Normal Bowel Sounds. absent: Distended, Tenderness - Extremities Exam Extremities Exam: Normal Inspection. 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 LAD/Diags; Small caliber artery. Entire LAD has diffuse 90% calcific narrowing. Mid 100% occlusion. L Cx/OM: Dominant: Proximal 85%, OM2 99%. RCA: Non dominant and diffuse 99% disease. LV: EF 10-15%, Dilated ischemic CMP, No Management: - Continue ASA, Brilinta, Crestor - Started Lopressor 2.5mg IVP Q12H Case discussed with Deneen Chaoara DO, PGY2
--- NOTE | 2018-09-07 13:58 | CP.CCUPN ---
CCU Subjective - Physician Review Subjective (Free Text): 09/07/18 08:55 Patient seen and examined at bedside. No acute events overnight. Patient is off sedation and was extubated. Critical Care Time Spent (in minutes): 35 CCU Objective - Vital Signs / Intake & Output Vital Signs (Last 4 hours): Vital Signs Temp Pulse Resp BP Pulse Ox 09/07/18 13:01 66 21 127/70 100 09/07/18 13:00 63 21 100 09/07/18 12:01 56 L 19 111/64 100 09/07/18 12:00 97.5 F L 60 19 106/69 100 09/07/18 11:01 61 21 106/69 100 09/07/18 11:00 44 L 20 100 09/07/18 10:42 54 L 09/07/18 10:01 54 L 21 103/62 100 09/07/18 10:00 52 L 9 L 100 Intake and Output (Last 8hrs): Intake & Output 09/06/18 09/07/18 09/07/18 22:59 06:59 14:59 Intake Total 431.8 182.0 41.8 Output Total 975 575 225 Balance -543.2 -393.0 -183.2 Weight 134 lb 14.766 oz Intake: IV 130 80 23 Intake, IV Amount 251.8 102.0 18.8 Right Distal Port 100 Internal Jugular Right Medial Port 26.8 52.0 18.8 Internal Jugular Right Proximal Port 125 50 Internal Jugular Albumin 50 Output: Urine 975 575 225 Urethral (Goetz) 975 575 225 - Physical Exam Head: Positive for: Atraumatic, Normocephalic Pupils: Positive for: PERRL Conjunctiva: Positive for: Normal. Negative for: Injected, Icteric Mouth: Positive for: Moist Mucous Membranes Respiratory/Chest: Positive for: Clear to Auscultation. Negative for: Respiratory Distress, Accessory Muscle Use, Wheezes, Rales, Rhonchi Cardiovascular: Positive for: Normal S1, S2, Peripheal Pulses Present, Tachycardic. Negative for: Murmurs Abdomen: Positive for: Normal Bowel Sounds. Negative for: Tenderness, Distention, Peritoneal Signs Upper Extremity: Positive for: Normal Inspection, Capillary Refill < 2s. Negative for: Cyanosis, Edema Lower Extremity: Positive for: Normal Inspection, Edema Skin: Positive for: Warm, Dry, Normal Color. Negative for: Rashes - Medications Active Medications: Active Medications Generic Name Dose Route Start Last Admin Trade Name Freq PRN Reason Stop Dose Admin Aspirin 81 mg 09/04/18 13:15 09/07/18 13:08 Aspirin Chewable PO Not Given DAILY STEPHANIE Dextrose 0 ml 09/05/18 16:12 Dextrose 50% Inj IV STAT PRN Hypoglycemia Protocol Protocol Dextrose 0 gm 09/05/18 16:12 Glutose 15 PO ONCE PRN Hypoglycemia Protocol Protocol Furosemide 20 mg 09/08/18 10:00 Lasix IVP DAILY STEPHANIE Glucagon 0 mg 09/05/18 16:12 Glucagen Diagnostic Kit IM STAT PRN Hypoglycemia Protocol Protocol Heparin Sodium (Porcine) 5,000 units 09/06/18 15:30 09/07/18 03:00 Heparin SC 5,000 units Q12H STEPHANIE Administration Cefazolin Sodium/Dextrose 2 gm in 50 mls @ 100 mls/hr 09/05/18 11:00 09/07/18 10:39 Ancef Iv 2 Gm Duplex IVPB 09/10/18 03:29 100 mls/hr Q8H STEPHANIE Administration Protocol Dextrose 1,000 mls @ 0 mls/hr 09/05/18 16:12 Dextrose 5% In Water 1000 Ml IV .Q0M PRN Hypoglycemia Protocol Protocol Per Protocol Dexmedetomidine HCl 200 mcg/ 50 mls @ 3.16 mls/hr 09/06/18 21:04 09/07/18 11:28 Sodium Chloride IV 0 mcg/kg/hr TITR PRN 0 mls/hr Agitation Titration Protocol 0.2 MCG/KG/HR Potassium Chloride 20 meq in 100 mls @ 50 mls/hr 09/07/18 13:15 09/07/18 13:18 Potassium Chloride 20 Meq/100 Ml IVPB 09/07/18 15:14 50 mls/hr ONCE ONE Administration Insulin Aspart 0 unit 09/07/18 12:57 09/07/18 13:18 Novolog SC 4 u Q6 STEPHANIE Administration Protocol Lidocaine 1 ea 09/05/18 12:00 09/07/18 10:02 Lidoderm TD 1 ea DAILY STEPHANIE Administration Metoprolol Tartrate 2.5 mg 09/07/18 22:00 Lopressor IVP Q12 STEPHANIE Pantoprazole Sodium 40 mg 09/03/18 10:00 12/03/18 10:01 Protonix Inj IVP 40 mg DAILY STEPHANIE Administration Rosuvastatin Calcium 40 mg 09/03/18 22:00 09/06/18 22:00 Crestor PO Not Given HS STEPHANIE Ticagrelor 90 mg 09/03/18 10:00 09/07/18 13:08 Brilinta PO Not Given BID STEPHANIE - Patient Studies Lab Studies: Microbiology Studies 09/05/18 12:17 Gram Stain - Final Trachasp Sputum Culture - Final Staphylococcus Aureus 09/04/18 05:35 Blood Culture - Preliminary Blood-Venous NO GROWTH AFTER 3 DAYS 09/04/18 05:35 Blood Culture - Preliminary Blood-Venous NO GROWTH AFTER 3 DAYS Lab Studies 09/07/18 09/07/18 09/07/18 Range/Units 11:17 06:22 06:16 WBC 12.2 H (4.8-10.8) K/uL RBC 4.90 (4.40-5.90) Mil/uL Hgb 14.9 (12.0-18.0) g/dL Hct 45.2 (35.0-51.0) % MCV 92.2 (80.0-94.0) fL MCH 30.4 (27.0-31.0) pg MCHC 33.0 (33.0-37.0) g/dL RDW 14.4 (11.5-14.5) % Plt Count 166 (130-400) K/uL MPV 10.7 (7.2-11.7) fL Neut % (Auto) 84.9 H (50.0-75.0) % Lymph % (Auto) 5.2 L (20.0-40.0) % Runnels % (Auto) 9.5 (0.0-10.0) % Eos % (Auto) 0.0 (0.0-4.0) % Baso % (Auto) 0.4 (0.0-2.0) % Neut # (Auto) 10.3 H (1.8-7.0) K/uL Lymph # (Auto) 0.6 L (1.0-4.3) K/uL Runnels # (Auto) 1.2 H (0.0-0.8) K/uL Eos # (Auto) 0.0 (0.0-0.7) K/uL Baso # (Auto) 0.0 (0.0-0.2) K/uL Neutrophils % (Manual) 89 H (50-75) % Band Neutrophils % 4 H (0-2) % Lymphocytes % (Manual) 3 L (20-40) % Monocytes % (Manual) 4 (0-10) % Platelet Estimate Normal (NORMAL) RBC Morphology Normal Puncture Site pCO2 (35-45) mm/Hg pO2 (80-100) mm/Hg HCO3 (21-28) mmol/L ABG pH (7.35-7.45) ABG Total CO2 (22-28) mmol/L ABG O2 Saturation (95-98) % ABG Base Excess (-2.0-3.0) mmol/L ABG Hemoglobin (11.7-17.4) g/dL ABG Carboxyhemoglobin (0.5-1.5) % POC ABG HHb (Measured) (0.0-5.0) % ABG Methemoglobin (0.0-3.0) % Arden Test A-a O2 Difference mm/Hg Respiratory Index Hgb O2 Saturation (95.0-98.0) % Vent Mode FiO2 % Inspiratory BiPAP Expiratory BiPAP Sodium 145 (132-148) mmol/L Potassium 3.3 L (3.6-5.2) mmol/L Chloride 107 (98-107) mmol/L Carbon Dioxide 25 (22-30) mmol/L Anion Gap 16 (10-20) BUN 45 H (9-20) mg/dL Creatinine 2.2 H (0.8-1.5) mg/dL Est GFR ( Amer) 36 Est GFR (Non-Af Amer) 30 POC Glucose (mg/dL) 287 H (65-110) mg/dL Random Glucose 326 H (75-110) mg/dL Calcium 8.6 (8.6-10.4) mg/dl Phosphorus 2.6 (2.5-4.5) mg/dL Magnesium 2.3 (1.6-2.3) mg/dL Total Bilirubin 0.8 (0.2-1.3) mg/dL AST 68 H (17-59) U/L ALT 20 L D (21-72) U/L Alkaline Phosphatase 106 (38-126) U/L Total Protein 6.2 L (6.3-8.3) g/dL Albumin 3.2 L (3.5-5.0) g/dL Globulin 3.0 (2.2-3.9) gm/dL Albumin/Globulin Ratio 1.1 (1.0-2.1) 09/07/18 09/07/18 09/07/18 Range/Units 05:13 04:20 00:16 WBC (4.8-10.8) K/uL RBC (4.40-5.90) Mil/uL Hgb (12.0-18.0) g/dL Hct (35.0-51.0) % MCV (80.0-94.0) fL MCH (27.0-31.0) pg MCHC (33.0-37.0) g/dL RDW (11.5-14.5) % Plt Count (130-400) K/uL MPV (7.2-11.7) fL Neut % (Auto) (50.0-75.0) % Lymph % (Auto) (20.0-40.0) % Runnels % (Auto) (0.0-10.0) % Eos % (Auto) (0.0-4.0) % Baso % (Auto) (0.0-2.0) % Neut # (Auto) (1.8-7.0) K/uL Lymph # (Auto) (1.0-4.3) K/uL Runnels # (Auto) (0.0-0.8) K/uL Eos # (Auto) (0.0-0.7) K/uL Baso # (Auto) (0.0-0.2) K/uL Neutrophils % (Manual) (50-75) % Band Neutrophils % (0-2) % Lymphocytes % (Manual) (20-40) % Monocytes % (Manual) (0-10) % Platelet Estimate (NORMAL) RBC Morphology Puncture Site Rb pCO2 26 L (35-45) mm/Hg pO2 130 H (80-100) mm/Hg HCO3 24.0 (21-28) mmol/L ABG pH 7.50 H (7.35-7.45) ABG Total CO2 21.1 L (22-28) mmol/L ABG O2 Saturation 99.4 H (95-98) % ABG Base Excess -1.2 (-2.0-3.0) mmol/L ABG Hemoglobin 15.5 (11.7-17.4) g/dL ABG Carboxyhemoglobin 1.6 H (0.5-1.5) % POC ABG HHb (Measured) 0.6 (0.0-5.0) % ABG Methemoglobin 0.8 (0.0-3.0) % Arden Test Na A-a O2 Difference 51.0 mm/Hg Respiratory Index 0.4 Hgb O2 Saturation 96.9 (95.0-98.0) % Vent Mode Bipap FiO2 30.0 % Inspiratory BiPAP 15 Expiratory BiPAP 8 Sodium (132-148) mmol/L Potassium (3.6-5.2) mmol/L Chloride (98-107) mmol/L Carbon Dioxide (22-30) mmol/L Anion Gap (10-20) BUN (9-20) mg/dL Creatinine (0.8-1.5) mg/dL Est GFR ( Amer) Est GFR (Non-Af Amer) POC Glucose (mg/dL) 287 H 341 H (65-110) mg/dL Random Glucose (75-110) mg/dL Calcium (8.6-10.4) mg/dl Phosphorus (2.5-4.5) mg/dL Magnesium (1.6-2.3) mg/dL Total Bilirubin (0.2-1.3) mg/dL AST (17-59) U/L ALT (21-72) U/L Alkaline Phosphatase (38-126) U/L Total Protein (6.3-8.3) g/dL Albumin (3.5-5.0) g/dL Globulin (2.2-3.9) gm/dL Albumin/Globulin Ratio (1.0-2.1) 09/06/18 Range/Units 18:09 WBC (4.8-10.8) K/uL RBC (4.40-5.90) Mil/uL Hgb (12.0-18.0) g/dL Hct (35.0-51.0) % MCV (80.0-94.0) fL MCH (27.0-31.0) pg MCHC (33.0-37.0) g/dL RDW (11.5-14.5) % Plt Count (130-400) K/uL MPV (7.2-11.7) fL Neut % (Auto) (50.0-75.0) % Lymph % (Auto) (20.0-40.0) % Runnels % (Auto) (0.0-10.0) % Eos % (Auto) (0.0-4.0) % Baso % (Auto) (0.0-2.0) % Neut # (Auto) (1.8-7.0) K/uL Lymph # (Auto) (1.0-4.3) K/uL Runnels # (Auto) (0.0-0.8) K/uL Eos # (Auto) (0.0-0.7) K/uL Baso # (Auto) (0.0-0.2) K/uL Neutrophils % (Manual) (50-75) % Band Neutrophils % (0-2) % Lymphocytes % (Manual) (20-40) % Monocytes % (Manual) (0-10) % Platelet Estimate (NORMAL) RBC Morphology Puncture Site pCO2 (35-45) mm/Hg pO2 (80-100) mm/Hg HCO3 (21-28) mmol/L ABG pH (7.35-7.45) ABG Total CO2 (22-28) mmol/L ABG O2 Saturation (95-98) % ABG Base Excess (-2.0-3.0) mmol/L ABG Hemoglobin (11.7-17.4) g/dL ABG Carboxyhemoglobin (0.5-1.5) % POC ABG HHb (Measured) (0.0-5.0) % ABG Methemoglobin (0.0-3.0) % Arden Test A-a O2 Difference mm/Hg Respiratory Index Hgb O2 Saturation (95.0-98.0) % Vent Mode FiO2 % Inspiratory BiPAP Expiratory BiPAP Sodium (132-148) mmol/L Potassium (3.6-5.2) mmol/L Chloride (98-107) mmol/L Carbon Dioxide (22-30) mmol/L Anion Gap (10-20) BUN (9-20) mg/dL Creatinine (0.8-1.5) mg/dL Est GFR ( Amer) Est GFR (Non-Af Amer) POC Glucose (mg/dL) 231 H (65-110) mg/dL Random Glucose (75-110) mg/dL Calcium (8.6-10.4) mg/dl Phosphorus (2.5-4.5) mg/dL Magnesium (1.6-2.3) mg/dL Total Bilirubin (0.2-1.3) mg/dL AST (17-59) U/L ALT (21-72) U/L Alkaline Phosphatase (38-126) U/L Total Protein (6.3-8.3) g/dL Albumin (3.5-5.0) g/dL Globulin (2.2-3.9) gm/dL Albumin/Globulin Ratio (1.0-2.1) Laboratory Results - last 24 hr 09/06/18 09/07/18 09/07/18 18:09 00:16 04:20 WBC RBC Hgb Hct MCV MCH MCHC RDW Plt Count MPV Neut % (Auto) Lymph % (Auto) Runnels % (Auto) Eos % (Auto) Baso % (Auto) Neut # (Auto) Lymph # (Auto) Runnels # (Auto) Eos # (Auto) Baso # (Auto) Neutrophils % (Manual) Band Neutrophils % Lymphocytes % (Manual) Monocytes % (Manual) Platelet Estimate RBC Morphology Puncture Site Rb pCO2 26 L pO2 130 H HCO3 24.0 ABG pH 7.50 H ABG Total CO2 21.1 L ABG O2 Saturation 99.4 H ABG Base Excess -1.2 ABG Hemoglobin 15.5 ABG Carboxyhemoglobin 1.6 H POC ABG HHb (Measured) 0.6 ABG Methemoglobin 0.8 Arden Test Na A-a O2 Difference 51.0 Respiratory Index 0.4 Hgb O2 Saturation 96.9 Vent Mode Bipap FiO2 30.0 Inspiratory BiPAP 15 Expiratory BiPAP 8 Sodium Potassium Chloride Carbon Dioxide Anion Gap BUN Creatinine Est GFR ( Amer) Est GFR (Non-Af Amer) POC Glucose (mg/dL) 231 H 341 H Random Glucose Calcium Phosphorus Magnesium Total Bilirubin AST ALT Alkaline Phosphatase Total Protein Albumin Globulin Albumin/Globulin Ratio 09/07/18 09/07/18 09/07/18 05:13 06:16 06:22 WBC 12.2 H RBC 4.90 Hgb 14.9 Hct 45.2 MCV 92.2 MCH 30.4 MCHC 33.0 RDW 14.4 Plt Count 166 MPV 10.7 Neut % (Auto) 84.9 H Lymph % (Auto) 5.2 L Runnels % (Auto) 9.5 Eos % (Auto) 0.0 Baso % (Auto) 0.4 Neut # (Auto) 10.3 H Lymph # (Auto) 0.6 L Runnels # (Auto) 1.2 H Eos # (Auto) 0.0 Baso # (Auto) 0.0 Neutrophils % (Manual) 89 H Band Neutrophils % 4 H Lymphocytes % (Manual) 3 L Monocytes % (Manual) 4 Platelet Estimate Normal RBC Morphology Normal Puncture Site pCO2 pO2 HCO3 ABG pH ABG Total CO2 ABG O2 Saturation ABG Base Excess ABG Hemoglobin ABG Carboxyhemoglobin POC ABG HHb (Measured) ABG Methemoglobin Arden Test A-a O2 Difference Respiratory Index Hgb O2 Saturation Vent Mode FiO2 Inspiratory BiPAP Expiratory BiPAP Sodium 145 Potassium 3.3 L Chloride 107 Carbon Dioxide 25 Anion Gap 16 BUN 45 H Creatinine 2.2 H Est GFR ( Amer) 36 Est GFR (Non-Af Amer) 30 POC Glucose (mg/dL) 287 H Random Glucose 326 H Calcium 8.6 Phosphorus 2.6 Magnesium 2.3 Total Bilirubin 0.8 AST 68 H ALT 20 L D Alkaline Phosphatase 106 Total Protein 6.2 L Albumin 3.2 L Globulin 3.0 Albumin/Globulin Ratio 1.1 09/07/18 11:17 WBC RBC Hgb Hct MCV MCH MCHC RDW Plt Count MPV Neut % (Auto) Lymph % (Auto) Runnels % (Auto) Eos % (Auto) Baso % (Auto) Neut # (Auto) Lymph # (Auto) Runnels # (Auto) Eos # (Auto) Baso # (Auto) Neutrophils % (Manual) Band Neutrophils % Lymphocytes % (Manual) Monocytes % (Manual) Platelet Estimate RBC Morphology Puncture Site pCO2 pO2 HCO3 ABG pH ABG Total CO2 ABG O2 Saturation ABG Base Excess ABG Hemoglobin ABG Carboxyhemoglobin POC ABG HHb (Measured) ABG Methemoglobin Arden Test A-a O2 Difference Respiratory Index Hgb O2 Saturation Vent Mode FiO2 Inspiratory BiPAP Expiratory BiPAP Sodium Potassium Chloride Carbon Dioxide Anion Gap BUN Creatinine Est GFR ( Amer) Est GFR (Non-Af Amer) POC Glucose (mg/dL) 287 H Random Glucose Calcium Phosphorus Magnesium Total Bilirubin AST ALT Alkaline Phosphatase Total Protein Albumin Globulin Albumin/Globulin Ratio EKG/Cardiology Studies: Cardiology / EKG Studies 09/06/18 16:05 EKG [ELECTROCARDIOGRAM] Stat Comment: Mode Of Transportation: PORTABLE Reason For Exam: svt Fingerstick Blood Sugar Results: 287 Assessment/Plan - Assessment and Plan (Free Text) Assessment: Patient is a 73 year old male presenting with Acute Anterior wall NC and pulmonary edema. 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 Plan: Neuro: - Patient is off sedation, seems lethargic - Head CT (09/06): No acute intracranial abnormality. If there is a persistent focal neurologic deficit and an ongoing clinical concern for acute infarction, an MRI of the brain without intravenous contrast would be a more sensitive modality for evaluation of hyperacute/acute ischemic infarction. Moderate age- related global parenchymal volume loss. Cardiovascular: Anterior wall NC - S/p cardiac cath L Main: - Entire LAD has diffuse 90% calcific narrowing. Mid 100% occlusion - L Cx/OM: Dominant: Proximal 85%, OM2 99% - RCA: Non dominant and diffuse 99% disease - LV: EF 10-15%, Dilated ischemic CMP, No - Cardiology consulted, Dr. Rivera - Follow up heart catheterization for other vessel stenting, once stable - ASA 81mg PO QD - Brilinta 90mg PO BID - Crestor 40mg QD HS - Heparin 5000 units SC Q12 - Lopressor 2.5mg IV Q12 Atrial fibrillation - EKG (09/06): Atrial fibrillation, bpm @ 142 - Lopressor 2.5mg IV Q12 Cardiogenic shock - Off baloon pump - Off pressors - RIJ TLC placed on 09/03 - Lasix 20mg IV QD Pulmonary: Pneumonia - CXR (09/07): Persistent mild pulmonary venous congestive changes appear slightly improved. There does appear to be small residual bilateral lower lobe alveolar-type infiltrates. - Sputum cx: S. aureus - Cefazolin 2g IV Q8 (Started on 09/05) - Received 1 dose of Vancomycin Respiratory distress - Patient not in distress - Continue NC 2L - Continue to monitor GI: Transaminitis - AST/ALT: 68/20- downtrending - Continue to monitor Renal: NAY - BUN/Cr: 22/1.2 - Continue to monitor - Avoid nephrotoxins Hypophosphatemia - Phosphorus: 2.3 - Potassium phosphate given - Continue to monitor Endo: DM-2 - ISS - Accucheck Q1H ID: Leukocytosis - WBC: 12.2- downtrending - Tmax of 100.9 - Cefazolin 2g IV Q8 (Started on 09/05) - Received 1 dose of Vancomycin - Sputum cx: S. aureus - Blood cx: no growth to date - Urine cx: no growth to date - MRSA: not detected Prophylaxis: - Protonix 40mg IV QD - SCD's - Heparin 5000 units SC Q12 Case discussed with Dr. Morales Aden, PGY-1
--- NOTE | 2018-09-07 22:49 | CP.PCM.PN ---
Subjective - Date & Time of Evaluation Date of Evaluation: 09/07/18 Time of Evaluation: 19:30 - Subjective Subjective: Patient extubated, on O2 by N/C, off all vasopressors. Alert, remembers my name., in no respiratory distress. Telemetry: RSR. Objective - Vital Signs/Intake and Output Vital Signs (last 24 hours): Temp Pulse Resp BP Pulse Ox 97.7 F 80 18 131/75 100 09/07/18 20:00 09/07/18 20:01 09/07/18 20:01 09/07/18 20:01 09/07/18 19:01 Intake and Output: 09/07/18 09/08/18 18:59 06:59 Intake Total 141.8 0 Output Total 975 150 Balance -833.2 -150 - Medications Medications: Current Medications Aspirin (Aspirin Chewable) 81 mg PO DAILY [facility] Last Admin: 09/07/18 13:08 Dose: Not Given Dextrose (Dextrose 50% Inj) 0 ml IV STAT PRN; Protocol PRN Reason: Hypoglycemia Protocol Dextrose (Glutose 15) 0 gm PO ONCE PRN; Protocol PRN Reason: Hypoglycemia Protocol Furosemide (Lasix) 20 mg IVP DAILY STEPHANIE Glucagon (Glucagen Diagnostic Kit) 0 mg IM STAT PRN; Protocol PRN Reason: Hypoglycemia Protocol Heparin Sodium (Porcine) (Heparin) 5,000 units SC Q12H [facility] Last Admin: 09/07/18 15:52 Dose: 5,000 units Cefazolin Sodium/Dextrose (Ancef Iv 2 Gm Duplex) 2 gm in 50 mls @ 100 mls/hr IVPB Q8H STEPHANIE; Protocol Stop: 09/10/18 03:29 Last Admin: 09/07/18 18:10 Dose: 100 mls/hr Dextrose (Dextrose 5% In Water 1000 Ml) 1,000 mls @ 0 mls/hr IV .Q0M PRN; Protocol PRN Reason: Hypoglycemia Protocol Dexmedetomidine HCl 200 mcg/ (Sodium Chloride) 50 mls @ 3.16 mls/hr IV TITR PRN; Protocol PRN Reason: Agitation Last Titration: 09/07/18 11:28 Dose: 0 mcg/kg/hr, 0 mls/hr Insulin Aspart (Novolog) 0 unit SC Q6 STEPHANIE; Protocol Last Admin: 09/07/18 18:10 Dose: 4 u Lidocaine (Lidoderm) 1 ea TD DAILY STEPHANIE Last Admin: 12/03/18 10:02 Dose: 1 ea Metoprolol Tartrate (Lopressor) 2.5 mg IVP Q12 [facility] Last Admin: 09/07/18 21:29 Dose: 2.5 mg Pantoprazole Sodium (Protonix Inj) 40 mg IVP DAILY [facility] Last Admin: 09/07/18 10:01 Dose: 40 mg Rosuvastatin Calcium (Crestor) 40 mg PO HS [facility] Last Admin: 09/07/18 21:28 Dose: 40 mg Ticagrelor (Brilinta) 90 mg PO BID [facility] Last Admin: 09/07/18 17:22 Dose: 90 mg - Labs Labs: 09/07/18 06:22 09/07/18 06:16 PT 11.1 SECONDS (9.7-12.2) 09/03/18 01:40 INR 1.0 09/03/18 01:40 APTT 71 SECONDS (21-34) H 09/06/18 06:03 - Constitutional Appears: No Acute Distress - Head Exam Head Exam: NORMAL INSPECTION - Eye Exam Eye Exam: Normal appearance - ENT Exam ENT Exam: Normal Exam - Neck Exam Neck Exam: Normal Inspection - Respiratory Exam Additional comments: Few rales at both bases. - Cardiovascular Exam Cardiovascular Exam: REGULAR RHYTHM, Murmur - GI/Abdominal Exam GI & Abdominal Exam: Soft, Normal Bowel Sounds - Rectal Exam Rectal Exam: Deferred - Extremities Exam Extremities Exam: Full ROM, Normal Inspection - Back Exam Back Exam: NORMAL INSPECTION - Neurological Exam Neurological Exam: Alert, Awake, Oriented x3 - Psychiatric Exam Psychiatric exam: Anxious - Skin Skin Exam: Dry, Intact, Normal Color, Warm Assessment and Plan (1) Acute ST elevation myocardial infarction (STEMI) of anterior wall Assessment & Plan: S/p anterior wall IA and cardiogenic shock. Status: Acute (2) Acute pulmonary edema Status: Resolved (3) Acute respiratory failure Status: Resolved (4) Uncontrolled diabetes mellitus Status: Resolved
[2018-09-08] MEDS: ceFAZolin IV 2 gm in Dextrose 2 GM/50 ML BAG IVPB SCH ×3 (02:36→18:06)
[2018-09-08 05:43] LABS: BASO # 0.1 K/uL (0.0-0.2); BASO % 0.5 % (0.0-2.0); EOS % 0.1 % (0.0-4.0); LYMPH # 0.8 K/uL (1.0-4.3); LYMPH % 5.8 % (20.0-40.0); MEAN CELL VOLUME 90.7 fL (80.0-94.0); MEAN CORPUSCULAR HEMOGLOBIN 29.8 pg (27.0-31.0); MEAN CORPUSCULAR HGB CONC 32.9 g/dL (33.0-37.0); MEAN PLATELET VOLUME 10.2 fL (7.2-11.7); MONO # 1.2 K/uL (0.0-0.8); MONO % 8.8 % (0.0-10.0); NEUT # 11.6 K/uL (1.8-7.0); NEUT % 84.8 % (50.0-75.0); PLATELET COUNT 233 K/uL (130-400); RBC 5.38 Mil/uL (4.40-5.90); RED CELL DISTRIBUTION WIDTH 14.2 % (11.5-14.5); WHITE BLOOD COUNT 13.7 K/uL (4.8-10.8)
[2018-09-08] MEDS: (Novolog) Insulin Aspart, Recombinant 100 u/ml 10 ml vial SC SCH (05:51)
[2018-09-08 06:05] LABS: ALB/GLOB RATIO 1.1 (1.0-2.1); ALBUMIN 3.5 g/dL (3.5-5.0)
[2018-09-08 08:17] LABS: BANDS 2 % (0-2); LYMPHOCYTE 3 % (20-40); MONOCYTE 2 % (0-10); NEUTROPHIL 93 % (50-75); PLATELET ESTIMATE NORMAL (NORMAL); TOTAL CELLS COUNTED 100
[2018-09-08] MEDS: Metoprolol 1 mg/ml Inj IVP SCH (09:19)
[2018-09-08] MEDS: Lidocaine 5% Patch TD SCH (09:20)
--- NOTE | 2018-09-08 10:47 | CP.CCUPN ---
<Nate Aden - Last Filed: 09/08/18 10:44> CCU Subjective - Physician Review Subjective (Free Text): 09/08/18 08:55 Patient seen and examined at bedside. No acute events overnight. Patient is doing well, passed swallow evaluation and will start diet. Critical Care Time Spent (in minutes): 35 CCU Objective - Vital Signs / Intake & Output Vital Signs (Last 4 hours): Vital Signs Temp Pulse Resp BP Pulse Ox 09/08/18 10:01 83 19 137/69 99 09/08/18 10:00 83 20 99 09/08/18 09:18 153/71 H 09/08/18 09:09 85 19 153/71 H 100 09/08/18 09:00 92 H 20 100 09/08/18 08:01 86 21 160/88 H 100 09/08/18 08:00 98.2 F 88 19 100 09/08/18 07:01 82 17 161/80 H 100 09/08/18 07:00 88 21 100 Intake and Output (Last 8hrs): Intake & Output 09/07/18 09/08/18 09/08/18 22:59 06:59 14:59 Intake Total 100 450 Output Total 680 565 575 Balance -580 -565 -125 Weight 65.317 kg Intake: Intake, IV Amount 250 Right Medial Port 150 Internal Jugular Right Proximal Port 100 Internal Jugular Oral 100 200 Output: Urine 680 565 575 Urethral (Go[place]) 680 565 275 Urine, Voided 300 Other: # Voids Urine, Voided 2 # Bowel Movements 1 - Physical Exam Head: Positive for: Atraumatic, Normocephalic Pupils: Positive for: PERRL Extroacular Muscles: Positive for: EOMI Conjunctiva: Positive for: Normal. Negative for: Injected, Icteric Ears: Positive for: Normal Mouth: Positive for: Moist Mucous Membranes Pharnyx: Positive for: Normal Nose (Internal): Positive for: Normal Inspection Neck: Positive for: Normal Range of Motion, Trachea Midline. Negative for: Meningeal Signs, MIDLINE TENDERNESS, Paraspinal Tenderness, JVD, Lymphadenopathy, Bruit, Other Respiratory/Chest: Positive for: Clear to Auscultation. Negative for: Respiratory Distress, Accessory Muscle Use, Wheezes, Rales, Rhonchi Cardiovascular: Positive for: Normal S1, S2, Peripheal Pulses Present, Tachycardic. Negative for: Murmurs Abdomen: Positive for: Normal Bowel Sounds. Negative for: Tenderness, Distention, Peritoneal Signs Upper Extremity: Positive for: Normal Inspection, Capillary Refill < 2s. Negative for: Cyanosis, Edema Lower Extremity: Positive for: Normal Inspection, Edema Neurological: Positive for: GCS=15 Skin: Positive for: Warm, Dry, Normal Color. Negative for: Rashes Psychiatric: Positive for: Alert, Oriented x 3, Normal Insight, Normal Concentration - Medications Active Medications: Active Medications Generic Name Dose Route Start Last Admin Trade Name Freq PRN Reason Stop Dose Admin Aspirin 81 mg 09/04/18 13:15 09/08/18 09:18 Aspirin Chewable PO 81 mg DAILY STEPHANIE Administration Dextrose 0 ml 09/05/18 16:12 Dextrose 50% Inj IV STAT PRN Hypoglycemia Protocol Protocol Dextrose 0 gm 09/05/18 16:12 Glutose 15 PO ONCE PRN Hypoglycemia Protocol Protocol Furosemide 20 mg 09/08/18 10:00 09/08/18 09:18 Lasix IVP 20 mg DAILY STEPHANIE Administration Glucagon 0 mg 09/05/18 16:12 Glucagen Diagnostic Kit IM STAT PRN Hypoglycemia Protocol Protocol Heparin Sodium (Porcine) 5,000 units 09/06/18 15:30 09/08/18 02:37 Heparin SC 5,000 units Q12H STEPHANIE Administration Cefazolin Sodium/Dextrose 2 gm in 50 mls @ 100 mls/hr 09/05/18 11:00 09/08/18 10:18 Ancef Iv 2 Gm Duplex IVPB 09/10/18 03:29 100 mls/hr Q8H STEPHANIE Administration Protocol Dextrose 1,000 mls @ 0 mls/hr 09/05/18 16:12 Dextrose 5% In Water 1000 Ml IV .Q0M PRN Hypoglycemia Protocol Protocol Per Protocol Potassium Chloride 20 meq in 100 mls @ 50 mls/hr 09/08/18 08:00 09/08/18 10:11 Potassium Chloride 20 Meq/100 Ml IVPB 09/08/18 11:59 50 mls/hr Q2H STEPHANIE Administration Insulin Human Regular 0 unit 09/08/18 11:30 Novolin R SC ACHS STEPHANIE Protocol Lidocaine 1 ea 09/05/18 12:00 09/08/18 09:20 Lidoderm TD Not Given DAILY STEPHANIE Metoprolol Tartrate 25 mg 09/08/18 18:00 Lopressor PO BID STEPHANIE Pantoprazole Sodium 40 mg 09/09/18 10:00 Protonix Ec Tab PO DAILY STEPHANIE Rosuvastatin Calcium 40 mg 09/03/18 22:00 09/07/18 21:28 Crestor PO 40 mg HS STEPHANIE Administration Ticagrelor 90 mg 09/03/18 10:00 09/08/18 09:18 Brilinta PO 90 mg BID STEPHANIE Administration - Patient Studies Lab Studies: Microbiology Studies 09/04/18 05:35 Blood Culture - Preliminary Blood-Venous NO GROWTH AFTER 4 DAYS 09/04/18 05:35 Blood Culture - Preliminary Blood-Venous NO GROWTH AFTER 4 DAYS 09/05/18 12:17 Gram Stain - Final Trachasp Sputum Culture - Final Staphylococcus Aureus Lab Studies 09/08/18 09/08/18 09/08/18 Range/Units 05:26 05:25 05:12 WBC 13.7 H (4.8-10.8) K/uL RBC 5.38 (4.40-5.90) Mil/uL Hgb 16.0 (12.0-18.0) g/dL Hct 48.8 (35.0-51.0) % MCV 90.7 (80.0-94.0) fL MCH 29.8 (27.0-31.0) pg MCHC 32.9 L (33.0-37.0) g/dL RDW 14.2 (11.5-14.5) % Plt Count 233 (130-400) K/uL MPV 10.2 (7.2-11.7) fL Neut % (Auto) 84.8 H (50.0-75.0) % Lymph % (Auto) 5.8 L (20.0-40.0) % Rhea % (Auto) 8.8 (0.0-10.0) % Eos % (Auto) 0.1 (0.0-4.0) % Baso % (Auto) 0.5 (0.0-2.0) % Neut # (Auto) 11.6 H (1.8-7.0) K/uL Lymph # (Auto) 0.8 L (1.0-4.3) K/uL Rhea # (Auto) 1.2 H (0.0-0.8) K/uL Eos # (Auto) 0.0 (0.0-0.7) K/uL Baso # (Auto) 0.1 (0.0-0.2) K/uL Neutrophils % (Manual) 93 H (50-75) % Band Neutrophils % 2 (0-2) % Lymphocytes % (Manual) 3 L (20-40) % Monocytes % (Manual) 2 (0-10) % Platelet Estimate Normal (NORMAL) RBC Morphology Normal Sodium 148 (132-148) mmol/L Potassium 2.9 L (3.6-5.2) mmol/L Chloride 111 H (98-107) mmol/L Carbon Dioxide 30 (22-30) mmol/L Anion Gap 10 (10-20) BUN 36 H (9-20) mg/dL Creatinine 1.9 H (0.8-1.5) mg/dL Est GFR ( Amer) 42 Est GFR (Non-Af Amer) 35 POC Glucose (mg/dL) 182 H (65-110) mg/dL Random Glucose 172 H (75-110) mg/dL Calcium 9.0 (8.6-10.4) mg/dl Phosphorus 2.6 (2.5-4.5) mg/dL Magnesium 2.4 H (1.6-2.3) mg/dL Total Bilirubin 0.7 (0.2-1.3) mg/dL AST 70 H (17-59) U/L ALT 19 L (21-72) U/L Alkaline Phosphatase 146 H D (38-126) U/L Total Protein 6.7 (6.3-8.3) g/dL Albumin 3.5 (3.5-5.0) g/dL Globulin 3.2 (2.2-3.9) gm/dL Albumin/Globulin Ratio 1.1 (1.0-2.1) 09/07/18 09/07/18 09/07/18 Range/Units 23:26 17:42 11:17 WBC (4.8-10.8) K/uL RBC (4.40-5.90) Mil/uL Hgb (12.0-18.0) g/dL Hct (35.0-51.0) % MCV (80.0-94.0) fL MCH (27.0-31.0) pg MCHC (33.0-37.0) g/dL RDW (11.5-14.5) % Plt Count (130-400) K/uL MPV (7.2-11.7) fL Neut % (Auto) (50.0-75.0) % Lymph % (Auto) (20.0-40.0) % Rhea % (Auto) (0.0-10.0) % Eos % (Auto) (0.0-4.0) % Baso % (Auto) (0.0-2.0) % Neut # (Auto) (1.8-7.0) K/uL Lymph # (Auto) (1.0-4.3) K/uL Rhea # (Auto) (0.0-0.8) K/uL Eos # (Auto) (0.0-0.7) K/uL Baso # (Auto) (0.0-0.2) K/uL Neutrophils % (Manual) (50-75) % Band Neutrophils % (0-2) % Lymphocytes % (Manual) (20-40) % Monocytes % (Manual) (0-10) % Platelet Estimate (NORMAL) RBC Morphology Sodium (132-148) mmol/L Potassium (3.6-5.2) mmol/L Chloride (98-107) mmol/L Carbon Dioxide (22-30) mmol/L Anion Gap (10-20) BUN (9-20) mg/dL Creatinine (0.8-1.5) mg/dL Est GFR ( Amer) Est GFR (Non-Af Amer) POC Glucose (mg/dL) 312 H 291 H 287 H (65-110) mg/dL Random Glucose (75-110) mg/dL Calcium (8.6-10.4) mg/dl Phosphorus (2.5-4.5) mg/dL Magnesium (1.6-2.3) mg/dL Total Bilirubin (0.2-1.3) mg/dL AST (17-59) U/L ALT (21-72) U/L Alkaline Phosphatase (38-126) U/L Total Protein (6.3-8.3) g/dL Albumin (3.5-5.0) g/dL Globulin (2.2-3.9) gm/dL Albumin/Globulin Ratio (1.0-2.1) Laboratory Results - last 24 hr 09/07/18 09/07/18 09/07/18 11:17 17:42 23:26 WBC RBC Hgb Hct MCV MCH MCHC RDW Plt Count MPV Neut % (Auto) Lymph % (Auto) Rhea % (Auto) Eos % (Auto) Baso % (Auto) Neut # (Auto) Lymph # (Auto) Rhea # (Auto) Eos # (Auto) Baso # (Auto) Neutrophils % (Manual) Band Neutrophils % Lymphocytes % (Manual) Monocytes % (Manual) Platelet Estimate RBC Morphology Sodium Potassium Chloride Carbon Dioxide Anion Gap BUN Creatinine Est GFR ( Amer) Est GFR (Non-Af Amer) POC Glucose (mg/dL) 287 H 291 H 312 H Random Glucose Calcium Phosphorus Magnesium Total Bilirubin AST ALT Alkaline Phosphatase Total Protein Albumin Globulin Albumin/Globulin Ratio 09/08/18 09/08/18 09/08/18 05:12 05:25 05:26 WBC 13.7 H RBC 5.38 Hgb 16.0 Hct 48.8 MCV 90.7 MCH 29.8 MCHC 32.9 L RDW 14.2 Plt Count 233 MPV 10.2 Neut % (Auto) 84.8 H Lymph % (Auto) 5.8 L Rhea % (Auto) 8.8 Eos % (Auto) 0.1 Baso % (Auto) 0.5 Neut # (Auto) 11.6 H Lymph # (Auto) 0.8 L Rhea # (Auto) 1.2 H Eos # (Auto) 0.0 Baso # (Auto) 0.1 Neutrophils % (Manual) 93 H Band Neutrophils % 2 Lymphocytes % (Manual) 3 L Monocytes % (Manual) 2 Platelet Estimate Normal RBC Morphology Normal Sodium 148 Potassium 2.9 L Chloride 111 H Carbon Dioxide 30 Anion Gap 10 BUN 36 H Creatinine 1.9 H Est GFR ( Amer) 42 Est GFR (Non-Af Amer) 35 POC Glucose (mg/dL) 182 H Random Glucose 172 H Calcium 9.0 Phosphorus 2.6 Magnesium 2.4 H Total Bilirubin 0.7 AST 70 H ALT 19 L Alkaline Phosphatase 146 H D Total Protein 6.7 Albumin 3.5 Globulin 3.2 Albumin/Globulin Ratio 1.1 Fingerstick Blood Sugar Results: 182 Critical Care Progress Note - Nutrition Nutrition: Nutrition Category Date Time Status Pureed [Dysphagia/Modified Consistency Diet] [DIET] Diets 12/04/18 Breakfast Active Assessment/Plan - Assessment and Plan (Free Text) Assessment: Patient is a 73 year old male presenting with Acute Anterior wall TX and pulmonary edema. Patient was a code heart and code blue which required intubation in the laboratory chief. Plan: Neuro: - Patient is awake, AAO X 3 - Head CT (09/06): No acute intracranial abnormality. If there is a persistent focal neurologic deficit and an ongoing clinical concern for acute infarction, an MRI of the brain without intravenous contrast would be a more sensitive modality for evaluation of hyperacute/acute ischemic infarction. Moderate age- related global parenchymal volume loss. Cardiovascular: Anterior wall TX - S/p cardiac cath L Main: - Entire LAD has diffuse 90% calcific narrowing. Mid 100% occlusion - L Cx/OM: Dominant: Proximal 85%, OM2 99% - RCA: Non dominant and diffuse 99% disease - LV: EF 10-15%, Dilated ischemic CMP, No - Cardiology consulted, Dr. Rivera - Follow up heart catheterization for other vessel stenting, once stable - ASA 81mg PO QD - Brilinta 90mg PO BID - Crestor 40mg QD HS - Heparin 5000 units SC Q12 - Lopressor 25mg PO Q12 Atrial fibrillation - EKG (09/06): Atrial fibrillation, bpm @ 142 - Lopressor 25mg PO Q12 Cardiogenic shock - Off baloon pump (09/05) - Off pressors - RIJ TLC placed on 09/03 - Lasix 20mg IV QD Pulmonary: Pneumonia - CXR (09/07): Persistent mild pulmonary venous congestive changes appear slightly improved. There does appear to be small residual bilateral lower lobe alveolar-type infiltrates. - Sputum cx: S. aureus - Cefazolin 2g IV Q8 (Started on 09/05) - Received 1 dose of Vancomycin Respiratory distress - Patient not in distress - Continue NC 2L - Continue to monitor GI: Transaminitis - AST/ALT: 70/20- downtrending - Continue to monitor Renal: NAY - BUN/Cr: 36/1.9- downtrending - Continue to monitor - Avoid nephrotoxins Hypokalemia - Potassium chloride - Continue to monitor Hypophosphatemia - Resolved - Continue to monitor Endo: DM-2 - ISS - Accucheck ACHS - Hypoglycemia protocol ID: Leukocytosis - Cefazolin 2g IV Q8 (Started on 09/05) - Received 1 dose of Vancomycin - Sputum cx: S. aureus - Blood cx: no growth to date - Urine cx: no growth to date - MRSA: not detected Prophylaxis: - Protonix 40mg PO QD - SCD's - Heparin 5000 units SC Q12 Case discussed with Dr. Moises Aden, PGY-1 <Waqas De Leon - Last Filed: 09/08/18 18:42> CCU Objective - Vital Signs / Intake & Output Vital Signs (Last 4 hours): Vital Signs Temp Pulse Resp BP Pulse Ox 09/08/18 18:06 161/91 H 09/08/18 18:01 89 22 161/91 H 100 09/08/18 18:00 90 23 100 09/08/18 17:01 92 H 24 169/87 H 99 09/08/18 17:00 91 H 18 100 09/08/18 16:00 98.5 F 97 H 27 H 165/100 H 99 09/08/18 15:01 95 H 25 H 152/89 H 100 09/08/18 15:00 91 H 20 99 Intake and Output (Last 8hrs): Intake & Output 09/08/18 09/08/18 09/08/18 06:59 14:59 22:59 Intake Total 850 200 Output Total 565 1475 200 Balance -565 -625 0 Weight 144 lb Intake: Intake, IV Amount 400 100 Right Medial Port 300 100 Internal Jugular Right Proximal Port 100 0 Internal Jugular Oral 450 100 Output: Urine 565 1475 200 Urethral ([place]) 565 275 Urine, Voided 1200 200 Other: # Voids Urine, Voided 1 1 # Bowel Movements 0 0 - Medications Active Medications: Active Medications Generic Name Dose Route Start Last Admin Trade Name Freq PRN Reason Stop Dose Admin Aspirin 81 mg 09/04/18 13:15 09/08/18 09:18 Aspirin Chewable PO 81 mg DAILY STEPHANIE Administration Dextrose 0 ml 09/05/18 16:12 Dextrose 50% Inj IV STAT PRN Hypoglycemia Protocol Protocol Dextrose 0 gm 09/05/18 16:12 Glutose 15 PO ONCE PRN Hypoglycemia Protocol Protocol Furosemide 20 mg 09/08/18 10:00 09/08/18 09:18 Lasix IVP 20 mg DAILY STEPHANIE Administration Glucagon 0 mg 09/05/18 16:12 Glucagen Diagnostic Kit IM STAT PRN Hypoglycemia Protocol Protocol Heparin Sodium (Porcine) 5,000 units 09/06/18 15:30 09/08/18 16:10 Heparin SC 5,000 units Q12H STEPHANIE Administration Cefazolin Sodium/Dextrose 2 gm in 50 mls @ 100 mls/hr 09/05/18 11:00 09/08/18 18:06 Ancef Iv 2 Gm Duplex IVPB 09/10/18 03:29 100 mls/hr Q8H STEPHANIE Administration Protocol Dextrose 1,000 mls @ 0 mls/hr 09/05/18 16:12 Dextrose 5% In Water 1000 Ml IV .Q0M PRN Hypoglycemia Protocol Protocol Per Protocol Insulin Human Regular 0 unit 09/08/18 11:30 09/08/18 16:32 Novolin R SC 4 u ACHS STEPHANIE Administration Protocol Lidocaine 1 ea 09/05/18 12:00 09/08/18 09:20 Lidoderm TD Not Given DAILY STEPHANIE Metoprolol Tartrate 25 mg 09/08/18 18:00 09/08/18 18:06 Lopressor PO 25 mg BID STEPHANIE Administration Pantoprazole Sodium 40 mg 09/09/18 10:00 Protonix Ec Tab PO DAILY STEPHANIE Rosuvastatin Calcium 40 mg 09/03/18 22:00 09/07/18 21:28 Crestor PO 40 mg HS STEPHANIE Administration Ticagrelor 90 mg 09/03/18 10:00 09/08/18 18:06 Brilinta PO 90 mg BID STEPHANIE Administration - Patient Studies Lab Studies: Microbiology Studies 09/04/18 05:35 Blood Culture - Preliminary Blood-Venous NO GROWTH AFTER 4 DAYS 09/04/18 05:35 Blood Culture - Preliminary Blood-Venous NO GROWTH AFTER 4 DAYS Lab Studies 09/08/18 09/08/18 09/08/18 Range/Units 05:26 05:25 05:12 WBC 13.7 H (4.8-10.8) K/uL RBC 5.38 (4.40-5.90) Mil/uL Hgb 16.0 (12.0-18.0) g/dL Hct 48.8 (35.0-51.0) % MCV 90.7 (80.0-94.0) fL MCH 29.8 (27.0-31.0) pg MCHC 32.9 L (33.0-37.0) g/dL RDW 14.2 (11.5-14.5) % Plt Count 233 (130-400) K/uL MPV 10.2 (7.2-11.7) fL Neut % (Auto) 84.8 H (50.0-75.0) % Lymph % (Auto) 5.8 L (20.0-40.0) % Rhea % (Auto) 8.8 (0.0-10.0) % Eos % (Auto) 0.1 (0.0-4.0) % Baso % (Auto) 0.5 (0.0-2.0) % Neut # (Auto) 11.6 H (1.8-7.0) K/uL Lymph # (Auto) 0.8 L (1.0-4.3) K/uL Rhea # (Auto) 1.2 H (0.0-0.8) K/uL Eos # (Auto) 0.0 (0.0-0.7) K/uL Baso # (Auto) 0.1 (0.0-0.2) K/uL Neutrophils % (Manual) 93 H (50-75) % Band Neutrophils % 2 (0-2) % Lymphocytes % (Manual) 3 L (20-40) % Monocytes % (Manual) 2 (0-10) % Platelet Estimate Normal (NORMAL) RBC Morphology Normal Sodium 148 (132-148) mmol/L Potassium 2.9 L (3.6-5.2) mmol/L Chloride 111 H (98-107) mmol/L Carbon Dioxide 30 (22-30) mmol/L Anion Gap 10 (10-20) BUN 36 H (9-20) mg/dL Creatinine 1.9 H (0.8-1.5) mg/dL Est GFR ( Amer) 42 Est GFR (Non-Af Amer) 35 POC Glucose (mg/dL) 182 H (65-110) mg/dL Random Glucose 172 H (75-110) mg/dL Calcium 9.0 (8.6-10.4) mg/dl Phosphorus 2.6 (2.5-4.5) mg/dL Magnesium 2.4 H (1.6-2.3) mg/dL Total Bilirubin 0.7 (0.2-1.3) mg/dL AST 70 H (17-59) U/L ALT 19 L (21-72) U/L Alkaline Phosphatase 146 H D (38-126) U/L Total Protein 6.7 (6.3-8.3) g/dL Albumin 3.5 (3.5-5.0) g/dL Globulin 3.2 (2.2-3.9) gm/dL Albumin/Globulin Ratio 1.1 (1.0-2.1) 09/07/18 Range/Units 23:26 WBC (4.8-10.8) K/uL RBC (4.40-5.90) Mil/uL Hgb (12.0-18.0) g/dL Hct (35.0-51.0) % MCV (80.0-94.0) fL MCH (27.0-31.0) pg MCHC (33.0-37.0) g/dL RDW (11.5-14.5) % Plt Count (130-400) K/uL MPV (7.2-11.7) fL Neut % (Auto) (50.0-75.0) % Lymph % (Auto) (20.0-40.0) % Rhea % (Auto) (0.0-10.0) % Eos % (Auto) (0.0-4.0) % Baso % (Auto) (0.0-2.0) % Neut # (Auto) (1.8-7.0) K/uL Lymph # (Auto) (1.0-4.3) K/uL Rhea # (Auto) (0.0-0.8) K/uL Eos # (Auto) (0.0-0.7) K/uL Baso # (Auto) (0.0-0.2) K/uL Neutrophils % (Manual) (50-75) % Band Neutrophils % (0-2) % Lymphocytes % (Manual) (20-40) % Monocytes % (Manual) (0-10) % Platelet Estimate (NORMAL) RBC Morphology Sodium (132-148) mmol/L Potassium (3.6-5.2) mmol/L Chloride (98-107) mmol/L Carbon Dioxide (22-30) mmol/L Anion Gap (10-20) BUN (9-20) mg/dL Creatinine (0.8-1.5) mg/dL Est GFR ( Amer) Est GFR (Non-Af Amer) POC Glucose (mg/dL) 312 H (65-110) mg/dL Random Glucose (75-110) mg/dL Calcium (8.6-10.4) mg/dl Phosphorus (2.5-4.5) mg/dL Magnesium (1.6-2.3) mg/dL Total Bilirubin (0.2-1.3) mg/dL AST (17-59) U/L ALT (21-72) U/L Alkaline Phosphatase (38-126) U/L Total Protein (6.3-8.3) g/dL Albumin (3.5-5.0) g/dL Globulin (2.2-3.9) gm/dL Albumin/Globulin Ratio (1.0-2.1) Laboratory Results - last 24 hr 09/07/18 09/08/18 09/08/18 23:26 05:12 05:25 WBC 13.7 H RBC 5.38 Hgb 16.0 Hct 48.8 MCV 90.7 MCH 29.8 MCHC 32.9 L RDW 14.2 Plt Count 233 MPV 10.2 Neut % (Auto) 84.8 H Lymph % (Auto) 5.8 L Rhea % (Auto) 8.8 Eos % (Auto) 0.1 Baso % (Auto) 0.5 Neut # (Auto) 11.6 H Lymph # (Auto) 0.8 L Rhea # (Auto) 1.2 H Eos # (Auto) 0.0 Baso # (Auto) 0.1 Neutrophils % (Manual) 93 H Band Neutrophils % 2 Lymphocytes % (Manual) 3 L Monocytes % (Manual) 2 Platelet Estimate Normal RBC Morphology Normal Sodium Potassium Chloride Carbon Dioxide Anion Gap BUN Creatinine Est GFR ( Amer) Est GFR (Non-Af Amer) POC Glucose (mg/dL) 312 H 182 H Random Glucose Calcium Phosphorus Magnesium Total Bilirubin AST ALT Alkaline Phosphatase Total Protein Albumin Globulin Albumin/Globulin Ratio 09/08/18 05:26 WBC RBC Hgb Hct MCV MCH MCHC RDW Plt Count MPV Neut % (Auto) Lymph % (Auto) Rhea % (Auto) Eos % (Auto) Baso % (Auto) Neut # (Auto) Lymph # (Auto) Rhea # (Auto) Eos # (Auto) Baso # (Auto) Neutrophils % (Manual) Band Neutrophils % Lymphocytes % (Manual) Monocytes % (Manual) Platelet Estimate RBC Morphology Sodium 148 Potassium 2.9 L Chloride 111 H Carbon Dioxide 30 Anion Gap 10 BUN 36 H Creatinine 1.9 H Est GFR ( Amer) 42 Est GFR (Non-Af Amer) 35 POC Glucose (mg/dL) Random Glucose 172 H Calcium 9.0 Phosphorus 2.6 Magnesium 2.4 H Total Bilirubin 0.7 AST 70 H ALT 19 L Alkaline Phosphatase 146 H D Total Protein 6.7 Albumin 3.5 Globulin 3.2 Albumin/Globulin Ratio 1.1 Critical Care Progress Note - Nutrition Nutrition: Nutrition Category Date Time Status Pureed [Dysphagia/Modified Consistency Diet] [DIET] Diets 09/08/18 Breakfast Active Attending/Attestation - Attestation I have personally seen and examined this patient.: Yes I have fully participated in the care of the patient.: Yes I have reviewed all pertinent clinical information: Yes Notes (Text): 09/08/18 18:42 Patient seen and examined in the intensive care unit. Assessment and plan as per resident note
[2018-09-08] MEDS: (Novolin R) Insulin Human Regular 100 units/ml vial SC SCH ×3 (11:16→21:37)
[2018-09-08] MEDS ORDERED: (Novolog) Insulin Aspart, Recombinant 100 u/ml 10 ml vial SC SCH (11:30)
[2018-09-08 20:35] LABS: CALCIUM 9.3 mg/dl (8.6-10.4)
[2018-09-08] MEDS ORDERED: Potassium Chloride 20 mEq ER Tab PO STA (21:48)
--- NOTE | 2018-09-08 22:54 | CP.PCM.PN ---
Subjective - Date & Time of Evaluation Date of Evaluation: 09/08/18 Time of Evaluation: 20:00 - Subjective Subjective: Patient awake, in no respiratory distress, oriented x 3, tolerating diet well. Has no complaint of chest pain, SOB. Telemetry reveals RSR. Objective - Vital Signs/Intake and Output Vital Signs (last 24 hours): Temp Pulse Resp BP Pulse Ox 98.5 F 69 16 150/76 99 09/08/18 20:00 09/08/18 20:01 09/08/18 20:01 09/08/18 20:01 09/08/18 20:01 Intake and Output: 09/08/18 09/09/18 18:59 06:59 Intake Total 1250 0 Output Total 1775 Balance -525 0 - Medications Medications: Current Medications Aspirin (Aspirin Chewable) 81 mg PO DAILY [facility] Last Admin: 09/08/18 09:18 Dose: 81 mg Dextrose (Dextrose 50% Inj) 0 ml IV STAT PRN; Protocol PRN Reason: Hypoglycemia Protocol Dextrose (Glutose 15) 0 gm PO ONCE PRN; Protocol PRN Reason: Hypoglycemia Protocol Furosemide (Lasix) 20 mg IVP DAILY [facility] Last Admin: 09/08/18 09:18 Dose: 20 mg Glucagon (Glucagen Diagnostic Kit) 0 mg IM STAT PRN; Protocol PRN Reason: Hypoglycemia Protocol Heparin Sodium (Porcine) (Heparin) 5,000 units SC Q12H [facility] Last Admin: 09/08/18 16:10 Dose: 5,000 units Cefazolin Sodium/Dextrose (Ancef Iv 2 Gm Duplex) 2 gm in 50 mls @ 100 mls/hr IVPB Q8H STEPHANIE; Protocol Stop: 09/10/18 03:29 Last Admin: 09/08/18 18:06 Dose: 100 mls/hr Dextrose (Dextrose 5% In Water 1000 Ml) 1,000 mls @ 0 mls/hr IV .Q0M PRN; Protocol PRN Reason: Hypoglycemia Protocol Insulin Human Regular (Novolin R) 0 unit SC ACHS [facility]; Protocol Last Admin: 09/08/18 21:37 Dose: Not Given Lidocaine (Lidoderm) 1 ea TD DAILY [facility] Last Admin: 09/08/18 09:20 Dose: Not Given Metoprolol Tartrate (Lopressor) 25 mg PO BID [facility] Last Admin: 09/08/18 18:06 Dose: 25 mg Pantoprazole Sodium (Protonix Ec Tab) 40 mg PO DAILY [facility] Rosuvastatin Calcium (Crestor) 40 mg PO HS [facility] Last Admin: 09/08/18 21:21 Dose: 40 mg Ticagrelor (Brilinta) 90 mg PO BID [facility] Last Admin: 09/08/18 18:06 Dose: 90 mg - Labs Labs: 09/08/18 05:25 09/08/18 20:11 PT 11.1 SECONDS (9.7-12.2) 09/03/18 01:40 INR 1.0 09/03/18 01:40 APTT 71 SECONDS (21-34) H 09/06/18 06:03 - Constitutional Appears: Well, No Acute Distress - Head Exam Head Exam: NORMAL INSPECTION - Eye Exam Eye Exam: Normal appearance - ENT Exam ENT Exam: Normal Exam - Neck Exam Neck Exam: Normal Inspection - Cardiovascular Exam Additional comments: Few rales at both bases. - GI/Abdominal Exam GI & Abdominal Exam: Soft, Normal Bowel Sounds - Rectal Exam Rectal Exam: Deferred - Extremities Exam Extremities Exam: Normal Inspection - Back Exam Back Exam: NORMAL INSPECTION - Neurological Exam Neurological Exam: Alert, Awake, Oriented x3 - Psychiatric Exam Psychiatric exam: Anxious - Skin Skin Exam: Dry, Intact, Normal Color Assessment and Plan (1) Acute ST elevation myocardial infarction (STEMI) of anterior wall Status: Resolved (2) Acute pulmonary edema Status: Resolved (3) Acute respiratory failure Status: Resolved (4) Uncontrolled diabetes mellitus Status: Resolved
[2018-09-09] MEDS: ceFAZolin IV 2 gm in Dextrose 2 GM/50 ML BAG IVPB SCH ×3 (02:29→18:21)
[2018-09-09 05:51] LABS: BASO # 0.1 K/uL (0.0-0.2); BASO % 0.4 % (0.0-2.0); EOS % 0.2 % (0.0-4.0); HEMOGLOBIN 17.2 g/dL (12.0-18.0); LYMPH # 0.8 K/uL (1.0-4.3); MEAN CELL VOLUME 92.6 fL (80.0-94.0); MEAN CORPUSCULAR HEMOGLOBIN 30.7 pg (27.0-31.0); MEAN CORPUSCULAR HGB CONC 33.1 g/dL (33.0-37.0); MEAN PLATELET VOLUME 10.4 fL (7.2-11.7); MONO # 1.6 K/uL (0.0-0.8); MONO % 11.2 % (0.0-10.0); NEUT # 11.6 K/uL (1.8-7.0); NEUT % 82.2 % (50.0-75.0); PLATELET COUNT 243 K/uL (130-400); RBC 5.62 Mil/uL (4.40-5.90); RED CELL DISTRIBUTION WIDTH 14.3 % (11.5-14.5); WHITE BLOOD COUNT 14.2 K/uL (4.8-10.8)
[2018-09-09 06:11] LABS: ALBUMIN 3.7 g/dL (3.5-5.0); CALCIUM 9.4 mg/dl (8.6-10.4)
--- NOTE | 2018-09-09 08:04 | CP.CCUPN ---
<Nate Aden - Last Filed: 09/09/18 10:39> CCU Subjective - Physician Review Subjective (Free Text): 09/09/18 07:55 Patient seen and examined at bedside. No acute events overnight. Patient is doing well. Critical Care Time Spent (in minutes): 35 CCU Objective - Vital Signs / Intake & Output Vital Signs (Last 4 hours): Vital Signs Pulse Resp BP Pulse Ox 09/09/18 07:01 89 13 135/75 97 09/09/18 07:00 96 H 14 98 09/09/18 06:01 88 15 134/84 96 09/09/18 06:00 97 H 22 97 09/09/18 05:01 91 H 151/82 H 99 09/09/18 05:00 81 15 99 Intake and Output (Last 8hrs): Intake & Output 09/08/18 09/09/18 09/09/18 22:59 06:59 14:59 Intake Total 500 50 0 Output Total 500 300 Balance 0 -250 0 Weight 62.823 kg Intake: Intake, IV Amount 150 50 Right Medial Port 150 Internal Jugular Right Proximal Port 0 50 Internal Jugular Oral 350 0 0 Output: Urine 500 300 Urine, Voided 500 300 Other: # Voids Urine, Voided 0 # Bowel Movements 1 - Physical Exam Head: Positive for: Atraumatic, Normocephalic Pupils: Positive for: PERRL Extroacular Muscles: Positive for: EOMI Conjunctiva: Positive for: Normal. Negative for: Injected, Icteric Mouth: Positive for: Moist Mucous Membranes Respiratory/Chest: Positive for: Clear to Auscultation. Negative for: Respiratory Distress, Accessory Muscle Use, Wheezes, Rales, Rhonchi Cardiovascular: Positive for: Normal S1, S2, Irregular Rhythm, Peripheal Pulses Present. Negative for: Murmurs, Rub, Gallop Abdomen: Positive for: Normal Bowel Sounds. Negative for: Tenderness, Distention, Peritoneal Signs Upper Extremity: Positive for: Normal Inspection, Capillary Refill < 2s. Negative for: Cyanosis, Edema Lower Extremity: Positive for: Normal Inspection, Edema Neurological: Positive for: GCS=15 Skin: Positive for: Warm, Dry, Normal Color. Negative for: Rashes Psychiatric: Positive for: Alert, Oriented x 3, Normal Insight, Normal Concentration - Medications Active Medications: Active Medications Generic Name Dose Route Start Last Admin Trade Name Freq PRN Reason Stop Dose Admin Aspirin 81 mg 09/04/18 13:15 09/08/18 09:18 Aspirin Chewable PO 81 mg DAILY STEPHANIE Administration Dextrose 0 ml 09/05/18 16:12 Dextrose 50% Inj IV STAT PRN Hypoglycemia Protocol Protocol Dextrose 0 gm 09/05/18 16:12 Glutose 15 PO ONCE PRN Hypoglycemia Protocol Protocol Furosemide 20 mg 09/08/18 10:00 09/08/18 09:18 Lasix IVP 20 mg DAILY STEPHANIE Administration Glucagon 0 mg 09/05/18 16:12 Glucagen Diagnostic Kit IM STAT PRN Hypoglycemia Protocol Protocol Heparin Sodium (Porcine) 5,000 units 09/06/18 15:30 09/09/18 02:30 Heparin SC 5,000 units Q12H STEPHANIE Administration Cefazolin Sodium/Dextrose 2 gm in 50 mls @ 100 mls/hr 09/05/18 11:00 09/09/18 02:29 Ancef Iv 2 Gm Duplex IVPB 09/10/18 03:29 100 mls/hr Q8H STEPHANIE Administration Protocol Dextrose 1,000 mls @ 0 mls/hr 09/05/18 16:12 Dextrose 5% In Water 1000 Ml IV .Q0M PRN Hypoglycemia Protocol Protocol Per Protocol Insulin Human Regular 0 unit 09/08/18 11:30 09/08/18 21:37 Novolin R SC Not Given ACHS STEPHANIE Protocol Lidocaine 1 ea 09/05/18 12:00 09/08/18 09:20 Lidoderm TD Not Given DAILY STEPHANIE Metoprolol Tartrate 25 mg 09/08/18 18:00 09/08/18 18:06 Lopressor PO 25 mg BID STEPHANIE Administration Pantoprazole Sodium 40 mg 09/09/18 10:00 Protonix Ec Tab PO DAILY STEPHANIE Rosuvastatin Calcium 40 mg 09/03/18 22:00 09/08/18 21:21 Crestor PO 40 mg HS STEPHANIE Administration Ticagrelor 90 mg 09/03/18 10:00 09/08/18 18:06 Brilinta PO 90 mg BID STEPHANIE Administration - Patient Studies Lab Studies: Microbiology Studies 09/04/18 05:35 Blood Culture - Final Blood-Venous NO GROWTH AFTER 5 DAYS Gram Stain - Final TEST NOT PERFORMED 09/04/18 05:35 Blood Culture - Final Blood-Venous NO GROWTH AFTER 5 DAYS Gram Stain - Final TEST NOT PERFORMED Lab Studies 09/09/18 09/09/18 09/08/18 Range/Units 05:45 05:45 20:11 WBC 14.2 H (4.8-10.8) K/uL RBC 5.62 (4.40-5.90) Mil/uL Hgb 17.2 (12.0-18.0) g/dL Hct 52.0 H (35.0-51.0) % MCV 92.6 (80.0-94.0) fL MCH 30.7 (27.0-31.0) pg MCHC 33.1 (33.0-37.0) g/dL RDW 14.3 (11.5-14.5) % Plt Count 243 (130-400) K/uL MPV 10.4 (7.2-11.7) fL Neut % (Auto) 82.2 H (50.0-75.0) % Lymph % (Auto) 6.0 L (20.0-40.0) % Shannon % (Auto) 11.2 H (0.0-10.0) % Eos % (Auto) 0.2 (0.0-4.0) % Baso % (Auto) 0.4 (0.0-2.0) % Neut # (Auto) 11.6 H (1.8-7.0) K/uL Lymph # (Auto) 0.8 L (1.0-4.3) K/uL Shannon # (Auto) 1.6 H (0.0-0.8) K/uL Eos # (Auto) 0.0 (0.0-0.7) K/uL Baso # (Auto) 0.1 (0.0-0.2) K/uL Neutrophils % (Manual) (50-75) % Band Neutrophils % (0-2) % Lymphocytes % (Manual) (20-40) % Monocytes % (Manual) (0-10) % Platelet Estimate (NORMAL) RBC Morphology Sodium 145 144 (132-148) mmol/L Potassium 3.7 3.5 L (3.6-5.2) mmol/L Chloride 107 105 (98-107) mmol/L Carbon Dioxide 28 32 H (22-30) mmol/L Anion Gap 14 10 (10-20) BUN 27 H 31 H (9-20) mg/dL Creatinine 1.7 H 1.9 H (0.8-1.5) mg/dL Est GFR ( Amer) 48 42 Est GFR (Non-Af Amer) 40 35 Random Glucose 290 H 339 H (75-110) mg/dL Calcium 9.4 9.3 (8.6-10.4) mg/dl Phosphorus 2.7 (2.5-4.5) mg/dL Magnesium 2.3 (1.6-2.3) mg/dL Total Bilirubin 0.8 (0.2-1.3) mg/dL AST 103 H D (17-59) U/L ALT 20 L (21-72) U/L Alkaline Phosphatase 145 H (38-126) U/L Total Protein 7.2 (6.3-8.3) g/dL Albumin 3.7 (3.5-5.0) g/dL Globulin 3.5 (2.2-3.9) gm/dL Albumin/Globulin Ratio 1.0 (1.0-2.1) 09/08/18 Range/Units 05:25 WBC (4.8-10.8) K/uL RBC (4.40-5.90) Mil/uL Hgb (12.0-18.0) g/dL Hct (35.0-51.0) % MCV (80.0-94.0) fL MCH (27.0-31.0) pg MCHC (33.0-37.0) g/dL RDW (11.5-14.5) % Plt Count (130-400) K/uL MPV (7.2-11.7) fL Neut % (Auto) (50.0-75.0) % Lymph % (Auto) (20.0-40.0) % Shannon % (Auto) (0.0-10.0) % Eos % (Auto) (0.0-4.0) % Baso % (Auto) (0.0-2.0) % Neut # (Auto) (1.8-7.0) K/uL Lymph # (Auto) (1.0-4.3) K/uL Shannon # (Auto) (0.0-0.8) K/uL Eos # (Auto) (0.0-0.7) K/uL Baso # (Auto) (0.0-0.2) K/uL Neutrophils % (Manual) 93 H (50-75) % Band Neutrophils % 2 (0-2) % Lymphocytes % (Manual) 3 L (20-40) % Monocytes % (Manual) 2 (0-10) % Platelet Estimate Normal (NORMAL) RBC Morphology Normal Sodium (132-148) mmol/L Potassium (3.6-5.2) mmol/L Chloride (98-107) mmol/L Carbon Dioxide (22-30) mmol/L Anion Gap (10-20) BUN (9-20) mg/dL Creatinine (0.8-1.5) mg/dL Est GFR ( Amer) Est GFR (Non-Af Amer) Random Glucose (75-110) mg/dL Calcium (8.6-10.4) mg/dl Phosphorus (2.5-4.5) mg/dL Magnesium (1.6-2.3) mg/dL Total Bilirubin (0.2-1.3) mg/dL AST (17-59) U/L ALT (21-72) U/L Alkaline Phosphatase (38-126) U/L Total Protein (6.3-8.3) g/dL Albumin (3.5-5.0) g/dL Globulin (2.2-3.9) gm/dL Albumin/Globulin Ratio (1.0-2.1) Laboratory Results - last 24 hr 09/08/18 09/08/18 09/09/18 05:25 20:11 05:45 WBC 14.2 H RBC 5.62 Hgb 17.2 Hct 52.0 H MCV 92.6 MCH 30.7 MCHC 33.1 RDW 14.3 Plt Count 243 MPV 10.4 Neut % (Auto) 82.2 H Lymph % (Auto) 6.0 L Shannon % (Auto) 11.2 H Eos % (Auto) 0.2 Baso % (Auto) 0.4 Neut # (Auto) 11.6 H Lymph # (Auto) 0.8 L Shannon # (Auto) 1.6 H Eos # (Auto) 0.0 Baso # (Auto) 0.1 Neutrophils % (Manual) 93 H Band Neutrophils % 2 Lymphocytes % (Manual) 3 L Monocytes % (Manual) 2 Platelet Estimate Normal RBC Morphology Normal Sodium 144 Potassium 3.5 L Chloride 105 Carbon Dioxide 32 H Anion Gap 10 BUN 31 H Creatinine 1.9 H Est GFR ( Amer) 42 Est GFR (Non-Af Amer) 35 Random Glucose 339 H Calcium 9.3 Phosphorus Magnesium Total Bilirubin AST ALT Alkaline Phosphatase Total Protein Albumin Globulin Albumin/Globulin Ratio 09/09/18 05:45 WBC RBC Hgb Hct MCV MCH MCHC RDW Plt Count MPV Neut % (Auto) Lymph % (Auto) Shannon % (Auto) Eos % (Auto) Baso % (Auto) Neut # (Auto) Lymph # (Auto) Shannon # (Auto) Eos # (Auto) Baso # (Auto) Neutrophils % (Manual) Band Neutrophils % Lymphocytes % (Manual) Monocytes % (Manual) Platelet Estimate RBC Morphology Sodium 145 Potassium 3.7 Chloride 107 Carbon Dioxide 28 Anion Gap 14 BUN 27 H Creatinine 1.7 H Est GFR ( Amer) 48 Est GFR (Non-Af Amer) 40 Random Glucose 290 H Calcium 9.4 Phosphorus 2.7 Magnesium 2.3 Total Bilirubin 0.8 AST 103 H D ALT 20 L Alkaline Phosphatase 145 H Total Protein 7.2 Albumin 3.7 Globulin 3.5 Albumin/Globulin Ratio 1.0 Fingerstick Blood Sugar Results: 267 Critical Care Progress Note - Nutrition Nutrition: Nutrition Category Date Time Status Pureed [Dysphagia/Modified Consistency Diet] [DIET] Diets 09/08/18 Breakfast Active Assessment/Plan - Assessment and Plan (Free Text) Assessment: Patient is a 73 year old male presenting with Acute Anterior wall FL and pulmonary edema. Patient was a code heart and code blue which required intubation in the lab coordinator. Plan: Neuro: - Patient is awake, AAO X 3 - Head CT (09/06): No acute intracranial abnormality. If there is a persistent focal neurologic deficit and an ongoing clinical concern for acute infarction, an MRI of the brain without intravenous contrast would be a more sensitive modality for evaluation of hyperacute/acute ischemic infarction. Moderate age- related global parenchymal volume loss. Cardiovascular: Anterior wall FL - S/p cardiac cath L Main: - Entire LAD has diffuse 90% calcific narrowing. Mid 100% occlusion - L Cx/OM: Dominant: Proximal 85%, OM2 99% - RCA: Non dominant and diffuse 99% disease - LV: EF 10-15%, Dilated ischemic CMP, No - Cardiology consulted, Dr. Rivera - Follow up heart catheterization for other vessel stenting, once stable - ASA 81mg PO QD - Brilinta 90mg PO BID - Crestor 40mg QD HS - Heparin 5000 units SC Q12 - Lopressor 25mg PO Q12 Atrial fibrillation - EKG (09/06): Atrial fibrillation, bpm @ 142 - Lopressor 25mg PO Q12 Cardiogenic shock - Off baloon pump (09/05) - Off pressors - Lasix 20mg PO QD Pulmonary: Pneumonia - CXR (09/07): Persistent mild pulmonary venous congestive changes appear slightly improved. There does appear to be small residual bilateral lower lobe alveolar-type infiltrates. - Sputum cx: S. aureus - Cefazolin 2g IV Q8 (Started on 09/05) - Received 1 dose of Vancomycin Respiratory distress - Patient not in distress - Continue NC 2L - Continue to monitor GI: Transaminitis - AST/ALT: 70/20- downtrending - Continue to monitor Renal: NAY - BUN/Cr: 27/1.7- downtrending - Continue to monitor - Avoid nephrotoxins Hypokalemia - Resolved - Continue to monitor Hypophosphatemia - Resolved - Continue to monitor Endo: DM-2 - ISS - Lantus 10 units HS - Accucheck ACHS - Hypoglycemia protocol ID: Leukocytosis - Cefazolin 2g IV Q8 (Started on 09/05) - Received 1 dose of Vancomycin - Sputum cx: S. aureus - Blood cx: no growth to date - Urine cx: no growth to date - MRSA: not detected Prophylaxis: - Protonix 40mg PO QD - SCD's - Heparin 5000 units SC Q12 Case discussed with Dr. Moises Aden, PGY-1 <Waqas De Leon S - Last Filed: 09/09/18 17:51> CCU Objective - Vital Signs / Intake & Output Vital Signs (Last 4 hours): Vital Signs Temp Pulse Resp BP Pulse Ox 09/09/18 17:26 114/68 09/09/18 17:02 121 H 21 114/68 99 09/09/18 17:00 134 H 22 99 09/09/18 16:01 64 23 145/84 09/09/18 16:00 97.7 F 63 21 100 09/09/18 15:04 83 13 92 L 09/09/18 15:01 63 22 139/75 98 09/09/18 15:00 62 22 99 09/09/18 14:01 67 26 H 121/78 100 09/09/18 14:00 81 24 100 Intake and Output (Last 8hrs): Intake & Output 09/09/18 09/09/18 09/09/18 06:59 14:59 22:59 Intake Total 50 290 120 Output Total 300 350 Balance -250 -60 120 Weight 138 lb 8 oz Intake: Intake, IV Amount 50 50 Right Proximal Port 50 50 Internal Jugular Oral 0 240 120 Output: Urine 300 350 Urine, Voided 300 350 - Medications Active Medications: Active Medications Generic Name Dose Route Start Last Admin Trade Name Freq PRN Reason Stop Dose Admin Aspirin 81 mg 09/04/18 13:15 09/09/18 10:18 Aspirin Chewable PO 81 mg DAILY STEPHANIE Administration Dextrose 0 ml 09/05/18 16:12 Dextrose 50% Inj IV STAT PRN Hypoglycemia Protocol Protocol Dextrose 0 gm 09/05/18 16:12 Glutose 15 PO ONCE PRN Hypoglycemia Protocol Protocol Furosemide 20 mg 09/09/18 10:00 09/09/18 10:18 Lasix PO 20 mg DAILY STEPHANIE Administration Glucagon 0 mg 09/05/18 16:12 Glucagen Diagnostic Kit IM STAT PRN Hypoglycemia Protocol Protocol Heparin Sodium (Porcine) 5,000 units 09/06/18 15:30 09/09/18 16:52 Heparin SC 5,000 units Q12H STEPHANIE Administration Cefazolin Sodium/Dextrose 2 gm in 50 mls @ 100 mls/hr 09/05/18 11:00 09/09/18 10:34 Ancef Iv 2 Gm Duplex IVPB 09/10/18 03:29 100 mls/hr Q8H STEPHANIE Administration Protocol Dextrose 1,000 mls @ 0 mls/hr 09/05/18 16:12 Dextrose 5% In Water 1000 Ml IV .Q0M PRN Hypoglycemia Protocol Protocol Per Protocol Insulin Glargine 10 unit 09/09/18 22:00 Lantus SC HS STEPHANIE Insulin Human Regular 0 unit 09/08/18 11:30 09/09/18 17:26 Novolin R SC 2 u ACHS STEPHANIE Administration Protocol Lidocaine 1 ea 09/05/18 12:00 09/09/18 10:19 Lidoderm TD Not Given DAILY STEPHANIE Metoprolol Tartrate 25 mg 09/08/18 18:00 09/09/18 17:26 Lopressor PO 25 mg BID STEPHANIE Administration Pantoprazole Sodium 40 mg 09/09/18 10:00 09/09/18 10:18 Protonix Ec Tab PO 40 mg DAILY STEPHANIE Administration Rosuvastatin Calcium 40 mg 09/03/18 22:00 09/08/18 21:21 Crestor PO 40 mg HS STEPHANIE Administration Ticagrelor 90 mg 09/03/18 10:00 09/09/18 17:26 Brilinta PO 90 mg BID STEPHANIE Administration - Patient Studies Lab Studies: Microbiology Studies 09/04/18 05:35 Blood Culture - Final Blood-Venous NO GROWTH AFTER 5 DAYS Gram Stain - Final TEST NOT PERFORMED 09/04/18 05:35 Blood Culture - Final Blood-Venous NO GROWTH AFTER 5 DAYS Gram Stain - Final TEST NOT PERFORMED Lab Studies 09/09/18 09/09/18 09/09/18 Range/Units 16:02 11:11 07:29 WBC (4.8-10.8) K/uL RBC (4.40-5.90) Mil/uL Hgb (12.0-18.0) g/dL Hct (35.0-51.0) % MCV (80.0-94.0) fL MCH (27.0-31.0) pg MCHC (33.0-37.0) g/dL RDW (11.5-14.5) % Plt Count (130-400) K/uL MPV (7.2-11.7) fL Neut % (Auto) (50.0-75.0) % Lymph % (Auto) (20.0-40.0) % Shannon % (Auto) (0.0-10.0) % Eos % (Auto) (0.0-4.0) % Baso % (Auto) (0.0-2.0) % Neut # (Auto) (1.8-7.0) K/uL Lymph # (Auto) (1.0-4.3) K/uL Shannon # (Auto) (0.0-0.8) K/uL Eos # (Auto) (0.0-0.7) K/uL Baso # (Auto) (0.0-0.2) K/uL Neutrophils % (Manual) (50-75) % Lymphocytes % (Manual) (20-40) % Monocytes % (Manual) (0-10) % Platelet Estimate (NORMAL) RBC Morphology Sodium (132-148) mmol/L Potassium (3.6-5.2) mmol/L Chloride (98-107) mmol/L Carbon Dioxide (22-30) mmol/L Anion Gap (10-20) BUN (9-20) mg/dL Creatinine (0.8-1.5) mg/dL Est GFR ( Amer) Est GFR (Non-Af Amer) POC Glucose (mg/dL) 213 H 297 H 273 H (65-110) mg/dL Random Glucose (75-110) mg/dL Calcium (8.6-10.4) mg/dl Phosphorus (2.5-4.5) mg/dL Magnesium (1.6-2.3) mg/dL Total Bilirubin (0.2-1.3) mg/dL AST (17-59) U/L ALT (21-72) U/L Alkaline Phosphatase (38-126) U/L Total Creatine Kinase (44-196) U/L Total Protein (6.3-8.3) g/dL Albumin (3.5-5.0) g/dL Globulin (2.2-3.9) gm/dL Albumin/Globulin Ratio (1.0-2.1) 09/09/18 09/09/18 09/08/18 Range/Units 05:45 05:45 21:35 WBC 14.2 H (4.8-10.8) K/uL RBC 5.62 (4.40-5.90) Mil/uL Hgb 17.2 (12.0-18.0) g/dL Hct 52.0 H (35.0-51.0) % MCV 92.6 (80.0-94.0) fL MCH 30.7 (27.0-31.0) pg MCHC 33.1 (33.0-37.0) g/dL RDW 14.3 (11.5-14.5) % Plt Count 243 (130-400) K/uL MPV 10.4 (7.2-11.7) fL Neut % (Auto) 82.2 H (50.0-75.0) % Lymph % (Auto) 6.0 L (20.0-40.0) % Shannon % (Auto) 11.2 H (0.0-10.0) % Eos % (Auto) 0.2 (0.0-4.0) % Baso % (Auto) 0.4 (0.0-2.0) % Neut # (Auto) 11.6 H (1.8-7.0) K/uL Lymph # (Auto) 0.8 L (1.0-4.3) K/uL Shannon # (Auto) 1.6 H (0.0-0.8) K/uL Eos # (Auto) 0.0 (0.0-0.7) K/uL Baso # (Auto) 0.1 (0.0-0.2) K/uL Neutrophils % (Manual) 92 H (50-75) % Lymphocytes % (Manual) 5 L (20-40) % Monocytes % (Manual) 3 (0-10) % Platelet Estimate Normal (NORMAL) RBC Morphology Normal Sodium 145 (132-148) mmol/L Potassium 3.7 (3.6-5.2) mmol/L Chloride 107 (98-107) mmol/L Carbon Dioxide 28 (22-30) mmol/L Anion Gap 14 (10-20) BUN 27 H (9-20) mg/dL Creatinine 1.7 H (0.8-1.5) mg/dL Est GFR ( Amer) 48 Est GFR (Non-Af Amer) 40 POC Glucose (mg/dL) 267 H (65-110) mg/dL Random Glucose 290 H (75-110) mg/dL Calcium 9.4 (8.6-10.4) mg/dl Phosphorus 2.7 (2.5-4.5) mg/dL Magnesium 2.3 (1.6-2.3) mg/dL Total Bilirubin 0.8 (0.2-1.3) mg/dL AST 103 H D (17-59) U/L ALT 20 L (21-72) U/L Alkaline Phosphatase 145 H (38-126) U/L Total Creatine Kinase (44-196) U/L Total Protein 7.2 (6.3-8.3) g/dL Albumin 3.7 (3.5-5.0) g/dL Globulin 3.5 (2.2-3.9) gm/dL Albumin/Globulin Ratio 1.0 (1.0-2.1) 09/08/18 09/08/18 09/08/18 Range/Units 20:11 16:14 11:07 WBC (4.8-10.8) K/uL RBC (4.40-5.90) Mil/uL Hgb (12.0-18.0) g/dL Hct (35.0-51.0) % MCV (80.0-94.0) fL MCH (27.0-31.0) pg MCHC (33.0-37.0) g/dL RDW (11.5-14.5) % Plt Count (130-400) K/uL MPV (7.2-11.7) fL Neut % (Auto) (50.0-75.0) % Lymph % (Auto) (20.0-40.0) % Shannon % (Auto) (0.0-10.0) % Eos % (Auto) (0.0-4.0) % Baso % (Auto) (0.0-2.0) % Neut # (Auto) (1.8-7.0) K/uL Lymph # (Auto) (1.0-4.3) K/uL Shannon # (Auto) (0.0-0.8) K/uL Eos # (Auto) (0.0-0.7) K/uL Baso # (Auto) (0.0-0.2) K/uL Neutrophils % (Manual) (50-75) % Lymphocytes % (Manual) (20-40) % Monocytes % (Manual) (0-10) % Platelet Estimate (NORMAL) RBC Morphology Sodium 144 (132-148) mmol/L Potassium 3.5 L (3.6-5.2) mmol/L Chloride 105 (98-107) mmol/L Carbon Dioxide 32 H (22-30) mmol/L Anion Gap 10 (10-20) BUN 31 H (9-20) mg/dL Creatinine 1.9 H (0.8-1.5) mg/dL Est GFR ( Amer) 42 Est GFR (Non-Af Amer) 35 POC Glucose (mg/dL) 308 H 338 H (65-110) mg/dL Random Glucose 339 H (75-110) mg/dL Calcium 9.3 (8.6-10.4) mg/dl Phosphorus (2.5-4.5) mg/dL Magnesium (1.6-2.3) mg/dL Total Bilirubin (0.2-1.3) mg/dL AST (17-59) U/L ALT (21-72) U/L Alkaline Phosphatase (38-126) U/L Total Creatine Kinase (44-196) U/L Total Protein (6.3-8.3) g/dL Albumin (3.5-5.0) g/dL Globulin (2.2-3.9) gm/dL Albumin/Globulin Ratio (1.0-2.1) 09/04/18 Range/Units 07:23 WBC (4.8-10.8) K/uL RBC (4.40-5.90) Mil/uL Hgb (12.0-18.0) g/dL Hct (35.0-51.0) % MCV (80.0-94.0) fL MCH (27.0-31.0) pg MCHC (33.0-37.0) g/dL RDW (11.5-14.5) % Plt Count (130-400) K/uL MPV (7.2-11.7) fL Neut % (Auto) (50.0-75.0) % Lymph % (Auto) (20.0-40.0) % Shannon % (Auto) (0.0-10.0) % Eos % (Auto) (0.0-4.0) % Baso % (Auto) (0.0-2.0) % Neut # (Auto) (1.8-7.0) K/uL Lymph # (Auto) (1.0-4.3) K/uL Shannon # (Auto) (0.0-0.8) K/uL Eos # (Auto) (0.0-0.7) K/uL Baso # (Auto) (0.0-0.2) K/uL Neutrophils % (Manual) (50-75) % Lymphocytes % (Manual) (20-40) % Monocytes % (Manual) (0-10) % Platelet Estimate (NORMAL) RBC Morphology Sodium (132-148) mmol/L Potassium (3.6-5.2) mmol/L Chloride (98-107) mmol/L Carbon Dioxide (22-30) mmol/L Anion Gap (10-20) BUN (9-20) mg/dL Creatinine (0.8-1.5) mg/dL Est GFR ( Amer) Est GFR (Non-Af Amer) POC Glucose (mg/dL) (65-110) mg/dL Random Glucose (75-110) mg/dL Calcium (8.6-10.4) mg/dl Phosphorus (2.5-4.5) mg/dL Magnesium (1.6-2.3) mg/dL Total Bilirubin (0.2-1.3) mg/dL AST (17-59) U/L ALT (21-72) U/L Alkaline Phosphatase (38-126) U/L Total Creatine Kinase 1037 H (44-196) U/L Total Protein (6.3-8.3) g/dL Albumin (3.5-5.0) g/dL Globulin (2.2-3.9) gm/dL Albumin/Globulin Ratio (1.0-2.1) Laboratory Results - last 24 hr 09/04/18 09/08/18 09/08/18 07:23 11:07 16:14 WBC RBC Hgb Hct MCV MCH MCHC RDW Plt Count MPV Neut % (Auto) Lymph % (Auto) Shannon % (Auto) Eos % (Auto) Baso % (Auto) Neut # (Auto) Lymph # (Auto) Shannon # (Auto) Eos # (Auto) Baso # (Auto) Neutrophils % (Manual) Lymphocytes % (Manual) Monocytes % (Manual) Platelet Estimate RBC Morphology Sodium Potassium Chloride Carbon Dioxide Anion Gap BUN Creatinine Est GFR ( Amer) Est GFR (Non-Af Amer) POC Glucose (mg/dL) 338 H 308 H Random Glucose Calcium Phosphorus Magnesium Total Bilirubin AST ALT Alkaline Phosphatase Total Creatine Kinase 1037 H Total Protein Albumin Globulin Albumin/Globulin Ratio 09/08/18 09/08/18 09/09/18 20:11 21:35 05:45 WBC 14.2 H RBC 5.62 Hgb 17.2 Hct 52.0 H MCV 92.6 MCH 30.7 MCHC 33.1 RDW 14.3 Plt Count 243 MPV 10.4 Neut % (Auto) 82.2 H Lymph % (Auto) 6.0 L Shannon % (Auto) 11.2 H Eos % (Auto) 0.2 Baso % (Auto) 0.4 Neut # (Auto) 11.6 H Lymph # (Auto) 0.8 L Shannon # (Auto) 1.6 H Eos # (Auto) 0.0 Baso # (Auto) 0.1 Neutrophils % (Manual) 92 H Lymphocytes % (Manual) 5 L Monocytes % (Manual) 3 Platelet Estimate Normal RBC Morphology Normal Sodium 144 Potassium 3.5 L Chloride 105 Carbon Dioxide 32 H Anion Gap 10 BUN 31 H Creatinine 1.9 H Est GFR ( Amer) 42 Est GFR (Non-Af Amer) 35 POC Glucose (mg/dL) 267 H Random Glucose 339 H Calcium 9.3 Phosphorus Magnesium Total Bilirubin AST ALT Alkaline Phosphatase Total Creatine Kinase Total Protein Albumin Globulin Albumin/Globulin Ratio 09/09/18 09/09/18 09/09/18 05:45 07:29 11:11 WBC RBC Hgb Hct MCV MCH MCHC RDW Plt Count MPV Neut % (Auto) Lymph % (Auto) Shannon % (Auto) Eos % (Auto) Baso % (Auto) Neut # (Auto) Lymph # (Auto) Shannon # (Auto) Eos # (Auto) Baso # (Auto) Neutrophils % (Manual) Lymphocytes % (Manual) Monocytes % (Manual) Platelet Estimate RBC Morphology Sodium 145 Potassium 3.7 Chloride 107 Carbon Dioxide 28 Anion Gap 14 BUN 27 H Creatinine 1.7 H Est GFR ( Amer) 48 Est GFR (Non-Af Amer) 40 POC Glucose (mg/dL) 273 H 297 H Random Glucose 290 H Calcium 9.4 Phosphorus 2.7 Magnesium 2.3 Total Bilirubin 0.8 AST 103 H D ALT 20 L Alkaline Phosphatase 145 H Total Creatine Kinase Total Protein 7.2 Albumin 3.7 Globulin 3.5 Albumin/Globulin Ratio 1.0 09/09/18 16:02 WBC RBC Hgb Hct MCV MCH MCHC RDW Plt Count MPV Neut % (Auto) Lymph % (Auto) Shannon % (Auto) Eos % (Auto) Baso % (Auto) Neut # (Auto) Lymph # (Auto) Shannon # (Auto) Eos # (Auto) Baso # (Auto) Neutrophils % (Manual) Lymphocytes % (Manual) Monocytes % (Manual) Platelet Estimate RBC Morphology Sodium Potassium Chloride Carbon Dioxide Anion Gap BUN Creatinine Est GFR ( Amer) Est GFR (Non-Af Amer) POC Glucose (mg/dL) 213 H Random Glucose Calcium Phosphorus Magnesium Total Bilirubin AST ALT Alkaline Phosphatase Total Creatine Kinase Total Protein Albumin Globulin Albumin/Globulin Ratio EKG/Cardiology Studies: Cardiology / EKG Studies 09/09/18 16:36 EKG [ELECTROCARDIOGRAM] Stat Comment: Mode Of Transportation: Reason For Exam: a fib Critical Care Progress Note - Nutrition Nutrition: Nutrition Category Date Time Status Heart Healthy Diet [DIET] Diets 09/09/18 Lunch Active Attending/Attestation - Attestation I have personally seen and examined this patient.: Yes I have fully participated in the care of the patient.: Yes I have reviewed all pertinent clinical information: Yes Notes (Text): 09/09/18 17:51 patient seen and examined in the intensive care unit. Assessment and plan as per resident note Continue present treatment Cardiology follow-up
[2018-09-09 08:12] LABS: LYMPHOCYTE 5 % (20-40); MONOCYTE 3 % (0-10); NEUTROPHIL 92 % (50-75); TOTAL CELLS COUNTED 100
[2018-09-09 08:13] LABS: PLATELET ESTIMATE NORMAL (NORMAL)
[2018-09-09] MEDS: (Novolin R) Insulin Human Regular 100 units/ml vial SC SCH ×4 (08:44→22:00)
[2018-09-09] MEDS: Pantoprazole 40 mg EC Tab PO SCH (10:18)
[2018-09-09] MEDS: Lidocaine 5% Patch TD SCH (10:19)
[2018-09-09] MEDS ORDERED: (Lantus) Insulin Glargine, Recombinant SC SCH (22:00)
--- NOTE | 2018-09-09 22:28 | CP.PCM.PN ---
Subjective - Date & Time of Evaluation Date of Evaluation: 09/09/18 Time of Evaluation: 22:22 - Subjective Subjective: Patient seen and examined at bedside. In A Fib Denies chest pain and dyspnea Physical Examination - Constitutional Appears: Chronically Ill - Head Exam Head Exam: NORMAL INSPECTION, NORMOCEPHALIC - Eye Exam Eye Exam: EOMI, Normal appearance, PERRL - ENT Exam ENT Exam: Mucous Membranes Dry - Respiratory Exam Respiratory Exam: Decreased Breath Sounds - Cardiovascular Exam Cardiovascular Exam: Irregular Rhythm, +S1, +S2 - GI/Abdominal Exam GI & Abdominal Exam: Soft, Normal Bowel Sounds. absent: Distended, Tenderness - Extremities Exam Extremities Exam: Normal Inspection. absent: Pedal Edema, Tenderness - Neurological Exam Neurological Exam: Alert, Awake - Psychiatric Exam Psychiatric exam: Normal Affect, Normal Mood - Skin Skin Exam: Dry, Intact, Normal Color, Warm Assessment and Plan - Assessment and Plan (Free Text) Plan: Anterior Wall [place] s/p PCI in LAD (code heart) Dilated Ischemic Cardiomyopathy Cardiogenic shock s/p balloon pump (code blue) Severe Triple Vessel Disease Pulmonary Edema-Resolved New Onset Atrial Fibrillation Imaging: -s/p catherization: S/P LAD PCI Staged LCx PCI after a month Eliquis 2.5mg po bid ASA 81 daily x 1 month Plavix 75 daily for life Objective - Vital Signs/Intake and Output Vital Signs (last 24 hours): Temp Pulse Resp BP Pulse Ox 98.4 F 123 H 20 108/56 L 99 09/09/18 20:00 09/09/18 20:02 09/09/18 20:02 09/09/18 20:02 09/09/18 20:02 Intake and Output: 09/09/18 09/10/18 18:59 06:59 Intake Total 530 50 Output Total 350 Balance 180 50 - Medications Medications: Current Medications Apixaban (Eliquis) 2.5 mg PO BID [facility] Aspirin (Aspirin Chewable) 81 mg PO DAILY [facility] Last Admin: 09/09/18 10:18 Dose: 81 mg Clopidogrel Bisulfate (Plavix) 75 mg PO DAILY [facility] Dextrose (Dextrose 50% Inj) 0 ml IV STAT PRN; Protocol PRN Reason: Hypoglycemia Protocol Dextrose (Glutose 15) 0 gm PO ONCE PRN; Protocol PRN Reason: Hypoglycemia Protocol Furosemide (Lasix) 20 mg PO DAILY [facility] Last Admin: 09/09/18 10:18 Dose: 20 mg Glucagon (Glucagen Diagnostic Kit) 0 mg IM STAT PRN; Protocol PRN Reason: Hypoglycemia Protocol Cefazolin Sodium/Dextrose (Ancef Iv 2 Gm Duplex) 2 gm in 50 mls @ 100 mls/hr IVPB Q8H STEPHANIE; Protocol Stop: 09/10/18 03:29 Last Admin: 09/09/18 18:21 Dose: 100 mls/hr Dextrose (Dextrose 5% In Water 1000 Ml) 1,000 mls @ 0 mls/hr IV .Q0M PRN; Protocol PRN Reason: Hypoglycemia Protocol Insulin Glargine (Lantus) 10 unit SC HS [facility] Last Admin: 09/09/18 21:26 Dose: 10 u Insulin Human Regular (Novolin R) 0 unit SC ACHS STEPHNAIE; Protocol Last Admin: 09/09/18 17:26 Dose: 2 u Lidocaine (Lidoderm) 1 ea TD DAILY [facility] Last Admin: 09/09/18 10:19 Dose: Not Given Metoprolol Tartrate (Lopressor) 50 mg PO Q12 [facility] Last Admin: 09/09/18 21:26 Dose: 50 mg Pantoprazole Sodium (Protonix Ec Tab) 40 mg PO DAILY [facility] Last Admin: 09/09/18 10:18 Dose: 40 mg Rosuvastatin Calcium (Crestor) 40 mg PO HS [facility] Last Admin: 09/09/18 21:25 Dose: 40 mg - Labs Labs: 09/09/18 05:45 09/09/18 05:45 PT 11.1 SECONDS (9.7-12.2) 09/03/18 01:40 INR 1.0 09/03/18 01:40 APTT 71 SECONDS (21-34) H 09/06/18 06:03
--- NOTE | 2018-09-09 22:31 | CP.PCM.PN ---
Subjective - Date & Time of Evaluation Date of Evaluation: 09/09/18 Time of Evaluation: 19:30 - Subjective Subjective: Patient feels better. Afebrile. Tolerating diet. Telemetry revealed RSR. CXR; Improved congestion and basilar infiltrates. Improved BUN and creatinine. Objective - Vital Signs/Intake and Output Vital Signs (last 24 hours): Temp Pulse Resp BP Pulse Ox 98.4 F 123 H 20 108/56 L 99 09/09/18 20:00 09/09/18 20:02 09/09/18 20:02 09/09/18 20:02 09/09/18 20:02 Intake and Output: 09/09/18 09/10/18 18:59 06:59 Intake Total 530 50 Output Total 350 Balance 180 50 - Medications Medications: Current Medications Apixaban (Eliquis) 2.5 mg PO BID [facility] Aspirin (Aspirin Chewable) 81 mg PO DAILY [facility] Last Admin: 09/09/18 10:18 Dose: 81 mg Clopidogrel Bisulfate (Plavix) 75 mg PO DAILY [facility] Dextrose (Dextrose 50% Inj) 0 ml IV STAT PRN; Protocol PRN Reason: Hypoglycemia Protocol Dextrose (Glutose 15) 0 gm PO ONCE PRN; Protocol PRN Reason: Hypoglycemia Protocol Furosemide (Lasix) 20 mg PO DAILY [facility] Last Admin: 09/09/18 10:18 Dose: 20 mg Glucagon (Glucagen Diagnostic Kit) 0 mg IM STAT PRN; Protocol PRN Reason: Hypoglycemia Protocol Cefazolin Sodium/Dextrose (Ancef Iv 2 Gm Duplex) 2 gm in 50 mls @ 100 mls/hr IVPB Q8H STEPHANIE; Protocol Stop: 09/10/18 03:29 Last Admin: 09/09/18 18:21 Dose: 100 mls/hr Dextrose (Dextrose 5% In Water 1000 Ml) 1,000 mls @ 0 mls/hr IV .Q0M PRN; Protocol PRN Reason: Hypoglycemia Protocol Insulin Glargine (Lantus) 10 unit SC HS [facility] Last Admin: 09/09/18 21:26 Dose: 10 u Insulin Human Regular (Novolin R) 0 unit SC ACHS [facility]; Protocol Last Admin: 09/09/18 17:26 Dose: 2 u Lidocaine (Lidoderm) 1 ea TD DAILY [facility] Last Admin: 09/09/18 10:19 Dose: Not Given Metoprolol Tartrate (Lopressor) 50 mg PO Q12 [facility] Last Admin: 09/09/18 21:26 Dose: 50 mg Pantoprazole Sodium (Protonix Ec Tab) 40 mg PO DAILY [facility] Last Admin: 09/09/18 10:18 Dose: 40 mg Rosuvastatin Calcium (Crestor) 40 mg PO HS [facility] Last Admin: 09/09/18 21:25 Dose: 40 mg - Labs Labs: 09/09/18 05:45 09/09/18 05:45 PT 11.1 SECONDS (9.7-12.2) 09/03/18 01:40 INR 1.0 09/03/18 01:40 APTT 71 SECONDS (21-34) H 09/06/18 06:03 - Constitutional Appears: No Acute Distress - Head Exam Head Exam: NORMAL INSPECTION - Eye Exam Eye Exam: Normal appearance - Neck Exam Neck Exam: Normal Inspection - Respiratory Exam Additional comments: Few basilar rales. - Cardiovascular Exam Cardiovascular Exam: REGULAR RHYTHM, Murmur - GI/Abdominal Exam GI & Abdominal Exam: Soft, Normal Bowel Sounds - Rectal Exam Rectal Exam: Deferred - Extremities Exam Extremities Exam: Normal Inspection - Back Exam Back Exam: NORMAL INSPECTION - Neurological Exam Neurological Exam: Alert, Awake, Oriented x3 - Psychiatric Exam Psychiatric exam: Agitated - Skin Skin Exam: Dry, Intact, Normal Color, Warm Assessment and Plan (1) Acute ST elevation myocardial infarction (STEMI) of anterior wall Status: Resolved (2) Acute pulmonary edema Status: Resolved (3) Acute respiratory failure Status: Resolved (4) Uncontrolled diabetes mellitus Status: Resolved
[2018-09-10] MEDS: ceFAZolin IV 2 gm in Dextrose 2 GM/50 ML BAG IVPB SCH (02:53)
[2018-09-10 05:29] LABS: BASO # 0.1 K/uL (0.0-0.2); BASO % 0.7 % (0.0-2.0); EOS # 0.1 K/uL (0.0-0.7); EOS % 0.8 % (0.0-4.0); HEMOGLOBIN 17.3 g/dL (12.0-18.0); LYMPH % 7.5 % (20.0-40.0); MEAN CELL VOLUME 91.5 fL (80.0-94.0); MEAN CORPUSCULAR HEMOGLOBIN 30.3 pg (27.0-31.0); MEAN CORPUSCULAR HGB CONC 33.2 g/dL (33.0-37.0); MEAN PLATELET VOLUME 9.8 fL (7.2-11.7); MONO # 1.4 K/uL (0.0-0.8); MONO % 11.3 % (0.0-10.0); NEUT # 10.1 K/uL (1.8-7.0); NEUT % 79.7 % (50.0-75.0); NRBC % 0.1 % (0.0-2.0); PLATELET COUNT 288 K/uL (130-400); RED CELL DISTRIBUTION WIDTH 14.1 % (11.5-14.5); WHITE BLOOD COUNT 12.7 K/uL (4.8-10.8)
[2018-09-10 06:28] LABS: ALBUMIN 3.5 g/dL (3.5-5.0); CALCIUM 9.5 mg/dl (8.6-10.4)
[2018-09-10] MEDS: (Novolin R) Insulin Human Regular 100 units/ml vial SC SCH (07:30)
[2018-09-10] MEDS ORDERED: (Novolin R) Insulin Human Regular 100 units/ml vial SC SCH (07:32)
--- NOTE | 2018-09-10 07:32 | CP.CCUPN ---
<Nate Aden - Last Filed: 09/10/18 09:29> CCU Subjective - Physician Review Subjective (Free Text): 09/09/18 07:55 Patient seen and examined at bedside. No acute events overnight. Patient denies chast pain, shortness of breath, or any other complaints. Patient is stable for transer to telemetry. Critical Care Time Spent (in minutes): 35 CCU Objective - Vital Signs / Intake & Output Vital Signs (Last 4 hours): Vital Signs Temp Pulse Resp BP Pulse Ox 09/10/18 06:01 91 H 25 H 123/60 100 09/10/18 06:00 94 H 16 100 09/10/18 05:02 87 12 113/57 L 100 09/10/18 05:00 88 8 L 100 09/10/18 04:01 84 17 120/83 98 09/10/18 04:00 98 F 89 23 97 Intake and Output (Last 8hrs): Intake & Output 09/09/18 09/10/18 09/10/18 22:59 06:59 14:59 Intake Total 410 150 Output Total 500 950 Balance -90 -800 Weight 62.006 kg Intake: Intake, IV Amount 50 50 Right Proximal Port 50 50 Internal Jugular Oral 360 100 Output: Urine 500 950 Urine, Voided 500 950 Other: # Voids Urine, Voided 2 - Physical Exam Head: Positive for: Atraumatic, Normocephalic Pupils: Positive for: PERRL Extroacular Muscles: Positive for: EOMI Conjunctiva: Positive for: Normal. Negative for: Injected, Icteric Ears: Positive for: Normal Mouth: Positive for: Moist Mucous Membranes Pharnyx: Positive for: Normal Nose (Internal): Positive for: Normal Inspection Neck: Positive for: Normal Range of Motion, Trachea Midline. Negative for: Meningeal Signs, MIDLINE TENDERNESS, Paraspinal Tenderness, JVD, Lymphadenopathy, Bruit, Other Respiratory/Chest: Positive for: Clear to Auscultation. Negative for: Respiratory Distress, Accessory Muscle Use, Wheezes, Rales, Rhonchi Cardiovascular: Positive for: Normal S1, S2, Irregular Rhythm, Peripheal Pulses Present. Negative for: Murmurs, Rub, Gallop Abdomen: Positive for: Normal Bowel Sounds. Negative for: Tenderness, Distention, Peritoneal Signs Upper Extremity: Positive for: Normal Inspection, Capillary Refill < 2s. Negative for: Cyanosis, Edema Lower Extremity: Positive for: Normal Inspection, Edema Neurological: Positive for: GCS=15 Skin: Positive for: Warm, Dry, Normal Color. Negative for: Rashes Psychiatric: Positive for: Alert, Oriented x 3, Normal Insight, Normal Concentration - Medications Active Medications: Active Medications Generic Name Dose Route Start Last Admin Trade Name Freq PRN Reason Stop Dose Admin Apixaban 2.5 mg 09/10/18 10:00 Eliquis PO BID STEPHANIE Aspirin 81 mg 09/04/18 13:15 09/09/18 10:18 Aspirin Chewable PO 81 mg DAILY STEPHANIE Administration Clopidogrel Bisulfate 75 mg 09/10/18 10:00 Plavix PO DAILY STEPHANIE Dextrose 0 ml 09/05/18 16:12 Dextrose 50% Inj IV STAT PRN Hypoglycemia Protocol Protocol Dextrose 0 gm 09/05/18 16:12 Glutose 15 PO ONCE PRN Hypoglycemia Protocol Protocol Furosemide 20 mg 09/09/18 10:00 09/09/18 10:18 Lasix PO 20 mg DAILY STEPHANIE Administration Glucagon 0 mg 09/05/18 16:12 Glucagen Diagnostic Kit IM STAT PRN Hypoglycemia Protocol Protocol Dextrose 1,000 mls @ 0 mls/hr 09/05/18 16:12 Dextrose 5% In Water 1000 Ml IV .Q0M PRN Hypoglycemia Protocol Protocol Per Protocol Insulin Glargine 10 unit 09/09/18 22:00 09/09/18 21:26 Lantus SC 10 u HS STEPHANIE Administration Insulin Human Regular 0 unit 09/08/18 11:30 09/09/18 22:00 Novolin R SC Not Given ACHS [facility] Protocol Lidocaine 1 ea 09/05/18 12:00 09/09/18 10:19 Lidoderm TD Not Given DAILY STEPHANIE Metoprolol Tartrate 50 mg 09/09/18 22:00 09/09/18 21:26 Lopressor PO 50 mg Q12 STEPHANIE Administration Pantoprazole Sodium 40 mg 09/09/18 10:00 09/09/18 10:18 Protonix Ec Tab PO 40 mg DAILY STEPHANIE Administration Rosuvastatin Calcium 40 mg 09/03/18 22:00 09/09/18 21:25 Crestor PO 40 mg HS STEPHANIE Administration - Patient Studies Lab Studies: Microbiology Studies 09/04/18 05:35 Blood Culture - Final Blood-Venous NO GROWTH AFTER 5 DAYS Gram Stain - Final TEST NOT PERFORMED 09/04/18 05:35 Blood Culture - Final Blood-Venous NO GROWTH AFTER 5 DAYS Gram Stain - Final TEST NOT PERFORMED Lab Studies 09/10/18 09/10/18 09/09/18 Range/Units 05:06 05:06 21:15 WBC 12.7 H (4.8-10.8) K/uL RBC 5.70 (4.40-5.90) Mil/uL Hgb 17.3 (12.0-18.0) g/dL Hct 52.1 H (35.0-51.0) % MCV 91.5 (80.0-94.0) fL MCH 30.3 (27.0-31.0) pg MCHC 33.2 (33.0-37.0) g/dL RDW 14.1 (11.5-14.5) % Plt Count 288 (130-400) K/uL MPV 9.8 (7.2-11.7) fL Neut % (Auto) 79.7 H (50.0-75.0) % Lymph % (Auto) 7.5 L (20.0-40.0) % Falls % (Auto) 11.3 H (0.0-10.0) % Eos % (Auto) 0.8 (0.0-4.0) % Baso % (Auto) 0.7 (0.0-2.0) % Neut # (Auto) 10.1 H (1.8-7.0) K/uL Lymph # (Auto) 1.0 (1.0-4.3) K/uL Falls # (Auto) 1.4 H (0.0-0.8) K/uL Eos # (Auto) 0.1 (0.0-0.7) K/uL Baso # (Auto) 0.1 (0.0-0.2) K/uL Neutrophils % (Manual) (50-75) % Lymphocytes % (Manual) (20-40) % Monocytes % (Manual) (0-10) % Platelet Estimate (NORMAL) RBC Morphology Sodium 140 (132-148) mmol/L Potassium 3.2 L (3.6-5.2) mmol/L Chloride 103 (98-107) mmol/L Carbon Dioxide 29 (22-30) mmol/L Anion Gap 11 (10-20) BUN 28 H (9-20) mg/dL Creatinine 1.8 H (0.8-1.5) mg/dL Est GFR ( Amer) 45 Est GFR (Non-Af Amer) 37 POC Glucose (mg/dL) 286 H (65-110) mg/dL Random Glucose 324 H (75-110) mg/dL Calcium 9.5 (8.6-10.4) mg/dl Phosphorus 2.8 (2.5-4.5) mg/dL Magnesium 2.3 (1.6-2.3) mg/dL Total Bilirubin 0.7 (0.2-1.3) mg/dL AST 175 H D (17-59) U/L ALT 36 (21-72) U/L Alkaline Phosphatase 158 H (38-126) U/L Total Creatine Kinase (44-196) U/L CK-MM (CK-3) (95-100) % CK-MB (CK-2) (<5) % CK-BB (CK-1) (None Detected) % CK Isoenzymes Interp Total Protein 6.8 (6.3-8.3) g/dL Albumin 3.5 (3.5-5.0) g/dL Globulin 3.4 (2.2-3.9) gm/dL Albumin/Globulin Ratio 1.0 (1.0-2.1) 09/09/18 09/09/18 09/09/18 Range/Units 16:02 11:11 07:29 WBC (4.8-10.8) K/uL RBC (4.40-5.90) Mil/uL Hgb (12.0-18.0) g/dL Hct (35.0-51.0) % MCV (80.0-94.0) fL MCH (27.0-31.0) pg MCHC (33.0-37.0) g/dL RDW (11.5-14.5) % Plt Count (130-400) K/uL MPV (7.2-11.7) fL Neut % (Auto) (50.0-75.0) % Lymph % (Auto) (20.0-40.0) % Falls % (Auto) (0.0-10.0) % Eos % (Auto) (0.0-4.0) % Baso % (Auto) (0.0-2.0) % Neut # (Auto) (1.8-7.0) K/uL Lymph # (Auto) (1.0-4.3) K/uL Falls # (Auto) (0.0-0.8) K/uL Eos # (Auto) (0.0-0.7) K/uL Baso # (Auto) (0.0-0.2) K/uL Neutrophils % (Manual) (50-75) % Lymphocytes % (Manual) (20-40) % Monocytes % (Manual) (0-10) % Platelet Estimate (NORMAL) RBC Morphology Sodium (132-148) mmol/L Potassium (3.6-5.2) mmol/L Chloride (98-107) mmol/L Carbon Dioxide (22-30) mmol/L Anion Gap (10-20) BUN (9-20) mg/dL Creatinine (0.8-1.5) mg/dL Est GFR ( Amer) Est GFR (Non-Af Amer) POC Glucose (mg/dL) 213 H 297 H 273 H (65-110) mg/dL Random Glucose (75-110) mg/dL Calcium (8.6-10.4) mg/dl Phosphorus (2.5-4.5) mg/dL Magnesium (1.6-2.3) mg/dL Total Bilirubin (0.2-1.3) mg/dL AST (17-59) U/L ALT (21-72) U/L Alkaline Phosphatase (38-126) U/L Total Creatine Kinase (44-196) U/L CK-MM (CK-3) (95-100) % CK-MB (CK-2) (<5) % CK-BB (CK-1) (None Detected) % CK Isoenzymes Interp Total Protein (6.3-8.3) g/dL Albumin (3.5-5.0) g/dL Globulin (2.2-3.9) gm/dL Albumin/Globulin Ratio (1.0-2.1) 09/09/18 09/08/18 09/08/18 Range/Units 05:45 21:35 16:14 WBC (4.8-10.8) K/uL RBC (4.40-5.90) Mil/uL Hgb (12.0-18.0) g/dL Hct (35.0-51.0) % MCV (80.0-94.0) fL MCH (27.0-31.0) pg MCHC (33.0-37.0) g/dL RDW (11.5-14.5) % Plt Count (130-400) K/uL MPV (7.2-11.7) fL Neut % (Auto) (50.0-75.0) % Lymph % (Auto) (20.0-40.0) % Falls % (Auto) (0.0-10.0) % Eos % (Auto) (0.0-4.0) % Baso % (Auto) (0.0-2.0) % Neut # (Auto) (1.8-7.0) K/uL Lymph # (Auto) (1.0-4.3) K/uL Falls # (Auto) (0.0-0.8) K/uL Eos # (Auto) (0.0-0.7) K/uL Baso # (Auto) (0.0-0.2) K/uL Neutrophils % (Manual) 92 H (50-75) % Lymphocytes % (Manual) 5 L (20-40) % Monocytes % (Manual) 3 (0-10) % Platelet Estimate Normal (NORMAL) RBC Morphology Normal Sodium (132-148) mmol/L Potassium (3.6-5.2) mmol/L Chloride (98-107) mmol/L Carbon Dioxide (22-30) mmol/L Anion Gap (10-20) BUN (9-20) mg/dL Creatinine (0.8-1.5) mg/dL Est GFR ( Amer) Est GFR (Non-Af Amer) POC Glucose (mg/dL) 267 H 308 H (65-110) mg/dL Random Glucose (75-110) mg/dL Calcium (8.6-10.4) mg/dl Phosphorus (2.5-4.5) mg/dL Magnesium (1.6-2.3) mg/dL Total Bilirubin (0.2-1.3) mg/dL AST (17-59) U/L ALT (21-72) U/L Alkaline Phosphatase (38-126) U/L Total Creatine Kinase (44-196) U/L CK-MM (CK-3) (95-100) % CK-MB (CK-2) (<5) % CK-BB (CK-1) (None Detected) % CK Isoenzymes Interp Total Protein (6.3-8.3) g/dL Albumin (3.5-5.0) g/dL Globulin (2.2-3.9) gm/dL Albumin/Globulin Ratio (1.0-2.1) 09/08/18 09/04/18 Range/Units 11:07 07:23 WBC (4.8-10.8) K/uL RBC (4.40-5.90) Mil/uL Hgb (12.0-18.0) g/dL Hct (35.0-51.0) % MCV (80.0-94.0) fL MCH (27.0-31.0) pg MCHC (33.0-37.0) g/dL RDW (11.5-14.5) % Plt Count (130-400) K/uL MPV (7.2-11.7) fL Neut % (Auto) (50.0-75.0) % Lymph % (Auto) (20.0-40.0) % Falls % (Auto) (0.0-10.0) % Eos % (Auto) (0.0-4.0) % Baso % (Auto) (0.0-2.0) % Neut # (Auto) (1.8-7.0) K/uL Lymph # (Auto) (1.0-4.3) K/uL Falls # (Auto) (0.0-0.8) K/uL Eos # (Auto) (0.0-0.7) K/uL Baso # (Auto) (0.0-0.2) K/uL Neutrophils % (Manual) (50-75) % Lymphocytes % (Manual) (20-40) % Monocytes % (Manual) (0-10) % Platelet Estimate (NORMAL) RBC Morphology Sodium (132-148) mmol/L Potassium (3.6-5.2) mmol/L Chloride (98-107) mmol/L Carbon Dioxide (22-30) mmol/L Anion Gap (10-20) BUN (9-20) mg/dL Creatinine (0.8-1.5) mg/dL Est GFR ( Amer) Est GFR (Non-Af Amer) POC Glucose (mg/dL) 338 H (65-110) mg/dL Random Glucose (75-110) mg/dL Calcium (8.6-10.4) mg/dl Phosphorus (2.5-4.5) mg/dL Magnesium (1.6-2.3) mg/dL Total Bilirubin (0.2-1.3) mg/dL AST (17-59) U/L ALT (21-72) U/L Alkaline Phosphatase (38-126) U/L Total Creatine Kinase 1037 H (44-196) U/L CK-MM (CK-3) 100 (95-100) % CK-MB (CK-2) 0 (<5) % CK-BB (CK-1) None detected (None Detected) % CK Isoenzymes Interp see note H Total Protein (6.3-8.3) g/dL Albumin (3.5-5.0) g/dL Globulin (2.2-3.9) gm/dL Albumin/Globulin Ratio (1.0-2.1) Laboratory Results - last 24 hr 09/04/18 09/08/18 09/08/18 07:23 11:07 16:14 WBC RBC Hgb Hct MCV MCH MCHC RDW Plt Count MPV Neut % (Auto) Lymph % (Auto) Falls % (Auto) Eos % (Auto) Baso % (Auto) Neut # (Auto) Lymph # (Auto) Falls # (Auto) Eos # (Auto) Baso # (Auto) Neutrophils % (Manual) Lymphocytes % (Manual) Monocytes % (Manual) Platelet Estimate RBC Morphology Sodium Potassium Chloride Carbon Dioxide Anion Gap BUN Creatinine Est GFR ( Amer) Est GFR (Non-Af Amer) POC Glucose (mg/dL) 338 H 308 H Random Glucose Calcium Phosphorus Magnesium Total Bilirubin AST ALT Alkaline Phosphatase Total Creatine Kinase 1037 H CK-MM (CK-3) 100 CK-MB (CK-2) 0 CK-BB (CK-1) None detected CK Isoenzymes Interp see note H Total Protein Albumin Globulin Albumin/Globulin Ratio 09/08/18 09/09/18 09/09/18 21:35 05:45 07:29 WBC RBC Hgb Hct MCV MCH MCHC RDW Plt Count MPV Neut % (Auto) Lymph % (Auto) Falls % (Auto) Eos % (Auto) Baso % (Auto) Neut # (Auto) Lymph # (Auto) Falls # (Auto) Eos # (Auto) Baso # (Auto) Neutrophils % (Manual) 92 H Lymphocytes % (Manual) 5 L Monocytes % (Manual) 3 Platelet Estimate Normal RBC Morphology Normal Sodium Potassium Chloride Carbon Dioxide Anion Gap BUN Creatinine Est GFR ( Amer) Est GFR (Non-Af Amer) POC Glucose (mg/dL) 267 H 273 H Random Glucose Calcium Phosphorus Magnesium Total Bilirubin AST ALT Alkaline Phosphatase Total Creatine Kinase CK-MM (CK-3) CK-MB (CK-2) CK-BB (CK-1) CK Isoenzymes Interp Total Protein Albumin Globulin Albumin/Globulin Ratio 09/09/18 09/09/18 09/09/18 11:11 16:02 21:15 WBC RBC Hgb Hct MCV MCH MCHC RDW Plt Count MPV Neut % (Auto) Lymph % (Auto) Falls % (Auto) Eos % (Auto) Baso % (Auto) Neut # (Auto) Lymph # (Auto) Falls # (Auto) Eos # (Auto) Baso # (Auto) Neutrophils % (Manual) Lymphocytes % (Manual) Monocytes % (Manual) Platelet Estimate RBC Morphology Sodium Potassium Chloride Carbon Dioxide Anion Gap BUN Creatinine Est GFR ( Amer) Est GFR (Non-Af Amer) POC Glucose (mg/dL) 297 H 213 H 286 H Random Glucose Calcium Phosphorus Magnesium Total Bilirubin AST ALT Alkaline Phosphatase Total Creatine Kinase CK-MM (CK-3) CK-MB (CK-2) CK-BB (CK-1) CK Isoenzymes Interp Total Protein Albumin Globulin Albumin/Globulin Ratio 09/10/18 09/10/18 05:06 05:06 WBC 12.7 H RBC 5.70 Hgb 17.3 Hct 52.1 H MCV 91.5 MCH 30.3 MCHC 33.2 RDW 14.1 Plt Count 288 MPV 9.8 Neut % (Auto) 79.7 H Lymph % (Auto) 7.5 L Falls % (Auto) 11.3 H Eos % (Auto) 0.8 Baso % (Auto) 0.7 Neut # (Auto) 10.1 H Lymph # (Auto) 1.0 Falls # (Auto) 1.4 H Eos # (Auto) 0.1 Baso # (Auto) 0.1 Neutrophils % (Manual) Lymphocytes % (Manual) Monocytes % (Manual) Platelet Estimate RBC Morphology Sodium 140 Potassium 3.2 L Chloride 103 Carbon Dioxide 29 Anion Gap 11 BUN 28 H Creatinine 1.8 H Est GFR ( Amer) 45 Est GFR (Non-Af Amer) 37 POC Glucose (mg/dL) Random Glucose 324 H Calcium 9.5 Phosphorus 2.8 Magnesium 2.3 Total Bilirubin 0.7 AST 175 H D ALT 36 Alkaline Phosphatase 158 H Total Creatine Kinase CK-MM (CK-3) CK-MB (CK-2) CK-BB (CK-1) CK Isoenzymes Interp Total Protein 6.8 Albumin 3.5 Globulin 3.4 Albumin/Globulin Ratio 1.0 EKG/Cardiology Studies: Cardiology / EKG Studies 09/09/18 16:36 EKG [ELECTROCARDIOGRAM] Stat Comment: Mode Of Transportation: Reason For Exam: a fib Fingerstick Blood Sugar Results: 267 Critical Care Progress Note - Nutrition Nutrition: Nutrition Category Date Time Status Heart Healthy Diet [DIET] Diets 09/09/18 Lunch Active Assessment/Plan - Assessment and Plan (Free Text) Assessment: Patient is a 73 year old male presenting with Acute Anterior wall NE and pulmonary edema. Patient was a code heart and code blue which required intubation in the bundle tier and labeler. Plan: Neuro: - Patient is awake, AAO X 3 - Head CT (09/06): No acute intracranial abnormality. If there is a persistent focal neurologic deficit and an ongoing clinical concern for acute infarction, an MRI of the brain without intravenous contrast would be a more sensitive modality for evaluation of hyperacute/acute ischemic infarction. Moderate age- related global parenchymal volume loss. Cardiovascular: Anterior wall NE - S/p cardiac cath L Main: - Entire LAD has diffuse 90% calcific narrowing. Mid 100% occlusion - L Cx/OM: Dominant: Proximal 85%, OM2 99% - RCA: Non dominant and diffuse 99% disease - LV: EF 10-15%, Dilated ischemic CMP, No - Cardiology consulted, Dr. Rivera - Follow up heart catheterization for other vessel stenting, once stable - ASA 81mg PO QD - Brilinta 90mg PO BID - Crestor 40mg QD HS - Heparin 5000 units SC Q12 - Lopressor 25mg PO Q12 Atrial fibrillation - EKG (09/06): Atrial fibrillation, bpm @ 142 - Lopressor 25mg PO Q12 Cardiogenic shock - Off baloon pump (09/05) - Off pressors - Lasix 20mg PO QD Pulmonary: Pneumonia - CXR (09/07): Persistent mild pulmonary venous congestive changes appear slightly improved. There does appear to be small residual bilateral lower lobe alveolar-type infiltrates. - Sputum cx: S. aureus - Cefazolin 2g IV Q8 (Started on 09/05) - Received 1 dose of Vancomycin Respiratory distress - Patient not in distress - Continue NC 2L - Continue to monitor GI: Transaminitis - AST/ALT: 70/20- downtrending - Continue to monitor Renal: NAY - BUN/Cr: 27/1.7- downtrending - Continue to monitor - Avoid nephrotoxins Hypokalemia - Replete as needed - Continue to monitor Hypophosphatemia - Resolved - Continue to monitor Endo: DM-2 - ISS - Lantus 10 units HS - Accucheck ACHS - Hypoglycemia protocol ID: Leukocytosis - Cefazolin 2g IV Q8 (Started on 09/05) - Received 1 dose of Vancomycin - Sputum cx: S. aureus - Blood cx: no growth to date - Urine cx: no growth to date - MRSA: not detected Prophylaxis: - Protonix 40mg PO QD - SCD's - Heparin 5000 units SC Q12 Case discussed with Dr. Hilda Aden, PGY-1 <Marily Carrion - Last Filed: 09/11/18 16:34> CCU Objective - Vital Signs / Intake & Output Vital Signs (Last 4 hours): Vital Signs Temp Pulse Resp BP Pulse Ox 09/11/18 16:07 75 09/11/18 15:15 97.5 F L 75 20 93/59 L 100 09/11/18 13:00 75 26 H Intake and Output (Last 8hrs): Intake & Output 09/11/18 09/11/18 09/11/18 06:59 14:59 22:59 Intake Total 240 Output Total 900 Balance -660 Weight 145 lb Intake: Oral 240 Output: Urine 900 Urine, Voided 900 - Medications Active Medications: Active Medications Generic Name Dose Route Start Last Admin Trade Name Freq PRN Reason Stop Dose Admin Apixaban 2.5 mg 09/10/18 10:00 09/11/18 09:23 Eliquis PO 2.5 mg BID STEPHANIE Administration Aspirin 81 mg 09/04/18 13:15 09/11/18 09:23 Aspirin Chewable PO 81 mg DAILY STEPHANIE Administration Clopidogrel Bisulfate 75 mg 09/10/18 10:00 09/11/18 09:23 Plavix PO 75 mg DAILY STEPHANIE Administration Dextrose 0 ml 09/05/18 16:12 Dextrose 50% Inj IV STAT PRN Hypoglycemia Protocol Protocol Dextrose 0 gm 09/05/18 16:12 Glutose 15 PO ONCE PRN Hypoglycemia Protocol Protocol Furosemide 20 mg 09/09/18 10:00 09/10/18 10:00 Lasix PO Not Given DAILY STEPHANIE Glucagon 0 mg 09/05/18 16:12 Glucagen Diagnostic Kit IM STAT PRN Hypoglycemia Protocol Protocol Dextrose 1,000 mls @ 0 mls/hr 09/05/18 16:12 Dextrose 5% In Water 1000 Ml IV .Q0M PRN Hypoglycemia Protocol Protocol Per Protocol Insulin Aspart 5 unit 09/10/18 16:30 09/11/18 12:30 Novolog SC 5 u ACTID STEPHANIE Administration Insulin Glargine 15 unit 09/10/18 22:00 09/10/18 21:06 Lantus SC 15 units HS STEPHANIE Administration Metoprolol Tartrate 50 mg 09/09/18 22:00 09/11/18 09:23 Lopressor PO 50 mg Q12 STEPHANIE Administration Pantoprazole Sodium 40 mg 09/09/18 10:00 09/11/18 09:23 Protonix Ec Tab PO 40 mg DAILY STEPHANIE Administration Rosuvastatin Calcium 40 mg 09/03/18 22:00 09/10/18 21:06 Crestor PO 40 mg HS STEPHANIE Administration - Patient Studies Lab Studies: Lab Studies 09/11/18 09/11/18 09/11/18 Range/Units 08:53 06:22 06:22 WBC 10.5 (4.8-10.8) K/uL RBC 5.34 (4.40-5.90) Mil/uL Hgb 16.5 (12.0-18.0) g/dL Hct 50.0 (35.0-51.0) % MCV 93.5 D (80.0-94.0) fL MCH 30.8 (27.0-31.0) pg MCHC 32.9 L (33.0-37.0) g/dL RDW 14.1 (11.5-14.5) % Plt Count 271 (130-400) K/uL MPV 10.1 (7.2-11.7) fL Neut % (Auto) 73.7 (50.0-75.0) % Lymph % (Auto) 11.0 L (20.0-40.0) % Falls % (Auto) 12.8 H (0.0-10.0) % Eos % (Auto) 2.2 (0.0-4.0) % Baso % (Auto) 0.3 (0.0-2.0) % Neut # (Auto) 7.7 H (1.8-7.0) K/uL Lymph # (Auto) 1.2 (1.0-4.3) K/uL Falls # (Auto) 1.3 H (0.0-0.8) K/uL Eos # (Auto) 0.2 (0.0-0.7) K/uL Baso # (Auto) 0.0 (0.0-0.2) K/uL Sodium 135 (132-148) mmol/L Potassium 3.5 L (3.6-5.2) mmol/L Chloride 102 (98-107) mmol/L Carbon Dioxide 24 (22-30) mmol/L Anion Gap 13 (10-20) BUN 27 H (9-20) mg/dL Creatinine 1.8 H (0.8-1.5) mg/dL Est GFR ( Amer) 45 Est GFR (Non-Af Amer) 37 POC Glucose (mg/dL) 222 H (65-110) mg/dL Random Glucose 350 H (75-110) mg/dL Calcium 9.0 (8.6-10.4) mg/dl Phosphorus 2.1 L (2.5-4.5) mg/dL Magnesium 2.2 (1.6-2.3) mg/dL Total Bilirubin 0.6 (0.2-1.3) mg/dL AST 112 H D (17-59) U/L ALT 36 (21-72) U/L Alkaline Phosphatase 140 H (38-126) U/L Total Protein 6.1 L (6.3-8.3) g/dL Albumin 3.2 L (3.5-5.0) g/dL Globulin 3.0 (2.2-3.9) gm/dL Albumin/Globulin Ratio 1.1 (1.0-2.1) 09/10/18 09/10/18 Range/Units 21:23 16:16 WBC (4.8-10.8) K/uL RBC (4.40-5.90) Mil/uL Hgb (12.0-18.0) g/dL Hct (35.0-51.0) % MCV (80.0-94.0) fL MCH (27.0-31.0) pg MCHC (33.0-37.0) g/dL RDW (11.5-14.5) % Plt Count (130-400) K/uL MPV (7.2-11.7) fL Neut % (Auto) (50.0-75.0) % Lymph % (Auto) (20.0-40.0) % Falls % (Auto) (0.0-10.0) % Eos % (Auto) (0.0-4.0) % Baso % (Auto) (0.0-2.0) % Neut # (Auto) (1.8-7.0) K/uL Lymph # (Auto) (1.0-4.3) K/uL Falls # (Auto) (0.0-0.8) K/uL Eos # (Auto) (0.0-0.7) K/uL Baso # (Auto) (0.0-0.2) K/uL Sodium (132-148) mmol/L Potassium (3.6-5.2) mmol/L Chloride (98-107) mmol/L Carbon Dioxide (22-30) mmol/L Anion Gap (10-20) BUN (9-20) mg/dL Creatinine (0.8-1.5) mg/dL Est GFR ( Amer) Est GFR (Non-Af Amer) POC Glucose (mg/dL) 271 H 323 H (65-110) mg/dL Random Glucose (75-110) mg/dL Calcium (8.6-10.4) mg/dl Phosphorus (2.5-4.5) mg/dL Magnesium (1.6-2.3) mg/dL Total Bilirubin (0.2-1.3) mg/dL AST (17-59) U/L ALT (21-72) U/L Alkaline Phosphatase (38-126) U/L Total Protein (6.3-8.3) g/dL Albumin (3.5-5.0) g/dL Globulin (2.2-3.9) gm/dL Albumin/Globulin Ratio (1.0-2.1) Laboratory Results - last 24 hr 09/10/18 09/10/18 09/11/18 16:16 21:23 06:22 WBC 10.5 RBC 5.34 Hgb 16.5 Hct 50.0 MCV 93.5 D MCH 30.8 MCHC 32.9 L RDW 14.1 Plt Count 271 MPV 10.1 Neut % (Auto) 73.7 Lymph % (Auto) 11.0 L Falls % (Auto) 12.8 H Eos % (Auto) 2.2 Baso % (Auto) 0.3 Neut # (Auto) 7.7 H Lymph # (Auto) 1.2 Falls # (Auto) 1.3 H Eos # (Auto) 0.2 Baso # (Auto) 0.0 Sodium Potassium Chloride Carbon Dioxide Anion Gap BUN Creatinine Est GFR ( Amer) Est GFR (Non-Af Amer) POC Glucose (mg/dL) 323 H 271 H Random Glucose Calcium Phosphorus Magnesium Total Bilirubin AST ALT Alkaline Phosphatase Total Protein Albumin Globulin Albumin/Globulin Ratio 09/11/18 09/11/18 06:22 08:53 WBC RBC Hgb Hct MCV MCH MCHC RDW Plt Count MPV Neut % (Auto) Lymph % (Auto) Falls % (Auto) Eos % (Auto) Baso % (Auto) Neut # (Auto) Lymph # (Auto) Falls # (Auto) Eos # (Auto) Baso # (Auto) Sodium 135 Potassium 3.5 L Chloride 102 Carbon Dioxide 24 Anion Gap 13 BUN 27 H Creatinine 1.8 H Est GFR ( Amer) 45 Est GFR (Non-Af Amer) 37 POC Glucose (mg/dL) 222 H Random Glucose 350 H Calcium 9.0 Phosphorus 2.1 L Magnesium 2.2 Total Bilirubin 0.6 AST 112 H D ALT 36 Alkaline Phosphatase 140 H Total Protein 6.1 L Albumin 3.2 L Globulin 3.0 Albumin/Globulin Ratio 1.1 Critical Care Progress Note - Nutrition Nutrition: Nutrition Category Date Time Status Heart Healthy Diet [DIET] Diets 09/10/18 Breakfast Active Assessment/Plan - Assessment and Plan (Free Text) Plan: Patient remains hemodynamically stable. -continue to optimize heart medication as per cardiology team - Date & Time Date: 09/10/18 Time: 16:34
[2018-09-10] MEDS ORDERED: Potassium Chloride 20 mEq ER Tab PO ONE (07:49)
[2018-09-10 08:10] LABS: BANDS 1 % (0-2); EOSINOPHIL 2 % (0-4); LYMPHOCYTE 4 % (20-40); MONOCYTE 12 % (0-10); NEUTROPHIL 81 % (50-75); PLATELET ESTIMATE NORMAL (NORMAL); TOTAL CELLS COUNTED 100
[2018-09-10 10:11] VITALS: PULSE 97
[2018-09-10] MEDS ORDERED: Digoxin 500 mcg/2ml (0.5 mg/2ml) Inj IVP ONE (10:15)
[2018-09-10] MEDS: Pantoprazole 40 mg EC Tab PO SCH (10:38)
[2018-09-10] MEDS: Lidocaine 5% Patch TD SCH (10:44)
[2018-09-10] MEDS ORDERED: Sodium Chloride 0.9% 500 ML IV ONE (11:00)
[2018-09-10] MEDS ORDERED: (Novolog) Insulin Aspart, Recombinant 100 u/ml 10 ml vial SC SCH ×2 (11:30→12:24)
[2018-09-10] MEDS ORDERED: (Novolog Mix 70/30) Insulin Aspart/Insulin Aspar 100 units/ml SC SCH ×2 (11:30)
--- NOTE | 2018-09-10 13:26 | CARD ---
APPROVED REPORT Date of service: 09/09/2018 EXAM: LIMITED Two-dimensional and M-mode echocardiogram. Other Information Quality : Good[employer] : INDICATION Non STEMI s/p HI 2D DIMENSIONS IVSd0.9 (0.7-1.1cm)LVDd6.5 (3.9-5.9cm) PWd1.1 (0.7-1.1cm)LVDs5.4 (2.5-4.0cm) FS (%) 6.5 %LVEF (%)14.4 (>50%) LVEF (Mary's)27.78 % M-Mode DIMENSIONS IVSd0.92 (0.7-1.1cm)LVDd6.56 (4.0-5.6cm) PWd0.90 (0.7-1.1cm)FS (%) 16 % LVDs5.53 (2.0-3.8cm)LVEF (%)25 (>50%) Mitral Valve E/A ratio0.0 TDI E/Lateral E'0.0E/Medial E'0.0 LEFT VENTRICLE The Left Ventricle is moderately dilated. There is normal left ventricular wall thickness. The Ejection Fraction is 30-35%.[place] ov anteroapical & inferoapical wall.cad. doppler is incomplete.no color flow is available. RIGHT VENTRICLE The right ventricular systolic function is normal. ATRIA la size is probably normal. The right atrium size is normal. AORTIC VALVE The aortic valve is normal in structure. MITRAL VALVE The mitral valve is normal in structure. TRICUSPID VALVE The tricuspid valve is normal in structure. PULMONIC VALVE The pulmonary valve is normal in structure. GREAT VESSELS The aortic root is normal in size. PERICARDIAL EFFUSION small posterior pericardial effusion. <Conclusion> The Left Ventricle is moderately dilated. The Left Ventricle is moderately dilated. There is normal left ventricular wall thickness. The Ejection Fraction is 30-35%.[place] ov anteroapical & inferoapical wall.cad. doppler is incomplete.no color flow is available. small posterior pericardial effusion. this is incomplete study.
[2018-09-10] MEDS: (Novolog) Insulin Aspart, Recombinant 100 u/ml 10 ml vial SC SCH (16:35)
[2018-09-10] MEDS: (Lantus) Insulin Glargine, Recombinant SC SCH (21:06)
--- NOTE | 2018-09-10 22:13 | CARD ---
APPROVED REPORT Date of service: 09/09/2018 EKG Measurement Heart [id number] <Conclusion> Atrial fibrillation with premature ventricular or aberrantly conducted complexes Septal infarct, age undetermined Abnormal ECG
--- NOTE | 2018-09-10 22:23 | CP.PCM.PN ---
Subjective - Date & Time of Evaluation Date of Evaluation: 09/10/18 Time of Evaluation: 18:30 - Subjective Subjective: Patient had an episode of orthostatic hypotension this AM. Asymptomatic now. Telemetry shows A Fib with MVR, Patient is on Metoprolol for rate control. Patient is also afebrile with a good appetite. Echo reveals a large area of akinesia of the anterior wall, and hypokinesia of the inferior and inferior carias. LVEF is around 20-25 %. Objective - Vital Signs/Intake and Output Vital Signs (last 24 hours): Temp Pulse Resp BP Pulse Ox 97.6 F 68 20 112/69 100 09/10/18 20:00 09/10/18 20:18 09/10/18 20:00 09/10/18 19:52 09/10/18 20:00 Intake and Output: 09/10/18 09/11/18 18:59 06:59 Intake Total 1490 0 Output Total 761 Balance 729 0 - Medications Medications: Current Medications Apixaban (Eliquis) 2.5 mg PO BID [facility] Last Admin: 09/10/18 18:24 Dose: 2.5 mg Aspirin (Aspirin Chewable) 81 mg PO DAILY [facility] Last Admin: 09/10/18 10:11 Dose: 81 mg Clopidogrel Bisulfate (Plavix) 75 mg PO DAILY [facility] Last Admin: 09/10/18 10:11 Dose: 75 mg Dextrose (Dextrose 50% Inj) 0 ml IV STAT PRN; Protocol PRN Reason: Hypoglycemia Protocol Dextrose (Glutose 15) 0 gm PO ONCE PRN; Protocol PRN Reason: Hypoglycemia Protocol Furosemide (Lasix) 20 mg PO DAILY [facility] Last Admin: 09/10/18 10:00 Dose: Not Given Glucagon (Glucagen Diagnostic Kit) 0 mg IM STAT PRN; Protocol PRN Reason: Hypoglycemia Protocol Dextrose (Dextrose 5% In Water 1000 Ml) 1,000 mls @ 0 mls/hr IV .Q0M PRN; Protocol PRN Reason: Hypoglycemia Protocol Insulin Aspart (Novolog) 5 unit SC ACTID [facility] Last Admin: 09/10/18 16:35 Dose: 5 u Insulin Glargine (Lantus) 15 unit SC HS [facility] Last Admin: 09/10/18 21:06 Dose: 15 units Metoprolol Tartrate (Lopressor) 50 mg PO Q12 [facility] Last Admin: 09/10/18 21:09 Dose: Not Given Pantoprazole Sodium (Protonix Ec Tab) 40 mg PO DAILY [facility] Last Admin: 09/10/18 10:38 Dose: 40 mg Rosuvastatin Calcium (Crestor) 40 mg PO HS [facility] Last Admin: 09/10/18 21:06 Dose: 40 mg - Labs Labs: 09/10/18 05:06 09/10/18 05:06 PT 11.1 SECONDS (9.7-12.2) 09/03/18 01:40 INR 1.0 09/03/18 01:40 APTT 71 SECONDS (21-34) H 09/06/18 06:03 - Constitutional Appears: Well, No Acute Distress - Head Exam Head Exam: NORMAL INSPECTION - Eye Exam Eye Exam: Normal appearance Pupil Exam: NORMAL ACCOMODATION - ENT Exam ENT Exam: Normal Exam - Neck Exam Neck Exam: Normal Inspection - Respiratory Exam Additional comments: Few rales heard at both bases. - Cardiovascular Exam Cardiovascular Exam: Irregular Rhythm, Murmur - GI/Abdominal Exam GI & Abdominal Exam: Soft, Normal Bowel Sounds - Rectal Exam Rectal Exam: Deferred - Extremities Exam Extremities Exam: Normal Inspection - Back Exam Back Exam: NORMAL INSPECTION - Neurological Exam Neurological Exam: Alert, Oriented x3 - Psychiatric Exam Psychiatric exam: Anxious - Skin Skin Exam: Dry, Intact, Normal Color, Warm Assessment and Plan (1) Acute ST elevation myocardial infarction (STEMI) of anterior wall Status: Resolved (2) Acute pulmonary edema Status: Resolved (3) Acute respiratory failure Status: Resolved (4) Uncontrolled diabetes mellitus Status: Resolved
[2018-09-11 06:35] LABS: BASO % 0.3 % (0.0-2.0); EOS # 0.2 K/uL (0.0-0.7); EOS % 2.2 % (0.0-4.0); HEMOGLOBIN 16.5 g/dL (12.0-18.0); LYMPH # 1.2 K/uL (1.0-4.3); MEAN CELL VOLUME 93.5 fL (80.0-94.0); MEAN CORPUSCULAR HEMOGLOBIN 30.8 pg (27.0-31.0); MEAN CORPUSCULAR HGB CONC 32.9 g/dL (33.0-37.0); MEAN PLATELET VOLUME 10.1 fL (7.2-11.7); MONO # 1.3 K/uL (0.0-0.8); MONO % 12.8 % (0.0-10.0); NEUT # 7.7 K/uL (1.8-7.0); NEUT % 73.7 % (50.0-75.0); RBC 5.34 Mil/uL (4.40-5.90); RED CELL DISTRIBUTION WIDTH 14.1 % (11.5-14.5); WHITE BLOOD COUNT 10.5 K/uL (4.8-10.8)
[2018-09-11 07:09] LABS: ALB/GLOB RATIO 1.1 (1.0-2.1); ALBUMIN 3.2 g/dL (3.5-5.0)
[2018-09-11] MEDS: (Novolog) Insulin Aspart, Recombinant 100 u/ml 10 ml vial SC SCH ×3 (08:30→17:28)
[2018-09-11] MEDS: Pantoprazole 40 mg EC Tab PO SCH (09:23)
--- NOTE | 2018-09-11 10:49 | CP.PCM.PN ---
<Deneen Garcia - Last Filed: 09/11/18 10:44> Subjective - Date & Time of Evaluation Date of Evaluation: 09/11/18 Time of Evaluation: 10:45 - Subjective Subjective: Cardiology Follow Up Patient seen and examined at bedside. Patient appears to be back to baseline. He is AAO x3. Denied any chest pain, shortness of breath, or palpitations. Objective - Vital Signs/Intake and Output Vital Signs (last 24 hours): Temp Pulse Resp BP Pulse Ox 97.7 F 78 24 111/60 100 09/11/18 04:00 09/11/18 04:00 09/11/18 04:00 09/11/18 03:53 09/11/18 04:00 Intake and Output: 09/11/18 09/11/18 06:59 18:59 Intake Total 240 Output Total 900 Balance -660 - Medications Medications: Current Medications Apixaban (Eliquis) 2.5 mg PO BID [facility] Last Admin: 09/11/18 09:23 Dose: 2.5 mg Aspirin (Aspirin Chewable) 81 mg PO DAILY [facility] Last Admin: 09/11/18 09:23 Dose: 81 mg Clopidogrel Bisulfate (Plavix) 75 mg PO DAILY [facility] Last Admin: 09/11/18 09:23 Dose: 75 mg Dextrose (Dextrose 50% Inj) 0 ml IV STAT PRN; Protocol PRN Reason: Hypoglycemia Protocol Dextrose (Glutose 15) 0 gm PO ONCE PRN; Protocol PRN Reason: Hypoglycemia Protocol Furosemide (Lasix) 20 mg PO DAILY [facility] Last Admin: 09/10/18 10:00 Dose: Not Given Glucagon (Glucagen Diagnostic Kit) 0 mg IM STAT PRN; Protocol PRN Reason: Hypoglycemia Protocol Dextrose (Dextrose 5% In Water 1000 Ml) 1,000 mls @ 0 mls/hr IV .Q0M PRN; Protocol PRN Reason: Hypoglycemia Protocol Insulin Aspart (Novolog) 5 unit SC ACTID [facility] Last Admin: 09/11/18 08:30 Dose: 5 u Insulin Glargine (Lantus) 15 unit SC HS [facility] Last Admin: 09/10/18 21:06 Dose: 15 units Metoprolol Tartrate (Lopressor) 50 mg PO Q12 [facility] Last Admin: 09/11/18 09:23 Dose: 50 mg Pantoprazole Sodium (Protonix Ec Tab) 40 mg PO DAILY [facility] Last Admin: 09/11/18 09:23 Dose: 40 mg Rosuvastatin Calcium (Crestor) 40 mg PO HS [facility] Last Admin: 09/10/18 21:06 Dose: 40 mg - Labs Labs: 09/11/18 06:22 09/11/18 06:22 PT 11.1 SECONDS (9.7-12.2) 09/03/18 01:40 INR 1.0 09/03/18 01:40 APTT 71 SECONDS (21-34) H 09/06/18 06:03 - Additional Findings Additional findings: - Constitutional Appears: Chronically Ill - Head Exam Head Exam: NORMAL INSPECTION, NORMOCEPHALIC - Eye Exam Eye Exam: EOMI, Normal appearance, PERRL - ENT Exam ENT Exam: Mucous Membranes Dry - Respiratory Exam Respiratory Exam: Decreased Breath Sounds - Cardiovascular Exam Cardiovascular Exam: Irregular Rhythm, +S1, +S2 - GI/Abdominal Exam GI & Abdominal Exam: Soft, Normal Bowel Sounds. absent: Distended, Tenderness - Extremities Exam Extremities Exam: Normal Inspection. absent: Pedal Edema, Tenderness - Neurological Exam Neurological Exam: Alert, Awake - Psychiatric Exam Psychiatric exam: Normal Affect, Normal Mood - Skin Skin Exam: Dry, Intact, Normal Color, Warm Assessment and Plan - Assessment and Plan (Free Text) Plan: Anterior Wall RI s/p PCI in LAD (code heart) Dilated Ischemic Cardiomyopathy Cardiogenic shock s/p balloon pump (code blue) Severe Triple Vessel Disease Pulmonary Edema New Onset Atrial Fibrillation Imaging: -s/p catherization: L Main: Patent. LAD/Diags; Small caliber artery. Entire LAD has diffuse 90% calcific narrowing. Mid 100% occlusion. L Cx/OM: Dominant: Proximal 85%, OM2 99%. RCA: Non dominant and diffuse 99% disease. LV: EF 10-15%, Dilated ischemic CMP, No Management: - Continue ASA, Plavix, Eliquis 2.5mg PO BID, Metoprolol 50mg PO Q12, and Crestor - Patient is to follow up with Dr. Rivera for management of AC and to also schedule LCX PCI in 4 weeks Case discussed with Dr. Rivera, Deneen Garcia DO, PGY2 <Clayton Rivera - Last Filed: 09/11/18 21:50> Objective - Vital Signs/Intake and Output Vital Signs (last 24 hours): Temp Pulse Resp BP Pulse Ox 97.5 F L 75 20 93/59 L 100 09/11/18 15:15 09/11/18 16:07 09/11/18 15:15 09/11/18 15:15 09/11/18 15:15 - Medications Medications: Current Medications Apixaban (Eliquis) 2.5 mg PO BID [facility] Last Admin: 09/11/18 17:29 Dose: 2.5 mg Aspirin (Aspirin Chewable) 81 mg PO DAILY [facility] Last Admin: 09/11/18 09:23 Dose: 81 mg Cephalexin Monohydrate (Keflex) 500 mg PO Q8H [facility]; Protocol Last Admin: 09/11/18 19:28 Dose: 500 mg Clopidogrel Bisulfate (Plavix) 75 mg PO DAILY [facility] Last Admin: 09/11/18 09:23 Dose: 75 mg Dextrose (Dextrose 50% Inj) 0 ml IV STAT PRN; Protocol PRN Reason: Hypoglycemia Protocol Dextrose (Glutose 15) 0 gm PO ONCE PRN; Protocol PRN Reason: Hypoglycemia Protocol Furosemide (Lasix) 20 mg PO DAILY [facility] Last Admin: 09/10/18 10:00 Dose: Not Given Glucagon (Glucagen Diagnostic Kit) 0 mg IM STAT PRN; Protocol PRN Reason: Hypoglycemia Protocol Dextrose (Dextrose 5% In Water 1000 Ml) 1,000 mls @ 0 mls/hr IV .Q0M PRN; Protocol PRN Reason: Hypoglycemia Protocol Insulin Aspart (Novolog) 5 unit SC ACTID [facility] Last Admin: 09/11/18 17:28 Dose: 5 u Insulin Glargine (Lantus) 15 unit SC HS [facility] Last Admin: 09/10/18 21:06 Dose: 15 units Metoprolol Tartrate (Lopressor) 50 mg PO Q12 [facility] Last Admin: 09/11/18 09:23 Dose: 50 mg Pantoprazole Sodium (Protonix Ec Tab) 40 mg PO DAILY [facility] Last Admin: 09/11/18 09:23 Dose: 40 mg Rosuvastatin Calcium (Crestor) 40 mg PO HS [facility] Last Admin: 09/10/18 21:06 Dose: 40 mg - Labs Labs: 09/11/18 06:22 09/11/18 06:22 PT 11.1 SECONDS (9.7-12.2) 09/03/18 01:40 INR 1.0 09/03/18 01:40 APTT 71 SECONDS (21-34) H 09/06/18 06:03 Assessment and Plan - Assessment and Plan (Free Text) Plan: Patient seen and evaluated personally by me Plan of care d/w the medical dermatologist and as documented
--- NOTE | 2018-09-11 18:06 | CP.PCM.PN ---
Subjective - Date & Time of Evaluation Date of Evaluation: 09/11/18 Time of Evaluation: 09:00 - Subjective Subjective: no fever alert less sob Objective - Vital Signs/Intake and Output Vital Signs (last 24 hours): Temp Pulse Resp BP Pulse Ox 97.5 F L 75 20 93/59 L 100 09/11/18 15:15 09/11/18 16:07 09/11/18 15:15 09/11/18 15:15 09/11/18 15:15 Intake and Output: 09/11/18 09/11/18 06:59 18:59 Intake Total 240 Output Total 900 Balance -660 - Medications Medications: Current Medications Apixaban (Eliquis) 2.5 mg PO BID [facility] Last Admin: 09/11/18 17:29 Dose: 2.5 mg Aspirin (Aspirin Chewable) 81 mg PO DAILY [facility] Last Admin: 09/11/18 09:23 Dose: 81 mg Clopidogrel Bisulfate (Plavix) 75 mg PO DAILY [facility] Last Admin: 09/11/18 09:23 Dose: 75 mg Dextrose (Dextrose 50% Inj) 0 ml IV STAT PRN; Protocol PRN Reason: Hypoglycemia Protocol Dextrose (Glutose 15) 0 gm PO ONCE PRN; Protocol PRN Reason: Hypoglycemia Protocol Furosemide (Lasix) 20 mg PO DAILY [facility] Last Admin: 09/10/18 10:00 Dose: Not Given Glucagon (Glucagen Diagnostic Kit) 0 mg IM STAT PRN; Protocol PRN Reason: Hypoglycemia Protocol Dextrose (Dextrose 5% In Water 1000 Ml) 1,000 mls @ 0 mls/hr IV .Q0M PRN; Protocol PRN Reason: Hypoglycemia Protocol Insulin Aspart (Novolog) 5 unit SC ACTID [facility] Last Admin: 09/11/18 17:28 Dose: 5 u Insulin Glargine (Lantus) 15 unit SC HS [facility] Last Admin: 09/10/18 21:06 Dose: 15 units Metoprolol Tartrate (Lopressor) 50 mg PO Q12 [facility] Last Admin: 09/11/18 09:23 Dose: 50 mg Pantoprazole Sodium (Protonix Ec Tab) 40 mg PO DAILY [facility] Last Admin: 09/11/18 09:23 Dose: 40 mg Rosuvastatin Calcium (Crestor) 40 mg PO HS [facility] Last Admin: 09/10/18 21:06 Dose: 40 mg - Labs Labs: 09/11/18 06:22 09/11/18 06:22 PT 11.1 SECONDS (9.7-12.2) 09/03/18 01:40 INR 1.0 09/03/18 01:40 APTT 71 SECONDS (21-34) H 09/06/18 06:03 - Constitutional Appears: Non-toxic, Chronically Ill - Head Exam Head Exam: NORMOCEPHALIC - Eye Exam Eye Exam: absent: Scleral icterus - ENT Exam ENT Exam: Mucous Membranes Dry - Neck Exam Neck Exam: absent: Lymphadenopathy - Respiratory Exam Respiratory Exam: Decreased Breath Sounds, Rhonchi - Cardiovascular Exam Cardiovascular Exam: REGULAR RHYTHM, +S1, +S2 - GI/Abdominal Exam GI & Abdominal Exam: Distended, Soft - Rectal Exam Rectal Exam: Deferred - Exam Exam: NORMAL INSPECTION - Extremities Exam Extremities Exam: absent: Pedal Edema - Back Exam Back Exam: absent: CVA tenderness (L), CVA tenderness (R) - Neurological Exam Neurological Exam: Alert, Awake, Oriented x3 - Psychiatric Exam Psychiatric exam: Depressed - Skin Skin Exam: Dry Assessment and Plan (1) Acute ST elevation myocardial infarction (STEMI) of anterior wall Status: Resolved (2) Acute pulmonary edema Status: Resolved (3) Acute respiratory failure Status: Resolved (4) Cardiogenic shock Status: Acute - Assessment and Plan (Free Text) Assessment: ok to d/c iv antibiotics
[2018-09-11] MEDS ORDERED: Potassium Chloride 20 mEq ER Tab PO STA (19:04)
[2018-09-11] MEDS: (Lantus) Insulin Glargine, Recombinant SC SCH (22:23)
--- NOTE | 2018-09-11 23:59 | CARD ---
APPROVED REPORT Date of service: 09/10/2018 EKG Measurement Heart [id number] <Conclusion> Atrial fibrillation ST & T wave abnormality, consider anterior ischemia Abnormal ECG
[2018-09-12 07:46] LABS: ALBUMIN 3.1 g/dL (3.5-5.0)
[2018-09-12] MEDS: (Novolog) Insulin Aspart, Recombinant 100 u/ml 10 ml vial SC SCH ×3 (08:22→16:45)
[2018-09-12] MEDS: Pantoprazole 40 mg EC Tab PO SCH (10:21)
[2018-09-12] MEDS: Potassium Chloride 20 mEq ER Tab PO SCH (15:46)
--- NOTE | 2018-09-12 20:25 | CP.PCM.PN ---
Subjective - Date & Time of Evaluation Date of Evaluation: 09/12/18 Time of Evaluation: 17:30 - Subjective Subjective: Patient complaining of a mild cough. Afebrile. K+: 3.5 Objective - Vital Signs/Intake and Output Vital Signs (last 24 hours): Temp Pulse Resp BP Pulse Ox 97.3 F L 65 20 117/62 100 09/12/18 15:00 09/12/18 16:00 09/12/18 15:00 09/12/18 15:00 09/12/18 15:00 - Medications Medications: Current Medications Apixaban (Eliquis) 2.5 mg PO BID [facility] Last Admin: 09/12/18 17:46 Dose: 2.5 mg Aspirin (Aspirin Chewable) 81 mg PO DAILY [facility] Last Admin: 09/12/18 10:21 Dose: 81 mg Cephalexin Monohydrate (Keflex) 500 mg PO Q8H [facility]; Protocol Last Admin: 09/12/18 17:46 Dose: 500 mg Clopidogrel Bisulfate (Plavix) 75 mg PO DAILY [facility] Last Admin: 09/12/18 10:21 Dose: 75 mg Dextrose (Dextrose 50% Inj) 0 ml IV STAT PRN; Protocol PRN Reason: Hypoglycemia Protocol Dextrose (Glutose 15) 0 gm PO ONCE PRN; Protocol PRN Reason: Hypoglycemia Protocol Furosemide (Lasix) 20 mg PO DAILY [facility] Last Admin: 09/12/18 10:21 Dose: 20 mg Glucagon (Glucagen Diagnostic Kit) 0 mg IM STAT PRN; Protocol PRN Reason: Hypoglycemia Protocol Guaifenesin/Dextromethorphan (Robitussin Dm) 10 ml PO Q4H PRN PRN Reason: Cough and congestion Dextrose (Dextrose 5% In Water 1000 Ml) 1,000 mls @ 0 mls/hr IV .Q0M PRN; Protocol PRN Reason: Hypoglycemia Protocol Insulin Aspart (Novolog) 5 unit SC ACTID [facility] Last Admin: 09/12/18 16:45 Dose: 5 u Insulin Glargine (Lantus) 15 unit SC HS [facility] Last Admin: 09/11/18 22:23 Dose: 15 units Metoprolol Tartrate (Lopressor) 50 mg PO Q12 [facility] Last Admin: 09/12/18 10:22 Dose: 50 mg Pantoprazole Sodium (Protonix Ec Tab) 40 mg PO DAILY [facility] Last Admin: 09/12/18 10:21 Dose: 40 mg Potassium Chloride (K-Dur 20 Meq Er Tab) 20 meq PO DAILY [facility] Last Admin: 09/12/18 15:46 Dose: 20 meq Rosuvastatin Calcium (Crestor) 40 mg PO HS [facility] Last Admin: 09/11/18 22:24 Dose: 40 mg - Labs Labs: 09/11/18 06:22 09/12/18 07:12 PT 11.1 SECONDS (9.7-12.2) 09/03/18 01:40 INR 1.0 09/03/18 01:40 APTT 71 SECONDS (21-34) H 09/06/18 06:03 - Constitutional Appears: No Acute Distress - Head Exam Head Exam: NORMAL INSPECTION - Eye Exam Eye Exam: Normal appearance - ENT Exam ENT Exam: Normal Exam - Neck Exam Neck Exam: Normal Inspection - Respiratory Exam Additional comments: few rhonchi both bases. - Cardiovascular Exam Cardiovascular Exam: Irregular Rhythm, Murmur - GI/Abdominal Exam GI & Abdominal Exam: Soft, Normal Bowel Sounds - Rectal Exam Rectal Exam: Deferred - Extremities Exam Extremities Exam: Normal Inspection - Back Exam Back Exam: NORMAL INSPECTION - Neurological Exam Neurological Exam: Alert, Awake, Oriented x3 - Psychiatric Exam Psychiatric exam: Anxious - Skin Skin Exam: Dry, Intact Assessment and Plan (1) Acute ST elevation myocardial infarction (STEMI) of anterior wall Status: Resolved (2) Acute pulmonary edema Status: Resolved (3) Acute respiratory failure Status: Resolved (4) Uncontrolled diabetes mellitus Status: Resolved
[2018-09-12] MEDS: guaiFENesin DM 200 mg-20 mg/10 ml UD PO PRN (21:35)
[2018-09-12] MEDS: (Lantus) Insulin Glargine, Recombinant SC SCH (21:37)
--- NOTE | 2018-09-12 22:54 | CP.PCM.PN ---
Subjective - Date & Time of Evaluation Date of Evaluation: 09/12/18 Time of Evaluation: 11:10 - Subjective Subjective: Patient seen and evaluated denies chest pain and dyspnea Objective - Vital Signs/Intake and Output Vital Signs (last 24 hours): Temp Pulse Resp BP Pulse Ox 97.3 F L 65 20 117/62 100 09/12/18 15:00 09/12/18 16:00 09/12/18 15:00 09/12/18 15:00 09/12/18 15:00 Intake and Output: 09/12/18 09/13/18 18:59 06:59 Output Total 400 Balance -400 - Medications Medications: Current Medications Apixaban (Eliquis) 2.5 mg PO BID [facility] Last Admin: 09/12/18 17:46 Dose: 2.5 mg Aspirin (Aspirin Chewable) 81 mg PO DAILY [facility] Last Admin: 09/12/18 10:21 Dose: 81 mg Cephalexin Monohydrate (Keflex) 500 mg PO Q8H [facility]; Protocol Last Admin: 09/12/18 17:46 Dose: 500 mg Clopidogrel Bisulfate (Plavix) 75 mg PO DAILY [facility] Last Admin: 09/12/18 10:21 Dose: 75 mg Dextrose (Dextrose 50% Inj) 0 ml IV STAT PRN; Protocol PRN Reason: Hypoglycemia Protocol Dextrose (Glutose 15) 0 gm PO ONCE PRN; Protocol PRN Reason: Hypoglycemia Protocol Furosemide (Lasix) 20 mg PO DAILY [facility] Last Admin: 09/12/18 10:21 Dose: 20 mg Glucagon (Glucagen Diagnostic Kit) 0 mg IM STAT PRN; Protocol PRN Reason: Hypoglycemia Protocol Guaifenesin/Dextromethorphan (Robitussin Dm) 10 ml PO Q4H PRN PRN Reason: Cough and congestion Last Admin: 09/12/18 21:35 Dose: 10 ml Dextrose (Dextrose 5% In Water 1000 Ml) 1,000 mls @ 0 mls/hr IV .Q0M PRN; Protocol PRN Reason: Hypoglycemia Protocol Insulin Aspart (Novolog) 5 unit SC ACTID [facility] Last Admin: 09/12/18 16:45 Dose: 5 u Insulin Glargine (Lantus) 15 unit SC HS [facility] Last Admin: 09/12/18 21:37 Dose: 15 units Metoprolol Tartrate (Lopressor) 50 mg PO Q12 [facility] Last Admin: 09/12/18 21:35 Dose: 50 mg Pantoprazole Sodium (Protonix Ec Tab) 40 mg PO DAILY [facility] Last Admin: 09/12/18 10:21 Dose: 40 mg Potassium Chloride (K-Dur 20 Meq Er Tab) 20 meq PO DAILY [facility] Last Admin: 09/12/18 15:46 Dose: 20 meq Rosuvastatin Calcium (Crestor) 40 mg PO HS [facility] Last Admin: 09/12/18 21:35 Dose: 40 mg - Labs Labs: 09/11/18 06:22 09/12/18 07:12 PT 11.1 SECONDS (9.7-12.2) 09/03/18 01:40 INR 1.0 09/03/18 01:40 APTT 71 SECONDS (21-34) H 09/06/18 06:03
[2018-09-13] MEDS: (Novolog) Insulin Aspart, Recombinant 100 u/ml 10 ml vial SC SCH ×3 (08:20→16:59)
[2018-09-13] MEDS: Pantoprazole 40 mg EC Tab PO SCH (09:42)
[2018-09-13] MEDS: Potassium Chloride 20 mEq ER Tab PO SCH (09:45)
--- NOTE | 2018-09-13 13:50 | CP.PCM.PN ---
Subjective - Date & Time of Evaluation Date of Evaluation: 09/13/18 Time of Evaluation: 08:00 - Subjective Subjective: afeb less sob no distress Objective - Vital Signs/Intake and Output Vital Signs (last 24 hours): Temp Pulse Resp BP Pulse Ox 98.3 F 67 20 134/80 94 L 09/13/18 07:00 09/13/18 07:00 09/13/18 07:00 09/13/18 09:42 09/13/18 07:00 Intake and Output: 09/13/18 09/13/18 06:59 18:59 Output Total 400 Balance -400 - Medications Medications: Current Medications Apixaban (Eliquis) 2.5 mg PO BID [facility] Last Admin: 09/13/18 09:42 Dose: 2.5 mg Aspirin (Aspirin Chewable) 81 mg PO DAILY [facility] Last Admin: 09/13/18 09:43 Dose: 81 mg Cephalexin Monohydrate (Keflex) 500 mg PO Q8H [facility]; Protocol Last Admin: 09/13/18 09:42 Dose: 500 mg Dextrose (Dextrose 50% Inj) 0 ml IV STAT PRN; Protocol PRN Reason: Hypoglycemia Protocol Dextrose (Glutose 15) 0 gm PO ONCE PRN; Protocol PRN Reason: Hypoglycemia Protocol Furosemide (Lasix) 20 mg PO DAILY [facility] Last Admin: 09/13/18 09:42 Dose: 20 mg Glucagon (Glucagen Diagnostic Kit) 0 mg IM STAT PRN; Protocol PRN Reason: Hypoglycemia Protocol Guaifenesin/Dextromethorphan (Robitussin Dm) 10 ml PO Q4H PRN PRN Reason: Cough and congestion Last Admin: 09/12/18 21:35 Dose: 10 ml Insulin Aspart (Novolog) 5 unit SC ACTID [facility] Last Admin: 09/13/18 12:22 Dose: 5 units Insulin Glargine (Lantus) 15 unit SC HS [facility] Last Admin: 09/12/18 21:37 Dose: 15 units Losartan Potassium (Cozaar) 25 mg PO DAILY [facility] Last Admin: 09/13/18 12:22 Dose: 25 mg Metoprolol Tartrate (Lopressor) 50 mg PO Q12 [facility] Last Admin: 09/13/18 09:42 Dose: 50 mg Pantoprazole Sodium (Protonix Ec Tab) 40 mg PO DAILY [facility] Last Admin: 09/13/18 09:42 Dose: 40 mg Potassium Chloride (K-Dur 20 Meq Er Tab) 20 meq PO DAILY [facility] Last Admin: 09/13/18 09:45 Dose: 20 meq Rosuvastatin Calcium (Crestor) 40 mg PO HS [facility] Last Admin: 09/12/18 21:35 Dose: 40 mg - Labs Labs: 09/11/18 06:22 09/12/18 07:12 PT 11.1 SECONDS (9.7-12.2) 09/03/18 01:40 INR 1.0 09/03/18 01:40 APTT 71 SECONDS (21-34) H 09/06/18 06:03 - Constitutional Appears: Non-toxic, Chronically Ill - Head Exam Head Exam: NORMOCEPHALIC - Eye Exam Eye Exam: absent: Scleral icterus - ENT Exam ENT Exam: Mucous Membranes Dry - Neck Exam Neck Exam: absent: Lymphadenopathy - Respiratory Exam Respiratory Exam: Decreased Breath Sounds - Cardiovascular Exam Cardiovascular Exam: REGULAR RHYTHM - GI/Abdominal Exam GI & Abdominal Exam: Distended, Soft - Rectal Exam Rectal Exam: Deferred - Exam Exam: NORMAL INSPECTION Assessment and Plan (1) Acute ST elevation myocardial infarction (STEMI) of anterior wall Status: Resolved (2) Acute pulmonary edema Status: Resolved (3) Acute respiratory failure Status: Resolved (4) Cardiogenic shock Status: Acute (5) Pneumonia Status: Acute - Assessment and Plan (Free Text) Assessment: MSSA sputum treateded for this with hemal
[2018-09-13] MEDS: guaiFENesin DM 200 mg-20 mg/10 ml UD PO PRN (18:05)
--- NOTE | 2018-09-13 18:21 | CP.PCM.PN ---
Subjective - Date & Time of Evaluation Date of Evaluation: 09/13/18 Time of Evaluation: 10:30 - Subjective Subjective: Patient seen and examined at bedside. Patient appears to be back to baseline. He is AAO x3. Denied any chest pain, shortness of breath, or palpitations. Physical Examination - Additional Findings Additional findings: - Constitutional Appears: Chronically Ill - Head Exam Head Exam: NORMAL INSPECTION, NORMOCEPHALIC - Eye Exam Eye Exam: EOMI, Normal appearance, PERRL - ENT Exam ENT Exam: Mucous Membranes Dry - Respiratory Exam Respiratory Exam: Decreased Breath Sounds - Cardiovascular Exam Cardiovascular Exam: Irregular Rhythm, +S1, +S2 - GI/Abdominal Exam GI & Abdominal Exam: Soft, Normal Bowel Sounds. absent: Distended, Tenderness - Extremities Exam Extremities Exam: Normal Inspection. absent: Pedal Edema, Tenderness - Neurological Exam Neurological Exam: Alert, Awake - Psychiatric Exam Psychiatric exam: Normal Affect, Normal Mood - Skin Skin Exam: Dry, Intact, Normal Color, Warm Assessment and Plan - Assessment and Plan (Free Text) Plan: Anterior Wall NM s/p PCI in LAD (code heart) Dilated Ischemic Cardiomyopathy Cardiogenic shock s/p balloon pump (code blue) Severe Triple Vessel Disease Pulmonary Edema New Onset Atrial Fibrillation Imaging: -s/p catherization: L Main: Patent. LAD/Diags; Small caliber artery. Entire LAD has diffuse 90% calcific narrowing. Mid 100% occlusion. L Cx/OM: Dominant: Proximal 85%, OM2 99%. RCA: Non dominant and diffuse 99% disease. LV: EF 10-15%, Dilated ischemic CMP, No Management: - Continue ASA, Eliquis 2.5mg PO BID, Metoprolol 50mg PO Q12, and Crestor - Stop Plavix. Patient has lifeVest For elective PCI of L Cx in 1 month Objective - Vital Signs/Intake and Output Vital Signs (last 24 hours): Temp Pulse Resp BP Pulse Ox 98.3 F 59 L 20 134/80 94 L 09/13/18 07:00 09/13/18 16:00 09/13/18 07:00 09/13/18 09:42 09/13/18 07:00 Intake and Output: 09/13/18 09/13/18 06:59 18:59 Output Total 400 Balance -400 - Medications Medications: Current Medications Apixaban (Eliquis) 2.5 mg PO BID [facility] Last Admin: 09/13/18 17:59 Dose: 2.5 mg Aspirin (Aspirin Chewable) 81 mg PO DAILY [facility] Last Admin: 09/13/18 09:43 Dose: 81 mg Cephalexin Monohydrate (Keflex) 500 mg PO Q8H [facility]; Protocol Last Admin: 09/13/18 17:59 Dose: 500 mg Dextrose (Dextrose 50% Inj) 0 ml IV STAT PRN; Protocol PRN Reason: Hypoglycemia Protocol Dextrose (Glutose 15) 0 gm PO ONCE PRN; Protocol PRN Reason: Hypoglycemia Protocol Furosemide (Lasix) 20 mg PO DAILY [facility] Last Admin: 09/13/18 09:42 Dose: 20 mg Glucagon (Glucagen Diagnostic Kit) 0 mg IM STAT PRN; Protocol PRN Reason: Hypoglycemia Protocol Guaifenesin/Dextromethorphan (Robitussin Dm) 10 ml PO Q4H PRN PRN Reason: Cough and congestion Last Admin: 09/13/18 18:05 Dose: 10 ml Insulin Aspart (Novolog) 5 unit SC ACTID [facility] Last Admin: 09/13/18 16:59 Dose: 5 units Insulin Glargine (Lantus) 15 unit SC HS [facility] Last Admin: 09/12/18 21:37 Dose: 15 units Losartan Potassium (Cozaar) 25 mg PO DAILY [facility] Last Admin: 09/13/18 12:22 Dose: 25 mg Metoprolol Tartrate (Lopressor) 50 mg PO Q12 [facility] Last Admin: 09/13/18 09:42 Dose: 50 mg Pantoprazole Sodium (Protonix Ec Tab) 40 mg PO DAILY [facility] Last Admin: 09/13/18 09:42 Dose: 40 mg Potassium Chloride (K-Dur 20 Meq Er Tab) 20 meq PO DAILY [facility] Last Admin: 09/13/18 09:45 Dose: 20 meq Rosuvastatin Calcium (Crestor) 40 mg PO HS [facility] Last Admin: 09/12/18 21:35 Dose: 40 mg - Labs Labs: 09/11/18 06:22 09/12/18 07:12 PT 11.1 SECONDS (9.7-12.2) 09/03/18 01:40 INR 1.0 09/03/18 01:40 APTT 71 SECONDS (21-34) H 09/06/18 06:03
--- NOTE | 2018-09-13 20:04 | CP.PCM.PN ---
Subjective - Date & Time of Evaluation Date of Evaluation: 09/13/18 Time of Evaluation: 20:02 - Subjective Subjective: Patient has no complaint of chest pain, SOB, palpitation, dizziness. On Live vest now. K+: 3.5. Will add Spironolactone. Telemetry shows RSR. Objective - Vital Signs/Intake and Output Vital Signs (last 24 hours): Temp Pulse Resp BP Pulse Ox 97.9 F 66 66 H 127/76 98 09/13/18 19:05 09/13/18 19:05 09/13/18 19:05 09/13/18 19:05 09/13/18 19:05 - Medications Medications: Current Medications Apixaban (Eliquis) 2.5 mg PO BID [facility] Last Admin: 09/13/18 17:59 Dose: 2.5 mg Aspirin (Aspirin Chewable) 81 mg PO DAILY [facility] Last Admin: 09/13/18 09:43 Dose: 81 mg Cephalexin Monohydrate (Keflex) 500 mg PO Q8H [facility]; Protocol Last Admin: 09/13/18 17:59 Dose: 500 mg Dextrose (Dextrose 50% Inj) 0 ml IV STAT PRN; Protocol PRN Reason: Hypoglycemia Protocol Dextrose (Glutose 15) 0 gm PO ONCE PRN; Protocol PRN Reason: Hypoglycemia Protocol Furosemide (Lasix) 20 mg PO DAILY [facility] Last Admin: 09/13/18 09:42 Dose: 20 mg Glucagon (Glucagen Diagnostic Kit) 0 mg IM STAT PRN; Protocol PRN Reason: Hypoglycemia Protocol Guaifenesin/Dextromethorphan (Robitussin Dm) 10 ml PO Q4H PRN PRN Reason: Cough and congestion Last Admin: 09/13/18 18:05 Dose: 10 ml Insulin Aspart (Novolog) 5 unit SC ACTID [facility] Last Admin: 09/13/18 16:59 Dose: 5 units Insulin Glargine (Lantus) 15 unit SC HS [facility] Last Admin: 09/12/18 21:37 Dose: 15 units Losartan Potassium (Cozaar) 25 mg PO DAILY [facility] Last Admin: 09/13/18 12:22 Dose: 25 mg Metoprolol Tartrate (Lopressor) 50 mg PO Q12 [facility] Last Admin: 09/13/18 09:42 Dose: 50 mg Pantoprazole Sodium (Protonix Ec Tab) 40 mg PO DAILY [facility] Last Admin: 09/13/18 09:42 Dose: 40 mg Potassium Chloride (K-Dur 20 Meq Er Tab) 20 meq PO DAILY [facility] Last Admin: 09/13/18 09:45 Dose: 20 meq Rosuvastatin Calcium (Crestor) 40 mg PO HS [facility] Last Admin: 09/12/18 21:35 Dose: 40 mg Spironolactone (Aldactone) 25 mg PO BID [facility] - Labs Labs: 09/11/18 06:22 09/12/18 07:12 PT 11.1 SECONDS (9.7-12.2) 09/03/18 01:40 INR 1.0 09/03/18 01:40 APTT 71 SECONDS (21-34) H 09/06/18 06:03 - Constitutional Appears: Well, No Acute Distress - Head Exam Head Exam: NORMAL INSPECTION - Eye Exam Eye Exam: Normal appearance - ENT Exam ENT Exam: Normal Exam - Neck Exam Neck Exam: Normal Inspection - Respiratory Exam Respiratory Exam: Clear to Ausculation Bilateral, NORMAL BREATHING PATTERN - Cardiovascular Exam Cardiovascular Exam: REGULAR RHYTHM, Murmur - GI/Abdominal Exam GI & Abdominal Exam: Soft, Normal Bowel Sounds - Rectal Exam Rectal Exam: NORMAL INSPECTION - Exam Exam: NORMAL INSPECTION - Extremities Exam Extremities Exam: Normal Inspection - Back Exam Back Exam: NORMAL INSPECTION - Neurological Exam Neurological Exam: Alert, Awake, Oriented x3 - Psychiatric Exam Psychiatric exam: Anxious - Skin Skin Exam: Dry, Normal Color, Warm Assessment and Plan (1) Acute ST elevation myocardial infarction (STEMI) of anterior wall Status: Resolved (2) Acute pulmonary edema Status: Resolved (3) Acute respiratory failure Status: Resolved (4) Uncontrolled diabetes mellitus Status: Resolved
[2018-09-13] MEDS: (Lantus) Insulin Glargine, Recombinant SC SCH (21:57)
[2018-09-14 01:30] VITALS: RESP 20
[2018-09-14 07:58] LABS: ALB/GLOB RATIO 0.9 (1.0-2.1); ALBUMIN 3.2 g/dL (3.5-5.0); CALCIUM 8.8 mg/dl (8.6-10.4)
[2018-09-14] MEDS: (Novolog) Insulin Aspart, Recombinant 100 u/ml 10 ml vial SC SCH ×3 (08:22→17:18)
[2018-09-14] MEDS ORDERED: Potassium Chloride 20 mEq ER Tab PO STA (09:11)
--- NOTE | 2018-09-14 09:17 | CP.PCM.PN ---
<Sapna Garciaa - Last Filed: 09/14/18 09:14> Subjective - Date & Time of Evaluation Date of Evaluation: 09/14/18 Time of Evaluation: 09:14 - Subjective Subjective: Cardiology Follow Up Patient seen and examined at bedside. No acute complaints. Denied any chest pain, shortness of breath, or palpitations. Objective - Vital Signs/Intake and Output Vital Signs (last 24 hours): Temp Pulse Resp BP Pulse Ox 98 F 62 20 118/69 100 09/14/18 07:00 09/14/18 07:00 09/14/18 07:00 09/14/18 07:00 09/14/18 07:00 Intake and Output: 09/14/18 09/14/18 06:59 18:59 Output Total 650 Balance -650 - Medications Medications: Current Medications Apixaban (Eliquis) 2.5 mg PO BID [facility] Last Admin: 09/13/18 17:59 Dose: 2.5 mg Aspirin (Aspirin Chewable) 81 mg PO DAILY [facility] Last Admin: 09/13/18 09:43 Dose: 81 mg Cephalexin Monohydrate (Keflex) 500 mg PO Q8H [facility]; Protocol Last Admin: 09/14/18 00:24 Dose: 500 mg Dextrose (Dextrose 50% Inj) 0 ml IV STAT PRN; Protocol PRN Reason: Hypoglycemia Protocol Dextrose (Glutose 15) 0 gm PO ONCE PRN; Protocol PRN Reason: Hypoglycemia Protocol Furosemide (Lasix) 20 mg PO DAILY [facility] Last Admin: 09/13/18 09:42 Dose: 20 mg Glucagon (Glucagen Diagnostic Kit) 0 mg IM STAT PRN; Protocol PRN Reason: Hypoglycemia Protocol Guaifenesin/Dextromethorphan (Robitussin Dm) 10 ml PO Q4H PRN PRN Reason: Cough and congestion Last Admin: 09/13/18 18:05 Dose: 10 ml Insulin Aspart (Novolog) 5 unit SC ACTID [facility] Last Admin: 09/14/18 08:22 Dose: 5 units Insulin Glargine (Lantus) 15 unit SC HS [facility] Last Admin: 09/13/18 21:57 Dose: 15 units Losartan Potassium (Cozaar) 25 mg PO DAILY [facility] Last Admin: 09/13/18 12:22 Dose: 25 mg Metoprolol Tartrate (Lopressor) 50 mg PO Q12 [facility] Last Admin: 09/13/18 21:56 Dose: 50 mg Pantoprazole Sodium (Protonix Ec Tab) 40 mg PO DAILY [facility] Last Admin: 09/13/18 09:42 Dose: 40 mg Potassium Chloride (K-Dur 20 Meq Er Tab) 20 meq PO DAILY [facility] Last Admin: 09/13/18 09:45 Dose: 20 meq Potassium Chloride (K-Dur 20 Meq Er Tab) 20 meq PO STAT [facility] Stop: 09/14/18 09:12 Potassium Chloride (K-Dur 20 Meq Er Tab) 20 meq PO ONCE ONE Stop: 09/14/18 18:01 Rosuvastatin Calcium (Crestor) 40 mg PO HS [facility] Last Admin: 09/13/18 21:56 Dose: 40 mg Spironolactone (Aldactone) 25 mg PO BID [facility] - Labs Labs: 09/11/18 06:22 09/14/18 07:20 PT 11.1 SECONDS (9.7-12.2) 09/03/18 01:40 INR 1.0 09/03/18 01:40 APTT 71 SECONDS (21-34) H 09/06/18 06:03 - Additional Findings Additional findings: - Constitutional Appears: Chronically Ill - Head Exam Head Exam: NORMAL INSPECTION, NORMOCEPHALIC - Eye Exam Eye Exam: EOMI, Normal appearance, PERRL - ENT Exam ENT Exam: Mucous Membranes Dry - Respiratory Exam Respiratory Exam: Decreased Breath Sounds - Cardiovascular Exam Cardiovascular Exam: Irregular Rhythm, +S1, +S2, life vest is on - GI/Abdominal Exam GI & Abdominal Exam: Soft, Normal Bowel Sounds. absent: Distended, Tenderness - Extremities Exam Extremities Exam: Normal Inspection. absent: Pedal Edema, Tenderness - Neurological Exam Neurological Exam: Alert, Awake - Psychiatric Exam Psychiatric exam: Normal Affect, Normal Mood - Skin Skin Exam: Dry, Intact, Normal Color, Warm Assessment and Plan - Assessment and Plan (Free Text) Plan: Anterior Wall CT s/p PCI in LAD (code heart) Dilated Ischemic Cardiomyopathy Cardiogenic shock s/p balloon pump (code blue) Severe Triple Vessel Disease Pulmonary Edema New Onset Atrial Fibrillation Imaging: -s/p catherization: L Main: Patent. LAD/Diags; Small caliber artery. Entire LAD has diffuse 90% calcific narrowing. Mid 100% occlusion. L Cx/OM: Dominant: Proximal 85%, OM2 99%. RCA: Non dominant and diffuse 99% disease. LV: EF 10-15%, Dilated ischemic CMP, No Management: - Continue ASA, Eliquis 2.5mg PO BID, Metoprolol 50mg PO Q12, and Crestor; discontinue plavix - Currently has Lifevest - Patient is to follow up with Dr. Rivera for LCX PCI in 4 weeks Case discussed with Dr. Rivera, Deneen Garcia DO, PGY2 <Clayton Rivera - Last Filed: 09/14/18 21:35> Objective - Vital Signs/Intake and Output Vital Signs (last 24 hours): Temp Pulse Resp BP Pulse Ox 98.1 F 58 L 20 91/53 L 100 09/14/18 15:05 09/14/18 15:05 09/14/18 15:05 09/14/18 15:05 09/14/18 15:05 Intake and Output: 09/14/18 09/15/18 18:59 06:59 Intake Total 600 Balance 600 - Medications Medications: Current Medications Apixaban (Eliquis) 2.5 mg PO BID [facility] Last Admin: 09/14/18 17:18 Dose: 2.5 mg Aspirin (Aspirin Chewable) 81 mg PO DAILY [facility] Last Admin: 09/14/18 10:18 Dose: 81 mg Cephalexin Monohydrate (Keflex) 500 mg PO Q8H [facility]; Protocol Last Admin: 09/14/18 17:18 Dose: 500 mg Dextrose (Dextrose 50% Inj) 0 ml IV STAT PRN; Protocol PRN Reason: Hypoglycemia Protocol Dextrose (Glutose 15) 0 gm PO ONCE PRN; Protocol PRN Reason: Hypoglycemia Protocol Furosemide (Lasix) 20 mg PO DAILY [facility] Last Admin: 09/14/18 10:17 Dose: 20 mg Glucagon (Glucagen Diagnostic Kit) 0 mg IM STAT PRN; Protocol PRN Reason: Hypoglycemia Protocol Guaifenesin/Dextromethorphan (Robitussin Dm) 10 ml PO Q4H PRN PRN Reason: Cough and congestion Last Admin: 09/13/18 18:05 Dose: 10 ml Insulin Aspart (Novolog) 5 unit SC ACTID [facility] Last Admin: 09/14/18 17:18 Dose: 5 units Insulin Glargine (Lantus) 15 unit SC HS [facility] Last Admin: 09/13/18 21:57 Dose: 15 units Losartan Potassium (Cozaar) 25 mg PO DAILY [facility] Last Admin: 09/14/18 10:17 Dose: 25 mg Metoprolol Tartrate (Lopressor) 50 mg PO Q12 [facility] Last Admin: 09/14/18 10:18 Dose: 50 mg Pantoprazole Sodium (Protonix Ec Tab) 40 mg PO DAILY [facility] Last Admin: 09/14/18 10:17 Dose: 40 mg Rosuvastatin Calcium (Crestor) 40 mg PO HS [facility] Last Admin: 09/13/18 21:56 Dose: 40 mg Spironolactone (Aldactone) 25 mg PO BID [facility] Last Admin: 09/14/18 17:19 Dose: 25 mg - Labs Labs: 09/11/18 06:22 09/14/18 07:20 PT 11.1 SECONDS (9.7-12.2) 09/03/18 01:40 INR 1.0 09/03/18 01:40 APTT 71 SECONDS (21-34) H 09/06/18 06:03 Assessment and Plan - Assessment and Plan (Free Text) Plan: Patient seen and evaluated personally by me Plan of care d/w the resident and as documented
[2018-09-14] MEDS: Pantoprazole 40 mg EC Tab PO SCH (10:17)
[2018-09-14] MEDS: Potassium Chloride 20 mEq ER Tab PO SCH (10:18)
[2018-09-14] MEDS ORDERED: Potassium Chloride 20 mEq ER Tab PO ONE (18:00)
[2018-09-14] MEDS: (Lantus) Insulin Glargine, Recombinant SC SCH (22:02)
--- NOTE | 2018-09-14 22:59 | CP.PCM.PN ---
Subjective - Date & Time of Evaluation Date of Evaluation: 09/14/18 Time of Evaluation: 07:45 - Subjective Subjective: Patient has no complaint of SOB or chest pain. Telemetry: RSR. Serum K+: 3.1. KCl replacement given. Objective - Vital Signs/Intake and Output Vital Signs (last 24 hours): Temp Pulse Resp BP Pulse Ox 98.1 F 58 L 20 91/53 L 100 09/14/18 15:05 09/14/18 15:05 09/14/18 15:05 09/14/18 15:05 09/14/18 15:05 Intake and Output: 09/14/18 09/15/18 18:59 06:59 Intake Total 600 Balance 600 - Medications Medications: Current Medications Apixaban (Eliquis) 2.5 mg PO BID [facility] Last Admin: 09/14/18 17:18 Dose: 2.5 mg Aspirin (Aspirin Chewable) 81 mg PO DAILY [facility] Last Admin: 09/14/18 10:18 Dose: 81 mg Cephalexin Monohydrate (Keflex) 500 mg PO Q8H [facility]; Protocol Last Admin: 09/14/18 17:18 Dose: 500 mg Dextrose (Dextrose 50% Inj) 0 ml IV STAT PRN; Protocol PRN Reason: Hypoglycemia Protocol Dextrose (Glutose 15) 0 gm PO ONCE PRN; Protocol PRN Reason: Hypoglycemia Protocol Furosemide (Lasix) 20 mg PO DAILY [facility] Last Admin: 09/14/18 10:17 Dose: 20 mg Glucagon (Glucagen Diagnostic Kit) 0 mg IM STAT PRN; Protocol PRN Reason: Hypoglycemia Protocol Guaifenesin/Dextromethorphan (Robitussin Dm) 10 ml PO Q4H PRN PRN Reason: Cough and congestion Last Admin: 09/13/18 18:05 Dose: 10 ml Insulin Aspart (Novolog) 5 unit SC ACTID [facility] Last Admin: 09/14/18 17:18 Dose: 5 units Insulin Glargine (Lantus) 15 unit SC HS [facility] Last Admin: 09/14/18 22:02 Dose: 15 units Losartan Potassium (Cozaar) 25 mg PO DAILY [facility] Last Admin: 09/14/18 10:17 Dose: 25 mg Metoprolol Tartrate (Lopressor) 50 mg PO Q12 [facility] Last Admin: 09/14/18 22:02 Dose: 50 mg Pantoprazole Sodium (Protonix Ec Tab) 40 mg PO DAILY [facility] Last Admin: 09/14/18 10:17 Dose: 40 mg Rosuvastatin Calcium (Crestor) 40 mg PO HS [facility] Last Admin: 09/14/18 22:02 Dose: 40 mg Spironolactone (Aldactone) 25 mg PO BID [facility] Last Admin: 09/14/18 17:19 Dose: 25 mg - Labs Labs: 09/11/18 06:22 09/14/18 07:20 PT 11.1 SECONDS (9.7-12.2) 09/03/18 01:40 INR 1.0 09/03/18 01:40 APTT 71 SECONDS (21-34) H 09/06/18 06:03 - Constitutional Appears: Well, No Acute Distress - Head Exam Head Exam: NORMAL INSPECTION - Eye Exam Eye Exam: Normal appearance - ENT Exam ENT Exam: Normal Exam - Neck Exam Neck Exam: Normal Inspection - Respiratory Exam Respiratory Exam: Clear to Ausculation Bilateral - Cardiovascular Exam Cardiovascular Exam: REGULAR RHYTHM - GI/Abdominal Exam GI & Abdominal Exam: Soft, Normal Bowel Sounds - Rectal Exam Rectal Exam: Deferred - Extremities Exam Extremities Exam: Normal Inspection - Back Exam Back Exam: NORMAL INSPECTION - Neurological Exam Neurological Exam: Alert, Awake, Oriented x3 - Psychiatric Exam Psychiatric exam: Anxious - Skin Skin Exam: Dry, Intact, Warm Assessment and Plan (1) Acute ST elevation myocardial infarction (STEMI) of anterior wall Status: Resolved (2) Acute pulmonary edema Status: Resolved (3) Acute respiratory failure Status: Resolved (4) Uncontrolled diabetes mellitus Status: Resolved
[2018-09-15 08:07] LABS: ALB/GLOB RATIO 0.9 (1.0-2.1); ALBUMIN 3.1 g/dL (3.5-5.0); CALCIUM 8.6 mg/dl (8.6-10.4)
[2018-09-15 08:30] VITALS: TEMP 98.6; O2SAT 98
[2018-09-15] MEDS: (Novolog) Insulin Aspart, Recombinant 100 u/ml 10 ml vial SC SCH (08:32)
[2018-09-15 09:12] VITALS: PULSE 62
[2018-09-15] MEDS: Pantoprazole 40 mg EC Tab PO SCH (09:36)
[2018-09-15 09:38] VITALS: BP 122/61
[2018-09-15] MEDS: guaiFENesin DM 200 mg-20 mg/10 ml UD PO PRN (09:43)
--- NOTE | 2018-09-15 21:53 | CARD ---
APPROVED REPORT Date of service: 09/14/2018 EKG Measurement Heart [id number] <Conclusion> Sinus bradycardia Possible Left atrial enlargement Septal infarct, age undetermined Possible Lateral infarct, age undetermined Abnormal ECG
== END 2018-09-15 12:30 | disposition home or self-care (01) | DRG 270 ==
LOC: C.ER 01:22 → C.9I 02:00 → UNDOADMIN 02:00 → C.9I 02:02 → C.6T 09-11 16:09
PROVIDERS: ADMIT Internal Medicine Cardiovascular Disease; ATTEND Internal Medicine Cardiovascular Disease
PROC: 5A02210 Assistance with Cardiac Output using Balloon Pump, Continuous (ICD-10-PCS; principal; 2018-09-03)
PROC: 02703ZZ Dilation of Coronary Artery, One Artery, Percutaneous Approach (ICD-10-PCS; 2018-09-03)
PROC: 4A023N7 Measurement of Cardiac Sampling and Pressure, Left Heart, Percutaneous Approach (ICD-10-PCS; 2018-09-03)
PROC: B2151ZZ Fluoroscopy of Left Heart using Low Osmolar Contrast (ICD-10-PCS; 2018-09-03)
PROC: B2111ZZ Fluoroscopy of Multiple Coronary Arteries using Low Osmolar Contrast (ICD-10-PCS; 2018-09-03)
PROC: 5A1945Z Respiratory Ventilation, 24-96 Consecutive Hours (ICD-10-PCS; 2018-09-03)
PROC: 02HV33Z Insertion of Infusion Device into Superior Vena Cava, Percutaneous Approach (ICD-10-PCS; 2018-09-03)
PROC: 0BH18EZ Insertion of Endotracheal Airway into Trachea, Via Natural or Artificial Opening Endoscopic (ICD-10-PCS; 2018-09-03)
DX: I21.09 ST elevation (STEMI) myocardial infarction involving other coronary artery of anterior wall (principal); R57.0 Cardiogenic shock; J96.00 Acute respiratory failure, unspecified whether with hypoxia or hypercapnia; I50.21 Acute systolic (congestive) heart failure; E11.01 Type 2 diabetes mellitus with hyperosmolarity with coma; I25.10 Atherosclerotic heart disease of native coronary artery without angina pectoris; J18.9 Pneumonia, unspecified organism; I42.0 Dilated cardiomyopathy; E87.2 Acidosis; J81.1 Chronic pulmonary edema; I11.0 Hypertensive heart disease with heart failure; I25.82 Chronic total occlusion of coronary artery; I25.5 Ischemic cardiomyopathy; D63.8 Anemia in other chronic diseases classified elsewhere; I48.91 Unspecified atrial fibrillation; R45.1 Restlessness and agitation; I95.1 Orthostatic hypotension; E78.5 Hyperlipidemia, unspecified; E78.00 Pure hypercholesterolemia, unspecified; Z23 Encounter for immunization; Z79.82 Long term (current) use of aspirin